=== PATIENT | female | born 1970 | race Caucasian/White ===

== ENCOUNTER 2020-03-16 14:18 | Outpatient (REF) | payer OTHER, SELFPAY ==
--- NOTE | 2020-03-16 14:46 | XR_ITS ---
EXAMINATION: XR knee standing BI CLINICAL INFORMATION: Reason for Exam M25.561 - Pain in right knee COMPARISON: None available at the time of this dictation. TECHNIQUE: Bilateral frontal standing FINDINGS: BONES: No fracture or dislocation is present. JOINTS: Mild degenerative osteoarthritis evidenced by narrowing of medial joint space compartments bilaterally left more than right. SOFT TISSUE: Normal XR/XR knee standing BI IMPRESSION: Mild DJD primarily medial compartments.
== END 2020-03-16 14:19 | disposition home or self-care (01) ==
LOC: HO.XRAY 14:18
PROVIDERS: PCP Internal Medicine; Referring Provider Internal Medicine; Visit Provider Orthopaedic Surgery
DX: M25.561 Pain in right knee (principal); M25.562 Pain in left knee
CPT/HCPCS: 73565; 99212

== ENCOUNTER 2020-03-30 06:06 | Outpatient (REF) | payer OTHER, SELFPAY ==
[2020-03-30 12:46] LABS: Anion Gap 14 (12-20); Blood Urea Nitrogen 16 mg/dL (9-16); Calcium 8.6 mg/dL (8.4-10.2); Carbon Dioxide 26 mmol/L (22-29); Chloride 107 mmol/L (96-108); Cholesterol 247 mg/dL; Estimated Glomerular Filt Rate > 60; Glucose Fasting 91 mg/dL (60-99); HDL Cholesterol 39 mg/dL; LDL Cholesterol Calculated 177 mg/dl; Potassium 4.6 mmol/l (3.3-5.1); Sodium 142 mmol/L (135-145); Triglycerides 155 mg/dL
== END 2020-03-30 06:07 | disposition home or self-care (01) ==
LOC: HO.HMGCLDS 06:06
PROVIDERS: PCP Internal Medicine; Visit Provider Internal Medicine
DX: E78.9 Disorder of lipoprotein metabolism, unspecified (principal)
CPT/HCPCS: 80048; 80061

== ENCOUNTER 2020-06-28 06:57 | Outpatient (REF) | payer OTHER, SELFPAY ==
[2020-06-28 11:40] LABS: Anion Gap 11 (12-20); Blood Urea Nitrogen 17 mg/dL (9-16); Calcium 8.6 mg/dL (8.4-10.2); Carbon Dioxide 28 mmol/L (22-29); Chloride 108 mmol/L (96-108); Cholesterol 164 mg/dL; Estimated Glomerular Filt Rate > 60; Glucose Fasting 96 mg/dL (60-99); HDL Cholesterol 31 mg/dL; LDL Cholesterol Calculated 80 mg/dl; Potassium 4.3 mmol/L (3.3-5.1); Sodium 143 mmol/L (135-145); Triglycerides 266 mg/dL
== END 2020-06-28 06:58 | disposition home or self-care (01) ==
LOC: HO.HMGCLDS 06:57
PROVIDERS: PCP Internal Medicine; Visit Provider Internal Medicine
DX: G44.89 Other headache syndrome (principal); E78.9 Disorder of lipoprotein metabolism, unspecified
CPT/HCPCS: 36415; 80048; 80061

== ENCOUNTER 2020-07-18 14:54 | Outpatient (REF) | payer OTHER, SELFPAY ==
--- NOTE | ~2020-07-18 | MM_ITS ---
EXAMINATION: MM DIAGNOSTIC DIGITAL BREAST TOMOSYNTHESIS, LEFT CLINICAL INFORMATION: Short interval six-month follow-up asymmetric density mid 6:00 left breast initially noted at baseline exam. The lifetime risk of breast cancer based on the Tyrer-Cuzick Model is 6%. COMPARISON: Mammography: 12/15/2019, 12/02/2019 (baseline, BI-RADS 0), targeted left breast ultrasound 12/15/2019. TECHNIQUE: Digital breast tomosynthesis is performed in both the craniocaudal and mediolateral oblique views along with computer-aided detection (CAD). Synthesized 2D images are generated from the tomosynthesis. FINDINGS: There are scattered areas of fibroglandular density (ACR BI-RADS breast composition Category b). Parenchymal pattern is similar to prior exams. The fibronodular parenchymal asymmetry mid 6:00 position is stable. There is no developing density. The remainder the left breast is unremarkable. Finding will be reassessed again at time of annual bilateral mammography, due in 6 months. Results are provided to the patient at time of visit by the technologist. MM/MM tomosynthesis diagnostic LT IMPRESSION: Parenchymal pattern is similar to prior exam. No significant changes. ASSESSMENT: BI-RADS 3: Probably Benign RECOMMENDATION: Diagnostic mammography at time of bilateral annual exam, due in 6 months. This patient's information was entered into a reminder system with a target due date for their next mammogram.
== END 2020-07-18 14:55 | disposition home or self-care (01) ==
LOC: HO.MAMMO 14:54
PROVIDERS: PCP Internal Medicine; Visit Provider Internal Medicine
DX: R92.2 Inconclusive mammogram (principal)
CPT/HCPCS: 77061; 77063; 77065; 77067

== ENCOUNTER → 2020-07-19 15:11 | Outpatient (BNVA) | payer OTHER, SELFPAY | PROVIDERS: PCP Internal Medicine; Visit Provider Anesthesiology | DX: M25.561 Pain in right knee (principal); M25.562 Pain in left knee; M17.0 Bilateral primary osteoarthritis of knee; G90.522 Complex regional pain syndrome I of left lower limb | CPT/HCPCS: 99202 ==

== ENCOUNTER 2020-08-22 07:13 | Outpatient (REF) | payer OTHER, SELFPAY | END 2020-08-22 07:14 | disposition home or self-care (01) | LOC: HO.RADIR 07:13 | PROVIDERS: Visit Provider Anesthesiology | DX: M17.0 Bilateral primary osteoarthritis of knee (principal); M25.561 Pain in right knee; M25.562 Pain in left knee; G90.522 Complex regional pain syndrome I of left lower limb | CPT/HCPCS: 64447 ==

== ENCOUNTER → 2020-08-30 10:53 | Outpatient (BNVA) | payer OTHER, SELFPAY | PROVIDERS: PCP Internal Medicine; Visit Provider Anesthesiology | DX: Z51.81 Encounter for therapeutic drug level monitoring (principal); Z79.899 Other long term (current) drug therapy | CPT/HCPCS: 99211 ==

== ENCOUNTER → 2020-09-18 14:04 | Outpatient (BNVA) | payer OTHER, SELFPAY | PROVIDERS: PCP Internal Medicine; Visit Provider Anesthesiology ==

== ENCOUNTER 2020-10-05 19:15 | Emergency (ER) | payer OTHER, SELFPAY ==
--- NOTE | ~2020-10-05 | US_ITS ---
EXAMINATION: US VENOUS ULTRASOUND WITH DOPPLER LOWER EXTREMITY, RIGHT CLINICAL INFORMATION: Cough pain and swelling with knee pain. COMPARISON: None TECHNIQUE: Ultrasound of the deep veins is performed from the hip to the calf with compression sonography and color and pulse Doppler assessment. Spectral analysis with color-flow imaging is performed. FINDINGS: There is normal venous compression and respiratory variation and augmented flow. The visualized common femoral vein, superficial femoral vein, profunda femoral vein shows no evidence of deep venous thrombosis. There is acute clot visualized in the right popliteal vein with no color flow. There is no significant popliteal fossa cyst. If the patient's symptoms persist, followup ultrasound in 5 days 7 days might be of value to exclude proximal propagation from a non-visualized calf vein. US/US venous duplex LE RT IMPRESSION: Acute DVT demonstrated in popliteal vein.
[2020-10-05 19:38] VITALS: BP 187/91; PULSE 54; RESP 18; TEMP 36.4; O2SAT 100; BMI 31.9
--- NOTE | 2020-10-05 20:35 | ED.EXTPRO ---
HPI - Extremity Problem General Chief complaint: Extremity Problem Stated complaint: knee pain Time Seen by Provider: 10/05/20 20:35 Source: patient Limitations: no limitations History of Present Illness HPI Narrative: Pain behind right knee, seen in the urgent care and had a negative xray, is on celebrex with no relief. Feels like the leg is swollen Complaint: extremity pain Onset (ago): day(s) Pain Consistency: constant Location: right Quality: aching Relieving factors: nothing Exacerbating factors: nothing Related Data Home Medications Medication Instructions Recorded Confirmed sumatriptan succinate 50 mg tablet 0 mg PO 08/25/20 08/30/20 bisacodyl 5 mg tablet,delayed 10 mg PO BID 10/02/20 release celecoxib 200 mg capsule 200 mg PO DAILY 10/02/20 nitrofurantoin 1 cap PO BID 10/02/20 monohydrate/macrocrystals 100 mg capsule ondansetron HCl 8 mg tablet 8 mg PO Q8H PRN 10/02/20 peg 3350-electrolytes 236 4,000 ml PO DIRECTED 10/02/20 gram-22.74 gram-6.74 gram-5.86 gram solution phenazopyridine 200 mg tablet 200 mg PO TID 10/02/20 tizanidine 2 mg tablet 2 mg PO TID PRN 10/02/20 Previous Rx's Medication Instructions Recorded ibuprofen 600 mg tablet 600 mg PO TID #90 tab 05/08/20 simvastatin 20 mg tablet 20 mg PO BEDTIME 90 Days #90 tab 08/25/20 buspirone 7.5 mg tablet 7.5 mg PO ONCE PRN 30 Days #30 tab 09/25/20 rivaroxaban [Xarelto DVT-PE Treat See Rx Instructions .ROUTE 10/05/20 30d Start] .COMPLEX #51 ea Allergies Allergy/AdvReac Type Severity Reaction Status Date / Time Sulfa (Sulfonamide Allergy Unknown unknown Verified 10/05/20 19:43 Antibiotics) sulfamethoxazole Allergy Unknown Unknown Verified 10/05/20 19:43 [From Bactrim] trimethoprim [From Bactrim] Allergy Unknown Unknown Verified 10/05/20 19:43 Review of Systems Constitutional: Constitutional: Reports no additional constitutional complaints Eyes: Eyes: Reports no additional eye complaints ENT: Denies dizziness Cardiovascular: Cardiovascular: Reports no additional cardiovascular complaints Respiratory: Respiratory: Reports as per HPI Gastrointestinal: Gastrointestinal: Reports no additional gastrointestinal complaints Genitourinary: Genitourinary: Reports no additional female genitourinary complaints Musculoskeletal: Musculoskeletal: Reports no additional musculoskeletal complaints Integumentary/Breasts: Skin/Breast: Denies rash Neurologic: Reports system reviewed and no additional complaints, except as documented, Denies dizziness and Denies Sensory deficit (Neuro) Psychiatric: Psychiatric: Denies anxiety [facility] Past Medical History Medical History Alteration comfort patterns as evidenced by distress Bilateral knee pain Bilateral primary osteoarthritis of knee Chronic pain Complex regional pain syndrome i of left lower limb Headache syndrome Lipid disorder Surgical History History of knee surgery Family History Family History Father HTN (hypertension) Mother HTN (hypertension) Maternal Grandfather Diabetes mellitus Maternal Aunt Cancer Son No problems noted. Son No problems noted. Son No problems noted. Son No problems noted. Son No problems noted. 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 Physical Exam Vital Signs: Vital Signs: Last Vital Signs Temp 97.5 F 10/05/20 19:38 Pulse 54 10/05/20 19:38 Resp 18 10/05/20 19:38 BP 187/91 H 10/05/20 19:38 Pulse Ox 100 10/05/20 19:38 Body Mass Index 31.9 Const: General: healthy appearing Nutritional Appearance: average body habitus Orientation/consciousness: oriented to person and patient oriented x3 Limitations: no limitations HENMT: Head: Yes normal to inspection Ears: external ears normal General nose exam: Normal external nose present Mouth: Normal oral and palatal mucosa present and oropharynx normal Throat: Yes posterior oropharynx normal Eyes: General: appearance normal, both eyes and all related structures Neck: Other: supple Neck: Yes normal visual inspection Chest: Chest palpation & inspection: normal inspection of the chest Resp: Auscultation: clear to auscultation bilaterally Cardio: Jugular venous distension: no JVD Rate: regular rate Rhythm: regular rhythm Heart sounds: S1 normal heart sound present and S2 normal heart sound present GI: Inspection: Yes normal to inspection Palpation (GI): Soft to palpation, nontender and No hepatosplenomegaly present Auscultation: normal bowel sounds : General: Yes no CVA tenderness Back/Spine/Pelvis: Back: no CVA tenderness Skin: General skin exam: no rashes or lesions noted Neuro: General: oriented to person and patient oriented x3 Cranial nerves: Yes CN's II-XII intact bilaterally Motor exam (neuro): 5/5 motor strength present throughout Sensory Exam: No Sensory deficit (Neuro) Extrem: Other: patient with some pain in the calf and pain behind the knee, no redness or signs of infection Psych: Appearance: grossly normal Course Course Course Narrative: will check patient for clot vs toscano's cyst Reevaluation(s) Reevaluation #1: patient with a dvt will start xarelto Time: 21:34 MDM - Extremity (Nontraumatic) MDM Narrative Medical decision making narrative: will dc on xarelto 15mg twice a day for dVT Discharge Plan Discharge Clinical Impression: Deep vein thrombosis of lower extremity Qualifiers: Affected thrombotic vein of extremity: popliteal Chronicity: acute Laterality: right Qualified Code(s): I82.431 - Acute embolism and thrombosis of right popliteal vein Patient Disposition: Home, Self-Care Instructions: Deep Vein Thrombosis (ED) Prescriptions: New Xarelto DVT-PE Treat 30d Start 15 mg (42)- 20 mg (9) tablets,dose pack See Rx Instructions .ROUTE .COMPLEX Qty: 51 RF: 0 No Action buspirone 7.5 mg tablet 7.5 mg PO ONCE PRN (Reason: anxiety) 30 Days Qty: 30 RF: 0 ibuprofen 600 mg tablet 600 mg PO TID Qty: 90 RF: 0 sumatriptan succinate 50 mg tablet 0 mg PO RF: 0 simvastatin 20 mg tablet 20 mg PO BEDTIME 90 Days Qty: 90 RF: 0 celecoxib 200 mg capsule 200 mg PO DAILY RF: 0 nitrofurantoin monohyd/m-cryst 100 mg capsule 1 cap PO BID RF: 0 phenazopyridine 200 mg tablet 200 mg PO TID RF: 0 ondansetron HCl 8 mg tablet 8 mg PO Q8H PRNRF: 0 tizanidine 2 mg tablet 2 mg PO TID PRN (Reason: muscle spasm) RF: 0 peg 3350-electrolytes 236-22.74-6.74 -5.86 gram recon soln 4,000 ml PO DIRECTED RF: 0 bisacodyl 5 mg tablet,delayed release (DR/EC) 10 mg PO BID RF: 0 Referrals: Ochoa Hunter MD [Physician] - 10 days
[2020-10-05] MEDS: Ketorolac Tromethamine 60 MG/2 ML VIAL IM (21:14)
[2020-10-05] MEDS: Rivaroxaban 15 MG TABLET PO (22:44)
== END 2020-10-05 22:45 | disposition home or self-care (01) ==
PROVIDERS: Emergency Provider Emergency Medicine
DX: I82.431 Acute embolism and thrombosis of right popliteal vein (principal); M25.561 Pain in right knee; E78.5 Hyperlipidemia, unspecified; F17.200 Nicotine dependence, unspecified, uncomplicated; Z79.02 Long term (current) use of antithrombotics/antiplatelets; Z79.899 Other long term (current) drug therapy
CPT/HCPCS: 93971; 96372; 99284; J1885

== ENCOUNTER 2020-10-11 09:42 | Outpatient (REF) | payer OTHER, SELFPAY ==
[2020-10-11 11:30] LABS: MANUAL DIFF FLAG NO
[2020-10-11 11:54] LABS: Basophils Absolute Auto 0.1 X10*3/uL (0.0-0.2); Basophils Percent Auto 0.8 % (0-2); Eosinophils Absolute Auto 0.2 X10*3/uL (0.0-0.4); Eosinophils Percent Auto 2.4 % (0-4); Hemoglobin 14.2 g/dl (12.0-16.0); Imm Gran Abs Auto 0.02 X10*3/uL (0.00-0.03); Imm Gran Pct Auto 0.3 % (0.0-0.4); Lymphocytes Absolute Auto 3.7 X10*3/uL (1.2-4.9); Lymphocytes Percent Auto 46.8 % (20-40); Mean Corpuscular HGB Conc 33.8 g/dl (31.0-35.0); Mean Corpuscular Hemoglobin 31.6 pg (27.0-33.0); Mean Corpuscular Volume 93.5 fL (80-98); Mean Platelet Volume 14.1 fL (9.4-12.3); Monocytes Absolute Auto 0.6 X10*3/uL (0.1-1.2); Monocytes Percent Auto 7.6 % (2-11); Neutrophils Absolute Auto 3.4 X10*3/uL (2.0-8.3); Neutrophils Percent Auto 42.1 % (45-73); Platelet Count 160 X10*3/uL (160-400); Red Blood Count 4.49 X10*6/uL (4.20-5.50); Red Cell Distribution Width 13.2 % (11.0-16.0)
[2020-10-11 12:14] LABS: Alanine Aminotransferase 19 U/L (0-31); Albumin Level 4.5 g/dL (3.5-5.0); Alkaline Phosphatase 75 U/L (39-117); Anion Gap 14 (12-20); Aspartate Amino Transferase 18 U/L (5-31); Bilirubin Total 0.4 mg/dL (0.0-1.0); Blood Urea Nitrogen 19 mg/dL (9-16); Calcium 9.3 mg/dL (8.4-10.2); Carbon Dioxide 23 mmol/L (22-29); Chloride 107 mmol/L (96-108); Estimated Glomerular Filt Rate > 60; Glucose Random 87 mg/dL (60-115); Potassium 4.4 mmol/L (3.3-5.1); Sodium 140 mmol/L (135-145); Total Protein 7.5 g/dL (6.5-8.0)
== END 2020-10-11 09:43 | disposition home or self-care (01) ==
LOC: HO.HMGCLDS 09:42
PROVIDERS: PCP Internal Medicine; Visit Provider Internal Medicine
DX: I82.401 Acute embolism and thrombosis of unspecified deep veins of right lower extremity (principal)
CPT/HCPCS: 36415; 80053; 81241; 85025

== ENCOUNTER → 2020-10-13 10:08 | Outpatient (BNV) | payer OTHER, SELFPAY | PROVIDERS: PCP Internal Medicine; Visit Provider Internal Medicine | DX: I82.491 Acute embolism and thrombosis of other specified deep vein of right lower extremity (principal) | CPT/HCPCS: 99203; 99213; 99214; G2211 ==

== ENCOUNTER 2020-10-18 10:29 | Emergency (ER) | payer OTHER, SELFPAY ==
--- NOTE | ~2020-10-18 | US_ITS ---
EXAMINATION: US VENOUS ULTRASOUND WITH DOPPLER LOWER EXTREMITY, LEFT CLINICAL INFORMATION: Calf pain. Rule out DVT. COMPARISON: Previous exam most recent 10/05/2020 TECHNIQUE: Ultrasound of the deep veins is performed from the hip to the calf with compression sonography and color and pulse Doppler assessment. Spectral analysis with color-flow imaging is performed. FINDINGS: There is normal venous compression and respiratory variation and augmented flow. The visualized common femoral vein, superficial femoral vein, profunda femoral vein, popliteal vein, and the trifurcation region shows no evidence of deep venous thrombosis. There is no significant popliteal fossa cyst. US/US venous duplex LE LT IMPRESSION: No DVT demonstrated in the left lower extremity.
[2020-10-18 10:31] VITALS: BP 153/81; PULSE 64; RESP 18; TEMP 36.2; O2SAT 99; BMI 31.8
--- NOTE | 2020-10-18 11:03 | ED.EXTPRO ---
HPI - Extremity Problem General Chief complaint: Extremity Problem <DENVER Camara - Last Filed: 10/25/20 14:28> Stated complaint: blood clot? <DENVER Camara - Last Filed: 10/25/20 14:28> Time Seen by Provider: 10/18/20 11:03 <DENVER Camara - Last Filed: 10/25/20 14:28> History of Present Illness HPI Narrative: Patient just recently within the last several weeks started Xarelto for a right lower extremity deep vein thrombosis, she comes today complaining of pain in the back of her left knee without swelling without injury, she has no shortness of breath no chest pain <DENVER Camara - Last Filed: 10/25/20 14:28> Related Data Home medications: Home Medications Medication Instructions Recorded Confirmed sumatriptan succinate 50 mg tablet 50 mg PO DAILY PRN 08/25/20 11/24/20 bisacodyl 5 mg tablet,delayed 10 mg PO BID 10/02/20 11/24/20 release Previous Rx's Medication Instructions Recorded rivaroxaban [Xarelto DVT-PE Treat See Rx Instructions .ROUTE 10/05/20 30d Start] .COMPLEX #51 ea buspirone 7.5 mg tablet 7.5 mg PO DAILY PRN 9 Days #90 tab 10/24/20 rivaroxaban [Xarelto] 20 mg PO DAILY #90 tab 11/03/20 simvastatin 20 mg tablet 20 mg PO BEDTIME 90 Days #90 tab 11/23/20 oxycodone 5 mg capsule 5 mg PO BID PRN 30 Days #60 cap 11/24/20 gabapentin 300 mg capsule 300 mg PO BEDTIME 30 Days #30 cap 11/28/20 <DENVER Camara - Last Filed: 10/25/20 14:28> Allergies/Adverse reactions: Allergies Allergy/AdvReac Type Severity Reaction Status Date / Time Sulfa (Sulfonamide Allergy Unknown unknown Verified 10/18/20 10:36 Antibiotics) sulfamethoxazole Allergy Unknown Unknown Verified 10/18/20 10:36 [From Bactrim] trimethoprim [From Bactrim] Allergy Unknown Unknown Verified 10/18/20 10:36 <DENVER Camara Last Filed: 10/25/20 14:28> Review of Systems Review of Systems: Positive for left leg pain next 9 negatives are no fever no chills no dizziness no weakness no fainting feeling faint no headache no neck pain no chest pain no shortness of breath no abdominal pain no nausea or vomiting no numbness weakness or tingling no skin rash <DENVER Camara - Last Filed: 10/25/20 14:28> Yes all other systems are reviewed and are negative <DENVER Camara - Last Filed: 10/25/20 14:28> [facility] Past Medical History Source: nursing notes reviewed <DENVER Camara - Last Filed: 10/25/20 14:28> Medical History: Medical History Alteration comfort patterns as evidenced by distress Bilateral knee pain Bilateral primary osteoarthritis of knee Chronic pain Complex regional pain syndrome i of left lower limb Headache syndrome Lipid disorder <DENVER Camara - Last Filed: 10/25/20 14:28> Surgical History: Surgical History History of knee surgery <DENVER Camara Last Filed: 10/25/20 14:28> Family History Family History: Family History Father HTN (hypertension) Mother HTN (hypertension) Maternal Grandfather Diabetes mellitus Maternal Aunt Cancer Son No problems noted. Son No problems noted. Son No problems noted. Son No problems noted. Son No problems noted. 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 <DENVER Camara - Last Filed: 10/25/20 14:28> Physical Exam Vital Signs: Vital Signs: Last Vital Signs Temp 97.2 F 10/18/20 10:31 Pulse 64 10/18/20 10:31 Resp 18 10/18/20 10:31 BP 153/81 H 10/18/20 10:31 Pulse Ox 99 10/18/20 10:31 Body Mass Index 31.8 <DENVER Camara - Last Filed: 10/25/20 14:28> Vital Signs: Last Vital Signs Temp 97.2 F 10/18/20 10:31 Pulse 64 10/18/20 10:31 Resp 18 10/18/20 10:31 BP 153/81 H 10/18/20 10:31 Pulse Ox 99 10/18/20 10:31 Body Mass Index 31.8 <Ruy Melendez MD - Last Filed: 11/28/20 18:12> General appearance no acute distress Head is normocephalic atraumatic Neck is supple Chest is clear to auscultation bilateral Abdomen soft nontender Extremities the left lower extremity is normal in appearance without swelling full range of motion in all joints, there is tenderness in the posterior calf and thigh area, skin is otherwise normal no redness no warmth and neurovascular intact distal Other extremities full range of motion Skin no rash Neuro no gross motor or sensory deficit <DENVER Camara - Last Filed: 10/25/20 14:28> Course Course Course Narrative: Ultrasound of the left lower extremity was negative no DVT Patient is comfortable no shortness of breath, skin exam did not show any sign of skin infection and she is discharged home <DENVER Camara - Last Filed: 10/25/20 14:28> I have reviewed the chart <Ruy Melendez MD - Last Filed: 11/28/20 18:12> Discharge Plan Discharge Clinical Impression: Leg pain, left <DENVER Camara - Last Filed: 10/25/20 14:28> Patient Disposition: Home, Self-Care <DENVER Camara - Last Filed: 10/25/20 14:28> Additional Instructions: Today's ultrasound did not show any blood clot in the left leg You should continue your blood thinner Xarelto as prescribed by your doctor and okay for all regular activities Return any time any worse condition or concerns <DENVER Camara Last Filed: 10/25/20 14:28> Prescriptions: No Action buspirone 7.5 mg tablet 7.5 mg PO DAILY PRN (Reason: for anxiety) 9 Days Qty: 90 RF: 0 simvastatin 20 mg tablet 20 mg PO BEDTIME 90 Days Qty: 90 RF: 0 gabapentin 300 mg capsule 300 mg PO BEDTIME 30 Days Qty: 30 RF: 0 Xarelto DVT-PE Treat 30d Start 15 mg (42)- 20 mg (9) tablets,dose pack See Rx Instructions .ROUTE .COMPLEX Qty: 51 RF: 0 Xarelto 20 mg Tablet 20 mg PO DAILY Qty: 90 RF: 3 sumatriptan succinate 50 mg tablet 50 mg PO DAILY PRN (Reason: Migraine Headache) RF: 0 bisacodyl 5 mg tablet,delayed release (DR/EC) 10 mg PO BID RF: 0 oxycodone 5 mg capsule 5 mg PO BID PRN (Reason: pain) 30 Days Qty: 60 RF: 0 <DENVER Camara - Last Filed: 10/25/20 14:28> Stand Alone Forms: Work/School Release <DENVER Camara - Last Filed: 10/25/20 14:28> Interventions: ED Discharge Assessment Last Done: 10/18/20 13:22 <DENVER Camara - Last Filed: 10/25/20 14:28> Discharge Date/Time: 10/18/20 13:23 <DENVER Camara - Last Filed: 10/25/20 14:28>
== END 2020-10-18 13:23 | disposition home or self-care (01) ==
PROVIDERS: Emergency Provider Emergency Medicine; PCP Internal Medicine
DX: R60.0 Localized edema (principal); M79.605 Pain in left leg; Z79.01 Long term (current) use of anticoagulants; Z79.899 Other long term (current) drug therapy
CPT/HCPCS: 93971; 99283

== ENCOUNTER 2020-12-19 16:34 | Emergency (ER) | payer OTHER, SELFPAY ==
--- NOTE | ~2020-12-19 | US_ITS ---
EXAMINATION: US VENOUS WITH DOPPLER LOWER EXTREMITY, LEFT CLINICAL INFORMATION: Pain for 2 days. Evaluate for deep vein thrombosis. COMPARISON: Left lower extremity venous ultrasound dated 10/18/2020. TECHNIQUE: Ultrasound of the deep veins is performed from the hip to the calf with compression sonography and color and pulse Doppler assessment. Spectral analysis with color-flow imaging is performed. FINDINGS: There is normal venous compression and respiratory variation and augmented flow. The visualized common femoral vein, superficial femoral vein, profunda femoral vein, popliteal vein, and the trifurcation region shows no evidence of deep venous thrombosis. There is no significant popliteal fossa cyst. If the patient's symptoms persist, follow up ultrasound in 5 days 7 days might be of value to exclude proximal propagation from a non-visualized calf vein. US/US venous duplex LE IMPRESSION: No DVT demonstrated in the left lower extremity.
[2020-12-19 17:26] VITALS: BP 161/90; PULSE 55; RESP 18; TEMP 36.9; O2SAT 100; BMI 31.8
--- NOTE | 2020-12-19 21:09 | PC.NURSE ---
PT TO HALLWAY WITH C/O LEG PAIN MARLA WHILE AMBULATING. PT AWAITING FOR MD'S EVAL. WARM BLK PROVIDED FOR PT. PT REFUSED ICE PACK. LEGS UP IN RECLINER CHAIR. WILL CONTINUE TO MONITOR PT.
--- NOTE | 2020-12-19 21:39 | PC.NURSE ---
AT BEDSIDE FOR EVAL.
--- NOTE | 2020-12-19 21:46 | ED.EXTPRO ---
HPI - Extremity Problem General Chief complaint: Extremity Problem Stated complaint: PAIN IN LEGS Time Seen by Provider: 12/19/20 21:43 Source: patient Mode of arrival: ambulatory History of Present Illness HPI Narrative: 50-year-old female with history of factor 5 leiden as well as a recent diagnosis of right lower extremity DVT currently on Xarelto presents because of left lower extremity calf pain for 2 days. Otherwise, she denies fevers, palpitations, shortness of breath. She denies any associated swelling, redness. Related Data Home Medications Medication Instructions Recorded Confirmed sumatriptan succinate 50 mg tablet 50 mg PO DAILY PRN 08/25/20 11/24/20 bisacodyl 5 mg tablet,delayed 10 mg PO BID 10/02/20 11/24/20 release Previous Rx's Medication Instructions Recorded rivaroxaban [Xarelto DVT-PE Treat See Rx Instructions .ROUTE 10/05/20 30d Start] .COMPLEX #51 ea buspirone 7.5 mg tablet 7.5 mg PO DAILY PRN 9 Days #90 tab 10/24/20 rivaroxaban [Xarelto] 20 mg PO DAILY #90 tab 11/03/20 simvastatin 20 mg tablet 20 mg PO BEDTIME 90 Days #90 tab 11/23/20 oxycodone 5 mg capsule 5 mg PO BID PRN 30 Days #60 cap 11/24/20 gabapentin 300 mg capsule 300 mg PO BEDTIME 30 Days #30 cap 11/28/20 Allergies Allergy/AdvReac Type Severity Reaction Status Date / Time Sulfa (Sulfonamide Allergy Unknown unknown Verified 12/19/20 17:26 Antibiotics) sulfamethoxazole Allergy Unknown Unknown Verified 12/19/20 17:26 [From Bactrim] trimethoprim [From Bactrim] Allergy Unknown Unknown Verified 12/19/20 17:26 Review of Systems Review of Systems: Pertinent positives and negatives as stated in HPI 10 point review of systems is otherwise negative. [facility] Past Medical History Source: nursing notes reviewed Medical History Alteration comfort patterns as evidenced by distress Bilateral knee pain Bilateral primary osteoarthritis of knee Chronic pain Complex regional pain syndrome i of left lower limb Headache syndrome Lipid disorder Surgical History History of knee surgery Family History Family History Father HTN (hypertension) Mother HTN (hypertension) Maternal Grandfather Diabetes mellitus Maternal Aunt Cancer Son No problems noted. Son No problems noted. Son No problems noted. Son No problems noted. Son No problems noted. 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 GENERAL: Well developed, well nourished, in no acute distress. HEAD: Normocephalic/atraumatic EYES: PERRLA, EOMI EARS: Ext canals without abnormality OROPHARYNX: no oral lesions noted, posterior pharynx clear LUNGS: Normal breath sounds. No adventitious sounds or accessory muscle use. SpO2<100> CARDIOVASCULAR: Regular rate and rhythm without noted murmurs, no JVD or lower extremity edema. ABDOMEN: Soft, non-tender, non-distended with bowel sounds. LEFT LOWER EXTREMITY: No swelling, erythema, and no pain to the back of the calf but is pain on palpation of Achilles SKIN: Inspection of the skin reveals no rashes NEUROLOGIC: Alert and oriented x 4. Strength and sensation to light touch were grossly intact x 4. Course Course Course Narrative: 50-year-old female with history and clinical presentation suggestive of musculoskeletal but will rule out DVT as patient is concerned that despite being on anticoagulation she may have developed another. Review of all investigations negative for evidence of DVT or Ozuna cyst and given the absence of any trauma any further imaging with x-ray is of ankle or foot unlikely to yield further explanation for patient's pain. All results were discussed with her bedside and she was discharged in stable condition with instructions to follow-up with her PCP. Discharge Plan Discharge Clinical Impression: Heel pain, Calf pain Patient Disposition: Home, Self-Care Instructions: Leg Pain (ED) Additional Instructions: 1. Resume all home medications as prescribed. 2. Suspect that this pain that you are feeling may be secondary to lack of support within the heel of your shoe and may be improved with placement of a heel cup, there are many [id number] brands, or you may consider the fact that you need new shoes as you spend a significant amount of time on your feet. 3. Recommend [id number] Tylenol/ibuprofen as needed for pain control and follow-up with your primary care provider in the next 2-3 days for re-evaluation and further outpatient management. Return to the ER for acute worsening of symptoms. Prescriptions: No Action buspirone 7.5 mg tablet 7.5 mg PO DAILY PRN (Reason: for anxiety) 9 Days Qty: 90 RF: 0 simvastatin 20 mg tablet 20 mg PO BEDTIME 90 Days Qty: 90 RF: 0 gabapentin 300 mg capsule 300 mg PO BEDTIME 30 Days Qty: 30 RF: 0 Xarelto DVT-PE Treat 30d Start 15 mg (42)- 20 mg (9) tablets,dose pack See Rx Instructions .ROUTE .COMPLEX Qty: 51 RF: 0 Xarelto 20 mg Tablet 20 mg PO DAILY Qty: 90 RF: 3 sumatriptan succinate 50 mg tablet 50 mg PO DAILY PRN (Reason: Migraine Headache) RF: 0 bisacodyl 5 mg tablet,delayed release (DR/EC) 10 mg PO BID RF: 0 oxycodone 5 mg capsule 5 mg PO BID PRN (Reason: pain) 30 Days Qty: 60 RF: 0 Referrals: Ochoa Hunter MD [Primary Care Provider] - 2 days
--- NOTE | 2020-12-19 22:02 | PC.NURSE ---
PT AWAITING FOR U/S.
== END 2020-12-19 23:22 | disposition home or self-care (01) ==
PROVIDERS: Emergency Provider Student in an Organized Health Care Education/Training Program; PCP Internal Medicine
DX: M79.662 Pain in left lower leg (principal); M79.672 Pain in left foot; D68.51 Activated protein C resistance; Z86.718 Personal history of other venous thrombosis and embolism; Z79.02 Long term (current) use of antithrombotics/antiplatelets
CPT/HCPCS: 93971; 99283; 99284

== ENCOUNTER 2021-01-16 14:45 | Outpatient (REF) | payer OTHER, SELFPAY ==
--- NOTE | ~2021-01-16 | MM_ITS ---
EXAMINATION: MM DIAGNOSTIC DIGITAL BREAST TOMOSYNTHESIS, BILATERAL CLINICAL INFORMATION: Short interval follow-up probable benign asymmetric density mid 6:00 left breast initially noted at baseline exam. Due for yearly. No family history breast cancer. The lifetime risk of breast cancer based on the Tyrer-Cuzick Model is 7%. COMPARISON: Mammography: 07/18/2020, 12/15/2019, 12/02/2019 (BI-RADS 0, baseline), targeted left breast ultrasound 12/15/2019. TECHNIQUE: Digital breast tomosynthesis is performed in both the craniocaudal and mediolateral oblique views along with computer-aided detection (CAD). Synthesized 2D images are generated from the tomosynthesis. FINDINGS: There are scattered areas of fibroglandular density (ACR BI-RADS breast composition Category b). Parenchymal pattern is similar to prior exams. The probable benign small fibronodular asymmetry mid 6:00 left breast on CC view is stable since baseline exam. Finding will be reassessed again at next bilateral annual mammography, due in 12 months. Neither breast shows developing density or interval mass or architectural abnormality. No abnormal calcifications. The axilla are unremarkable. Results are provided to the patient at time of visit by the technologist. MM/MM tomosynthesis diagnostic BI IMPRESSION: 1. Left: Small fibronodular asymmetry mid 6:00 left breast on CC view, stable since baseline exam. 2. Right: No mammographic evidence of malignancy. ASSESSMENT: BI-RADS 3: Probably Benign RECOMMENDATION: Diagnostic mammography at time of next annual exam, due in 12 months. This patient's information was entered into a reminder system with a target due date for their next mammogram.
== END 2021-01-16 14:46 | disposition home or self-care (01) ==
LOC: HO.MAMMO 14:45
PROVIDERS: Visit Provider Internal Medicine
DX: R92.2 Inconclusive mammogram (principal)
CPT/HCPCS: 77062; 77066

== ENCOUNTER 2021-01-18 12:54 | Outpatient (REF) | payer OTHER, SELFPAY ==
--- NOTE | ~2021-01-18 | US_ITS ---
EXAMINATION: US VENOUS ULTRASOUND WITH DOPPLER LOWER EXTREMITY, BILATERAL CLINICAL INFORMATION: M79.604 - Pain in bilateral legs COMPARISON: None TECHNIQUE: Ultrasound of the deep veins is performed from the hip to the calf with compression sonography and color and pulse Doppler assessment. Spectral analysis with color-flow imaging is performed. FINDINGS: RIGHT: There is normal venous compression and respiratory variation and augmented flow. The visualized common femoral vein, superficial femoral vein, profunda femoral vein, popliteal vein, and the trifurcation region shows no evidence of deep venous thrombosis. No popliteal fossa cyst demonstrated. LEFT: There is normal venous compression and respiratory variation and augmented flow. The visualized common femoral vein, superficial femoral vein, profunda femoral vein, popliteal vein, and the trifurcation region shows no evidence of deep venous thrombosis. There is a popliteal fossa cyst present measuring 1.4 x 4.0 x 8.5 cm. There are a few fine avascular internal septations. No peripheral or internal color flow. US/US venous duplex LE BI IMPRESSION: 1. No DVT demonstrated in the bilateral lower extremity. 2. Popliteal fossa cyst left medial left calf measuring 1.4 x 4.0 x 8.5 cm.
== END 2021-01-18 12:55 | disposition home or self-care (01) ==
LOC: HO.HMGCX 12:54
PROVIDERS: PCP Internal Medicine; Visit Provider Hospitalist
DX: M79.604 Pain in right leg (principal); M79.605 Pain in left leg; D68.51 Activated protein C resistance
CPT/HCPCS: 93970

== ENCOUNTER 2021-02-03 10:25 | Outpatient (REF) | payer OTHER, SELFPAY ==
--- NOTE | ~2021-02-03 | XR_ITS ---
EXAMINATION: XR KNEE, LEFT CLINICAL INFORMATION: Left knee pain. COMPARISON: 03/16/2020 TECHNIQUE: 4 views of the left knee. FINDINGS: Bones and soft tissues are unremarkable. No fracture or joint effusion. Alignment is anatomic. Joint spaces are maintained. No abnormal soft tissue calcification. XR/XR knee LT 4V IMPRESSION: No significant abnormality seen in the left knee.
== END 2021-02-03 10:26 | disposition home or self-care (01) ==
LOC: HO.HMGCX 10:25
PROVIDERS: PCP Internal Medicine; Visit Provider Internal Medicine
DX: Z13.89 Encounter for screening for other disorder (principal)
CPT/HCPCS: 73564

== ENCOUNTER → 2021-02-15 08:04 | Outpatient (BNVA) | payer OTHER, SELFPAY | PROVIDERS: Visit Provider Orthopaedic Surgery | DX: G90.522 Complex regional pain syndrome I of left lower limb (principal) | CPT/HCPCS: 20610; 99202; J1100 ==

== ENCOUNTER 2021-03-03 07:01 | Outpatient (REF) | payer OTHER, SELFPAY ==
[2021-03-03 11:09] LABS: MANUAL DIFF FLAG NO
[2021-03-03 11:14] LABS: Basophils Percent Auto 0.5 % (0-2); Eosinophils Absolute Auto 0.1 X10*3/uL (0.0-0.4); Eosinophils Percent Auto 1.9 % (0-4); Hematocrit 41.4 % (37-47); Hemoglobin 14.1 g/dl (12.0-16.0); Imm Gran Abs Auto 0.02 X10*3/uL (0.00-0.03); Imm Gran Pct Auto 0.3 % (0.0-0.4); Lymphocytes Absolute Auto 3.4 X10*3/uL (1.2-4.9); Lymphocytes Percent Auto 45.4 % (20-40); Mean Corpuscular HGB Conc 34.1 g/dl (31.0-35.0); Mean Corpuscular Hemoglobin 32.1 pg (27.0-33.0); Mean Corpuscular Volume 94.3 fL (80-98); Mean Platelet Volume 13.7 fL (9.4-12.3); Monocytes Absolute Auto 0.5 X10*3/uL (0.1-1.2); Monocytes Percent Auto 6.6 % (2-11); Neutrophils Absolute Auto 3.4 X10*3/uL (2.0-8.3); Neutrophils Percent Auto 45.3 % (45-73); Platelet Count 162 X10*3/uL (160-400); Red Blood Count 4.39 X10*6/uL (4.20-5.50); Red Cell Distribution Width 13.1 % (11.0-16.0); White Blood Count 7.4 X10*3/uL (4.8-10.8)
[2021-03-03 11:26] LABS: Alanine Aminotransferase 17 U/L (0-31); Albumin Level 4.3 g/dL (3.5-5.0); Alkaline Phosphatase 63 U/L (39-117); Anion Gap 11 (12-20); Aspartate Amino Transferase 16 U/L (5-31); Bilirubin Direct < 0.2 mg/dL (0.0-0.5); Bilirubin Total 0.4 mg/dL (0.0-1.0); Blood Urea Nitrogen 15 mg/dL (9-16); Calcium 9.2 mg/dL (8.4-10.2); Carbon Dioxide 28 mmol/L (22-29); Chloride 110 mmol/L (96-108); Cholesterol 218 mg/dL; Estimated Glomerular Filt Rate > 60; Glucose Fasting 100 mg/dL (60-99); HDL Cholesterol 37 mg/dL; LDL Cholesterol Calculated 120 mg/dl; Potassium 4.5 mmol/L (3.3-5.1); Sodium 144 mmol/L (135-145); Total Protein 7.1 g/dL (6.5-8.0); Triglycerides 309 mg/dL
== END 2021-03-03 07:02 | disposition home or self-care (01) ==
LOC: HO.HMGCLDS 07:01
PROVIDERS: PCP Internal Medicine; Visit Provider Internal Medicine
DX: F41.9 Anxiety disorder, unspecified (principal); G44.89 Other headache syndrome; E78.9 Disorder of lipoprotein metabolism, unspecified; G89.29 Other chronic pain
CPT/HCPCS: 36415; 80053; 80061; 80076; 82248; 85025

== ENCOUNTER 2021-04-25 10:27 | Outpatient (REF) | payer OTHER, SELFPAY ==
--- NOTE | ~2021-04-25 | XR_ITS ---
EXAMINATION: LUMBAR SPINE AND LEFT HIP. CLINICAL INFORMATION: Low back pain. Left hip pain COMPARISON: None TECHNIQUE: 2 views left hip. Lumbar spine 3 views. FINDINGS: Left hip: There is no visible acute fracture, dislocation or subluxation seen. No bony erosive changes. The soft tissues are normal. Lumbar spine: There is normal lumbar lordosis. The vertebral heights and alignment is normal. There is loss of L5-S1, L4-L5 disc heights with moderate ventral spondylosis L2-sacrum L3-L4, L4-L5 and L5/S1 disc levels. No lytic or sclerotic process seen. The paravertebral soft tissues are normal. The SI joints are symmetrical and normal. XR/XR hip LT min 2V IMPRESSION: Mild degenerative disc changes with spondylosis. No visible acute fracture or dislocation.
--- NOTE | ~2021-04-25 | XR_ITS ---
EXAMINATION: LUMBAR SPINE AND LEFT HIP. CLINICAL INFORMATION: Low back pain. Left hip pain COMPARISON: None TECHNIQUE: 2 views left hip. Lumbar spine 3 views. FINDINGS: Left hip: There is no visible acute fracture, dislocation or subluxation seen. No bony erosive changes. The soft tissues are normal. Lumbar spine: There is normal lumbar lordosis. The vertebral heights and alignment is normal. There is loss of L5-S1, L4-L5 disc heights with moderate ventral spondylosis L2-sacrum L3-L4, L4-L5 and L5/S1 disc levels. No lytic or sclerotic process seen. The paravertebral soft tissues are normal. The SI joints are symmetrical and normal. XR/XR lumbar spine 2-3V IMPRESSION: Mild degenerative disc changes with spondylosis. No visible acute fracture or dislocation.
== END 2021-04-25 10:28 | disposition home or self-care (01) ==
LOC: HO.HMGCX 10:27
PROVIDERS: PCP Internal Medicine; Visit Provider Internal Medicine
DX: M54.50 Low back pain, unspecified (principal); M25.552 Pain in left hip
CPT/HCPCS: 72100; 73502

== ENCOUNTER → 2021-05-01 14:42 | Outpatient (BNVA) | payer OTHER, SELFPAY | PROVIDERS: PCP Internal Medicine; Visit Provider Obstetrics & Gynecology ==

== ENCOUNTER → 2021-05-28 14:41 | Outpatient (BNVA) | payer OTHER, SELFPAY | PROVIDERS: PCP Internal Medicine; Visit Provider Anesthesiology ==

== ENCOUNTER → 2021-07-02 12:11 | Outpatient (BNVA) | payer OTHER, SELFPAY | PROVIDERS: PCP Internal Medicine; Visit Provider Anesthesiology | DX: M17.0 Bilateral primary osteoarthritis of knee (principal); G90.522 Complex regional pain syndrome I of left lower limb | CPT/HCPCS: 20610; 99212; J3300 ==

== ENCOUNTER → 2021-08-23 07:09 | Outpatient (BNVA) | payer OTHER, SELFPAY | PROVIDERS: PCP Internal Medicine; Referring Provider Internal Medicine; Visit Provider Nurse Practitioner | DX: Z13.89 Encounter for screening for other disorder (principal) ==

== ENCOUNTER 2021-09-20 11:22 | Emergency (ER) | payer OTHER, SELFPAY | END 2021-09-20 13:12 | disposition left against medical advice (07) | PROVIDERS: Emergency Provider Emergency Medicine; PCP Internal Medicine | DX: R51.9 Headache, unspecified (principal) ==

== ENCOUNTER 2021-09-25 15:50 | Emergency (ER) | payer OTHER, SELFPAY ==
--- NOTE | ~2021-09-25 | XR_ITS ---
EXAMINATION: XR KNEE, RIGHT CLINICAL INFORMATION: Right knee pain status post injury. COMPARISON: None TECHNIQUE: Four views of the right knee. FINDINGS: No significant tricompartmental degenerative joint changes are seen. There is no acute fracture or dislocation. There is a trace suprapatellar joint effusion. The soft tissues are unremarkable. XR/XR knee RT 2V IMPRESSION: Trace suprapatellar joint effusion. No other significant abnormality.
[2021-09-25 16:34] VITALS: BP 156/93; PULSE 60; RESP 18; TEMP 37.2; O2SAT 99; BMI 35.7
--- NOTE | 2021-09-25 17:44 | ED.LOWEXIN ---
HPI - Extremity Injury (Lower) General Chief Complaint: Extremity Injury, Lower Stated Complaint: fall - work injury Time Seen by Provider: 09/25/21 16:50 Source: patient Mode of arrival: ambulatory History of Present Illness HPI Narrative: 50-year-old female with a past medical history of chronic pain, complex regional pain syndrome, osteoarthritis, headaches, factor 5 Leiden on Xarelto, presenting to the ED complaining of right knee pain s/p twisting/tripping injury while going down the stairs today. Admits caught herself, denies direct trauma/fall or injury. Reports pain with weight-bearing/ambulation and flexion. Denies numbness, tingling, weakness MD complaint: knee injury Onset (ago): hour(s) Related Data Previous Rx's Medication Instructions Recorded rivaroxaban 20 mg tablet (Xarelto) 20 mg PO DAILY #90 tab 04/27/21 simvastatin 40 mg tablet 40 mg PO DAILY 90 Days #90 tab 07/27/21 gabapentin 300 mg capsule 300 mg PO DAILY PRN 90 Days #90 cap 08/10/21 ondansetron HCl 4 mg tablet 4 mg PO ONCE PRN #7 tab 08/23/21 peg 3350-electrolytes 236 240 ml PO Q10M 1 Days #4000 ml 08/23/21 gram-22.74 gram-6.74 gram-5.86 gram solution (Golytely) sumatriptan succinate 50 mg tablet 50 mg PO Q2-4H PRN #7 tab MDD 100mg 09/06/21 hydrocodone 5 mg-acetaminophen 325 1 tab PO BID PRN 5 Days #10 tab 09/20/21 mg tablet ondansetron 8 mg disintegrating 8 mg PO Q12H PRN 5 Days #10 tab 09/20/21 tablet omeprazole 20 mg capsule,delayed 20 mg PO DAILY 90 Days #90 cap 09/24/21 release lidocaine 5 % topical patch 1 patch TOPICAL DAILY PRN #30 ea 09/25/21 (Lidoderm) MDD remove after 12 hours tramadol 50 mg tablet 50 mg PO Q8H PRN 3 Days #5 tab 09/25/21 Allergies Allergy/AdvReac Type Severity Reaction Status Date / Time Sulfa (Sulfonamide Allergy Unknown unknown Verified 09/25/21 16:34 Antibiotics) sulfamethoxazole Allergy Unknown Unknown Verified 09/25/21 16:34 [From Bactrim] trimethoprim [From Bactrim] Allergy Unknown Unknown Verified 09/25/21 16:34 Review of Systems Review of Systems: Constitutional: No Fever, No Chills ENT/Mouth: No Ear Pain, No Nasal Congestion, No sore throat, No Rhinorrhea, No Swallowing Difficulty Cardiovascular: No Chest Pain, No SOB Respiratory: No Cough, No Sputum, No Wheezing Gastrointestinal: No Nausea, No Vomiting, No Diarrhea, No Constipation, No Abdominal pain Genitourinary:, No Dysuria, No Urinary Frequency, No Flank Pain Musculoskeletal: + joint pain, No Myalgias,+ Joint Swelling Skin: No Skin Lesions, No rash Neuro: No Weakness, No Numbness, No Paresthesias, no head injury, no LOC Yes all other systems are reviewed and are negative [facility] Past Medical History Attestation statement: The following information was validated with the patient. Medical History Alteration comfort patterns as evidenced by distress Bilateral knee pain Bilateral primary osteoarthritis of knee Chronic pain Complex regional pain syndrome i of left lower limb Headache syndrome Lipid disorder Surgical History History of knee surgery Family History Family History Father HTN (hypertension) Mother HTN (hypertension) Maternal Grandfather Diabetes mellitus Maternal Aunt Cancer Son No problems noted. Son No problems noted. Son No problems noted. Son No problems noted. Son No problems noted. 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 Cognitive needs: No Hearing needs: No Vision needs: No Physical Exam Vital Signs: Vital Signs: Last Vital Signs Temp 98.9 F 09/25/21 16:34 Pulse 60 09/25/21 16:34 Resp 18 09/25/21 16:34 BP 156/93 H 09/25/21 16:34 Pulse Ox 99 09/25/21 16:34 BMI result Body Mass Index 35.7 Const: General: cooperative, healthy appearing and no acute distress Orientation/consciousness: patient oriented x3 Limitations: no limitations HEENT: Head: Yes normal to inspection and Yes atraumatic Ears: hearing grossly normal bilaterally General nose exam: Normal external nose present Face and sinus: Yes normal facial exam Eyes: General: appearance normal, both eyes and all related structures EOM: EOMs intact bilaterally Neck: Neck: Yes normal visual inspection and Yes no meningeal signs Resp: Effort & Inspection: normal respiratory effort and no respiratory distress Cardio: Rate: regular rate Peripheral pulses: dorsalis pedis present Skin: Rashes: no rashes Wounds: no wounds Neuro: Other: Ambulating with slow steady limping gait General: patient oriented x3, tone normal and no meningeal signs Extrem: Other: Right knee with mild swelling, no deformity. Tender greatest to suprapatellar region. Extension intact. Flexion limited secondary to pain. Neurovascular intact distally. Course Course Course Narrative: XR knee RT 2V IMPRESSION: Trace suprapatellar joint effusion. No other significant abnormality. > results discussed with patient. Marko wrap applied for comfort and stability. Patient also supplied with crutches MDM - Extremity Injury (Lower) MDM Narrative Medical decision making narrative: 50-year-old female with a past medical history of chronic pain, complex regional pain syndrome, osteoarthritis, headaches, factor 5 Leiden on Xarelto, presenting to the ED complaining of right knee pain s/p twisting/tripping injury while going down the stairs today. On exam vital signs stable, NAD/nontoxic appearing from physical exams above. Concern for strain vs meniscal/ligamental or tendon injury. Lower concern for fracture. Plan: X-rays Medical Records Attestation: I reviewed the patient's medical records. Lab Data Attestation: I reviewed the patient's lab results. Discharge Plan Discharge Clinical Impression: Suprapatellar effusion of knee Patient Disposition: Home, Self-Care Instructions: Swollen Knee Joint (ED) Additional Instructions: Your x-ray shows a suprapatellar joint effusion. Wear Marko wrap at home for comfort and stability. Use crutches as needed. You can bear weight as tolerated. Rest. Elevate. Ice. Please follow-up with [facility]. If symptoms persist or worsen return to the ED Tramadol opiate pain medication, take only when pain is severe for the next 3 days. In addition take Tylenol Prescriptions: New tramadol 50 mg tablet 50 mg PO Q8H PRN (Reason: pain, severe) 3 Days Qty: 5 0RF lidocaine [Lidoderm] 5 % adhesive patch,medicated 1 patch topical DAILY MDD remove after 12 hours PRN (Reason: pain) Qty: 30 0RF Rx Instructions: leave on most painful area for up to 12 hrs No Action simvastatin 40 mg tablet 40 mg PO DAILY 90 Days Qty: 90 0RF gabapentin 300 mg capsule 300 mg PO DAILY PRN (Reason: Pain) 90 Days Qty: 90 0RF sumatriptan succinate 50 mg tablet 50 mg PO Q2-4H MDD 100mg PRN (Reason: migraine headache) Qty: 7 0RF Rx Instructions: do not exceed 2 doses per 24 hrs omeprazole 20 mg capsule,delayed release(DR/EC) 20 mg PO DAILY 90 Days Qty: 90 0RF Xarelto 20 mg Tablet 20 mg PO DAILY Qty: 90 3RF Rx Instructions: must administer with evening meal hydrocodone-acetaminophen 5-325 mg tablet 1 tab PO BID PRN (Reason: pain) 5 Days Qty: 10 0RF ondansetron 8 mg tablet,disintegrating 8 mg PO Q12H PRN (Reason: nausea and vomiting) 5 Days Qty: 10 0RF peg 3350-electrolytes [Golytely] 236-22.74-6.74 -5.86 gram recon soln 240 ml PO Q10M 1 Days Qty: 4000 0RF Rx Instructions: until fecal effluent is clear; do not exceed a total volume of 2,000 mL ondansetron HCl 4 mg tablet 4 mg PO ONCE PRN (Reason: nausea and vomiting) Qty: 7 0RF Referrals: [facility] [Outside] Hollie Driver PA-C [Physician Weatherization Crew Leader] - 1 week Stand Alone Forms: Work/School Release
[2021-09-25 18:11] VITALS: RESP 16
== END 2021-09-25 18:13 | disposition home or self-care (01) ==
PROVIDERS: Emergency Provider Internal Medicine; PCP Internal Medicine
DX: M25.461 Effusion, right knee (principal); D68.51 Activated protein C resistance; F17.210 Nicotine dependence, cigarettes, uncomplicated; Z79.01 Long term (current) use of anticoagulants; Z71.6 Tobacco abuse counseling; Z79.899 Other long term (current) drug therapy
CPT/HCPCS: 73560; 99283; 99284

== ENCOUNTER 2021-10-05 08:17 | Outpatient (REF) | payer OTHER, SELFPAY ==
--- NOTE | ~2021-10-05 | XR_ITS ---
EXAMINATION: XR KNEE AP STANDING XR KNEE, RIGHT CLINICAL INFORMATION: Bilateral knee pain COMPARISON: Radiographs right knee 09/25/2021, radiographs left knee 02/03/2021 TECHNIQUE: Standing AP view of both knees is performed. Additional right patella sunrise view also included. FINDINGS: Right: Normal bony mineralization. No fracture or destructive process. No interval joint narrowing. No subchondral sclerosis or chondrocalcinosis or erosive change. Axial view patella shows mild lateral tilting. No lateralization. Left: Normal bony mineralization. No fracture or destructive process. There is narrowing medial knee joint compartment again seen. No erosive change or chondrocalcinosis. There is also short linear mineralization adjacent to proximal aspect medial femoral condyle which may be related to old MCL injury. XR/XR knee standing BI IMPRESSION: Right: -Mild lateral tilting patella. -No knee joint compartment narrowing. No erosive change. Left: -Narrowing medial knee joint compartment. No erosive change. -Short linear calcification adjacent to medial femoral condyle, possibly related to remote MCL injury.
--- NOTE | ~2021-10-05 | XR_ITS ---
EXAMINATION: XR KNEE AP STANDING XR KNEE, RIGHT CLINICAL INFORMATION: Bilateral knee pain COMPARISON: Radiographs right knee 09/25/2021, radiographs left knee 02/03/2021 TECHNIQUE: Standing AP view of both knees is performed. Additional right patella sunrise view also included. FINDINGS: Right: Normal bony mineralization. No fracture or destructive process. No interval joint narrowing. No subchondral sclerosis or chondrocalcinosis or erosive change. Axial view patella shows mild lateral tilting. No lateralization. Left: Normal bony mineralization. No fracture or destructive process. There is narrowing medial knee joint compartment again seen. No erosive change or chondrocalcinosis. There is also short linear mineralization adjacent to proximal aspect medial femoral condyle which may be related to old MCL injury. XR/XR knee RT 1V IMPRESSION: Right: -Mild lateral tilting patella. -No knee joint compartment narrowing. No erosive change. Left: -Narrowing medial knee joint compartment. No erosive change. -Short linear calcification adjacent to medial femoral condyle, possibly related to remote MCL injury.
== END 2021-10-05 08:18 | disposition home or self-care (01) ==
LOC: HO.HOSX 08:17
PROVIDERS: Visit Provider Physician Assistant
DX: M22.2X1 Patellofemoral disorders, right knee (principal); M22.2X2 Patellofemoral disorders, left knee
CPT/HCPCS: 73560; 73565; 99202

== ENCOUNTER 2021-10-26 14:00 | Outpatient (RCR) | payer OTHER, SELFPAY ==
--- NOTE | 2021-10-24 09:24 | MHC.PT.EP ---
[facility] [place] [facility] [place] [facility] [place] [facility] [address] Hector Feliciano [address] [phone] F: [phone] F: [phone] F: [phone] F: [phone] Physical Therapy Plan of Care Date of Evaluation: Date of Surgery: Diagnosis: R knee PF syndrome. Assessment: Pt is a 51 y/o female referred to PT for eval and treat of PF syndrome who presents with signs and sx consistent with R knee dysfunction resulting in decreased tolerance and ability to perform ambulatory and standing tasks for duration, negotiating stairs, performing squatting activities and heavy HH chores secondary to decreased B hip and R knee strength, decreased R knee ROM as well as decreased standing LE posture, TTP of popleteal area gait abnormality and pain. Pt is deemed an appropriate candidate to receive skilled PT in order to address her physical limitations to improve her functional ability. Frequency and Duration: The patient will be seen 2 x /wk x 5 wks Short Term Goals: Initiate HEP. No longer TTP od R popleteal area. Yard Spotter Goals: I with HEP. Pt will report able to walk 2 blocks with at most a little bit of difficulty; initial: quite a bit of difficulty. Pt will ascend stairs with reciprocal patter; initial: inconsistent. Improve R knee flexion and extension by at least 1/2 MMT grade. Treatment Plan: Modalities to reduce pain, spasms and effusion. Manual therapy to restore motion and function. Therapeutic exercise to improve strength and flexibility. Neuromuscular re-education for posture and balance. Therapeutic activities to return to functional activities of daily living. Electronically signed by: Parag Granado PT. Please sign and return to therapist. Thank you for your referral.
== END 2021-11-09 14:45 | disposition home or self-care (01) ==
LOC: HO.PTCHIC 14:00
PROVIDERS: PCP Internal Medicine; Visit Provider Physician Assistant
DX: M22.2X1 Patellofemoral disorders, right knee (principal)
CPT/HCPCS: 97110; 97140; 97161

== ENCOUNTER 2022-01-05 08:11 | Outpatient (REF) | payer OTHER, SELFPAY ==
[2022-01-05 11:30] LABS: Alanine Aminotransferase 25 U/L (0-31); Albumin Level 4.5 g/dL (3.5-5.0); Alkaline Phosphatase 69 U/L (39-117); Anion Gap 16 (12-20); Aspartate Amino Transferase 17 U/L (5-31); Bilirubin Total 0.4 mg/dL (0.0-1.0); Blood Urea Nitrogen 16 mg/dL (9-16); Calcium 8.9 mg/dL (8.4-10.2); Carbon Dioxide 24 mmol/L (22-29); Chloride 105 mmol/L (96-108); Cholesterol 238 mg/dL; Estimated Glomerular Filt Rate > 60; Glucose Fasting 104 mg/dL (60-99); HDL Cholesterol 36 mg/dL; LDL Cholesterol Calculated 144 mg/dl; Potassium 3.9 mmol/L (3.3-5.1); Sodium 141 mmol/L (135-145); Total Protein 7.3 g/dL (6.5-8.0); Triglycerides 292 mg/dL
== END 2022-01-05 08:12 | disposition home or self-care (01) ==
LOC: HO.HMGCLDS 08:11
PROVIDERS: PCP Internal Medicine; Visit Provider Internal Medicine
DX: E78.9 Disorder of lipoprotein metabolism, unspecified (principal)
CPT/HCPCS: 36415; 80053; 80061

== ENCOUNTER 2022-01-11 11:43 | Outpatient (REF) | payer OTHER, SELFPAY ==
[2022-01-11 13:55] LABS: Color Urine Yellow; Glucose Urine UA Negative (Negative); Leukocyte Esterase Urine Moderate (2+) (Negative); Nitrite Urine Negative (Negative); PH 5.5 (5.0-8.0); Urine Blood Negative (Negative); Urine Ketones Negative (Negative); Urine Protein Negative (Neg-Trace)
[2022-01-11 13:56] LABS: Appearance Urine Hazy
[2022-01-11 14:13] LABS: Bacteria Urine Trace (None Seen); RBC Urine 0-2 /HPF (0-2); UACC Culture Trigger YES
[2022-01-11 14:14] LABS: Hyaline Casts Urine 0-2 /LPF (0-2)
== END 2022-01-11 11:44 | disposition home or self-care (01) ==
LOC: HO.HMGCLDS 11:43
PROVIDERS: PCP Internal Medicine; Visit Provider Internal Medicine
DX: Z13.9 Encounter for screening, unspecified (principal); R31.9 Hematuria, unspecified
CPT/HCPCS: 81001; 87086; 87147

== ENCOUNTER 2022-01-17 11:27 | Outpatient (REF) | payer OTHER, SELFPAY ==
[2022-01-17 14:54] LABS: Appearance Urine Clear; Color Urine Yellow; Glucose Urine UA Negative (Negative); Leukocyte Esterase Urine Moderate (2+) (Negative); Nitrite Urine Negative (Negative); Urine Blood Negative (Negative); Urine Ketones Negative (Negative); Urine Protein Negative (Neg-Trace)
[2022-01-17 15:56] LABS: Bacteria Urine None Seen (None Seen); Hyaline Casts Urine 0-2 /LPF (0-2); RBC Urine 0-2 /HPF (0-2); Squamous Epithelial Cell Urine 0-2 /HPF (0-2); WBC Urine 0-5 /HPF (0-5)
== END 2022-01-17 11:28 | disposition home or self-care (01) ==
LOC: HO.HMGCLDS 11:27
PROVIDERS: PCP Internal Medicine; Visit Provider Internal Medicine
DX: R31.9 Hematuria, unspecified (principal)
CPT/HCPCS: 81001

== ENCOUNTER 2022-02-07 13:58 | Outpatient (REF) | payer OTHER, SELFPAY ==
--- NOTE | ~2022-02-07 | MM_ITS ---
EXAMINATION: MM DIAGNOSTIC DIGITAL BREAST TOMOSYNTHESIS, BILATERAL CLINICAL INFORMATION: Due for yearly. Also follow-up probable benign small nodular asymmetric density mid 6:00 left breast initially noted at baseline. The lifetime risk of breast cancer based on the Tyrer-Cuzick Model is 7%. COMPARISON: Mammography: 01/16/2021, 07/18/2020, 12/15/2019, 12/02/2019 (BI-RADS 0, baseline). TECHNIQUE: Digital breast tomosynthesis is performed in both the craniocaudal and mediolateral oblique views along with computer-aided detection (CAD). Synthesized 2D images are generated from the tomosynthesis. FINDINGS: There are scattered areas of fibroglandular density (ACR BI-RADS breast composition Category b). The nodular asymmetry mid 6:00 left breast noted initially at baseline screening is less conspicuous and no longer clearly visualized. There is no developing density or interval mass or architectural abnormality. No abnormal calcifications. The axilla are unremarkable. There is a dermal lesion near the right nipple as previously noted with skin marker 12/02/2019. Results are provided to the patient at time of visit by the technologist. MM/MM tomosynthesis diagnostic BI IMPRESSION: -No mammographic evidence of malignancy. -Finding for follow-up left breast is less conspicuous and no longer clearly visualized. No developing density. ASSESSMENT: BI-RADS 2: Benign RECOMMENDATION: Routine annual mammography screening. This patient's information was entered into a reminder system with a target due date for their next mammogram.
== END 2022-02-07 13:59 | disposition home or self-care (01) ==
LOC: HO.MAMMO 13:58
PROVIDERS: PCP Internal Medicine; Visit Provider Internal Medicine
DX: R92.2 Inconclusive mammogram (principal)
CPT/HCPCS: 77062; 77066

== ENCOUNTER 2022-03-22 07:08 | Day surgery (SDC) | payer OTHER, SELFPAY ==
[2022-03-18 15:09] VITALS: BMI 35.4
--- NOTE | 2022-03-21 11:59 | P.CONAN_ITS ---
Documented by User: Jacki Mccarty NP 03/21/22 12:01 HPI - Anesthesia Eval Consult details Narrative: 51yo F for Colonoscopy Xarelto for Factor V / hx DVT PMFSH Active Problems Active Problems: All Active Problems (Updated 03/08/22 @ 13:48 by Ochoa Hunter MD) Sleep disorder (Acute) Frequency of urination (Acute) Dysuria (Acute) Encounter for general adult medical examination with abnormal findings (Acute) Blood in urine (Acute) Patella-femoral syndrome (Acute) Elevated blood pressure reading (Acute) Knee effusion, right (Acute) Nausea and vomiting (Acute) Migraine headache without aura (Acute) Chronic anticoagulation (Acute) Nausea (Acute) Colon cancer screening (Acute) Morbid obesity (Acute) Thyroid disease (Acute) Lymphadenitis, acute (Acute) Obesity due to excess calories (Acute) Acid reflux (Acute) Well woman exam (Acute) Hip pain, left (Acute) Lumbar pain (Acute) Back pain (Acute) Acute pain of left knee (Acute) Knee pain, left (Acute) Bilateral leg pain (Acute) Pain management (Acute) Pain in right leg (Acute) Factor 5 Leiden mutation, heterozygous (Acute) Right leg DVT (Acute) Knee pain, right (Acute) Hospital discharge follow-up (Acute) Anxiety disorder (Acute) Complex regional pain syndrome i of left lower limb (Acute) Bilateral primary osteoarthritis of knee (Acute) Headache syndrome (Acute) Chronic pain (Acute) Alteration comfort patterns as evidenced by distress (Acute) Bilateral knee pain (Acute) Lipid disorder (Acute) Somatic dysfunction of left sacroiliac joint (Acute) Past Medical History Medical History Alteration comfort patterns as evidenced by distress Bilateral knee pain Bilateral primary osteoarthritis of knee Chronic pain Complex regional pain syndrome i of left lower limb Headache syndrome Lipid disorder Family History Family History Father HTN (hypertension) Mother HTN (hypertension) Maternal Grandfather Diabetes mellitus Maternal Aunt Cancer Son No problems noted. Son No problems noted. Son No problems noted. Son No problems noted. Son No problems noted. Surgical History Surgical History History of knee surgery Social History Social History (Updated 03/22/22 @ 08:36 by Shelia Menjivar MD) Household Members: Spouse and Family Housing: House Are you a primary career development engineer to a significant other at home: No Do you presently have visiting nurse or other home services: No Alcohol intake: current Alcohol intake frequency: holidays/special occasions only Patient Tobacco Use Status: Current everyday Tobacco user Tobacco use type: Cigarette Cigarette Packs Per Day: 0.5 Cigarettes Per Day: 10.0 Years Smoked: 40 years Smoked in Last 30 Days: Yes Date Education Initiated: 03/22/22 Use of substances other than those prescribed or required for medical reasons: No Are you DNR?: No Advance Directives: No Advance Directives Information Provided: Yes service: No Current occupational status: employed 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, 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 Cognitive needs: No Hearing needs: No Vision needs: Yes Meds Allergies Allergy/AdvReac Type Severity Reaction Status Date / Time Sulfa (Sulfonamide Allergy Unknown unknown Verified 03/08/22 13:06 Antibiotics) sulfamethoxazole Allergy Unknown Unknown Verified 03/08/22 13:06 [From Bactrim] trimethoprim [From Bactrim] Allergy Unknown Unknown Verified 03/08/22 13:06 Home Medications Medication Instructions Recorded Confirmed Last Taken Type gabapentin 600 mg tablet 600 mg PO DAILY 03/08/22 03/18/22 Unknown History naratriptan 2.5 mg tablet 2.5 mg PO ONCE PRN Migraine 03/08/22 03/18/22 Unknown History Headache Exam Exam Date and Time: March 21, 2022 1159 Height,Weight and Vital Signs: Height 5 ft 5 in Weight 96.615 kg Pertinent Lab Results Pertinent Lab Results: Laboratory Tests 03/03/21 01/05/22 07:05 08:15 WBC 7.4 Hgb 14.1 Hct 41.4 Plt Count 162 Sodium 141 Potassium 3.9 Chloride 105 Carbon Dioxide 24 BUN 16 Creatinine 0.85 Assessment and Plan Assessment Anesthesia Assessment: Chart Reviewed Documented by User: Shelia Menjivar MD 03/22/22 08:37 PMFSH Active Problems Active Problems: All Active Problems (Updated 03/08/22 @ 13:48 by Ochoa Hunter MD) Sleep disorder (Acute) Frequency of urination (Acute) Dysuria (Acute) Encounter for general adult medical examination with abnormal findings (Acute) Blood in urine (Acute) Patella-femoral syndrome (Acute) Elevated blood pressure reading (Acute) Knee effusion, right (Acute) Nausea and vomiting (Acute) Migraine headache without aura (Acute) Chronic anticoagulation (Acute) Colon cancer screening (Acute) Thyroid disease (Acute) since age 7. Not sure if hyper or hypo. No meds/ follw- up. States labs several years ago wnl Lymphadenitis, acute (Acute) Obesity due to excess calories (Acute) Acid reflux (Acute) Well woman exam (Acute) Hip pain, left (Acute) Lumbar pain (Acute) Back pain (Acute) Acute pain of left knee (Acute) Bilateral leg pain (Acute) Pain management (Acute) Pain in right leg (Acute) Factor 5 Leiden mutation, heterozygous (Acute) Right leg DVT (Acute). On Xarelto. Last dose 03/19/22 Knee pain, right (Acute) Hospital discharge follow-up (Acute) Anxiety disorder (Acute) Complex regional pain syndrome I of left lower limb (Acute) Bilateral primary osteoarthritis of knee (Acute) Headache syndrome (Acute) Chronic pain (Acute) Alteration comfort patterns as evidenced by distress (Acute) Lipid disorder (Acute) Somatic dysfunction of left sacroiliac joint (Acute) Smoker Denies KELECHI Past Medical History Medical History Alteration comfort patterns as evidenced by distress Bilateral knee pain Bilateral primary osteoarthritis of knee Chronic pain Complex regional pain syndrome i of left lower limb Headache syndrome Lipid disorder Family History Family History Father HTN (hypertension) Mother HTN (hypertension) Maternal Grandfather Diabetes mellitus Maternal Aunt Cancer Son No problems noted. Son No problems noted. Son No problems noted. Son No problems noted. Son No problems noted. Family history of problems with anesthesia: No Surgical History Surgical History History of knee surgery History of Problems with Anesthesia: No Social History Social History (Updated 03/22/22 @ 08:36 by Shelia Menjivar MD) Household Members: Spouse and Family Housing: House Are you a primary career development engineer to a significant other at home: No Do you presently have visiting nurse or other home services: No Alcohol intake: current Alcohol intake frequency: holidays/special occasions only Patient Tobacco Use Status: Current everyday Tobacco user Tobacco use type: Cigarette Cigarette Packs Per Day: 0.5 Cigarettes Per Day: 10.0 Years Smoked: 40 years Smoked in Last 30 Days: Yes Date Education Initiated: 03/22/22 Use of substances other than those prescribed or required for medical reasons: No Are you DNR?: No Advance Directives: No Advance Directives Information Provided: Yes service: No Current occupational status: employed 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, 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 Cognitive needs: No Hearing needs: No Vision needs: Yes Meds Allergies Allergy/AdvReac Type Severity Reaction Status Date / Time Sulfa (Sulfonamide Allergy Unknown unknown Verified 03/08/22 13:06 Antibiotics) sulfamethoxazole Allergy Unknown Unknown Verified 03/08/22 13:06 [From Bactrim] trimethoprim [From Bactrim] Allergy Unknown Unknown Verified 03/08/22 13:06 Home Medications Medication Instructions Recorded Confirmed Last Taken Type gabapentin 600 mg tablet 600 mg PO DAILY 03/08/22 03/18/22 Unknown History naratriptan 2.5 mg tablet 2.5 mg PO ONCE PRN Migraine 03/08/22 03/18/22 Unknown History Headache Exam Height,Weight and Vital Signs: Height 5 ft 5 in Weight 96.615 kg Vital Signs Temp Pulse Resp BP Pulse Ox O2 Del Method 03/22/22 07:54 97.8 F 60 18 125/80 98 Room Air Airway Mallampati Class: II TM Dist: >3cm Neck ROM: Full Denture: Upper and Lower Heart: RRR Lungs: CTAB Assessment and Plan Final Anesthetic Review Family History of Problems with Anesthesia: No History of Problems with Anesthesia: No NPO: Yes ASA Class: III Final Preanesthetic Review: No Changes in Pt Med Stat, Meds/Allgs Chart Reviewed, Consent Obtained/Reviewed and Anes Risks/Benef Reviewed Patient Risk: Intermediate Procedure Risk: Low Assessment/Block/Sedation in SS: Assess/Block/Sedation-SS Anesthetic Plan Anesthetic Plan: MAC: Disposition: Standard PACU
[2022-03-22 07:54] VITALS: BP 125/80; PULSE 60; RESP 18; TEMP 36.6; O2SAT 98; BMI 34.6
--- NOTE | 2022-03-22 08:15 | MHC.SHP ---
Pre-Procedural Eval Section A Date of Service: 03/22/22 The patient is an INPATIENT: No The History & Physical has been completed within 30 days and I have reviewed it.: No Section B Chief Complaint: screening Details of Present Illness: Colon cancer screening Relevant Family History (Specify if Yes): No Relevant Social History: Tobacco Use Present Medications: see Short Stay Collaborative assessment Medical History: Significant History (Bilateral knee pain Bilateral primary osteoarthritis of knee Chronic pain Complex regional pain syndrome i of left lower limb Headache syndrome Lipid disorder) History of Previous Operations: Relevant previous surgery/procedure and date(s) (History of knee surgery) Allergies: Allergies Allergy/AdvReac Type Severity Reaction Status Date / Time Sulfa (Sulfonamide Allergy Unknown unknown Verified 03/08/22 13:06 Antibiotics) sulfamethoxazole Allergy Unknown Unknown Verified 03/08/22 13:06 [From Bactrim] trimethoprim [From Bactrim] Allergy Unknown Unknown Verified 03/08/22 13:06 Review of Systems Sugical H&P ROS: Negative: Constitution, Cardiovascular, Respiratory and Gastrointestinal Exam Surgical H&P Exam: Normal: Heart, Normal: Lungs, Normal: Extremities and Normal: Abdomen Plan Diagnosis/Plan: Unchanged I have reviewed the history and physical and performed a pertinent physical examination on my patient. No changes have occurred unless specified.
--- NOTE | 2022-03-22 08:16 | PM.OP ---
Brief Operative Note Date of Service: 03/22/22 Pre-op diagnosis: Colon cancer screening Post-op diagnosis: other ( colon polyps, diverticulosis, hemorrhoids) Procedure: colonoscopy to cecum with biopsies and snare polypectomy Surgeon: Chidi Snow MD Anesthesia: MAC Was an Workforce Consultant used for this Procedure?: Yes Workforce Consultant: Jessenia Cannon Estimated blood loss (mL): 0 Pathology: other (a. transverse colon polyps) Condition: stable Disposition: PACU
[2022-03-22] MEDS: Lactated Ringers 1,000 ML 100 ML IVCONT (08:21)
[2022-03-22 08:22] VITALS: BMI 34.6
[2022-03-22 09:13] VITALS: BP 131/72; PULSE 56; RESP 16; TEMP 36.1; O2SAT 100
--- NOTE | 2022-03-22 09:14 | P.OP_ITS ---
Operative Note Operative Note Date of Service: 03/22/22 Narrative: Pre-op diagnosis: Colon cancer screening Post-op diagnosis:?other ( colon polyps, diverticulosis, hemorrhoids) Surgeon: Chidi Snow MD Anesthesia:?MAC Was an Consulting Database Administrator used for this Procedure?:?Yes Consulting Database Administrator:?Jessenia Cannon Estimated blood loss (mL):?0 Pathology:?other (a. transverse colon polyps) COLONOSCOPY TILL CECUM WITH BIOPSIES AND SNARE POLYPECTOMY Consent: Indications for the procedure and potential complications of bleeding, perforation, reaction to medications and missed diagnosis were discussed with the patient and informed consent was obtained. Instrument: Olympus PCF H 190 L variable stiffness pediatric colonoscope Monitoring: Vital signs and clinical assessment, intermittent blood pressure monitoring, continuous EKG monitoring, Pulse oximetry and Carbon Dioxide monitoring were done throughout the procedure. Colon withdrawl time was 18 minutes. Procedure: The patient was placed in the left lateral decubitis position and pre-procedure medications were administered. After a digital rectal examination of the ano-rectum, the video colonoscope was inserted into the rectum and advanced through the colon to the cecum. The colonoscope was slowly withdrawn in a retrograde panoramic fashion and the colon mucosa was carefully examined including a retroflexed view of the rectum. Findings and interventions are described below. Procedure Difficulty: colon was long and tortuous and there was some loop formation. LLQ pressure applied to intubate the ascending colon Findings: Terminal Ileum: Not evaluated Cecum: Normal Ascending Colon: Normal Transverse Colon: Three 5 to 10 mm diminutive appearing polyps removed with a cold biopsy and cold snare. Descending Colon: Normal Sigmoid Colon: Moderate diverticulosis Rectum: Normal Ano-rectum: Moderate internal hemorrhoids Colon preparation: Excellent Impression and Post Procedure Diagnosis: Colonoscopy Findings: Three small to medium sized polyps removed Moderate diverticulosis seen in the sigmoid colon Moderate hemorrhoids on retroflexed exam. Plan: Await pathology results Patient has an appointment on 04/05/22 in the [facility] with Kelly Amezcua NP . Repeat Colonoscopy interval based on path results - in 3-5 years if polyps are adenomatous and 10 years if polyps are hyperplastic (adult colonoscope for future colonoscopies). Above findings were reviewed with the patient and colon polyps and diverticulosis handouts were given in the discharge area
[2022-03-22 09:28] VITALS: BP 117/84; PULSE 56; RESP 19; TEMP 36.2; O2SAT 100
== END 2022-03-22 10:18 | disposition home or self-care (01) ==
PROVIDERS: PCP Internal Medicine; Visit Provider Internal Medicine Gastroenterology
PROC: 0DJD8ZZ Inspection of Lower Intestinal Tract, Via Natural or Artificial Opening Endoscopic (ICD-10-PCS; CPT 45378; principal; 2022-03-22 08:30)
DX: Z12.11 Encounter for screening for malignant neoplasm of colon (principal); D12.3 Benign neoplasm of transverse colon; K57.30 Diverticulosis of large intestine without perforation or abscess without bleeding; K64.8 Other hemorrhoids; F17.210 Nicotine dependence, cigarettes, uncomplicated; G90.522 Complex regional pain syndrome I of left lower limb; M17.0 Bilateral primary osteoarthritis of knee; G44.89 Other headache syndrome; E75.6 Lipid storage disorder, unspecified; Z79.899 Other long term (current) drug therapy; Z88.2 Allergy status to sulfonamides
CPT/HCPCS: 45385; 45380; 88305

== ENCOUNTER 2022-06-06 13:54 | Outpatient (REF) | payer OTHER, SELFPAY | END 2022-06-06 13:55 | disposition home or self-care (01) | LOC: HO.LAB 13:54 | PROVIDERS: PCP Internal Medicine; Visit Provider Nurse Practitioner Family | DX: N39.0 Urinary tract infection, site not specified (principal); R30.0 Dysuria | CPT/HCPCS: 51798; 87086; 87147 ==

== ENCOUNTER 2022-06-13 14:30 | Outpatient (REF) | payer OTHER, SELFPAY ==
--- NOTE | ~2022-06-13 | US_ITS ---
EXAMINATION: US RETROPERITONEAL COMPLETE (RENAL) CLINICAL INFORMATION: Urinary tract infection, site not specified. COMPARISON: None TECHNIQUE: Real-time imaging of the kidneys and bladder. FINDINGS: RIGHT KIDNEY: 12.4 x 4.3 x 5.1 cm (SAG x AP x TRV). The kidney is normal in size, contour, and echogenicity. Renal cortical thickness is normal. No calculi or focal parenchymal lesions. No hydronephrosis. LEFT KIDNEY: 13.0 x 5.2 x 5.3 cm (SAG x AP x TRV). The kidney is normal in size, contour, and echogenicity. Renal cortical thickness is normal. No calculi or focal parenchymal lesions. No hydronephrosis. BLADDER: Partially distended. Right ureteral jet is demonstrated; left is not. Prevoid bladder volume is 128 mL. Postvoid bladder volume is 5.71 mL. US/US retroperitoneal comp IMPRESSION: Normal ultrasound, no explanation for patient's UTI. No kidney stones. No evidence of obstruction..
== END 2022-06-13 14:31 | disposition home or self-care (01) ==
LOC: HO.HMGCX 14:30
PROVIDERS: PCP Internal Medicine; Visit Provider Nurse Practitioner Family
DX: N39.0 Urinary tract infection, site not specified (principal)
CPT/HCPCS: 76770

== ENCOUNTER 2022-06-19 07:25 | Outpatient (REF) | payer OTHER, SELFPAY ==
--- NOTE | ~2022-06-19 | MR_ITS ---
EXAMINATION: MR KNEE WITHOUT CONTRAST, RIGHT CLINICAL INFORMATION: Right knee pain and swelling following a slip and fall. Osteoarthritis. COMPARISON: Most recent right knee radiographs dated 10/05/2021. TECHNIQUE: MRI of the knee without contrast was performed using routine sequences on a high-field scanner. FINDINGS: MENISCI: Medial Meniscus: Minimal degenerative intrasubstance signal within the posterior horn. No articular surface tearing. Lateral Meniscus: Diffuse attenuation and irregularity throughout the entirety of the anterior horn and root extending to the anterior aspect of the meniscal body which is significantly enlarged, consistent with diffuse complex tearing. There is a possible dominant oblique inner margin component to the tear at the anterior aspect of the meniscal body which is laterally extruded. LIGAMENTS: Cruciate: Intact. Collateral: Intact. EXTENSOR MECHANISM: Intact. ARTICULAR CARTILAGE/BONE: Patellofemoral Compartment: Full-thickness articular cartilage fissuring at the lateral aspect of the patellar median ridge with minimal subchondral cystic change. Tiny marginal osteophytes. Medial Compartment: Articular cartilage signal heterogeneity and surface irregularity with focal full-thickness fissuring and underlying subchondral cystic change. Tiny marginal osteophytes. Lateral Compartment: Mild articular cartilage signal heterogeneity and surface irregularity with areas of near full-thickness loss at the posterior weightbearing lateral femoral condyle where there is mild subchondral cystic change. Tiny marginal osteophytes. JOINT FLUID AND BURSAE: [id number] joint effusion. Moderate Ozuna's cyst. MR/MR knee RT wo con IMPRESSION: 1. Diffuse complex tearing throughout the entirety of the lateral meniscus anterior horn and root extending to the anterior aspect of the meniscal body. Possible dominant oblique inner margin component to the tear at the anterior aspect of the meniscal body which is laterally extruded. 2. Minimal degenerative intrasubstance signal within the medial meniscus posterior horn without articular surface tearing. 3. Mild tricompartmental osteoarthritis. [id number] joint effusion and moderate Ozuna's cyst.
== END 2022-06-19 07:26 | disposition home or self-care (01) ==
LOC: HO.MRI 07:25
PROVIDERS: PCP Internal Medicine; Visit Provider Physician Assistant
DX: M17.11 Unilateral primary osteoarthritis, right knee (principal)
CPT/HCPCS: 73721

== ENCOUNTER 2022-07-08 17:10 | Emergency (ER) | payer OTHER, SELFPAY ==
--- NOTE | ~2022-07-08 | XR_ITS ---
EXAMINATION: XR chest 2V CLINICAL INFORMATION: Reason for Exam chest pain COMPARISON: None TECHNIQUE: 2 views of the chest FINDINGS: Clear lungs. No pneumothorax or pleural effusion. Normal cardiomediastinal silhouette. XR/XR chest 2V IMPRESSION: * Clear lungs.
[2022-07-08 17:25] VITALS: BP 180/93; PULSE 68; RESP 18; TEMP 36.7; O2SAT 98; BMI 36.8
--- NOTE | 2022-07-08 17:25 | ED.CHESTPAIN ---
HPI - Chest Pain General Chief Complaint: Chest Pain <DENVER Combs - Last Filed: 07/08/22 17:28> Stated Complaint: chest pain <DENVER Combs - Last Filed: 07/08/22 17:28> Time Seen by Provider: 07/08/22 22:41 <DENVER Combs - Last Filed: 07/08/22 17:28> Source: patient <DENVER Gaines - Last Filed: 07/08/22 23:41> Mode of arrival: ambulatory <DENVER Gaines - Last Filed: 07/08/22 23:41> Limitations: no limitations <DENVER Gaines Last Filed: 07/08/22 23:41> History of Present Illness HPI narrative: This is a 51-year-old female presenting to the emergency department for evaluation of left-sided chest pain that wraps around and she feels in the left shoulder region, patient states that this chest pain started this morning suddenly at work. Tells me it is worse with movement better at rest. And it is reproducible with palpation. Patient states it is intermittent and sharp in nature has a hard time quantifying the pain. Tells me she has a history of factor 5 Leiden is anticoagulated on Xarelto. Patient denies shortness of breath, fevers, chills, nausea, vomiting, headache, vision changes, dizziness or weakness, tearing back pain, lower extremity edema. <DENVER Gaines Last Filed: 07/08/22 23:41> Related Data Home Medications: Home Medications Medication Instructions Recorded Confirmed gabapentin 600 mg tablet 600 mg PO DAILY 03/08/22 06/06/22 naratriptan 2.5 mg tablet 2.5 mg PO ONCE PRN Migraine 03/08/22 06/06/22 Headache Previous Rx's Medication Instructions Recorded lidocaine 5 % topical patch 1 patch topical DAILY PRN pain #30 09/25/21 (Lidoderm) ea simvastatin 40 mg tablet 40 mg PO DAILY 90 days #90 tabs 01/09/22 alprazolam 0.5 mg tablet See Rx Instructions PO ONCE sleep 03/15/22 #1 tab jofoajjbuf-wburbibbhyopy-yhkbntoa 1 cap PO BID PRN pain 2 days #4 04/10/22 50 mg-300 mg-40 mg capsule caps (Fioricet) rivaroxaban 20 mg tablet (Xarelto) 20 mg PO DAILY #90 tabs 05/06/22 omeprazole 20 mg capsule,delayed 20 mg PO DAILY 90 days #90 caps 06/10/22 release amoxicillin 500 mg-potassium 1 tab PO BID UTI 7 days #14 tabs 06/12/22 clavulanate 125 mg tablet (Augmentin) <DENVER Combs - Last Filed: 07/08/22 17:28> Allergies/Adverse Reactions: Allergies Allergy/AdvReac Type Severity Reaction Status Date / Time Sulfa (Sulfonamide Allergy Unknown unknown Verified 06/06/22 21:01 Antibiotics) sulfamethoxazole Allergy Unknown Unknown Verified 06/06/22 21:01 [From Bactrim] trimethoprim [From Bactrim] Allergy Unknown Unknown Verified 06/06/22 21:01 <DENVER Combs - Last Filed: 07/08/22 17:28> Review of Systems Review of Systems: Constitutional : No Weight loss, No Fever, No Chills, No Fatigue, No Malaise ENT/Mouth : No sore throat, No Rhinorrhea Eyes: No Eye Pain, No Swelling, No Redness Cardiovascular : + Chest Pain, No SOB, No Dyspnea on Exertion, No Orthopnea, No Edema, No Palpitations Respiratory : No Cough, No Sputum, No Wheezing Gastrointestinal : No Nausea, No Vomiting, No Diarrhea, No Constipation, No abdominal Pain, No Hematochezia, No Melena Genitourinary : No Dysuria, No Urinary Frequency, No Hematuria, Musculoskeletal : No joint pain, No Myalgias, No Joint Swelling Skin : No Skin Lesions, No rash Neuro : No Weakness, No Numbness, No Dizziness, No Headache Psych : No Anxiety/Panic, No Depression All other systems reviewed and are negative <DENVER Gaines Last Filed: 07/08/22 23:41> Yes all other systems are reviewed and are negative <DENVER Gaines Last Filed: 07/08/22 23:41> PMFSH Past Medical History Attestation statement: The following information was validated with the patient. <DENVER Gaines Last Filed: 07/08/22 23:41> Source: old records reviewed and nursing notes reviewed <DENVER Gaines - Last Filed: 07/08/22 23:41> Medical History: Medical History Alteration comfort patterns as evidenced by distress Bilateral knee pain Bilateral primary osteoarthritis of knee Chronic pain Complex regional pain syndrome i of left lower limb Headache syndrome Lipid disorder <DENVER Combs - Last Filed: 07/08/22 17:28> Surgical History: Surgical History H/O colonoscopy History of knee surgery <DENVER Combs - Last Filed: 07/08/22 17:28> Family History Family History: Family History Father HTN (hypertension) Mother HTN (hypertension) Maternal Grandfather Diabetes mellitus Maternal Aunt Cancer Son No problems noted. Son No problems noted. Son No problems noted. Son No problems noted. Son No problems noted. <DENVER Combs - Last Filed: 07/08/22 17:28> Social History Social History: Social History Household Members: Spouse and Family Housing: House Are you a primary out of school hours care worker to a significant other at home: No Do you presently have visiting nurse or other home services: No Alcohol intake: current Alcohol intake frequency: holidays/special occasions only Patient Tobacco Use Status: Current everyday Tobacco user Tobacco use type: Cigarette Cigarette Packs Per Day: 0.5 Cigarettes Per Day: 10.0 Years Smoked: 40 years Advance Directives: No Advance Directives Information Provided: No service: No Current occupational status: employed 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, 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 Cognitive needs: No Hearing needs: No Vision needs: Yes <DENVER Combs - Last Filed: 07/08/22 17:28> Physical Exam Vital Signs: Vital Signs: Last Vital Signs Temp 97.9 F 07/08/22 23:05 Pulse 62 07/08/22 23:05 Resp 14 07/08/22 23:05 BP 129/73 02/13/23 23:05 Pulse Ox 96 07/08/22 23:05 O2 Del Method 07/08/22 23:05 BMI result Body Mass Index 36.8 <DENVER Combs - Last Filed: 07/08/22 17:28> Vital Signs: Last Vital Signs Temp 97.9 F 07/08/22 23:05 Pulse 62 07/08/22 23:05 Resp 14 07/08/22 23:05 BP 129/73 07/08/22 23:05 Pulse Ox 96 07/08/22 23:05 O2 Del Method 07/08/22 23:05 BMI result Body Mass Index 36.8 vss <DENVER Gaines - Last Filed: 07/08/22 23:41> Appearance: Alert.? Oriented X3.? No acute distress.? Head: Normocephalic, atraumatic, no step-offs or deformities Eyes: Pupils equal, round and reactive to light.? CVS: Normal heart rate and rhythm.? Pulses normal+ pain with palpation of left anterior chest wall..? Respiratory: No respiratory distress.? Breath sounds normal.? Abdomen: Soft and nontender.? Skin: Skin warm and dry.? Normal skin color.? Normal skin turgor.? Extremities: No lower extremity edema.? No calf ttp. 5/5 strength to bilateral upper and lower extremities Back: No midline tenderness, no C-spine tenderness, full range of motion, no CVA tenderness bilaterally Neuro: Oriented X 3.? No motor deficit.? No sensory deficit. CN 2-12 intact <DENVER Gaines - Last Filed: 07/08/22 23:41> Course Course Course Narrative: RME - 51 yo female with history of migraines, HLD presents to the ER for evaluation of sharp left sided chest pains that started this morning when she was at work. No associated SOB, nausea. Worse with deep breaths and movement but not reproducible. Will get CXR, EKG and labs. <DENVER Combs - Last Filed: 07/08/22 17:28> Reevaluation(s) Reevaluation #1: CBC appears to be within normal limits. Chemistry with no acute findings requiring intervention. Troponin negative, EKG nonischemic unlikely ACS. COVID negative. CXR unremarkable. Second troponin pending. D-dimer pending. <DENVER Gaines - Last Filed: 07/08/22 23:41> Time: 22:56 <DENVER Gaines - Last Filed: 07/08/22 23:41> Reevaluation #2: Second troponin is still negative. D-dimer negative. Unlikely ACS or PE. I suspect musculoskeletal pain. Patient refusing Tylenol. At this time patient will be discharged home with Cardiology and PCP follow-up. Educated patient on diagnosis and treatment plan, answered all question, patient verbalizes understanding. At this time patient will be discharged home, advised to return with new or worsening symptoms. Educated on worrisome signs and symptoms and when to return. At this time I feel comfortable discharge home. <DENVER Gaines - Last Filed: 07/08/22 23:41> Time: 23:39 <DENVER Gaines - Last Filed: 07/08/22 23:41> Medications Administered Discontinued Medications Generic Name Dose Route Start Last Admin Trade Name Freq PRN Reason Stop Dose Admin Acetaminophen 650 mg 07/08/22 22:57 07/08/22 23:04 Acetaminophen 325 Mg Tablet PO 07/08/22 22:58 Not Given ONCE ONE <DENVER Combs - Last Filed: 07/08/22 17:28> Medications Administered Discontinued Medications Generic Name Dose Route Start Last Admin Trade Name Freq PRN Reason Stop Dose Admin Acetaminophen 650 mg 07/08/22 22:57 07/08/22 23:04 Acetaminophen 325 Mg Tablet PO 07/08/22 22:58 Not Given ONCE ONE <DENVER Gaines Last Filed: 07/08/22 23:41> Medical Decision Making Medical Decision Making [facility] Narrative: [id number] 51-year-old female presents with left-sided chest pain that started this morning worse with movement reproducible with palpation. History of factor 5 Leiden. Reported to triage that pain is worse with deep breathing however she tells me she is not sure if it is any more. Physical examination with left anterior chest wall pain to palpation. Likely musculoskeletal in origin. Unlikely ACS, PE, pneumonia, pneumothorax. Plan at this time basic labs, imaging. <DENVER Gaines - Last Filed: 07/08/22 23:41> Differential Diagnosis Differential Diagnoses: The differential diagnosis associated with the presentation includes <DENVER Gaines - Last Filed: 07/08/22 23:41> Likely musculoskeletal in origin. Unlikely ACS, PE, pneumonia, pneumothorax. <DENVER Gaines - Last Filed: 07/08/22 23:41> Lab Data Result Diagrams: 07/08/22 17:44 07/08/22 17:44 <DENVER Combs - Last Filed: 07/08/22 17:28> Labs: Lab Results 07/08/22 07/08/22 07/08/22 Range/Units 17:44 17:44 17:44 WBC 8.3 (4.8-10.8) X10*3/uL RBC 4.45 (4.20-5.50) X10*6/uL Hgb 13.9 (12.0-16.0) g/dl Hct 41.1 (37.0-47.0) % MCV 92.4 (80.0-98.0) fL MCH 31.2 (27.0-33.0) pg MCHC 33.8 (31.0-35.0) g/dl RDW 13.0 (11.0-16.0) % Plt Count 160 (160-400) X10*3/uL MPV 13.0 H (9.4-12.3) fL Immature Gran % (Auto) 0.1 (0.0-0.4) % Neut % (Auto) 39.6 L (45-73) % Lymph % (Auto) 50.5 H (20-40) % [place] % (Auto) 6.8 (2-11) % Eos % (Auto) 2.4 (0-4) % Baso % (Auto) 0.6 (0-2) % Lymph # (Auto) 4.2 (1.2-4.9) X10*3/uL [place] # (Auto) 0.6 (0.1-1.2) X10*3/uL Eos # (Auto) 0.2 (0.0-0.4) X10*3/uL Baso # (Auto) 0.1 (0.0-0.2) X10*3/uL Abs Immat Gran (auto) 0.01 (0.00-0.03) X10*3/uL Absolute Neuts (auto) 3.3 (2.0-8.3) x10*3/uL Absolute Nucleated RBC 0.000 (0.0-0.012) X10*3/uL Nucleated RBC % (auto) 0.0 (0.0-0.2) /100WBC D-Dimer High Sensitivty NG/ML Sodium 143 (135-145) mmol/L Potassium 4.0 (3.3-5.1) mmol/L Chloride 108 (96-108) mmol/L Carbon Dioxide 24 (22-29) mmol/L Anion Gap 15 (12-20) BUN 15 (9-16) mg/dL Creatinine 0.74 (0.5-1.4) mg/dL Estim Creat Clear Calc 99.6 Estimated GFR > 60 Random Glucose 90 (60-115) mg/dL Calcium 9.0 (8.4-10.2) mg/dL Magnesium 2.1 (1.6-2.6) mg/dL Total Bilirubin 0.2 (0.0-1.0) mg/dL Direct Bilirubin < 0.2 (0.0-0.5) mg/dL AST 15 (5-31) U/L ALT 17 (0-31) U/L Alkaline Phosphatase 69 (39-117) U/L Troponin I High Sens < 3.5 (<3.5-17.0) ng/L Total Protein 6.8 (6.5-8.0) g/dL Albumin 4.2 (3.5-5.0) g/dL COVID-19 ([facility]) (Negative) COVID-19 Clin Com 07/08/22 07/08/22 07/08/22 Range/Units 17:44 22:56 22:56 WBC (4.8-10.8) X10*3/uL RBC (4.20-5.50) X10*6/uL Hgb (12.0-16.0) g/dl Hct (37.0-47.0) % MCV (80.0-98.0) fL MCH (27.0-33.0) pg MCHC (31.0-35.0) g/dl RDW (11.0-16.0) % Plt Count (160-400) X10*3/uL MPV (9.4-12.3) fL Immature Gran % (Auto) (0.0-0.4) % Neut % (Auto) (45-73) % Lymph % (Auto) (20-40) % [place] % (Auto) (2-11) % Eos % (Auto) (0-4) % Baso % (Auto) (0-2) % Lymph # (Auto) (1.2-4.9) X10*3/uL [place] # (Auto) (0.1-1.2) X10*3/uL Eos # (Auto) (0.0-0.4) X10*3/uL Baso # (Auto) (0.0-0.2) X10*3/uL Abs Immat Gran (auto) (0.00-0.03) X10*3/uL Absolute Neuts (auto) (2.0-8.3) x10*3/uL Absolute Nucleated RBC (0.0-0.012) X10*3/uL Nucleated RBC % (auto) (0.0-0.2) /100WBC D-Dimer High Sensitivty < 150 NG/ML Sodium (135-145) mmol/L Potassium (3.3-5.1) mmol/L Chloride (96-108) mmol/L Carbon Dioxide (22-29) mmol/L Anion Gap (12-20) BUN (9-16) mg/dL Creatinine (0.5-1.4) mg/dL Estim Creat Clear Calc Estimated GFR Random Glucose (60-115) mg/dL Calcium (8.4-10.2) mg/dL Magnesium (1.6-2.6) mg/dL Total Bilirubin (0.0-1.0) mg/dL Direct Bilirubin (0.0-0.5) mg/dL AST (5-31) U/L ALT (0-31) U/L Alkaline Phosphatase (39-117) U/L Troponin I High Sens < 3.5 (<3.5-17.0) ng/L Total Protein (6.5-8.0) g/dL Albumin (3.5-5.0) g/dL COVID-19 ([facility]) Negative (Negative) COVID-19 Clin Com See Note <DENVER Combs - Last Filed: 07/08/22 17:28> Lab Results 07/08/22 07/08/22 07/08/22 Range/Units 17:44 17:44 17:44 WBC 8.3 (4.8-10.8) X10*3/uL RBC 4.45 (4.20-5.50) X10*6/uL Hgb 13.9 (12.0-16.0) g/dl Hct 41.1 (37.0-47.0) % MCV 92.4 (80.0-98.0) fL MCH 31.2 (27.0-33.0) pg MCHC 33.8 (31.0-35.0) g/dl RDW 13.0 (11.0-16.0) % Plt Count 160 (160-400) X10*3/uL MPV 13.0 H (9.4-12.3) fL Immature Gran % (Auto) 0.1 (0.0-0.4) % Neut % (Auto) 39.6 L (45-73) % Lymph % (Auto) 50.5 H (20-40) % [place] % (Auto) 6.8 (2-11) % Eos % (Auto) 2.4 (0-4) % Baso % (Auto) 0.6 (0-2) % Lymph # (Auto) 4.2 (1.2-4.9) X10*3/uL [place] # (Auto) 0.6 (0.1-1.2) X10*3/uL Eos # (Auto) 0.2 (0.0-0.4) X10*3/uL Baso # (Auto) 0.1 (0.0-0.2) X10*3/uL Abs Immat Gran (auto) 0.01 (0.00-0.03) X10*3/uL Absolute Neuts (auto) 3.3 (2.0-8.3) x10*3/uL Absolute Nucleated RBC 0.000 (0.0-0.012) X10*3/uL Nucleated RBC % (auto) 0.0 (0.0-0.2) /100WBC D-Dimer High Sensitivty NG/ML Sodium 143 (135-145) mmol/L Potassium 4.0 (3.3-5.1) mmol/L Chloride 108 (96-108) mmol/L Carbon Dioxide 24 (22-29) mmol/L Anion Gap 15 (12-20) BUN 15 (9-16) mg/dL Creatinine 0.74 (0.5-1.4) mg/dL Estim Creat Clear Calc 99.6 Estimated GFR > 60 Random Glucose 90 (60-115) mg/dL Calcium 9.0 (8.4-10.2) mg/dL Magnesium 2.1 (1.6-2.6) mg/dL Total Bilirubin 0.2 (0.0-1.0) mg/dL Direct Bilirubin < 0.2 (0.0-0.5) mg/dL AST 15 (5-31) U/L ALT 17 (0-31) U/L Alkaline Phosphatase 69 (39-117) U/L Troponin I High Sens < 3.5 (<3.5-17.0) ng/L Total Protein 6.8 (6.5-8.0) g/dL Albumin 4.2 (3.5-5.0) g/dL COVID-19 ([facility]) (Negative) COVID-19 Clin Com 07/08/22 07/08/22 07/08/22 Range/Units 17:44 22:56 22:56 WBC (4.8-10.8) X10*3/uL RBC (4.20-5.50) X10*6/uL Hgb (12.0-16.0) g/dl Hct (37.0-47.0) % MCV (80.0-98.0) fL MCH (27.0-33.0) pg MCHC (31.0-35.0) g/dl RDW (11.0-16.0) % Plt Count (160-400) X10*3/uL MPV (9.4-12.3) fL Immature Gran % (Auto) (0.0-0.4) % Neut % (Auto) (45-73) % Lymph % (Auto) (20-40) % [place] % (Auto) (2-11) % Eos % (Auto) (0-4) % Baso % (Auto) (0-2) % Lymph # (Auto) (1.2-4.9) X10*3/uL [place] # (Auto) (0.1-1.2) X10*3/uL Eos # (Auto) (0.0-0.4) X10*3/uL Baso # (Auto) (0.0-0.2) X10*3/uL Abs Immat Gran (auto) (0.00-0.03) X10*3/uL Absolute Neuts (auto) (2.0-8.3) x10*3/uL Absolute Nucleated RBC (0.0-0.012) X10*3/uL Nucleated RBC % (auto) (0.0-0.2) /100WBC D-Dimer High Sensitivty < 150 NG/ML Sodium (135-145) mmol/L Potassium (3.3-5.1) mmol/L Chloride (96-108) mmol/L Carbon Dioxide (22-29) mmol/L Anion Gap (12-20) BUN (9-16) mg/dL Creatinine (0.5-1.4) mg/dL Estim Creat Clear Calc Estimated GFR Random Glucose (60-115) mg/dL Calcium (8.4-10.2) mg/dL Magnesium (1.6-2.6) mg/dL Total Bilirubin (0.0-1.0) mg/dL Direct Bilirubin (0.0-0.5) mg/dL AST (5-31) U/L ALT (0-31) U/L Alkaline Phosphatase (39-117) U/L Troponin I High Sens < 3.5 (<3.5-17.0) ng/L Total Protein (6.5-8.0) g/dL Albumin (3.5-5.0) g/dL COVID-19 ([facility]) Negative (Negative) COVID-19 Clin Com See Note <DENVER Gaines - Last Filed: 07/08/22 23:41> Critical Care Time Critical Care Time Critical Care Time: No <DENVER Gaines - Last Filed: 07/08/22 23:41> Discharge Plan Discharge Clinical Impression: Left-sided chest wall pain <DENVER Combs - Last Filed: 07/08/22 17:28> Patient Disposition: Home, Self-Care <DENVER Combs - Last Filed: 07/08/22 17:28> Instructions: Chest Pain (ED), Chest Wall Pain (ED) <DENVER Combs - Last Filed: 07/08/22 17:28> Additional Instructions: Take your medications as prescribed. If you were prescribed antibiotics today, it is important that you take your medication to their entirety, do not skip any doses, do not finish them early. Follow-up with your primary care provider this week. Please follow-up with cardiology you may require an outpatient Holter monitor Return to the emergency department with new or worsening symptoms. Such as fevers, chills, chest pain, shortness of breath, nausea, vomiting, dizziness, headache, vision changes, lethargy In case of emergency call 911 <DENVER Combs - Last Filed: 07/08/22 17:28> Prescriptions: No Action simvastatin 40 mg tablet 40 mg PO DAILY 90 Days Qty: 90 1RF alprazolam 0.5 mg tablet See Rx Instructions PO ONCE Qty: 1 0RF Rx Instructions: 1 tab 1/2 hour before colonoscopy orally once; igjihnnudp-vhpegddnqlirv-vbop [Fioricet] 50-300-40 mg capsule 1 cap PO BID PRN (Reason: pain) 2 Days Qty: 4 0RF Rx Instructions: may cause rebound headaches omeprazole 20 mg capsule,delayed release(DR/EC) 20 mg PO DAILY 90 Days Qty: 90 0RF amoxicillin-pot clavulanate [Augmentin] 500-125 mg tablet 1 tab PO BID 7 Days Qty: 14 0RF Xarelto 20 mg Tablet 20 mg PO DAILY Qty: 90 3RF Rx Instructions: must administer with evening meal lidocaine [Lidoderm] 5 % adhesive patch,medicated 1 patch topical DAILY MDD remove after 12 hours PRN (Reason: pain) Qty: 30 0RF Rx Instructions: leave on most painful area for up to 12 hrs gabapentin 600 mg tablet 600 mg PO DAILY naratriptan 2.5 mg tablet 2.5 mg PO ONCE PRN (Reason: Migraine Headache) <DENVER Combs Last Filed: 07/08/22 17:28> Referrals: [facility] [Provider Group] - 2 weeks Ochoa Hunter MD [Primary Care Provider] - 2 days <DENVER Combs - Last Filed: 07/08/22 17:28> Interventions: ED Discharge Assessment Last Done: 07/08/22 20:07 <DENVER Combs - Last Filed: 07/08/22 17:28>
--- NOTE | 2022-07-08 17:27 | ECG_ITS ---
Test Reason : chest pain Blood Pressure : / mmHG Vent. Rate : 064 BPM Atrial Rate : 064 BPM P-R Int : 132 ms QRS Dur : 096 ms QT Int : 408 ms P-R-T Axes : 051 057 018 degrees QTc Int : 420 ms Normal sinus rhythm Normal ECG No previous ECGs available Referred By: Bettie Naik Electronically Signed By:Elmer Olvera
[2022-07-08 17:50] LABS: MANUAL DIFF FLAG NO
[2022-07-08 18:03] LABS: Basophils Absolute Auto 0.1 X10*3/uL (0.0-0.2); Basophils Percent Auto 0.6 % (0-2); Eosinophils Absolute Auto 0.2 X10*3/uL (0.0-0.4); Eosinophils Percent Auto 2.4 % (0-4); Hematocrit 41.1 % (37.0-47.0); Hemoglobin 13.9 g/dl (12.0-16.0); Imm Gran Abs Auto 0.01 X10*3/uL (0.00-0.03); Imm Gran Pct Auto 0.1 % (0.0-0.4); Lymphocytes Absolute Auto 4.2 X10*3/uL (1.2-4.9); Lymphocytes Percent Auto 50.5 % (20-40); Mean Corpuscular HGB Conc 33.8 g/dl (31.0-35.0); Mean Corpuscular Hemoglobin 31.2 pg (27.0-33.0); Mean Corpuscular Volume 92.4 fL (80.0-98.0); Monocytes Absolute Auto 0.6 X10*3/uL (0.1-1.2); Monocytes Percent Auto 6.8 % (2-11); Neutrophils Absolute Auto 3.3 x10*3/uL (2.0-8.3); Neutrophils Percent Auto 39.6 % (45-73); Platelet Count 160 X10*3/uL (160-400); Red Blood Count 4.45 X10*6/uL (4.20-5.50); White Blood Count 8.3 X10*3/uL (4.8-10.8)
[2022-07-08 18:08] LABS: COVID-19 Test Negative (Negative); IDNOW Serial# 16C4AD1C
[2022-07-08 18:15] LABS: Alanine Aminotransferase 17 U/L (0-31); Albumin Level 4.2 g/dL (3.5-5.0); Alkaline Phosphatase 69 U/L (39-117); Anion Gap 15 (12-20); Aspartate Amino Transferase 15 U/L (5-31); Bilirubin Direct < 0.2 mg/dL (0.0-0.5); Bilirubin Total 0.2 mg/dL (0.0-1.0); Blood Urea Nitrogen 15 mg/dL (9-16); Carbon Dioxide 24 mmol/L (22-29); Chloride 108 mmol/L (96-108); Creatinine Clr Calc Pharmacy 99.6; Estimated Glomerular Filt Rate > 60; Glucose Random 90 mg/dL (60-115); Magnesium 2.1 mg/dL (1.6-2.6); Sodium 143 mmol/L (135-145); Total Protein 6.8 g/dL (6.5-8.0)
[2022-07-08 18:23] LABS: Troponin-I High Sensitivity < 3.5 ng/L (<3.5-17.0)
[2022-07-08 21:24] VITALS: BP 147/87; PULSE 57; RESP 14; TEMP 36.8; O2SAT 98
--- NOTE | 2022-07-08 21:27 | PC.NURSE ---
Pt aox3 in no apparent distress. Reports side chest pain stating I think I slept wrong. Pain 7/10 when moving the left arm. Will continue to monitor.
--- NOTE | 2022-07-08 23:04 | PC.NURSE ---
Pt refused to take Acetaminophen as ordered. MLP notified.
[2022-07-08 23:05] VITALS: BP 129/73; PULSE 62; RESP 14; TEMP 36.6; O2SAT 96
[2022-07-08 23:30] LABS: D Dimer High Sensitivity < 150 NG/ML
[2022-07-08 23:32] LABS: Troponin-I High Sensitivity < 3.5 ng/L (<3.5-17.0)
== END 2022-07-08 23:54 | disposition home or self-care (01) ==
PROVIDERS: Physician Assistant; Emergency Provider Internal Medicine; PCP Internal Medicine
DX: R07.89 Other chest pain (principal); Z20.822 Contact with and (suspected) exposure to COVID-19; D68.51 Activated protein C resistance; E78.5 Hyperlipidemia, unspecified; F17.210 Nicotine dependence, cigarettes, uncomplicated; Z79.01 Long term (current) use of anticoagulants; Z79.02 Long term (current) use of antithrombotics/antiplatelets; Z79.899 Other long term (current) drug therapy
CPT/HCPCS: 36415; 71046; 80048; 80076; 83735; 84484; 85025; 85379; 87635; 93005; 99283; 99284

== ENCOUNTER → 2022-07-26 10:35 | Outpatient (BNVA) | payer OTHER, SELFPAY | PROVIDERS: PCP Internal Medicine; Visit Provider Physician Assistant | DX: Z13.89 Encounter for screening for other disorder (principal) ==

== ENCOUNTER → 2022-08-05 15:19 | Outpatient (BNVA) | payer OTHER, SELFPAY | PROVIDERS: PCP Internal Medicine; Visit Provider Nurse Practitioner Family | DX: N39.0 Urinary tract infection, site not specified (principal) | CPT/HCPCS: 51798 ==

== ENCOUNTER → 2022-09-04 09:23 | Outpatient (BNVA) | payer OTHER, SELFPAY | PROVIDERS: PCP Internal Medicine; Visit Provider Physician Assistant | DX: M17.11 Unilateral primary osteoarthritis, right knee (principal); M17.12 Unilateral primary osteoarthritis, left knee | CPT/HCPCS: 20610; J1020 ==

== ENCOUNTER → 2022-10-03 13:22 | Outpatient (BNVA) | payer OTHER, SELFPAY | PROVIDERS: PCP Internal Medicine; Visit Provider Obstetrics & Gynecology ==

== ENCOUNTER 2022-11-06 08:08 | Outpatient (REF) | payer OTHER, SELFPAY | END 2022-11-06 08:09 | disposition home or self-care (01) | LOC: HO.LNP 08:08 | PROVIDERS: PCP Internal Medicine; Visit Provider Obstetrics & Gynecology | DX: N90.4 Leukoplakia of vulva (principal) | CPT/HCPCS: 56605; 88305; 88312 ==

== ENCOUNTER → 2022-11-15 11:28 | Outpatient (BNVA) | payer OTHER, SELFPAY | PROVIDERS: PCP Internal Medicine; Referring Provider Internal Medicine; Visit Provider Internal Medicine Cardiovascular Disease ==

== ENCOUNTER 2022-12-10 11:49 | Outpatient (AMB) | payer OTHER, SELFPAY ==
[2022-12-10 12:01] VITALS: BP 122/80
--- NOTE | 2022-12-10 12:01 | MHC.OFFVIS ---
Intake Vital Signs 12/10/22 12:01 Height 5 ft 4 in BP 122/80 Intake Visit Reasons: 3 week biopsy results Wound/Ostomy Nurse Required: No Information Interpreted: non-clinical & clinical Accompanied by: Self / Same As Patient Allergies Sulfa (Sulfonamide Antibiotics) Allergy (Unknown, Verified 12/10/22 12:01) unknown sulfamethoxazole [From Bactrim] Allergy (Unknown, Verified 12/10/22 12:01) Unknown trimethoprim [From Bactrim] Allergy (Unknown, Verified 12/10/22 12:01) Unknown atenolol Adverse Reaction (Intermediate, Verified 12/10/22 12:01) Headache cortisone injection Adverse Reaction (Mild, Uncoded 12/10/22 12:01) Anaphylaxis Post menopausal: Yes HPI HPI Comments History of Present Illness Details The patient is presenting post vulvar biopsy doing well with no complaints. The pathology showed the following: Vulva, posterior fourchette, biopsy:? Benign squamous mucosa with hyperkeratosis and features of lichen sclerosus PFSH Medical History Alteration comfort patterns as evidenced by distress Bilateral knee pain Bilateral primary osteoarthritis of knee Chronic pain Complex regional pain syndrome i of left lower limb Headache syndrome Lipid disorder Surgical History H/O colonoscopy History of knee surgery Family History Father HTN (hypertension) Mother HTN (hypertension) Maternal Grandfather Diabetes mellitus Maternal Aunt Cancer Son No problems noted. Son No problems noted. Son No problems noted. Son No problems noted. Son No problems noted. 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 Explained to the patient that Lichen sclerosus refers to a benign, chronic, progressive dermatologic condition characterized by marked inflammation, epithelial thinning accompanied by pruritus and pain. In addition, discussed with the patient that there is a small increased risk of squamous cell cancer of the vulva in patients with lichen sclerosus. Adequate treatment of the disease seems to be associated with a reduced risk of development of neoplasia. Instructed the patient to schedule an appointment in a year to examine the affected area, with possible biopsy of suspicious lesions, in addition explained to the patient that she should look at the skin of the affected area and touch with fingertips monthly to search for thickened lumps or sores that do not heal & to report such findings for inspection & possible biopsy to rule out vulvar cancer Since the patient has allergy to cortisone an her symptoms are minimal, decision was to hold off any cortisone appointment prescription. Coding Level of Care Code Est Pt Level 3 (84371) Diagnoses Lichen sclerosus L90.0
== END 2022-12-10 12:10 | disposition home or self-care (01) ==
LOC: HO.HWS 11:49
PROVIDERS: PCP Internal Medicine; Visit Provider Obstetrics & Gynecology
DX: L90.0 Lichen sclerosus et atrophicus (principal)
CPT/HCPCS: 99213

== ENCOUNTER → 2022-12-10 11:49 | Outpatient (BNVA) | payer OTHER, SELFPAY | PROVIDERS: PCP Internal Medicine; Visit Provider Obstetrics & Gynecology ==

== ENCOUNTER → 2022-12-18 08:04 | Outpatient (REF) | payer OTHER, SELFPAY ==
--- NOTE | 2022-12-18 08:06 | CA_ITS ---
Transthoracic Echocardiogram Patient (Last, First, Middle): Isabel Seth A Gender: Female Date of : 1970 Age: 52 Procedure Date: 12/18/2022 Procedure Type: Transthoracic Echocardiogram Location: OP Height: 162.56 cm Weight: 102.97 kg BSA: 2.06 m2 Heart Rate: bpm BP: 134 / 80 mmHg Ice Cream Dipper: Referring MD: Elmer Olvera MD Oxyhydrogen Welder: Elmer Olvera MD Symptoms: I10 - Essential (primary) hypertension Study Quality: Good ECG Rhythm: Sinus Conclusions: - Normal left ventricular size and systolic function. There is mildly increased left ventricular wall thickness. The visually estimated ejection fraction is between 55-60%. There is no evidence of regional wall motion abnormalities. Diastolic function is normal for age. Normal global longitudinal strain. - Normal right ventricular cavity size and systolic function. - There is mild dilatation of the ascending aorta measuring 3.20 cm. Findings Left Ventricle Normal left ventricular size and systolic function. There is mildly increased left ventricular wall thickness. The visually estimated ejection fraction is between 55-60%. There is no evidence of regional wall motion abnormalities. Diastolic function is normal for age. Normal global longitudinal strain. Right Ventricle Normal right ventricular cavity size and systolic function. Atria The left atrium is mildly dilated. Aortic Valve Normal aortic valve structure and function. There is no aortic valve stenosis. There is no aortic valve regurgitation. Mitral Valve The mitral valve appears normal. There is trace mitral valve regurgitation. There is no mitral valve stenosis. Pulmonic Valve Normal pulmonic valve structure and function. There is no pulmonic valve regurgitation. Tricuspid Valve Normal tricuspid valve structure and function. There is trace tricuspid valve regurgitation. Normal right atrial pressure. There is no evidence of pulmonary hypertension. Great Vessels There is mild dilatation of the ascending aorta measuring 3.20 cm. The visualized portions of the pulmonary artery and branches are normal. Venous The inferior vena cava is normal in size and collapses greater than 50% with inspiration. Pericardium/Pleural There is no evidence of pericardial effusion. Prior Study Comparison No prior study available for comparison. Measurements 2D Linear Measurements IVSd: 1.06 0.6-0.9/0.6-1.0 cm LVIDd: 4.85 3.9-5.3/4.2-5.9 cm LVIDd Index: 2.35 2.4-3.2/2.2-3.1 cm/m2 LVIDs: 3.06 2.0-3.6 cm LVPWd: 1.04 0.7-1.1 cm Ao Root: 2.90 2.1-3.5 cm LA Diam: 4.00 2.7-3.8/3.0-4.0 cm LAIDs Index: 1.94 1.5-2.3 cm/m2 LV Mass: 230.48 67-162/88-224 g LV Mass Index: 111.88 43-95/49-115 g/m2 LVOT Diam: 2.10 3.0+(-)1.3 cm 2D Systolic Function EF 4C: 58.40 >55% EF 2C: 61.90 >55% EF BiP: 60.80 >55% Mitral Valve MV Pk E: 0.74 MV PK A: 0.91 MV Decel Time: 192.00 E/A: 0.80 E'Lateral: 10.80 E'Medial: 5.33 E/E' Med: 13.80 E/E' Lat: 6.80 PHT: 56.00 MVA PHT: 3.93 Decel [place]: 3.83 Aortic Valve AoV Pk Eddie: 1.57 AoV Mn Eddie: 1.02 AoV VTI: 0.38 AoV Pk Grad: 10.00 Aov Mn Grad: 5.00 WAI Cont.VTI: 1.97 LVOT LVOT Pk Eddie: 0.89 LVOT Mn Eddie: 0.58 LVOT VTI: 0.21 LVOT Pk Grad: 3.00 LVOT Mn Grad: 2.00 LVOT Diam: 2.10 LVOT Area: 3.46 Diastolic Function MV Pk E: 0.74 MV Pk A: 0.91 E/A: 0.80 E'Medial: 5.33 E/E' Med: 13.80 E' Laterial: 10.80 E/E' Lat: 6.80 Right Ventricle TAPSE (mm): 24.00 TVS' Eddie: 14.00 Tricuspid Valve TR Pk Eddie: 2.18 TR Pk Grad: 19.00 RA Press: 3.00 RVSP: 22.00 Great Vessels Aorta Ao Root-2D: 2.90 2.0-3.7 cm Ao Asc: 3.20 2.1-3.4 cm Pulmonary Valve PV Pk Eddie: 0.86 Peak PV Grad: 3.00 Updated in Other Vendor System with Status of Final Elmer Olvera MD electronically signed on 12/18/2022 12:28:58 PM with status of Final
== END ==
LOC: HO.CARD 08:04
PROVIDERS: PCP Internal Medicine; Visit Provider Internal Medicine Cardiovascular Disease
DX: I10 Essential (primary) hypertension (principal)
CPT/HCPCS: 93306

== ENCOUNTER → 2022-12-18 08:06 | Outpatient (BNV) | payer OTHER, SELFPAY | PROVIDERS: PCP Internal Medicine; Visit Provider Internal Medicine Cardiovascular Disease | DX: R07.9 Chest pain, unspecified (principal) | CPT/HCPCS: 93306 ==

== ENCOUNTER → 2023-01-07 14:56 | Outpatient (REF) | payer OTHER, SELFPAY | LOC: HO.SL 14:56 | PROVIDERS: PCP Internal Medicine; Visit Provider Internal Medicine Cardiovascular Disease | DX: G47.9 Sleep disorder, unspecified (principal); R06.83 Snoring | CPT/HCPCS: 95806 ==

== ENCOUNTER → 2023-01-07 15:15 | Outpatient (BNV) | payer OTHER, SELFPAY | PROVIDERS: PCP Internal Medicine; Visit Provider Internal Medicine | DX: R06.83 Snoring (principal) | CPT/HCPCS: 95806 ==

== ENCOUNTER 2023-01-10 11:45 | Outpatient (AMB) | payer OTHER, SELFPAY ==
--- NOTE | 2023-01-10 11:46 | A.OFFPC_ITS ---
Vital Signs 01/10/23 11:47 Height 5 ft 4 in Weight 227 lb 6 oz BMI 39.0 BP 132/76 Blood Pressure Location Rt brachial Position Sitting Pulse 76 Pulse Source Pulse Oximeter Pulse Oximetry (%) 98 Oxygen Delivery Method Room Air Intake Visit Reasons: Annual PE Allergies Sulfa (Sulfonamide Antibiotics) Allergy (Unknown, Verified 01/10/23 11:46) unknown sulfamethoxazole [From Bactrim] Allergy (Unknown, Verified 01/10/23 11:46) Unknown trimethoprim [From Bactrim] Allergy (Unknown, Verified 01/10/23 11:46) Unknown atenolol Adverse Reaction (Intermediate, Verified 01/10/23 11:46) Headache cortisone injection Adverse Reaction (Mild, Uncoded 12/10/22 12:01) Anaphylaxis Medication List - Last Reconciled 01/10/23 by Ochoa Hunter MD blood pressure test kit-large Check BP 3 times daily with heart rate. celecoxib (Celebrex) 200 mg PO BID 30 days gabapentin 600 mg PO DAILY lidocaine 5% (Lidoderm) 1 patch topical DAILY PRN MDD remove after 12 hours lorazepam 0.25 mg (1/2 x 0.5 mg) PO DAILY 90 days losartan-hydrochlorothiazide 50-12.5 mg 1 tab PO DAILY nortriptyline 25 mg PO BEDTIME omeprazole 20 mg PO DAILY 90 days rimegepant (Nurtec ODT) 75 mg PO DAILY PRN rivaroxaban (Xarelto) 20 mg PO DAILY simvastatin 40 mg PO DAILY 90 days Tobacco use date assessed: 01/10/23 Dental Screening Dental Screen Date: 01/10/23 Did you have a dental visit in the last 12 months?: Yes Did you have a dental problem in the last 6 months where you did not have access to dental care?: No Was dental information given to patient?: No HPI Annual PE HPI Details Patient is 52-year-old female came in today for physical exam Currently going through a lot of stress as her son got into car accident and he is in hospital with the fracture left femur. Patient says that because of that she has not had blood test done but she will have it done soon. Mammogram appointment is coming up Pap smear was October of this year Colonoscopy was February of last year She is requesting another script of lorazepam 0.5 mg, she is getting 45 tablet every 3 months. She has gotten a small dog which is helping her with anxiety , she is requesting a letter so she can keep a dog in her appointment, letter provided. Tobacco abuse: Currently patient is smoking about 15 cigarettes a day she is requesting help I have sent Nicoderm patch 21 mg instructed patient not to smoke while the patches on. She will return in 4 weeks to have follow-up on that. Physical exam 1 year [facility] Medical History Alteration comfort patterns as evidenced by distress Bilateral knee pain Bilateral primary osteoarthritis of knee Chronic pain Complex regional pain syndrome i of left lower limb Headache syndrome Lipid disorder Surgical History H/O colonoscopy History of knee surgery Family History Father HTN (hypertension) Mother HTN (hypertension) Maternal Grandfather Diabetes mellitus Maternal Aunt Cancer Son No problems noted. Son No problems noted. Son No problems noted. Son No problems noted. Son No problems noted. 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 How often do you have a drink containing alcohol?: Never 3. How often do you have six or more drinks on one occasion?: Never Total Score: 0 Score Reviewed/Action Taken: Yes TEE-7 AMB Questionnaire TEE-7 Date TEE - 7 assessed: 09/17/22 Source: Developed by Drs. Edward Abraham, Shameka B.W. Uriel Meraz and colleagues, with an educational thony from [employer] Review of Systems Const Denies chills, Denies fever(s) and Denies headache(s) Eyes Denies blurry vision ENT Denies headache(s), Denies nasal discharge, Denies nasal obstruction, Denies odynophagia and Denies sinus pain Card Denies chest pain at rest and Denies chest pain with activity Resp Denies cough and Denies hemoptysis GI Denies diarrhea, Denies odynophagia, Denies vomiting and Denies hematemesis Reports as per HPI Musc Denies abnormal gait Skin/Breast Reports as per HPI Neuro Denies Neuro-related abnormal movements, Denies Abnormal speech present, Denies abnormal gait, Denies headache(s) and Denies Sensory deficit (Neuro) Psych Denies mood swings and Denies paranoia Endo Reports as per HPI Richard/Lymph Reports as per HPI Aller/Immun Reports as per HPI Physical exam (Primary Care) Vital Signs: Last Vital Signs Pulse 76 01/10/23 11:47 BP 132/76 01/10/23 11:47 Pulse Ox 98 01/10/23 11:47 Oxygen Delivery Method Room Air 01/10/23 11:47 BMI result Body Mass Index 39.0 Tobacco/Smoking Status: Tobacco use Status Tobacco use date assessed 01/10/23 01/10/23 11:47 Patient Tobacco Use Status Current everyday Tobacco 01/10/23 11:47 Tobacco use type Cigarette 01/10/23 11:47 e-Cigarette/Vaping Use Never Used 01/10/23 11:47 Thrive Assessment: Date of Thrive Assessment Date Thrive assessed 09/17/22 01/10/23 11:47 Const General: cooperative, comfortable and no acute distress Orientation/consciousness: patient oriented x3 HENMT Head: Yes normocephalic and Yes atraumatic Eyes General: appearance normal, both eyes and all related structures Pupils: Equal, round and reactive pupils present EOM: EOMs intact bilaterally Neck Neck: Yes supple and No lymphadenopathy Thyroid: Thyroid normal Lymphatic: no lymphadenopathy noted Resp Effort & Inspection: normal respiratory effort and able to speak in complete sentences Auscultation: clear to auscultation bilaterally Cardio Heart sounds: S1 normal heart sound present and S2 normal heart sound present GI Palpation (GI): Soft to palpation and nontender Auscultation: normal bowel sounds General: Yes no CVA tenderness Back/Spine/Pelvis Back: no CVA tenderness Skin General skin exam: elasticity normal and turgor normal Neuro General: patient oriented x3 and gait normal Cranial nerves: Yes Equal, round and reactive pupils present Speech: No Abnormal speech present Sensory Exam: No Sensory deficit (Neuro) Coordination: tandem gait normal and Romberg test negative Extrem General: Yes normal exam except as noted and No edema Assessment and Plan Assessment & Plan (1) Encounter for general adult medical examination with abnormal findings: Code(s): Z00.01 - Encounter for general adult medical examination with abnormal findings (2) Lipid disorder: Code(s): E78.9 - Disorder of lipoprotein metabolism, unspecified (3) Hypertension, essential: Code(s): I10 - Essential (primary) hypertension (4) Anxiety disorder: Code(s): F41.9 - Anxiety disorder, unspecified (5) Factor 5 Leiden mutation, heterozygous: Code(s): D68.51 - Activated protein C resistance (6) Thyroid disease: Code(s): E07.9 - Disorder of thyroid, unspecified Plan Patient is 52-year-old female came in today for physical exam Currently going through a lot of stress as her son got into car accident and he is in hospital with the fracture left femur. Patient says that because of that she has not had blood test done but she will have it done soon. Mammogram appointment is coming up Pap smear was October of this year Colonoscopy was February of last year She is requesting another script of lorazepam 0.5 mg, she is getting 45 tablet every 3 months. She has gotten a small dog which is helping her with anxiety , she is requesting a letter so she can keep a dog in her appointment, letter provided. Tobacco abuse: Currently patient is smoking about 15 cigarettes a day she is requesting help I have sent Nicoderm patch 21 mg instructed patient not to smoke while the patches on. She will return in 4 weeks to have follow-up on that. Physical exam 1 year Medications: New nicotine (Nicoderm CQ) 1 patch transdermal DAILY 28 ea 0RF Coding Level of Care Code Est Pt Prev Care 40-64y(58569) Diagnoses Encounter for general adult medical examination with abnormal findings Z00.01 Lipid disorder E78.9 Hypertension, essential I10 Anxiety disorder F41.9 Factor 5 Leiden mutation, heterozygous D68.51 Thyroid disease E07.9
[2023-01-10 11:47] VITALS: BP 132/76; PULSE 76; O2SAT 98; BMI 39.0
== END 2023-01-10 12:26 | disposition home or self-care (01) ==
PROVIDERS: Visit Provider Internal Medicine
DX: Z00.01 Encounter for general adult medical examination with abnormal findings (principal); I10 Essential (primary) hypertension; F41.9 Anxiety disorder, unspecified; D68.51 Activated protein C resistance; E78.9 Disorder of lipoprotein metabolism, unspecified; E07.9 Disorder of thyroid, unspecified
CPT/HCPCS: 99396

== ENCOUNTER 2023-02-03 15:36 | Outpatient (AMB) | payer OTHER, SELFPAY ==
--- NOTE | 2023-02-03 15:37 | A.OFFVIS_ITS ---
Intake Intake Visit Reasons: follow up with PVR Intake Note: Patient is present for follow up dysuria/urinary frequency Urology Medications: none Blood thinner: xarelto PVR:0ml's Integrated Specialist Required: No Accompanied by: Self / Same As Patient Allergies Sulfa (Sulfonamide Antibiotics) Allergy (Unknown, Verified 02/03/23 19:57) unknown sulfamethoxazole [From Bactrim] Allergy (Unknown, Verified 02/03/23 19:57) Unknown trimethoprim [From Bactrim] Allergy (Unknown, Verified 02/03/23 19:57) Unknown atenolol Adverse Reaction (Intermediate, Verified 02/03/23 19:57) Headache cortisone injection Adverse Reaction (Mild, Uncoded 02/03/23 19:57) Anaphylaxis Medication List - Last Reconciled [facility] pressure test [facility]-large Check BP 3 times daily with heart rate. celecoxib (Celebrex) 200 mg PO BID 30 days gabapentin 600 mg PO DAILY lidocaine 5% (Lidoderm) 1 patch topical DAILY PRN MDD remove after 12 hours lorazepam 0.25 mg (1/2 x 0.5 mg) PO DAILY 90 days losartan-hydrochlorothiazide 50-12.5 mg 1 tab PO DAILY nicotine (Nicoderm CQ) 1 patch transdermal DAILY nortriptyline 25 mg PO BEDTIME omeprazole 20 mg PO DAILY 90 days rimegepant (Nurtec ODT) 75 mg PO DAILY PRN rivaroxaban (Xarelto) 20 mg PO DAILY simvastatin 40 mg PO DAILY 90 days HPI HPI Comments History of Present Illness Details Isabel is a pleasant 52-year-old female patient of Dr. Hunter. She has a past medical history of bilateral osteoarthritis of the knees, headaches, chronic pain, and lipid disorder. She presents to the office today for a follow up regarding her intermittent in urinary issues. Of note, previous workup has included microgen testing and a retroperitoneal ultrasound. Renal bladder ultrasound showing no calculi, lesions, or hydronephrosis noted bilaterally. The bladder is partially distended. Prevoid bladder volume is 128 mL postvoid bladder volume is 5.7 mL. Patient has since completed dual antibiotic therapy for microgen results. When asked she reports to be feeling and doing much better with her urinary issues. She denies urinary urgency, urinary frequency, incontinence, nocturia, hematuria, dysuria, foul smelling urine, changes to urinary stream, flank pain, fever, and or chills. She discusses following up with reimbursement auditor and undergoing biopsy for vulvar leukoplakia. She discusses results being benign. Benign squamous mucosa with hyperkeratosis and features of lichen sclerosus. In office UA with 3+ leukocytes otherwise within normal limits. PVR 0 mL. Both of these results were reviewed with the patient today. Patient denies any UTI like symptoms at this time. Discussed possible in office cystoscopy in near future if symptoms arise. Discussed possible Estrace cream. Discussed, educated, and instructed on the importance of drinking plenty of water daily. She otherwise offers no other issues or concerns at this time. [facility] Medical History Complex regional pain syndrome i of left lower limb Bilateral primary osteoarthritis of knee Headache syndrome Chronic pain Alteration comfort patterns as evidenced by distress Bilateral knee pain Lipid disorder Surgical History H/O colonoscopy History of knee surgery Family History Father HTN (hypertension) Mother HTN (hypertension) Maternal Grandfather Diabetes mellitus Maternal Aunt Cancer Son No problems noted. Son No problems noted. Son No problems noted. Son No problems noted. Son No problems noted. 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 Cognitive needs: No Hearing needs: No Vision needs: Yes Female Reproductive History Menstrual Age of Menarche: 9 Review of Systems Const Reports no additional complaints Eyes Reports no additional complaints ENT Reports no additional complaints Card Reports as per HPI Resp Reports no additional complaints GI Reports no additional complaints Reports as per HPI Musc Details: Patient reports she follows up with [facility] orthopedics for bilateral knee arthritis and question of meniscus issues Reports as per HPI Neuro Reports no additional complaints Psych Reports no additional complaints Endo Reports no additional complaints Richard/Lymph Reports no additional complaints Aller/Immun Reports no additional complaints Physical Exam Const General: cooperative, healthy appearing, comfortable, no acute distress, well developed, alert and awake Nutritional Appearance: overweight Orientation/consciousness: patient oriented x3 Limitations: no limitations HEENT Head: Yes normal to inspection, Yes normocephalic and Yes atraumatic Eyes General: appearance normal, both eyes and all related structures Neck Neck: Yes normal visual inspection and Yes trachea midline Chest Chest palpation & inspection: normal inspection of the chest Resp Effort & Inspection: normal respiratory effort and able to speak in complete sentences Cardio Rate: regular rate GI Inspection: Yes normal to inspection General: Yes no CVA tenderness Back/Spine/Pelvis Back: no CVA tenderness Neuro General: patient oriented x3 Extrem General: Yes normal to inspection Psych Appearance: grossly normal and well kempt Mental Status: mental status grossly normal Speech and movement: Normal speech and movement present and Clear speech present Affect: normal affect Attitude: cooperative Thought process: Normal thought process present Thought content: Normal thought content present Insight: Fair insight present (Psych) Judgement: Fair judgement present (Psych) Office Procedures Post Void Residual Post Residual Void Post Void Residual (PVR): 0 [id number] Void Residual by ultrasound Results AMB Urinalysis, Automated UA Leukoctes 500 Joana/uL Last Edit by [employer] on 02/03/23 15:56 UA Nitrite Last Edit by [employer] on 02/03/23 15:56 UA Urobilinogen 0.2 mg/dL Last Edit by [employer] on 02/03/23 15:56 UA Protein 0 mg/dL Last Edit by [employer] on 02/03/23 15:56 UA pH 5.5 Last Edit by [employer] on 02/03/23 15:56 UA Blood 0 Andrei/uL Last Edit by [employer] on 02/03/23 15:56 UA Specific [place] 1.030 Last Edit by [employer] on 02/03/23 15:56 UA Ketone Last Edit by [employer] on 02/03/23 15:56 UA Bilirubin 0 mg/dL Last Edit by Ellis Jon on 02/03/23 15:56 UA Glucose 0 mg/dL Last Edit by Ellis Jon on 02/03/23 15:56 Results Reviewed Results Reviewed: Laboratory Last Values Urine pH (Auto) 5.5 02/03/23 15:46 Specific [place] (Auto) 1.030 02/03/23 15:46 Urine Protein (Auto) 0 mg/dL 02/03/23 15:46 Glucose (UA)(Auto) 0 mg/dL 02/03/23 15:46 Urine Blood (Auto) 0 Andrei/uL 02/03/23 15:46 Urine Bilirubin (Auto) 0 mg/dL 02/03/23 15:46 Urine Urobilinogen (Auto) 0.2 mg/dL 02/03/23 15:46 Leukocyte Esterase (Auto) 500 Joana/uL 02/03/23 15:46 Assessment & Plan Assessment & Plan (1) Frequency of urination: Code(s): R35.0 - Frequency of micturition (2) Dysuria: Code(s): R30.0 - Dysuria Plan In office urinalysis results reviewed with the patient today; as noted above. Patient denies any bothersome urinary issues or concerns at this time. Discussed and stressed the importance of drinking plenty of water daily. Discussed possible Estrace cream; patient states she will think about this Discussed near future in office cystoscopy if symptoms arise. Discussed UTI prevention with D mannose supplement, vitamin-C, increasing fluid intake, behavioral therapy with timed voiding, perineal hygiene and postcoital voiding, and management of constipation with stool softeners and increased fiber intake. Follow-up in 3 months; if not sooner with any issues, concerns, and or questions. Orders: Orders AMB Post Void Residual by ultrasound Today R35.0 - Frequency of micturition AMB Urinalysis Automated Today Z13.9 - Encounter for screening, unspecified Patient Instructions: The patient had an opportunity to ask questions regarding the treatment plan. All questions were answered. Physical exam, labs, and imaging were discussed and reviewed in detail. As well as risks, benefits, and discussion of treatment choices. No major barriers to understanding were identified. The patient expressed understanding and agreement with the above treatment plan. The patient was made aware they should contact our office by phone for worsening of their current condition, the appearance of new symptoms, or with any questions or concerns. Compliance is encouraged with any medications and follow up testing that is ordered. It is a privilege to be allowed the opportunity to participate in? your urological care.? Again, if you have any questions or concerns If you have any questions or concerns please do not hesitate to contact me. The office is [phone]. This note is constructed using voice recognition software. While every effort has been made to ensure accuracy slitter service and setter errors may have been included. Yours sincerely, RAMONA Osborne-CHANTAL Coding Level of Care Code Est Pt Level 3 (66228) Diagnoses Frequency of urination R35.0 Dysuria R30.0 CPT Codes Post Residual Void - PVR CPT Code: 39992-Pucr Void Residual by ultrasound ([id number])
== END 2023-02-03 16:22 | disposition home or self-care (01) ==
PROVIDERS: PCP Internal Medicine; Visit Provider Nurse Practitioner Family
DX: R35.0 Frequency of micturition (principal); R30.0 Dysuria
CPT/HCPCS: 99213

== ENCOUNTER → 2023-02-03 15:36 | Outpatient (BNVA) | payer OTHER, SELFPAY | PROVIDERS: Visit Provider Nurse Practitioner Family | DX: R35.0 Frequency of micturition (principal); R30.0 Dysuria | CPT/HCPCS: 51798; 81003 ==

== ENCOUNTER 2023-02-08 06:53 | Outpatient (REF) | payer OTHER, SELFPAY ==
[2023-02-08 11:11] LABS: MANUAL DIFF FLAG NO
[2023-02-08 11:13] LABS: Imm Gran Abs Auto 0.01 X10*3/uL (0.00-0.03); Imm Gran Pct Auto 0.1 % (0.0-0.4); SCAN SMEAR FLAG 1
[2023-02-08 11:15] LABS: Basophils Absolute Auto 0.1 X10*3/uL (0.0-0.2); Basophils Percent Auto 0.9 % (0-2); Eosinophils Absolute Auto 0.2 X10*3/uL (0.0-0.4); Eosinophils Percent Auto 2.7 % (0-4); Hematocrit 41.4 % (37.0-47.0); Hemoglobin 14.3 g/dl (12.0-16.0); Lymphocytes Absolute Auto 4.1 X10*3/uL (1.2-4.9); Lymphocytes Percent Auto 50.9 % (20-40); Mean Corpuscular HGB Conc 34.5 g/dl (31.0-35.0); Mean Corpuscular Hemoglobin 31.9 pg (27.0-33.0); Mean Corpuscular Volume 92.4 fL (80.0-98.0); Mean Platelet Volume 12.8 fL (9.4-12.3); Monocytes Absolute Auto 0.6 X10*3/uL (0.1-1.2); Monocytes Percent Auto 7.4 % (2-11); Neutrophils Absolute Auto 3.1 x10*3/uL (2.0-8.3); Platelet Count 202 X10*3/uL (160-400); Red Blood Count 4.48 X10*6/uL (4.20-5.50); Red Cell Distribution Width 12.6 % (11.0-16.0); White Blood Count 8.1 X10*3/uL (4.8-10.8)
[2023-02-08 11:16] LABS: PLT ABN DIST 1
[2023-02-08 11:37] LABS: Alanine Aminotransferase 23 U/L (0-31); Albumin Level 4.2 g/dL (3.5-5.0); Alkaline Phosphatase 66 U/L (39-117); Anion Gap 12 (12-20); Aspartate Amino Transferase 17 U/L (5-31); Bilirubin Total 0.2 mg/dL (0.0-1.0); Blood Urea Nitrogen 13 mg/dL (9-16); Calcium 9.1 mg/dL (8.4-10.2); Carbon Dioxide 25 mmol/L (22-29); Chloride 109 mmol/L (96-108); Cholesterol 199 mg/dL (<200); Estimated Glomerular Filt Rate > 60; Glucose Fasting 109 mg/dL (60-99); HDL Cholesterol 39 mg/dL (>40); LDL Cholesterol Calculated 118 mg/dL (<100); Sodium 142 mmol/L (135-145); Total Protein 7.2 g/dL (6.5-8.0); Triglycerides 214 mg/dL (<150)
[2023-02-08 11:54] LABS: TSH reflex Free T4 2.62 uIU/mL (0.32-4.0)
== END 2023-02-08 06:54 | disposition home or self-care (01) ==
LOC: HO.HMGCLDS 06:53
PROVIDERS: PCP Internal Medicine; Visit Provider Internal Medicine
DX: E78.9 Disorder of lipoprotein metabolism, unspecified (principal); G44.89 Other headache syndrome; F41.9 Anxiety disorder, unspecified; D68.51 Activated protein C resistance; E07.9 Disorder of thyroid, unspecified; I10 Essential (primary) hypertension
CPT/HCPCS: 36415; 80053; 80061; 84443; 85025

== ENCOUNTER 2023-02-11 11:31 | Outpatient (AMB) | payer OTHER, SELFPAY ==
[2023-02-11 11:38] VITALS: BP 124/76; PULSE 89; O2SAT 98; BMI 39.2
--- NOTE | 2023-02-11 11:38 | A.OFFPC_ITS ---
Vital Signs 02/11/23 11:38 Height 5 ft 4 in Weight 228 lb 4 oz BMI 39.2 BP 124/76 Blood Pressure Location Lt brachial Position Sitting Pulse 89 Pulse Source Pulse Oximeter Pulse Oximetry (%) 98 Oxygen Delivery Method Room Air Intake Visit Reasons: 4 week follow up/Ok Per Dr. Hunter Allergies Sulfa (Sulfonamide Antibiotics) Allergy (Unknown, Verified 02/11/23 11:39) unknown sulfamethoxazole [From Bactrim] Allergy (Unknown, Verified 02/11/23 11:39) Unknown trimethoprim [From Bactrim] Allergy (Unknown, Verified 02/11/23 11:39) Unknown atenolol Adverse Reaction (Intermediate, Verified 02/11/23 11:39) Headache cortisone injection Adverse Reaction (Mild, Uncoded 02/03/23 19:57) Anaphylaxis Medication List - Last Reconciled 02/11/23 by Ochoa Hunter MD blood pressure test kit-large Check BP 3 times daily with heart rate. celecoxib (Celebrex) 200 mg PO BID 30 days gabapentin 600 mg PO DAILY lidocaine 5% (Lidoderm) 1 patch topical DAILY PRN MDD remove after 12 hours lorazepam 0.25 mg (1/2 x 0.5 mg) PO DAILY 90 days losartan-hydrochlorothiazide 50-12.5 mg 1 tab PO DAILY nortriptyline 25 mg PO BEDTIME omeprazole 20 mg PO DAILY 90 days rimegepant (Nurtec ODT) 75 mg PO DAILY PRN rivaroxaban (Xarelto) 20 mg PO DAILY simvastatin 40 mg PO DAILY 90 days Tobacco use date assessed: 02/11/23 Dental Screening Dental Screen Date: 02/11/23 Did you have a dental visit in the last 12 months?: No Did you have a dental problem in the last 6 months where you did not have access to dental care?: No Was dental information given to patient?: Patient has dentist HPI 4 week follow up/Ok Per Dr. Hunter HPI Details Patient is a 52-year-old female came in today for 4 week follow-up appointment on anxiety. Patient still has not been able to get established with psychiatrist, She is doing well with lorazepam 0.5 mg daily. , have sent script for 30 tablets with 2 refills Last time when I sent the medication patient was only given 15 tablets, by the pharmacy. She said that she also have a history of ADD and she would like to continue her studies that is why she need to see the psychiatrist so they can prescribe her the Concerta that she was taking in the past Patient also have bilateral knee osteoarthritis she was on Celebrex and was doing well. She has stop taking it and now her pain is back, she is requesting a refill on that. Which I have sent. Follow-up 3 months [facility] Medical History Complex regional pain syndrome i of left lower limb Bilateral primary osteoarthritis of knee Headache syndrome Chronic pain Alteration comfort patterns as evidenced by distress Bilateral knee pain Lipid disorder Surgical History H/O colonoscopy History of knee surgery Family History Father HTN (hypertension) Mother HTN (hypertension) Maternal Grandfather Diabetes mellitus Maternal Aunt Cancer Son No problems noted. Son No problems noted. Son No problems noted. Son No problems noted. Son No problems noted. 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 1. Little interest or pleasure in doing things: more than half the days 2. Feeling down, depressed, or hopeless: more than half the days 3. Trouble falling or staying asleep, or sleeping too much: nearly every day 4. Feeling tired or having little energy: more than half the days 5. Poor appetite or overeating: more than half the days 6. Feeling bad about yourself - or that you are a failure or have let yourself or your family down: not at all 7. Trouble concentrating on things, such as reading the newspaper or watching television: nearly every day 8. Moving or speaking so slowly that other people could have noticed. Or the opposite - being so fidgety or restless that you have been moving around a lot more than usual: not at all 9. Thoughts that you would be better off or of hurting yourself in some way: not at all Total score: 14 Depression Screening Interpretation: Negative 41774 - PHQ-9 Billing: Yes Source: Developed by Drs. Edward Abraham, Shameka Meraz, Uriel Sultana and colleagues, with an educational thony from [employer]. Thrive Questionnaire Date Thrive assessed: 02/11/23 I am a: Patient What is your living situation today?: I have a steady place to live Within the past 12 months, did the food you bought not last and you didn't have the money to get more?: Never true Within the past 12 months, did you worry whether your food would run out before you got money to buy more?: Never true Do you have trouble paying for medicines?: No Do you have trouble getting transportation to medical appointments?: No Do you have trouble paying your heating and electricity bill?: No Do you have trouble taking care of your child, family member or friend?: No Do you have trouble with day-to-day activities such as bathing, preparing meals, shopping, managing finances, etc.?: No Are you currently unemployed and looking for a job?: No Are you interested in more education?: Yes Please select the resources that you would like help with: Education TEE-7 AMB Questionnaire TEE-7 Date TEE - 7 assessed: 02/11/23 Feeling nervous, anxious, or on edge: 3 = Nearly every day Not being able to stop or control worryin = More than half the days Worrying too much about different things: 2 = More than half the days Trouble relaxin = Not at all Being so restless that it is hard to sit still: 2 = More than half the days Becoming easily annoyed or irritable: 2 = More than half the days Feeling afraid as if something awful might happen: 3 = Nearly every day Total TEE-7 score (0-4 normal; 5-9 mild; 10-14 moderate; 15-21 severe): 14 Source: Developed by Drs. Edward Abraham, Shameka Meraz, Uriel Sultana and colleagues, with an educational thony from [employer]. TEE-7 Assessment Billing TEE-7 Assessment Tool: TEE-7 Assessment 92828 Review of Systems Const Denies chills and Denies fever(s) ENT Denies epistaxis and Denies nasal discharge Card Denies chest pain Resp Denies chest congestion, Denies cough and Denies hemoptysis GI Denies diarrhea and Denies nausea Skin/Breast Denies rash Neuro Reports no additional complaints Psych Reports no additional complaints Endo Reports no additional complaints Physical exam (Primary Care) Vital Signs: Last Vital Signs Pulse 89 02/11/23 11:38 BP 124/76 02/11/23 11:38 Pulse Ox 98 02/11/23 11:38 Oxygen Delivery Method Room Air 02/11/23 11:38 BMI result Body Mass Index 39.2 Tobacco/Smoking Status: Tobacco use Status Tobacco use date assessed 02/11/23 02/11/23 11:42 Patient Tobacco Use Status Current everyday Tobacco 02/11/23 11:42 Tobacco use type Cigarette 02/11/23 11:42 e-Cigarette/Vaping Use Never Used 02/11/23 11:42 PHQ-9: PHQ-9 Score PHQ-9: Total score 14 02/11/23 11:54 Depression Screening Interpretation: Negative Thrive Assessment: Date of Thrive Assessment Date Thrive assessed 02/11/23 02/11/23 11:54 Const General: cooperative, comfortable and no acute distress Orientation/consciousness: patient oriented x3 HENNV Head: Yes normocephalic Eyes General: appearance normal, both eyes and all related structures Neck Neck: Yes supple Resp Effort & Inspection: normal respiratory effort, no cough and no stridor Cardio Rhythm: regular rhythm Heart sounds: S1 normal heart sound present and S2 normal heart sound present Skin General skin exam: turgor normal Neuro General: patient oriented x3, tone normal and moves all extremities Extrem Right lower extremity: no edema Left lower extremity: no edema Assessment and Plan Assessment & Plan (1) Osteoarthritis of knees, bilateral: Code(s): M17.0 - Bilateral primary osteoarthritis of knee Qualifiers: Osteoarthritis type: primary Qualified Code(s): M17.0 - Bilateral primary osteoarthritis of knee (2) Anxiety disorder: Code(s): F41.9 - Anxiety disorder, unspecified Qualifiers: Anxiety disorder type: generalized anxiety disorder Qualified Code(s): F41.1 - Generalized anxiety disorder Plan Patient is a 52-year-old female came in today for 4 week follow-up appointment on anxiety. Patient still has not been able to get established with psychiatrist, She is doing well with lorazepam 0.5 mg daily. , have sent script for 30 tablets with 2 refills Last time when I sent the medication patient was only given 15 tablets, by the pharmacy. She said that she also have a history of ADD and she would like to continue her studies that is why she need to see the psychiatrist so they can prescribe her the Concerta that she was taking in the past Patient also have bilateral knee osteoarthritis she was on Celebrex and was doing well. She has stop taking it and now her pain is back, she is requesting a refill on that. Which I have sent. Follow-up 3 months Medications: Changed From lorazepam 0.25 mg (1/2 x 0.5 mg) PO DAILY 90 days 45 tabs 0RF anxiety To lorazepam 0.5 mg PO DAILY 30 tabs 2RF anxiety 30 days From celecoxib (Celebrex) 200 mg PO BID 30 days 60 caps 3RF To celecoxib (Celebrex) 200 mg PO DAILY 90 caps 0RF Knee pain 90 days Coding Level of Care Code Est Pt Level 4 (61870) Diagnoses Primary osteoarthritis of both knees M17.0 Osteoarthritis type: primary Generalized anxiety disorder F41.1 Anxiety disorder type: generalized anxiety disorder Additional Codes TEE-7 Assessment Billing - TEE-7 Assessment Tool: TEE-7 Assessment 12661 ([id number])
== END 2023-02-11 12:03 | disposition home or self-care (01) ==
PROVIDERS: PCP Internal Medicine; Visit Provider Internal Medicine
DX: M17.0 Bilateral primary osteoarthritis of knee (principal); F41.1 Generalized anxiety disorder
CPT/HCPCS: 99214

== ENCOUNTER 2023-02-13 13:33 | Outpatient (REF) | payer OTHER, SELFPAY | END 2023-02-13 13:34 | disposition home or self-care (01) | LOC: HO.MAMMO 13:33 | PROVIDERS: PCP Internal Medicine; Visit Provider Internal Medicine | DX: Z12.31 Encounter for screening mammogram for malignant neoplasm of breast (principal) | CPT/HCPCS: 77063; 77067 ==

== ENCOUNTER → 2023-02-13 13:45 | Outpatient (BNV) | payer SELFPAY | PROVIDERS: PCP Internal Medicine; Visit Provider Radiology Diagnostic Radiology | DX: Z12.31 Encounter for screening mammogram for malignant neoplasm of breast (principal) | CPT/HCPCS: 77063; 77067 ==

== ENCOUNTER 2023-03-21 13:59 | Outpatient (AMB) | payer SELFPAY ==
[2023-03-21 14:12] VITALS: BP 142/102; PULSE 78; O2SAT 98; BMI 38.5
--- NOTE | 2023-03-21 14:12 | MHC.PC.OV ---
Vital Signs 03/21/23 14:12 Height 5 ft 4 in Weight 224 lb 2 oz BMI 38.5 BP 142/102 H Blood Pressure Location Rt brachial Position Sitting Pulse 78 Pulse Source Pulse Oximeter Pulse Oximetry (%) 98 Oxygen Delivery Method Room Air Intake Visit Reasons: Discuss personal matter Allergies Sulfa (Sulfonamide Antibiotics) Allergy (Unknown, Verified 03/21/23 14:13) unknown sulfamethoxazole [From Bactrim] Allergy (Unknown, Verified 03/21/23 14:13) Unknown trimethoprim [From Bactrim] Allergy (Unknown, Verified 03/21/23 14:13) Unknown atenolol Adverse Reaction (Intermediate, Verified 03/21/23 14:13) Headache cortisone injection Adverse Reaction (Mild, Uncoded 03/17/23 16:16) Anaphylaxis Tobacco use date assessed: 03/21/23 Dental Screening Dental Screen Date: 03/21/23 Did you have a dental visit in the last 12 months?: Yes Did you have a dental problem in the last 6 months where you did not have access to dental care?: No Was dental information given to patient?: Patient has dentist HPI Discuss personal matter HPI Details Patient is a 52-year-old female who last son recently and is going through emotional crisis She met with our behavior health coordinator and we provided the resources information She is here with her significant other, currently she is taking lorazepam 0.5 mg 3 times a day which is helping her She is also on a gabapentin 600 mg at night. Patient is requesting FMLA paperwork filled which I did starting from today until 05/26/2023 She has psychiatric appointment coming up March 27 with [facility] Meanwhile she has enough medication to take up to 3 times a day. [facility] Medical History Complex regional pain syndrome i of left lower limb Bilateral primary osteoarthritis of knee Headache syndrome Chronic pain Alteration comfort patterns as evidenced by distress Bilateral knee pain Lipid disorder Surgical History H/O colonoscopy History of knee surgery Family History Father HTN (hypertension) Mother HTN (hypertension) Maternal Grandfather Diabetes mellitus Maternal Aunt Cancer Son No problems noted. Son No problems noted. Son No problems noted. Son No problems noted. Son No problems noted. 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 How often do you have a drink containing alcohol?: Never 3. How often do you have six or more drinks on one occasion?: Never Total Score: 0 Score Reviewed/Action Taken: Yes TEE-7 AMB Questionnaire TEE-7 Date TEE - 7 assessed: 02/11/23 Source: Developed by Drs. Edward Abraham, Shameka Meraz, Uirel Sultana and colleagues, with an educational thony from [email or web address]. Review of Systems Const Denies chills and Denies fever(s) ENT Denies epistaxis and Denies nasal discharge Card Denies chest pain Resp Denies chest congestion, Denies cough and Denies hemoptysis GI Denies diarrhea and Denies nausea Skin/Breast Denies rash Neuro Reports no additional complaints Psych Reports no additional complaints Endo Reports no additional complaints Physical exam (Primary Care) Vital Signs: Last Vital Signs Pulse 78 03/21/23 14:12 BP 142/102 H 03/21/23 14:12 Pulse Ox 98 03/21/23 14:12 Oxygen Delivery Method Room Air 03/21/23 14:12 BMI result Body Mass Index 38.5 Tobacco/Smoking Status: Tobacco use Status Tobacco use date assessed 03/21/23 03/21/23 14:15 Patient Tobacco Use Status Current everyday Tobacco 03/21/23 14:15 Tobacco use type Cigarette 03/21/23 14:15 e-Cigarette/Vaping Use Never Used 03/21/23 14:15 Thrive Assessment: Date of Thrive Assessment Date Thrive assessed 02/11/23 03/21/23 14:15 Const General: cooperative, comfortable and no acute distress Orientation/consciousness: patient oriented x3 HENMT Head: Yes normocephalic Eyes General: appearance normal, both eyes and all related structures Neck Neck: Yes supple Resp Effort & Inspection: normal respiratory effort, no cough and no stridor Cardio Rhythm: regular rhythm Heart sounds: S1 normal heart sound present and S2 normal heart sound present Skin General skin exam: turgor normal Neuro General: patient oriented x3, tone normal and moves all extremities Extrem Right lower extremity: no edema Left lower extremity: no edema Assessment and Plan Assessment & Plan (1) Emotional crisis as acute reaction to exceptional (gross) stress: Code(s): F43.0 - Acute stress reaction Plan Patient is a 52-year-old female who last son recently and is going through emotional crisis She met with our behavior health coordinator and we provided the resources information She is here with her significant other, currently she is taking lorazepam 0.5 mg 3 times a day which is helping her She is also on a gabapentin 600 mg at night. Patient is requesting [facility] paperwork filled which I did starting from today until 05/26/2023 She has psychiatric appointment coming up March 27 with [facility] Meanwhile she has enough medication to take up to 3 times a day. Coding Level of Care Code Est Pt Level 3 (32618) Diagnoses Emotional crisis as acute reaction to exceptional (gross) stress F43.0
== END 2023-03-21 16:02 | disposition home or self-care (01) ==
PROVIDERS: PCP Internal Medicine; Visit Provider Internal Medicine
DX: F43.0 Acute stress reaction (principal)
CPT/HCPCS: 99213

== ENCOUNTER 2023-05-06 10:19 | Outpatient (AMB) | payer OTHER, SELFPAY ==
--- NOTE | 2023-05-06 10:24 | A.OFFVIS_ITS ---
Intake Intake Visit Reasons: 3m follow up Intake Note: Patient is present for follow up dysuria/urinary frequency Urology Medications: none Blood thinner: xarelto PVR: 0ml's [employer] Required: No Accompanied by: Self / Same As Patient Allergies Sulfa (Sulfonamide Antibiotics) Allergy (Unknown, Verified 05/06/23 20:38) unknown sulfamethoxazole [From Bactrim] Allergy (Unknown, Verified 05/06/23 20:38) Unknown trimethoprim [From Bactrim] Allergy (Unknown, Verified 05/06/23 20:38) Unknown atenolol Adverse Reaction (Intermediate, Verified 05/06/23 20:38) Headache cortisone injection Adverse Reaction (Mild, Uncoded 05/06/23 20:38) Anaphylaxis Medication List - Last Reconciled 05/06/23 by RAMONA Osborne-CHANTAL apixaban (Eliquis) 5 mg PO BID blood pressure test kit-large Check BP 3 times daily with heart rate. celecoxib (Celebrex) 200 mg PO DAILY 90 days gabapentin 600 mg PO DAILY lidocaine 5% (Lidoderm) 1 patch topical DAILY PRN MDD remove after 12 hours lorazepam 0.5 mg PO DAILY 30 days lorazepam mg PO losartan-hydrochlorothiazide 50-12.5 mg 1 tab PO DAILY nortriptyline 25 mg PO BEDTIME omeprazole 20 mg PO DAILY 90 days rimegepant (Nurtec ODT) 75 mg PO DAILY PRN simvastatin 40 mg PO DAILY 90 days HPI HPI Comments History of Present Illness Details Isabel is a pleasant 52-year-old female patient of Dr. Hunter who was accompanied by her granddaughter Naveen at today's office visit. She has a past medical history of bilateral osteoarthritis of the knees, headaches, chronic pain, and lipid disorder. She presents to the office today for a follow up regarding her intermittent in urinary issues. When asked patient reports since her last office visit here approximately 3 months ago she has not experienced any urinary issues. However, she discusses at length the loss of her son recently and her crisis regarding this issue. She discusses following up with her PCP and therapist and has been undergoing therapy sessions to assist with her grieving process. Previous workup has included a retroperitoneal ultrasound noting no calculi, lesions, or hydronephrosis noted bilaterally. The bladder is partially distended. Prevoid bladder volume is 128 mL postvoid bladder volume is 5.7 mL. Patient has since completed dual antibiotic therapy for microgen results. When asked she reports to be feeling and doing much better with her urinary issues since this treatment. She denies urinary urgency, urinary frequency, incontinence, nocturia, hematuria, dysuria, foul smelling urine, changes to urinary stream, flank pain, fever, and or chills. In office urinalysis results reviewed with the patient today. She denies any UTI like symptoms. PVR 0ml's. Discussed possible near fututre in office cystoscopy if symptoms arise. Discussed possible Estrace cream. Discussed, educated, and instructed on the importance of drinking plenty of water daily. She otherwise offers no other issues or concerns at this time. [facility] Medical History Complex regional pain syndrome i of left lower limb Bilateral primary osteoarthritis of knee Headache syndrome Chronic pain Alteration comfort patterns as evidenced by distress Bilateral knee pain Lipid disorder Surgical History H/O colonoscopy History of knee surgery Family History Father HTN (hypertension) Mother HTN (hypertension) Maternal Grandfather Diabetes mellitus Maternal Aunt Cancer Son No problems noted. Son No problems noted. Son No problems noted. Son No problems noted. Son No problems noted. 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 Cognitive needs: No Hearing needs: No Vision needs: Yes Female Reproductive History Menstrual Age of Menarche: 9 Review of Systems Const Reports no additional complaints Eyes Reports no additional complaints ENT Reports no additional complaints Card Reports as per HPI Resp Reports no additional complaints GI Reports no additional complaints Reports as per HPI Musc Details: Patient reports she follows up with [facility] orthopedics for bilateral knee arthritis and question of meniscus issues Reports as per HPI Neuro Reports no additional complaints Psych Reports no additional complaints Endo Reports no additional complaints Richard/Lymph Reports no additional complaints Aller/Immun Reports no additional complaints Physical Exam Const General: cooperative, healthy appearing, comfortable, no acute distress, well developed, alert and awake Nutritional Appearance: overweight Orientation/consciousness: patient oriented x3 Limitations: no limitations HEENT Head: Yes normal to inspection, Yes normocephalic and Yes atraumatic Eyes General: appearance normal, both eyes and all related structures Neck Neck: Yes normal visual inspection and Yes trachea midline Chest Chest palpation & inspection: normal inspection of the chest Resp Effort & Inspection: normal respiratory effort and able to speak in complete sentences Cardio Rate: regular rate GI Inspection: Yes normal to inspection General: Yes no CVA tenderness Back/Spine/Pelvis Back: no CVA tenderness Neuro General: patient oriented x3 Extrem General: Yes normal to inspection Psych Appearance: grossly normal and well kempt Mental Status: mental status grossly normal Speech and movement: Normal speech and movement present and Clear speech present Affect: Sad affect present Attitude: cooperative Thought process: Normal thought process present Thought content: Normal thought content present Insight: Fair insight present (Psych) Judgement: Fair judgement present (Psych) Office Procedures Post Void Residual Post Residual Void Post Void Residual (PVR): 0 04117-Myrm Void Residual by ultrasound Results AMB Urinalysis, Automated UA Leukoctes 125 Joana/uL Last Edit by [employer] on 05/06/23 10:47 UA Nitrite Negative Last Edit by [employer] on 05/06/23 10:47 UA Urobilinogen 0.2 mg/dL Last Edit by [employer] on 05/06/23 10:47 UA Protein 0 mg/dL Last Edit by [employer] on 05/06/23 10:47 UA pH 6.5 Last Edit by [employer] on 05/06/23 10:47 UA Blood 0 Andrei/uL Last Edit by [employer] on 05/06/23 10:47 UA Specific Frazer 1.015 Last Edit by [employer] on 05/06/23 10:47 UA Ketone Negative Last Edit by [employer] on 05/06/23 10:47 UA Bilirubin 0 mg/dL Last Edit by Ellis Jon on 05/06/23 10:47 UA Glucose 0 mg/dL Last Edit by Ellis Jon on 05/06/23 10:47 Results Reviewed Results Reviewed: Laboratory Last Values Urine pH (Auto) 6.5 05/06/23 10:27 Specific Frazer (Auto) 1.015 05/06/23 10:27 Urine Protein (Auto) 0 mg/dL 05/06/23 10:27 Glucose (UA)(Auto) 0 mg/dL 05/06/23 10:27 Urine Ketones (Auto) Negative 05/06/23 10:27 Urine Blood (Auto) 0 Andrei/uL 05/06/23 10:27 Urine Nitrite (Auto) Negative 05/06/23 10:27 Urine Bilirubin (Auto) 0 mg/dL 05/06/23 10:27 Urine Urobilinogen (Auto) 0.2 mg/dL 05/06/23 10:27 Leukocyte Esterase (Auto) 125 Joana/uL 05/06/23 10:27 Assessment & Plan Assessment & Plan (1) Recurrent urinary tract infection: Code(s): N39.0 - Urinary tract infection, site not specified (2) Frequency of urination: Code(s): R35.0 - Frequency of micturition (3) Dysuria: Code(s): R30.0 - Dysuria Plan In office urinalysis results reviewed with the patient today; as noted above She denies any bothersome urinary issues or concerns at this time Discussed importance of following up with PCP, therapist, and psych as planned Discussed, educated, and encouraged to continue drinking plenty of water daily Discussed near future in office cystoscopy if symptoms arise. Discussed UTI prevention with D mannose supplement, vitamin-C, increasing fluid intake, behavioral therapy with timed voiding, perineal hygiene and postcoital voiding, and management of constipation with stool softeners and increased fiber intake. Follow up in 6 months with PVR; or sooner with any issues, concerns, or questions Orders: Orders AMB Urinalysis Automated Today Z13.9 - Encounter for screening, unspecified AMB Post Void Residual by ultrasound Today R35.0 - Frequency of micturition Patient Instructions: The patient had an opportunity to ask questions regarding the treatment plan. All questions were answered. Physical exam, labs, and imaging were discussed and reviewed in detail. As well as risks, benefits, and discussion of treatment choices. No major barriers to understanding were identified. The patient expressed understanding and agreement with the above treatment plan. The patient was made aware they should contact our office by phone for worsening of their current condition, the appearance of new symptoms, or with any questions or concerns. Compliance is encouraged with any medications and follow up testing that is ordered. It is a privilege to be allowed the opportunity to participate in? your urological care.? Again, if you have any questions or concerns If you have any questions or concerns please do not hesitate to contact me. The office is [phone]. This note is constructed using voice recognition software. While every effort has been made to ensure accuracy guest experience representative errors may have been included. Yours sincerely, MIKY Osborne Coding Level of Care Code Est Pt Level 3 (92336) Diagnoses Recurrent urinary tract infection N39.0 Frequency of urination R35.0 Dysuria R30.0 CPT Codes Post Residual Void - PVR CPT Code: 19114-Tjph Void Residual by ultrasound ([id number])
== END 2023-05-06 11:17 | disposition home or self-care (01) ==
PROVIDERS: PCP Internal Medicine; Visit Provider Nurse Practitioner Family
DX: N39.0 Urinary tract infection, site not specified (principal); R35.0 Frequency of micturition; R30.0 Dysuria
CPT/HCPCS: 99213

== ENCOUNTER → 2023-05-06 10:19 | Outpatient (BNVA) | payer OTHER, SELFPAY | PROVIDERS: PCP Internal Medicine; Visit Provider Nurse Practitioner Family | DX: N39.0 Urinary tract infection, site not specified (principal); R35.0 Frequency of micturition; R30.0 Dysuria | CPT/HCPCS: 51798; 81003; 99212 ==

== ENCOUNTER 2023-05-28 08:40 | Outpatient (AMB) | payer OTHER, SELFPAY ==
--- NOTE | 2023-05-28 08:47 | A.OFFPC_ITS ---
Vital Signs 05/28/23 08:50 Height 5 ft 5 in Weight 230 lb BMI 38.3 BP 110/80 Blood Pressure Location Rt brachial Position Sitting Pulse 78 Pulse Source Pulse Oximeter Pulse Oximetry (%) 100 Oxygen Delivery Method Room Air Intake Visit Reasons: 3 Month follow up Allergies Sulfa (Sulfonamide Antibiotics) Allergy (Unknown, Verified 05/28/23 08:51) unknown sulfamethoxazole [From Bactrim] Allergy (Unknown, Verified 05/28/23 08:51) Unknown trimethoprim [From Bactrim] Allergy (Unknown, Verified 05/28/23 08:51) Unknown atenolol Adverse Reaction (Intermediate, Verified 05/28/23 08:51) Headache cortisone injection Adverse Reaction (Mild, Uncoded 05/28/23 08:51) Anaphylaxis Medication List - Last Reconciled 05/28/23 by Ochoa Hunter MD apixaban (Eliquis) 5 mg PO BID blood pressure test kit-large Check BP 3 times daily with heart rate. gabapentin 600 mg PO DAILY lidocaine 5% (Lidoderm) 1 patch topical DAILY PRN MDD remove after 12 hours lorazepam 0.5 mg PO DAILY 30 days lorazepam mg PO losartan-hydrochlorothiazide 50-12.5 mg 1 tab PO DAILY nortriptyline 25 mg PO BEDTIME omeprazole 20 mg PO DAILY 90 days rimegepant (Nurtec ODT) 75 mg PO DAILY PRN simvastatin 40 mg PO DAILY 90 days Tobacco use date assessed: 05/28/23 Dental Screening Dental Screen Date: 05/28/23 Did you have a dental visit in the last 12 months?: No Was dental information given to patient?: No HPI 3 Month follow up HPI Details Patient is a 52-year-old female came in for her regular follow-up appointment Patient suffers from severe knee pain due to osteoarthritis currently she is on Celebrex I see that she is also on a 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 She tells me that she is not taking gabapentin 600 at she is taking lorazepam however tablets through Psy chiatry and do not want the interaction But she will stop taking the lorazepam and restart the gabapentin 600 since we are stopping the Celebrex. Patient is currently taking losartan hydrochlorothiazide 50-12.5 mg blood pressure is stable patient is tolerating medication Tobacco dependence, continued to smoke cigarettes once again patient was instructed to stop as soon as possible, help was offered Suffers from anxiety/panic disorder Management through Psychiatry currently taking lorazepam 1 mg in the morning 1 in the afternoon and half at night . She tells me that she is drinking a lot of coffee, we talked about the anxiety and caffeine I would recommend not drink more than 2 cups a day. BMI is elevated at 38.3, I will be booking appointment with the dietitian Chronic GERD: Patient is in need of refill for omeprazole which I have sent for her. Lipid disorder continue simvastatin Patient also have impaired fasting sugar. We will be monitoring A1c next time Labs are needed before next visit in 3 months [facility] Medical History Complex regional pain syndrome i of left lower limb Bilateral primary osteoarthritis of knee Headache syndrome Chronic pain Alteration comfort patterns as evidenced by distress Bilateral knee pain Lipid disorder Surgical History H/O colonoscopy History of knee surgery Family History Father HTN (hypertension) Mother HTN (hypertension) Maternal Grandfather Diabetes mellitus Maternal Aunt Cancer Son No problems noted. Son No problems noted. Son No problems noted. Son No problems noted. Son No problems noted. Social History Household Members: Spouse and Family Housing: House Are you a primary acute care physical therapist to a significant other at home: No Do you presently have visiting nurse or other home services: No Alcohol intake: current Alcohol intake frequency: holidays/special occasions only Patient Tobacco Use Status: Current everyday Tobacco user Tobacco use type: Cigarette Cigarette Packs Per Day: 0.5 Cigarettes Per Day: 10.0 Years Smoked: 40 +/- e-Cigarette/Vaping Use: Never Used service: No Current occupational status: employed Current occupation: [employer], 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 1. Little interest or pleasure in doing things: not at all 2. Feeling down, depressed, or hopeless: nearly every day 3. Trouble falling or staying asleep, or sleeping too much: several days 4. Feeling tired or having little energy: more than half the days 5. Poor appetite or overeating: more than half the days 6. Feeling bad about yourself - or that you are a failure or have let yourself or your family down: not at all 7. Trouble concentrating on things, such as reading the newspaper or watching television: nearly every day 8. Moving or speaking so slowly that other people could have noticed. Or the opposite - being so fidgety or restless that you have been moving around a lot more than usual: more than half the days 9. Thoughts that you would be better off or of hurting yourself in some way: not at all Total score: 13 Depression Screening Interpretation: Positive Depression Screening Follow-up: Existing condition and In treatment Depression Screening Done: Yes Source: Developed by Drs. Edward Abraham, Shameka Meraz, Uriel Sultana and colleagues, with an educational thony from [employer]. Thrive Questionnaire Date Thrive assessed: 05/28/23 I am a: Patient What is your living situation today?: I have a steady place to live Within the past 12 months, did the food you bought not last and you didn't have the money to get more?: Never true Within the past 12 months, did you worry whether your food would run out before you got money to buy more?: Never true Do you have trouble paying for medicines?: No Do you have trouble getting transportation to medical appointments?: No Do you have trouble paying your heating and electricity bill?: No Do you have trouble taking care of your child, family member or friend?: No Do you have trouble with day-to-day activities such as bathing, preparing meals, shopping, managing finances, etc.?: No Are you currently unemployed and looking for a job?: No Are you interested in more education?: No Please select the resources that you would like help with: None Currently or been in a relationship where the following occur: no concerns reported AUDIT C Alcohol Use Questionnaire (AUDIT-C) 1. How often do you have a drink containing alcohol?: Never Total Score: 0 Score Reviewed/Action Taken: No TEE-7 AMB Questionnaire TEE-7 Date TEE - 7 assessed: 05/28/23 Feeling nervous, anxious, or on edge: 3 = Nearly every day Not being able to stop or control worryin = Nearly every day Worrying too much about different things: 3 = Nearly every day Trouble relaxin = More than half the days Being so restless that it is hard to sit still: 0 = Not at all Becoming easily annoyed or irritable: 3 = Nearly every day Feeling afraid as if something awful might happen: 0 = Not at all Total TEE-7 score (0-4 normal; 5-9 mild; 10-14 moderate; 15-21 severe): 14 Source: Developed by Drs. Edward Abraham, Shameka Meraz, Uriel Sultana and colleagues, with an educational thony from [employer]. TEE-7 Assessment Billing TEE-7 Assessment Tool: TEE-7 Assessment 57894 Review of Systems Const Denies chills and Denies fever(s) ENT Denies epistaxis and Denies nasal discharge Card Denies chest pain Resp Denies chest congestion, Denies cough and Denies hemoptysis GI Denies diarrhea and Denies nausea Skin/Breast Denies rash Neuro Reports no additional complaints Psych Reports no additional complaints Endo Reports no additional complaints Physical exam (Primary Care) Vital Signs: Last Vital Signs Pulse 78 05/28/23 08:50 BP 110/80 05/28/23 08:50 Pulse Ox 100 05/28/23 08:50 Oxygen Delivery Method Room Air 05/28/23 08:50 BMI result Body Mass Index 38.3 Tobacco/Smoking Status: Tobacco use Status Tobacco use date assessed 05/28/23 05/28/23 08:53 Patient Tobacco Use Status Current everyday Tobacco 05/28/23 08:47 Tobacco use type Cigarette 05/28/23 08:47 e-Cigarette/Vaping Use Never Used 05/28/23 08:47 PHQ-9: PHQ-9 Score PHQ-9: Total score 13 05/28/23 09:28 Depression Screening Interpretation: Positive Depression Screening Follow-up: Existing condition and In treatment Thrive Assessment: Date of Thrive Assessment Date Thrive assessed 05/28/23 05/28/23 09:28 Currently or been in a relationship where the following occur: no concerns reported Const General: cooperative, comfortable and no acute distress Orientation/consciousness: patient oriented x3 HENMT Head: Yes normocephalic Eyes General: appearance normal, both eyes and all related structures Neck Neck: Yes supple Resp Effort & Inspection: normal respiratory effort, no cough and no stridor Cardio Rhythm: regular rhythm Heart sounds: S1 normal heart sound present and S2 normal heart sound present Skin General skin exam: turgor normal Neuro General: patient oriented x3, tone normal and moves all extremities Extrem Right lower extremity: no edema Left lower extremity: no edema Assessment and Plan Assessment & Plan (1) Hypertension, essential: Code(s): I10 - Essential (primary) hypertension (2) Lipid disorder: Code(s): E78.9 - Disorder of lipoprotein metabolism, unspecified (3) Anxiety disorder: Code(s): F41.9 - Anxiety disorder, unspecified Qualifiers: Anxiety disorder type: generalized anxiety disorder Qualified Code(s): F41.1 - Generalized anxiety disorder (4) Factor 5 Leiden mutation, heterozygous: Code(s): D68.51 - Activated protein C resistance (5) Nicotine dependence: Code(s): F17.200 - Nicotine dependence, unspecified, uncomplicated Qualifiers: Nicotine product type: cigarettes Substance use status: uncomplicated Qualified Code(s): F17.210 - Nicotine dependence, cigarettes, uncomplicated (6) Osteoarthritis of knees, bilateral: Code(s): M17.0 - Bilateral primary osteoarthritis of knee Qualifiers: Osteoarthritis type: primary Qualified Code(s): M17.0 - Bilateral primary osteoarthritis of knee (7) Bilateral knee pain: Code(s): M25.561 - Pain in right knee; M25.562 - Pain in left knee Qualifiers: Chronicity: chronic Qualified Code(s): M25.561 - Pain in right knee; M25.562 - Pain in left knee; G89.29 - Other chronic pain (8) Obesity due to excess calories: Code(s): E66.09 - Other obesity due to excess calories Qualifiers: Body mass index: BMI 38.0-38.9 Obesity classification: adult class 2 (BMI 35 - 39.9) Serious obesity comorbidity presence: with serious comorbidity Qualified Code(s): E66.01 - Morbid (severe) obesity due to excess calories; Z68.38 - Body mass index [BMI] 38.0-38.9, adult (9) Impaired fasting blood sugar: Code(s): R73.01 - Impaired fasting glucose (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 She tells me that she is not taking gabapentin 600 at she is taking lorazepam however tablets through Psychiatry and do not want the interaction But she will stop taking the lorazepam and restart the gabapentin 600 since we are stopping the Celebrex. Patient is currently taking losartan hydrochlorothiazide 50-12.5 mg blood pressure is stable patient is tolerating medication Tobacco dependence, continued to smoke cigarettes once again patient was instruc bhavana to stop as soon as possible, help was offered Suffers from anxiety/panic disorder Management through Psychiatry currently taking lorazepam 1 mg in the morning 1 in the afternoon and half at night . She tells me that she is drinking a lot of coffee, we talked about the anxiety and caffeine I would recommend not drink more than 2 cups a day. BMI is elevated at 38.3, I will be booking appointment with the dietitian Chronic GERD: Patient is in need of refill for omeprazole which I have sent for her. Lipid disorder continue simvastatin Patient also have impaired fasting sugar. We will be monitoring A1c next time Labs are needed before next visit in 3 months Orders: Orders Hemoglobin A1c Today D68.51 - Activated protein C resistance, E66.09 - Other obesity due to excess calories, E78.9 - Disorder of lipoprotein metabolism, unspecified, F15.20 - Other stimulant dependence, uncomplicated, F17.200 - Nicotine dependence, unspecified, uncomplicated, F41.9 - Anxiety disorder, unspecified, I10 - Essential (primary) hypertension, M17.0 - Bilateral primary osteoarthritis of knee, M25.561 - Pain in right knee, M25.562 - Pain in left knee, R73.01 - Impaired fasting glucose Lipid Panel Today D68.51 - Activated protein C resistance, E66.09 - Other o besity due to excess calories, E78.9 - Disorder of lipoprotein metabolism, unspecified, F15.20 - Other stimulant dependence, uncomplicated, F17.200 - Nicotine dependence, unspecified, uncomplicated, F41.9 - Anxiety disorder, unspecified, I10 - Essential (primary) hypertension, M17.0 - Bilateral primary osteoarthritis of knee, M25.561 - Pain in right knee, M25.562 - Pain in left knee, R73.01 - Impaired fasting glucose TSH reflex Free T4 Today D68.51 - Activated protein C resistance, E66.09 - Other obesity due to excess calories, E78.9 - Disorder of lipoprotein metabolism, unspecified, F15.20 - Other stimulant dependence, uncomplicated, F17.200 - Nicotine dependence, unspecified, uncomplicated, F41.9 - Anxiety disorder, unspecified, I10 - Essential (primary) hypertension, M17.0 - Bilateral primary osteoarthritis of knee, M25.561 - Pain in right knee, M25.562 - Pain in left knee, R73.01 - Impaired fasting glucose Complete Blood Count Auto Diff Today D68.51 - Activated protein C resistance, E66.09 - Other obesity due to excess calories, E78.9 - Disorder of lipoprotein metabolism, unspecified, F15.20 - Other stimulant dependence, uncomplicated, F17.200 - Nicotine dependence, unspecified, uncomplicated, F41.9 - Anxiety disorder, unspecified, I10 - Essential (primary) hypertension, M17.0 - Bilateral primary osteoarthritis of knee, M25.561 - Pain in right knee, M25.562 - Pain in left knee, R73.01 - Impaired fasting glucose Comprehensive [place]. Panel Fast Today D68.51 - Activated protein C resistance, E6 6.09 - Other obesity due to excess calories, E78.9 - Disorder of lipoprotein metabolism, unspecified, F15.20 - Other stimulant dependence, uncomplicated, F17.200 - Nicotine dependence, unspecified, uncomplicated, F41.9 - Anxiety disorder, unspecified, I10 - Essential (primary) hypertension, M17.0 - Bilateral primary osteoarthritis of knee, M25.561 - Pain in right knee, M25.562 - Pain in left knee, R73.01 - Impaired fasting glucose Medications: Refilled omeprazole 20 mg PO DAILY 90 caps 0RF 90 days K21.9 - Gastro-esophageal reflux disease without esophagitis Discontinued celecoxib (Celebrex) Discontinued Reason: Doctor's Order 200 mg PO DAILY 90 days 90 caps 0RF Knee pain Coding Level of Care Code Est Pt Level 4 (69932) Diagnoses Hypertension, essential I10 Lipid disorder E78.9 Generalized anxiety disorder F41.1 Anxiety disorder type: generalized anxiety disorder Factor 5 Leiden mutation, heterozygous D68.51 Cigarette nicotine dependence without complication F17.210 Nicotine product type: cigarettes Substance use status: uncomplicated Primary osteoarthritis of both knees M17.0 Osteoarthritis type: primary Chronic pain of both knees M25.561; M25.562; G89.29 Chronicity: chronic Class 2 severe obesity due to excess calories with serious comorbidity and body mass index (BMI) of 38.0 to 38.9 in adult E66.01; Z68.38 Body mass index: BMI 38.0-38.9 Obesity classification: adult class 2 (BMI 35 - 39.9) Serious obesity comorbidity presence: with serious comorbidity Impaired fasting blood sugar R73.01 Caffeine dependence F15.20 Additional Codes TEE-7 Assessment Billing - TEE-7 Assessment Tool: TEE-7 Assessment 77023 ([id number])
[2023-05-28 08:50] VITALS: BP 110/80; PULSE 78; O2SAT 100; BMI 38.3
== END 2023-05-28 09:10 | disposition home or self-care (01) ==
PROVIDERS: PCP Internal Medicine; Visit Provider Internal Medicine
DX: I10 Essential (primary) hypertension (principal); D68.51 Activated protein C resistance; F15.20 Other stimulant dependence, uncomplicated; E66.01 Morbid (severe) obesity due to excess calories; Z68.38 Body mass index [BMI] 38.0-38.9, adult; F17.210 Nicotine dependence, cigarettes, uncomplicated; E78.9 Disorder of lipoprotein metabolism, unspecified; F41.1 Generalized anxiety disorder; M17.0 Bilateral primary osteoarthritis of knee; M25.561 Pain in right knee; M25.562 Pain in left knee
CPT/HCPCS: 99214

== ENCOUNTER 2023-06-20 14:57 | Outpatient (AMB) | payer OTHER, SELFPAY ==
--- NOTE | 2023-06-20 15:01 | MHC.PC.OV ---
Vital Signs 06/20/23 15:03 Height 5 ft 5 in Weight 236 lb 6 oz BMI 39.3 BP 118/84 Blood Pressure Location Lt brachial Position Sitting Pulse 81 Pulse Source Pulse Oximeter Pulse Oximetry (%) 98 Oxygen Delivery Method Room Air Intake Visit Reasons: Med Req~ Allergies Sulfa (Sulfonamide Antibiotics) Allergy (Unknown, Verified 06/20/23 15:07) unknown sulfamethoxazole [From Bactrim] Allergy (Unknown, Verified 06/20/23 15:07) Unknown trimethoprim [From Bactrim] Allergy (Unknown, Verified 06/20/23 15:07) Unknown atenolol Adverse Reaction (Intermediate, Verified 06/20/23 15:07) Headache cortisone injection Adverse Reaction (Mild, Uncoded 05/28/23 08:51) Anaphylaxis Medication List - Last Reconciled 06/20/23 by Ochoa Hunter MD apixaban (Eliquis) 5 mg PO BID blood pressure test kit-large Check BP 3 times daily with heart rate. lorazepam mg PO losartan-hydrochlorothiazide 50-12.5 mg 1 tab PO DAILY omeprazole 20 mg PO DAILY 90 days rimegepant (Nurtec ODT) 75 mg PO DAILY PRN simvastatin 40 mg PO DAILY 90 days Tobacco use date assessed: 06/20/23 Dental Screening Dental Screen Date: 06/20/23 Did you have a dental visit in the last 12 months?: No Did you have a dental problem in the last 6 months where you did not have access to dental care?: No Was dental information given to patient?: No HPI Med Req~ HPI Details Patient is a 52-year-old female with a BMI of 39.3 would like to go on Semaglutide injection to lose weight. Side effect of medication reviewed with the patient including pancreatitis and thyroid cancer along with allergic reactions She can give herself injections Once she will be kept injection she will give me a call we will need baseline labs And then follow-up in 4 weeks to monitor weight PFSH Medical History Complex regional pain syndrome i of left lower limb Bilateral primary osteoarthritis of knee Headache syndrome Chronic pain Alteration comfort patterns as evidenced by distress Bilateral knee pain Lipid disorder Surgical History H/O colonoscopy History of knee surgery Family History Father HTN (hypertension) Mother HTN (hypertension) Maternal Grandfather Diabetes mellitus Maternal Aunt Cancer Son No problems noted. Son No problems noted. Son No problems noted. Son No problems noted. Son No problems noted. Social History Household Members: Spouse and Family Housing: House Are you a primary healthcare consultant to a significant other at home: No Do you presently have visiting nurse or other home services: No Alcohol intake: current Alcohol intake frequency: holidays/special occasions only Patient Tobacco Use Status: Current everyday Tobacco user Tobacco use type: Cigarette Cigarette Packs Per Day: 0.5 Cigarettes Per Day: 10.0 Years Smoked: 40 +/- Packs Per Year: 0 Packs per year/per ci.00 e-Cigarette/Vaping Use: Never Used service: No Current occupational status: employed Current occupation: [employer], left handed Cognitive needs: No Hearing needs: No Vision needs: Yes Female Reproductive History Menstrual Age of Menarche: 9 Questionnaire Thrive Questionnaire Date Thrive assessed: 05/28/23 AUDIT C Alcohol Use Questionnaire (AUDIT-C) 1. How often do you have a drink containing alcohol?: Never 3. How often do you have six or more drinks on one occasion?: Never Total Score: 0 Score Reviewed/Action Taken: Yes TEE-7 AMB Questionnaire TEE-7 Date TEE - 7 assessed: 05/28/23 Source: Developed by Drs. Edward Abraham, Shameka Meraz, Uriel Sultana and colleagues, with an educational thony from [employer]. Review of Systems Const Denies chills and Denies fever(s) ENT Denies epistaxis and Denies nasal discharge Card Denies chest pain Resp Denies chest congestion, Denies cough and Denies hemoptysis GI Denies diarrhea and Denies nausea Skin/Breast Denies rash Neuro Reports no additional complaints Psych Reports no additional complaints Endo Reports no additional complaints Physical exam (Primary Care) Vital Signs: Last Vital Signs Pulse 81 06/20/23 15:03 BP 118/84 06/20/23 15:03 Pulse Ox 98 06/20/23 15:03 Oxygen Delivery Method Room Air 06/20/23 15:03 BMI result Body Mass Index 39.3 Tobacco/Smoking Status: Tobacco use Status Tobacco use date assessed 06/20/23 06/20/23 15:07 Patient Tobacco Use Status Current everyday Tobacco 06/20/23 15:03 Tobacco use type Cigarette 06/20/23 15:03 e-Cigarette/Vaping Use Never Used 06/20/23 15:03 Thrive Assessment: Date of Thrive Assessment Date Thrive assessed 05/28/23 06/20/23 15:03 Const General: cooperative, comfortable and no acute distress Orientation/consciousness: patient oriented x3 HENMT Head: Yes normocephalic Eyes General: appearance normal, both eyes and all related structures Neck Neck: Yes supple Resp Effort & Inspection: normal respiratory effort, no cough and no stridor Cardio Rhythm: regular rhythm Heart sounds: S1 normal heart sound present and S2 normal heart sound present Skin General skin exam: turgor normal Neuro General: patient oriented x3, tone normal and moves all extremities Extrem Right lower extremity: no edema Left lower extremity: no edema Assessment and Plan Assessment & Plan (1) Obesity due to excess calories: Code(s): E66.09 - Other obesity due to excess calories Qualifiers: Body mass index: BMI 38.0-38.9 Obesity classification: adult class 2 (BMI 35 - 39.9) Serious obesity comorbidity presence: with serious comorbidity Qualified Code(s): E66.01 - Morbid (severe) obesity due to excess calories; Z68.38 - Body mass index [BMI] 38.0-38.9, adult Plan Patient is a 52-year-old female with a BMI of 39.3 would like to go on Semaglutide injection to lose weight. Side effect of medication reviewed with the patient including pancreatitis and thyroid cancer along with allergic reactions She can give herself injections Once she will be kept injection she will give me a call we will need baseline labs And then follow-up in 4 weeks to monitor weight Medications: New semaglutide for 4 weeks 0.25 mg (0.368 mL) subcut QWEEK 2 mL 0RF 30 days Coding Level of Care Code Est Pt Level 3 (09505) Diagnoses Class 2 severe obesity due to excess calories with serious comorbidity and body mass index (BMI) of 38.0 to 38.9 in adult E66.01; Z68.38 Body mass index: BMI 38.0-38.9 Obesity classification: adult class 2 (BMI 35 - 39.9) Serious obesity comorbidity presence: with serious comorbidity
[2023-06-20 15:03] VITALS: BP 118/84; PULSE 81; O2SAT 98; BMI 39.3
== END 2023-06-20 15:56 | disposition home or self-care (01) ==
PROVIDERS: PCP Internal Medicine; Visit Provider Internal Medicine
DX: E66.01 Morbid (severe) obesity due to excess calories (principal); Z68.38 Body mass index [BMI] 38.0-38.9, adult
CPT/HCPCS: 99213

== ENCOUNTER 2023-07-12 09:02 | Outpatient (AMB) | payer OTHER, SELFPAY ==
[2023-07-12 09:06] VITALS: BP 104/80; PULSE 63; TEMP 36.6; BMI 36.4
--- NOTE | 2023-07-12 09:06 | AM.OFFWIN_ITS ---
Intake Vital Signs 07/12/23 09:06 Height 5 ft 5 in Weight 219 lb BMI 36.4 BP 104/80 Blood Pressure Location Rt brachial Position Sitting Pulse 63 Pulse Source Pulse Oximeter Temp 97.9 F Temp Source Oral Intake Visit Reasons: EP Sore Throat Intake Note: Pt is here today c/o sorethroat x2days Patient Tobacco Use Status: Current everyday Tobacco user Allergies Sulfa (Sulfonamide Antibiotics) Allergy (Unknown, Verified 07/12/23 09:09) unknown sulfamethoxazole [From Bactrim] Allergy (Unknown, Verified 07/12/23 09:09) Unknown trimethoprim [From Bactrim] Allergy (Unknown, Verified 07/12/23 09:09) Unknown atenolol Adverse Reaction (Intermediate, Verified 07/12/23 09:09) Headache cortisone injection Adverse Reaction (Mild, Uncoded 07/12/23 09:09) Anaphylaxis HPI HPI Comments History of Present Illness Details 52-year-old female presents for sore thr oat x3 days. Denies fever or chills no shortness of breath pain on the right side when pressing under the jaw PFSH Medical History Complex regional pain syndrome i of left lower limb Bilateral primary osteoarthritis of knee Headache syndrome Chronic pain Alteration comfort patterns as evidenced by distress Bilateral knee pain Lipid disorder Surgical History H/O colonoscopy History of knee surgery Family History Father HTN (hypertension) Mother HTN (hypertension) Maternal Grandfather Diabetes mellitus Maternal Aunt Cancer Son No problems noted. Son No problems noted. Son No problems noted. Son No problems noted. Son No problems noted. 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 Cognitive needs: No Hearing needs: No Vision needs: Yes Female Reproductive History Menstrual Age of Menarche: 9 Review of Systems Const All systems reviewed & are unremarkable except as noted in HPI and below Denies fever(s), Denies headache(s) and Denies weakness Eyes Reports no additional complaints ENT Denies headache(s) and Reports sore throat Card Reports no additional complaints, Denies chest pain, Denies leg edema and Denies dyspnea Resp Denies cough and Denies dyspnea GI Denies abdominal pain, Denies nausea and Denies vomiting Denies urinary frequency and Denies dysuria Musc Reports no additional complaints Neuro Denies headache(s) and Denies weakness Psych Reports no additional complaints Endo Reports no additional complaints Physical Exam Vital Signs: Last Vital Signs Temp 97.9 F 07/12/23 09:06 Pulse 63 07/12/23 09:06 BP 104/80 07/12/23 09:06 BMI result Body Mass Index 36.4 Const General: cooperative, healthy appearing, no acute distress and alert Orientation/consciousness: patient oriented x3 Limitations: no limitations HEENT Other: Posterior pharynx without any erythema tonsils 1+. No exudates uvula midline no trismus. Mild tenderness to palpation on the right side to the left of trachea. No lumps appreciated no obvious swelling or erythema Head: Yes normal to inspection Ears: hearing grossly normal bilaterally General nose exam: Normal external nose present Resp Effort & Inspection: normal respiratory effort and able to speak in complete sentences Cardio Rate: regular rate Skin General skin exam: no rashes or lesions noted Neuro General: patient oriented x3 Extrem General: Yes normal to inspection Results AMB Rapid Strep AMB Rapid Strep Negative Last Edit by Marta Shepard CMA on 07/12/23 09:21 Assessment & Plan Assessment & Plan (1) Pharyngitis: Code(s): J02.9 - Acute pharyngitis, unspecified Qualifiers: Pharyngitis/tonsillitis etiology: unspecified etiology Qualified Code(s): J02.9 - Acute pharyngitis, unspecified Plan: VSS. DX include strep bacterial versus viral lymphadenitis. Recommend symptomatic treatment Tylenol Motrin happened strep negative will send for COVID Orders: Orders AMB Rapid Strep Screen Today Z13.9 - Encounter for screening, unspecified BinaxNOW Covid-19 Ag Today J02.9 - Acute pharyngitis, unspecified Patient Instructions: Your rapid strep test is negative, In the meantime soothing relief is often obtained from the following: a cup of tea with honey a cup of tea with lemon hot chocolate Chicken bullion or soup warm salt water gargles or baking soda. Mix 1 teaspoon of salt with 1 cup of water gargle for 5 to 10 seconds and then spit and repeat as needed. You can also do this with 1 teaspoon of baking soda. There are many codn-fek-tcfjvno medications to help soothe a sore throat I would suggest: CEPACOL LOZENGES CHLORASEPTIC THROAT SPRAY. There are many others.. Coding Level of Care Code Est Pt Level 3 (16038) Diagnoses Pharyngitis, unspecified etiology J02.9 Pharyngitis/tonsillitis etiology: unspecified etiology
== END 2023-07-12 09:22 | disposition home or self-care (01) ==
PROVIDERS: PCP Internal Medicine; Visit Provider Physician Assistant
DX: J02.9 Acute pharyngitis, unspecified (principal)
CPT/HCPCS: 87880; 99051; 99213

== ENCOUNTER 2023-07-12 09:24 | Outpatient (REF) | payer OTHER, SELFPAY ==
[2023-07-12 10:05] LABS: Binax Now Covid-19 Ag Negative (Negative); Binax Performed by: HO.BONILM
[2023-07-12 10:06] LABS: Binax Internal Control QC Valid
== END 2023-07-12 09:25 | disposition home or self-care (01) ==
LOC: HO.HMGCLDS 09:24
PROVIDERS: Visit Provider Physician Assistant
DX: J02.9 Acute pharyngitis, unspecified (principal); Z20.828 Contact with and (suspected) exposure to other viral communicable diseases
CPT/HCPCS: 87811

== ENCOUNTER 2023-07-24 08:05 | Outpatient (AMB) | payer OTHER, SELFPAY ==
--- NOTE | 2023-07-24 08:18 | AM.OFFWIN_ITS ---
Intake Vital Signs 07/24/23 08:19 Height 5 ft 5 in Weight 212 lb BMI 35.3 BP 122/72 Blood Pressure Location Lt brachial Position Sitting Pulse 81 Pulse Source Pulse Oximeter Temp 98.1 F Temp Source Oral Pulse Oximetry (%) 98 Oxygen Delivery Method Room Air Intake Visit Reasons: EP headache runny nose sinus congestion Intake Note: pt is here for co headache, runny nose, congestion Patient Tobacco Use Status: Current everyday Tobacco user Allergies Sulfa (Sulfonamide Antibiotics) Allergy (Unknown, Verified 07/24/23 08:20) unknown sulfamethoxazole [From Bactrim] Allergy (Unknown, Verified 07/24/23 08:20) Unknown trimethoprim [From Bactrim] Allergy (Unknown, Verified 07/24/23 08:20) Unknown atenolol Adverse Reaction (Intermediate, Verified 07/24/23 08:20) Headache cortisone injection Adverse Reaction (Mild, Uncoded 07/12/23 09:09) Anaphylaxis Do you need a note to return to daycare/school/sports/work: No HPI HPI Comments History of Present Illness Details 52 y/o female patient who presents to [facility] clinic with c/o URI symptoms x 2 days.Denies any recent sick contact. Denies fevers, chills, nausea or vomiting. FOR[facility] Medical History Complex regional pain syndrome i of left lower limb Bilateral primary osteoarthritis of knee Headache syndrome Chronic pain Alteration comfort patterns as evidenced by distress Bilateral knee pain Lipid disorder Surgical History H/O colonoscopy History of knee surgery Family History Father HTN (hypertension) Mother HTN (hypertension) Maternal Grandfather Diabetes mellitus Maternal Aunt Cancer Son No problems noted. Son No problems noted. Son No problems noted. Son No problems noted. Son No problems noted. 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 Cognitive needs: No Hearing needs: No Vision needs: Yes Female Reproductive History Menstrual Age of Menarche: 9 Review of Systems Const All systems reviewed & are unremarkable except as noted in HPI and below Physical Exam Vital Signs: Last Vital Signs Temp 98.1 F 07/24/23 08:19 Pulse 81 07/24/23 08:19 BP 122/72 07/24/23 08:19 Pulse Ox 98 07/24/23 08:19 Oxygen Delivery Method Room Air 07/24/23 08:19 BMI result Body Mass Index 35.3 Const General: cooperative, comfortable and no acute distress Orientation/consciousness: patient oriented x3 HEENT Head: Yes normocephalic Ears: external ears normal and TM's normal bilaterally General nose exam: Abnormal mucous membranes and turbinates present boggy and erythematous Face and sinus: Yes sinuses nontender Mouth: moist mucous membranes Throat: Yes posterior oropharynx normal Resp Effort & Inspection: normal respiratory effort, able to speak in complete sentences and no cough Auscultation: clear to auscultation bilaterally, no crackles, no rales, no rhonchi and no wheezes Cardio Rate: regular rate Rhythm: regular rhythm Neuro General: patient oriented x3 Assessment & Plan Assessment & Plan (1) Upper respiratory infection: Code(s): J06.9 - Acute upper respiratory infection, unspecified Qualifiers: URI type: acute nasopharyngitis (common cold) Qualified Code(s): J00 - Acute nasopharyngitis [common cold] Plan: - OTC cold/cough remedies - Rest and hydrate well - Acetaminophen for pain relief. Orders: Orders SARS-CoV2/FLU/RSV Today R09.89 - Other specified symptoms and signs involving the circulatory and respiratory systems Coding Level of Care Code Est Pt Level 3 (94841) Diagnoses Acute nasopharyngitis J00 URI type: acute nasopharyngitis (common cold) Time Spent (min) 15
[2023-07-24 08:19] VITALS: BP 122/72; PULSE 81; TEMP 36.7; O2SAT 98; BMI 35.3
== END 2023-07-24 09:05 | disposition home or self-care (01) ==
PROVIDERS: PCP Internal Medicine; Visit Provider Nurse Practitioner Family
DX: J00 Acute nasopharyngitis [common cold] (principal)
CPT/HCPCS: 99213

== ENCOUNTER 2023-07-24 09:01 | Outpatient (REF) | payer OTHER, SELFPAY ==
[2023-07-24 11:40] LABS: Influenza A PCR NEGATIVE (Negative); Influenza B PCR NEGATIVE (Negative); Resp Syncy Virus RNA Qual PCR NEGATIVE (Negative); SARS COV2 PCR INHOUSE NEGATIVE (Negative)
== END 2023-07-24 09:02 | disposition home or self-care (01) ==
LOC: HO.LAB 09:01
PROVIDERS: Visit Provider Nurse Practitioner Family
DX: R09.89 Other specified symptoms and signs involving the circulatory and respiratory systems (principal); Z11.52 Encounter for screening for COVID-19; Z20.828 Contact with and (suspected) exposure to other viral communicable diseases
CPT/HCPCS: 0241U

== ENCOUNTER 2023-08-29 09:06 | Outpatient (AMB) | payer OTHER, SELFPAY ==
--- NOTE | 2023-08-29 09:09 | MHC.PC.OV ---
Vital Signs 08/29/23 09:11 Height 5 ft 5 in Weight 211 lb 5 oz BMI 35.2 BP 110/76 Blood Pressure Location Rt brachial Position Sitting Pulse 57 Pulse Source Pulse Oximeter Pulse Oximetry (%) 98 Oxygen Delivery Method Room Air Intake Visit Reasons: 3 Month follow up Allergies Sulfa (Sulfonamide Antibiotics) Allergy (Unknown, Verified 08/29/23 09:13) unknown sulfamethoxazole [From Bactrim] Allergy (Unknown, Verified 08/29/23 09:13) Unknown trimethoprim [From Bactrim] Allergy (Unknown, Verified 08/29/23 09:13) Unknown atenolol Adverse Reaction (Intermediate, Verified 08/29/23 09:13) Headache cortisone injection Adverse Reaction (Mild, Uncoded 08/29/23 09:13) Anaphylaxis Medication List - Last Reconciled 08/29/23 by Ochoa Hunter MD apixaban (Eliquis) 5 mg PO BID blood pressure test kit-large Check BP 3 times daily with heart rate. lorazepam mg PO losartan-hydrochlorothiazide 50-12.5 mg 1 tab PO DAILY omeprazole 20 mg PO DAILY 90 days rimegepant (Nurtec ODT) 75 mg PO DAILY PRN simvastatin 40 mg PO DAILY 90 days Tobacco use date assessed: 08/29/23 Dental Screening Dental Screen Date: 08/29/23 Did you have a dental visit in the last 12 months?: No Did you have a dental problem in the last 6 months where you did not have access to dental care?: No Was dental information given to patient?: No HPI 3 Month follow up HPI Details Patient is a 32-year-old female came in today for her regular follow-up appointment Patient have osteoarthritis right knee, she has been evaluated by Orthopedic and had MRI done as well At this point patient can not have knee replacement, she can not have Celebrex that she was taking because she is on blood thinners now Tylenol is not helping, patient says that she is not able to sleep at night because her knee throb Mostly the right side I am starting her on tramadol 50 mg 1 at night, 30 tablets sent Patient is to let me know if medication is helping her so I can send in 90 tablets Patient is aware that medication can cause constipation, dizziness there is a risk of fall And refill will need a visit. Patient is currently taking losartan hydrochlorothiazide 50-12.5 mg blood pressure is stable patient is tolerating medication Tobacco dependence, continued to smoke cigarettes once again patient was instructed to stop as soon as possible, help was offered Suffers from anxiety/panic disorder Management through Psychiatry currently taking lorazepam 1 mg in the morning 1 in the afternoon and half at night . Through [facility] Chronic GERD: Patient is in need of refill for omeprazole which I have sent for her. Lipid disorder continue simvastatin Patient also have impaired fasting sugar. We will be monitoring A1c next time Labs are still not done, patient promised to do it tomorrow BMI is elevated patient has managed to lose weight since May [facility] Medical History Complex regional pain syndrome i of left lower limb Bilateral primary osteoarthritis of knee Headache syndrome Chronic pain Alteration comfort patterns as evidenced by distress Bilateral knee pain Lipid disorder Surgical History H/O colonoscopy History of knee surgery Family History Father HTN (hypertension) Mother HTN (hypertension) Maternal Grandfather Diabetes mellitus Maternal Aunt Cancer Son No problems noted. Son No problems noted. Son No problems noted. Son No problems noted. Son No problems noted. 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 Kt, Uriel Sultana and colleagues, with an educational thony from [employer]. Review of Systems Const Denies chills and Denies fever(s) ENT Denies epistaxis and Denies nasal discharge Card Denies chest pain Resp Denies chest congestion, Denies cough and Denies hemoptysis GI Denies diarrhea and Denies nausea Skin/Breast Denies rash Neuro Reports no additional complaints Psych Reports no additional complaints Endo Reports no additional complaints Physical exam (Primary Care) Vital Signs: Last Vital Signs Pulse 57 08/29/23 09:11 BP 110/76 08/29/23 09:11 Pulse Ox 98 08/29/23 09:11 Oxygen Delivery Method Room Air 08/29/23 09:11 BMI result Body Mass Index 35.2 Tobacco/Smoking Status: Tobacco use Status Tobacco use date assessed 08/29/23 08/29/23 09:16 Patient Tobacco Use Status Current everyday Tobacco 08/29/23 09:10 Tobacco use type Cigarette 08/29/23 09:10 e-Cigarette/Vaping Use Never Used 08/29/23 09:10 Thrive Assessment: Date of Thrive Assessment Date Thrive assessed 05/28/23 08/29/23 09:10 Const General: cooperative, comfortable and no acute distress Orientation/consciousness: patient oriented x3 HENMT Head: Yes normocephalic Eyes General: appearance normal, both eyes and all related structures Neck Neck: Yes supple Resp Effort & Inspection: normal respiratory effort, no cough and no stridor Cardio Rhythm: regular rhythm Heart sounds: S1 normal heart sound present and S2 normal heart sound present Skin General skin exam: turgor normal Neuro General: patient oriented x3, tone normal and moves all extremities Extrem Right lower extremity: no edema Left lower extremity: no edema Assessment and Plan Assessment & Plan (1) Hypertension, essential: Code(s): I10 - Essential (primary) hypertension (2) Lipid disorder: Code(s): E78.9 - Disorder of lipoprotein metabolism, unspecified (3) Anxiety disorder: Code(s): F41.9 - Anxiety disorder, unspecified Qualifiers: Anxiety disorder type: generalized anxiety disorder Qualified Code(s): F41.1 - Generalized anxiety disorder (4) Factor 5 Leiden mutation, heterozygous: Code(s): D68.51 - Activated protein C resistance (5) Nicotine dependence: Code(s): F17.200 - Nicotine dependence, unspecified, uncomplicated Qualifiers: Nicotine product type: cigarettes Substance use status: uncomplicated Qualified Code(s): F17.210 - Nicotine dependence, cigarettes, uncomplicated (6) Osteoarthritis of knees, bilateral: Code(s): M17.0 - Bilateral primary osteoarthritis of knee Qualifiers: Osteoarthritis type: primary Qualified Code(s): M17.0 - Bilateral primary osteoarthritis of knee (7) Bilateral knee pain: Code(s): M25.561 - Pain in right knee; M25.562 - Pain in left knee Qualifiers: Chronicity: chronic Qualified Code(s): M25.561 - Pain in right knee; M25.562 - Pain in left knee; G89.29 - Other chronic pain (8) Obesity due to excess calories: Code(s): E66.09 - Other obesity due to excess calories Qualifiers: Body mass index: BMI 38.0-38.9 Obesity classification: adult class 2 (BMI 35 - 39.9) Serious obesity comorbidity presence: with serious comorbidity Qualified Code(s): E66.01 - Morbid (severe) obesity due to excess calories; Z68.38 - Body mass index [BMI] 38.0-38.9, adult (9) Impaired fasting blood sugar: Code(s): R73.01 - Impaired fasting glucose Plan Patient is a 32-year-old female came in today for her regular follow-up appointment Patient have osteoarthritis right knee, she has been evaluated by Orthopedic and had MRI done as well At this point patient can not have knee replacement, she can not have Celebrex that she was taking because she is on blood thinners now Tylenol is not helping, patient says that she is not able to sleep at night because her knee throb Mostly the right side I am starting her on tramadol 50 mg 1 at night, 30 tablets sent Patient is to let me know if medication is helping her so I can send in 90 tablets Patient is aware that medication can cause constipation, dizziness there is a risk of fall And refill will need a visit. Patient is currently taking losartan hydrochlorothiazide 50-12.5 mg blood pressure is stable patient is tolerating medication Tobacco dependence, continued to smoke cigarettes once again patient was instructed to stop as soon as possible, help was offered Suffers from anxiety/panic disorder Management through Psychiatry currently taking lorazepam 1 mg in the morning 1 in the afternoon and half at night . Through [facility] Chronic GERD: Patient is in need of refill for omeprazole which I have sent for her. Lipid disorder continue simvastatin Patient also have impaired fasting sugar. We will be monitoring A1c next time Labs are still not done, patient promised to do it tomorrow BMI is elevated patient has managed to lose weight since May Has follow-up appointment end of December Medications: New tramadol 50 mg PO BEDTIME PRN 30 tabs 0RF pain right knee Coding Level of Care Code Est Pt Level 4 (59592) Diagnoses Hypertension, essential I10 Lipid disorder E78.9 Generalized anxiety disorder F41.1 Anxiety disorder type: generalized anxiety disorder Factor 5 Leiden mutation, heterozygous D68.51 Cigarette nicotine dependence without complication F17.210 Nicotine product type: cigarettes Substance use status: uncomplicated Primary osteoarthritis of both knees M17.0 Osteoarthritis type: primary Chronic pain of both knees M25.561; M25.562; G89.29 Chronicity: chronic Class 2 severe obesity due to excess calories with serious comorbidity and body mass index (BMI) of 38.0 to 38.9 in adult E66.01; Z68.38 Body mass index: BMI 38.0-38.9 Obesity classification: adult class 2 (BMI 35 - 39.9) Serious obesity comorbidity presence: with serious comorbidity Impaired fasting blood sugar R73.01
[2023-08-29 09:11] VITALS: BP 110/76; PULSE 57; O2SAT 98; BMI 35.2
== END 2023-08-29 13:44 | disposition home or self-care (01) ==
PROVIDERS: PCP Internal Medicine; Visit Provider Internal Medicine
DX: I10 Essential (primary) hypertension (principal); D68.51 Activated protein C resistance; E66.01 Morbid (severe) obesity due to excess calories; Z68.38 Body mass index [BMI] 38.0-38.9, adult; E78.9 Disorder of lipoprotein metabolism, unspecified; F41.1 Generalized anxiety disorder; F17.210 Nicotine dependence, cigarettes, uncomplicated; M17.0 Bilateral primary osteoarthritis of knee; M25.561 Pain in right knee; M25.562 Pain in left knee; G89.29 Other chronic pain; R73.01 Impaired fasting glucose
CPT/HCPCS: 99214

== ENCOUNTER 2023-09-01 06:47 | Outpatient (REF) | payer OTHER, SELFPAY ==
[2023-09-01 10:15] LABS: MANUAL DIFF FLAG NO
[2023-09-01 10:32] LABS: Basophils Percent Auto 0.5 % (0-2); Eosinophils Absolute Auto 0.1 X10*3/uL (0.0-0.4); Eosinophils Percent Auto 1.2 % (0-4); Hematocrit 43.5 % (37.0-47.0); Hemoglobin 14.7 g/dl (12.0-16.0); Lymphocytes Absolute Auto 4.4 X10*3/uL (1.2-4.9); Lymphocytes Percent Auto 51.3 % (20-40); Mean Corpuscular HGB Conc 33.8 g/dl (31.0-35.0); Mean Corpuscular Hemoglobin 31.1 pg (27.0-33.0); Mean Corpuscular Volume 92.2 fL (80.0-98.0); Mean Platelet Volume 14.3 fL (9.4-12.3); Monocytes Absolute Auto 0.7 X10*3/uL (0.1-1.2); Monocytes Percent Auto 7.5 % (2-11); Neutrophils Absolute Auto 3.4 x10*3/uL (2.0-8.3); Neutrophils Percent Auto 39.5 % (45-73); Platelet Count 167 X10*3/uL (160-400); Red Blood Count 4.72 X10*6/uL (4.20-5.50); Red Cell Distribution Width 12.7 % (11.0-16.0); White Blood Count 8.7 X10*3/uL (4.8-10.8)
[2023-09-01 11:11] LABS: Alanine Aminotransferase 18 U/L (0-31); Albumin Level 4.2 g/dL (3.5-5.0); Alkaline Phosphatase 67 U/L (39-117); Anion Gap 12 (12-20); Aspartate Amino Transferase 19 U/L (5-31); Bilirubin Total 0.4 mg/dL (0.0-1.0); Blood Urea Nitrogen 18 mg/dL (9-16); Calcium 9.1 mg/dL (8.4-10.2); Carbon Dioxide 27 mmol/L (22-29); Chloride 107 mmol/L (96-108); Cholesterol 166 mg/dL (<200); Estimated Glomerular Filt Rate > 60; Glucose Fasting 100 mg/dL (60-99); HDL Cholesterol 28 mg/dL (>40); LDL Cholesterol Calculated 81 mg/dL (<100); Potassium 3.8 mmol/L (3.3-5.1); Sodium 142 mmol/L (135-145); TSH reflex Free T4 3.81 uIU/mL (0.32-4.0); Total Protein 7.4 g/dL (6.5-8.0); Triglycerides 286 mg/dL (<150)
[2023-09-01 11:17] LABS: Estimated Average Glucose 114 mg/dL; Hemoglobin A1c % 5.6 % (<6.0)
== END 2023-09-01 06:48 | disposition home or self-care (01) ==
LOC: HO.HMGCLDS 06:47
PROVIDERS: PCP Internal Medicine; Visit Provider Internal Medicine
DX: I10 Essential (primary) hypertension (principal); R73.01 Impaired fasting glucose; E66.09 Other obesity due to excess calories; D68.51 Activated protein C resistance; E78.9 Disorder of lipoprotein metabolism, unspecified; M17.0 Bilateral primary osteoarthritis of knee; M25.561 Pain in right knee; M25.562 Pain in left knee; F41.9 Anxiety disorder, unspecified; F15.20 Other stimulant dependence, uncomplicated; F17.200 Nicotine dependence, unspecified, uncomplicated
CPT/HCPCS: 36415; 80053; 80061; 83036; 84443; 85025

== ENCOUNTER 2023-11-12 12:04 | Outpatient (AMB) | payer OTHER, SELFPAY ==
--- NOTE | 2023-11-12 12:06 | A.OFFPC_ITS ---
Vital Signs 11/12/23 12:08 Height 5 ft 5 in Weight 199 lb BMI 33.1 BP 126/80 Blood Pressure Location Rt brachial Position Sitting Pulse 62 Pulse Source Pulse Oximeter Pulse Oximetry (%) 98 Oxygen Delivery Method Room Air Intake Visit Reasons: Followup med Allergies Sulfa (Sulfonamide Antibiotics) Allergy (Unknown, Verified 11/12/23 12:08) unknown sulfamethoxazole [From Bactrim] Allergy (Unknown, Verified 11/12/23 12:08) Unknown trimethoprim [From Bactrim] Allergy (Unknown, Verified 11/12/23 12:08) Unknown atenolol Adverse Reaction (Intermediate, Verified 11/12/23 12:08) Headache cortisone injection Adverse Reaction (Mild, Uncoded 11/12/23 12:08) Anaphylaxis Medication List - Last Reconciled 11/12/23 by Ochoa Hunter MD apixaban (Eliquis) 5 mg PO BID blood pressure test kit-large Check BP 3 times daily with heart rate. lorazepam mg PO losartan-hydrochlorothiazide 50-12.5 mg 1 tab PO DAILY omeprazole 20 mg PO DAILY 90 days rimegepant (Nurtec ODT) 75 mg PO DAILY PRN simvastatin 40 mg PO DAILY 90 days tramadol 50 mg PO BEDTIME PRN Tobacco use date assessed: 08/29/23 Dental Screening Dental Screen Date: 08/29/23 HPI Followup med HPI Details Patient is a 53-year-old female came in today for her regular follow-up appointment Patient has been feeling depressed today as she is missing son who was murdered He was the youngest she has total of 5 boys Counseling provided patient is tearful talking about. Patient have osteoarthritis right knee, she has been evaluated by Orthopedic and had MRI done as well At this point patient can not have knee replacement, Patient is not able to take NSAIDs due to being on blood thinners Now she is taking tramadol 1 tablet every night. Which was sent earlier for her Hypertension: She is taking losartan hydrochlorothiazide 50-12.5 mg blood pressure is stable patient is tolerating medication Tobacco dependence, continued to smoke cigarettes once again patient was instr ucted to stop as soon as possible, help was offered Suffers from anxiety/panic disorder Management through Psychiatry currently taking lorazepam 1 mg in the morning 1 in the afternoon and half at night . Through [facility] Chronic GERD: Patient is in need of refill for omeprazole which I have sent for her. Lipid disorder continue simvastatin Patient also have impaired fasting sugar. We will be monitoring A1c next time Trying to lose weight BMI is elevated Follow-up 3 months [facility] Medical History Complex regional pain syndrome i of left lower limb Bilateral primary osteoarthritis of knee Headache syndrome Chronic pain Alteration comfort patterns as evidenced by distress Bilateral knee pain Lipid disorder Surgical History H/O colonoscopy History of knee surgery Family History Father HTN (hypertension) Mother HTN (hypertension) Maternal Grandfather Diabetes mellitus Maternal Aunt Cancer Son No problems noted. Son No problems noted. Son No problems noted. Son No problems noted. Son No problems noted. 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 How often do you have a drink containing alcohol?: Never 3. How often do you have six or more drinks on one occasion?: Never Total Score: 0 Score Reviewed/Action Taken: No TEE-7 AMB Questionnaire TEE-7 Date TEE - 7 assessed: 05/28/23 Source: Developed by Drs. Edward Abraham, Shameka Meraz, Uriel Sultana and colleagues, with an educational thony from [employer] app. Review of Systems Const Denies chills and Denies fever(s) ENT Denies epistaxis and Denies nasal discharge Card Denies chest pain Resp Denies chest congestion, Denies cough and Denies hemoptysis GI Denies diarrhea and Denies nausea Skin/Breast Denies rash Neuro Reports no additional complaints Psych Reports no additional complaints Endo Reports no additional complaints Physical exam (Primary Care) Vital Signs: Last Vital Signs Pulse 62 11/12/23 12:08 BP 126/80 11/12/23 12:08 Pulse Ox 98 11/12/23 12:08 Oxygen Delivery Method Room Air 11/12/23 12:08 BMI result Body Mass Index 33.1 Tobacco/Smoking Status: Tobacco use Status Tobacco use date assessed 08/29/23 11/12/23 12:08 Patient Tobacco Use Status Current everyday Tobacco 11/12/23 12:08 Tobacco use type Cigarette 11/12/23 12:08 e-Cigarette/Vaping Use Never Used 11/12/23 12:08 Thrive Assessment: Date of Thrive Assessment Date Thrive assessed 05/28/23 11/12/23 12:08 Const General: cooperative, comfortable and no acute distress Orientation/consciousness: patient oriented x3 HENMT Head: Yes normocephalic Eyes General: appearance normal, both eyes and all related structures Neck Neck: Yes supple Resp Effort & Inspection: normal respiratory effort, no cough and no stridor Cardio Rhythm: regular rhythm Heart sounds: S1 normal heart sound present and S2 normal heart sound present Skin General skin exam: turgor normal Neuro General: patient oriented x3, tone normal and moves all extremities Extrem Right lower extremity: no edema Left lower extremity: no edema Assessment and Plan Assessment & Plan (1) Hypertension, essential: Code(s): I10 - Essential (primary) hypertension (2) Lipid disorder: Code(s): E78.9 - Disorder of lipoprotein metabolism, unspecified (3) Anxiety disorder: Code(s): F41.9 - Anxiety disorder, unspecified Qualifiers: Anxiety disorder type: generalized anxiety disorder Qualified Code(s): F41.1 - Generalized anxiety disorder (4) Factor 5 Leiden mutation, heterozygous: Code(s): D68.51 - Activated protein C resistance (5) Nicotine dependence: Code(s): F17.200 - Nicotine dependence, unspecified, uncomplicated Qualifiers: Nicotine product type: cigarettes Substance use status: uncomplicated Qualified Code(s): F17.210 - Nicotine dependence, cigarettes, uncomplicated (6) Osteoarthritis of knees, bilateral: Code(s): M17.0 - Bilateral primary osteoarthritis of knee Qualifiers: Osteoarthritis type: primary Qualified Code(s): M17.0 - Bilateral primary osteoarthritis of knee (7) Bilateral knee pain: Code(s): M25.561 - Pain in right knee; M25.562 - Pain in left knee Qualifiers: Chronicity: chronic Qualified Code(s): M25.561 - Pain in right knee; M25.562 - Pain in left knee; G89.29 - Other chronic pain (8) Obesity due to excess calories: Code(s): E66.09 - Other obesity due to excess calories Qualifiers: Body mass index: BMI 38.0-38.9 Obesity classification: adult class 2 (BMI 35 - 39.9) Serious obesity comorbidity presence: with serious comorbidity Qualified Code(s): E66.01 - Morbid (severe) obesity due to excess calories; Z68.38 - Body mass index [BMI] 38.0-38.9, adult (9) Impaired fasting blood sugar: Code(s): R73.01 - Impaired fasting glucose (10) Major depression, recurrent: Code(s): F33.9 - Major depressive disorder, recurrent, unspecified Qualifiers: Active/Remission status: in partial remission Qualified Code(s): F33.41 - Major depressive disorder, recurrent, in partial remission Plan Patient is a 53-year-old female came in today for her regular follow-up appointment Patient has been feeling depressed today as she is missing son who was murdered He was the youngest she has total of 5 boys Counseling provided patient is tearful talking about. Patient have osteoarthritis right knee, she has been evaluated by Orthopedic and had MRI done as well At this point patient can not have knee replacement, Patient is not able to take NSAIDs due to being on blood thinners Now she is taking tramadol 1 tablet every night. Which was sent earlier for her Hypertension: She is taking losartan hydrochlorothiazide 50-12.5 mg blood pressure is stable patient is tolerating medication Tobacco dependence, continued to smoke cigarettes once again patient was instructed to stop as soon as possible, help was offered Suffers from anxiety/panic disorder Management through Psychiatry currently taking lorazepam 1 mg in the morning 1 in the afternoon and half at night . Through [facility] Chronic GERD: Patient is in need of refill for omeprazole which I have sent for her. Lipid disorder continue simvastatin Patient also have impaired fasting sugar. We will be monitoring A1c next time Trying to lose weight BMI is elevated Follow-up 3 mon Orders: Orders Comprehensive Met. Panel 2 Months E66.01 - Morbid (severe) obesity due to e xcess calories, F41.1 - Generalized anxiety disorder, I10 - Essential (primary) hypertension, R73.01 - Impaired fasting glucose, Z68.38 - Body mass index [BMI] 38.0-38.9, adult Complete Blood Count Auto Diff 2 Months E66.01 - Morbid (severe) obesity due to excess calories, F41.1 - Generalized anxiety disorder, I10 - Essential (primary) hypertension, R73.01 - Impaired fasting glucose, Z68.38 - Body mass index [BMI] 38.0-38.9, adult LDL Cholesterol Direct 2 Months E66.01 - Morbid (severe) obesity due to excess calories, F41.1 - Generalized anxiety disorder, I10 - Essential (primary) hypertension, R73.01 - Impaired fasting glucose, Z68.38 - Body mass index [BMI] 38.0-38.9, adult Hemoglobin A1c 2 Months E66.01 - Morbid (severe) obesity due to excess calories, F41.1 - Generalized anxiety disorder, I10 - Essential (primary) hypertension, R73.01 - Impaired fasting glucose, Z68.38 - Body mass index [BMI] 38.0-38.9, adult Coding Level of Care Code Est Pt Level 4 (35236) Diagnoses Hypertension, essential I10 Lipid disorder E78.9 Generalized anxiety disorder F41.1 Anxiety disorder type: generalized anxiety disorder Factor 5 Leiden mutation, heterozygous D68.51 Cigarette nicotine dependence without complication F17.210 Nicotine product type: cigarettes Substance use status: uncomplicated Primary osteoarthritis of both knees M17.0 Osteoarthritis type: primary Chronic pain of both knees M25.561; M25.562; G89.29 Chronicity: chronic Class 2 severe obesity due to excess calories with serious comorbidity and body mass index (BMI) of 38.0 to 38.9 in adult E66.01; Z68.38 Body mass index: BMI 38.0-38.9 Obesity classification: adult class 2 (BMI 35 - 39.9) Serious obesity comorbidity presence: with serious comorbidity Impaired fasting blood sugar R73.01 Recurrent major depressive disorder, in partial remission F33.41 Active/Remission status: in partial remission
[2023-11-12 12:08] VITALS: BP 126/80; PULSE 62; O2SAT 98; BMI 33.1
== END 2023-11-12 12:40 | disposition home or self-care (01) ==
PROVIDERS: PCP Internal Medicine; Visit Provider Internal Medicine
DX: I10 Essential (primary) hypertension (principal); E78.9 Disorder of lipoprotein metabolism, unspecified; F41.1 Generalized anxiety disorder; D68.51 Activated protein C resistance; F17.210 Nicotine dependence, cigarettes, uncomplicated; M17.0 Bilateral primary osteoarthritis of knee; M25.561 Pain in right knee; M25.562 Pain in left knee; G89.29 Other chronic pain; E66.01 Morbid (severe) obesity due to excess calories; Z68.38 Body mass index [BMI] 38.0-38.9, adult; F33.41 Major depressive disorder, recurrent, in partial remission
CPT/HCPCS: 99214

== ENCOUNTER 2023-11-13 09:07 | Outpatient (AMB) | payer OTHER, SELFPAY ==
[2023-11-13 09:25] VITALS: BP 112/84; BMI 33.1
--- NOTE | 2023-11-13 09:25 | MHC.OFFVIS ---
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 No complaints. Last Pap/HPV was negative in 12/12 Last Mammogram was BI-RADS 1 in 02/15 Last screening colonoscopy was in 03/16, the recommendation was to repeat in 3-5 years [facility] Medical History Complex regional pain syndrome i of left lower limb Bilateral primary osteoarthritis of knee Headache syndrome Chronic pain Alteration comfort patterns as evidenced by distress Bilateral knee pain Lipid disorder Surgical History H/O colonoscopy History of knee surgery Family History Father HTN (hypertension) Mother HTN (hypertension) Maternal Grandfather Diabetes mellitus Maternal Aunt Cancer Son No problems noted. Son No problems noted. Son No problems noted. Son No problems noted. Son No problems noted. 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 Cognitive needs: No Hearing needs: No Vision needs: Yes Female Reproductive History Menstrual Age of Menarche: 9 control method: none Total pregnancies: 5 Full term: 5 Number of Living Children: 4 Date of last pap smear: 12/09/19 History of abnormal pap smear: No History of STI: No Date of Mammogram: 02/13/23 History of abnormal mammogram: Yes Review of Systems Const All systems reviewed & are unremarkable except as noted in HPI and below Card Reports as per HPI Resp Reports as per HPI GI Reports as per HPI and Reports no additional complaints Reports as per HPI Physical Exam Vital Signs: Last Vital Signs BP 112/84 11/13/23 09:25 BMI result Body Mass Index 33.1 Const General: cooperative, healthy appearing and comfortable Chest Chest palpation & inspection: normal inspection of the chest and normal palpation of entire chest wall Breast/axilla inspection: normal inspection of the breasts and normal inspection of the axillae Breast/axilla palpation: normal palpation of the breasts, normal palpation of the axillae and no axillary lymphadenopathy Resp Effort & Inspection: normal respiratory effort Auscultation: clear to auscultation bilaterally Percussion: percussion normal Cardio Palpation: normal PMI Rate: regular rate Rhythm: regular rhythm Heart sounds: no murmurs and no rubs Peripheral pulses: Peripheral pulses 2+ throughout GI Inspection: Yes normal to inspection Palpation (GI): Soft to palpation, nontender, no guarding, not rigid and No hepatosplenomegaly present Percussion: Yes normal to percussion Auscultation: normal bowel sounds Rectal Exam - Female: deferred General: Yes bladder normal to palpation External Female Exam: normal external appearance (Bilateral leukoplakia) and No lesion Speculum Exam - Vagina: normal appearance of the vagina, normal palpation, normal vaginal discharge and not erythematous Speculum Exam - Cervix: normal appearance of the cervix and normal palpation Bimanual exam- vagina & uterus: normal bimanual exam, normal palpation, uterine size normal, bladder normal to palpation, consistency normal and normal palpation Bimanual Exam- Adnexa, other: normal adnexae, no masses and no tenderness Assessment & Plan Assessment & Plan (1) Well woman exam: Code(s): Z01.419 - Encounter for gynecological examination (general) (routine) without abnormal findings Category: Medical Plan: Co testing not indicated this year. Counseled the patient about the recommended dietary allowance of 1200 mg of Calcium & 600 IU of vitamin D. Instructions given the patient to schedule next screening Mammogram in 02/16. The patient was instructed to perform monthly self-breast exams and schedule annual exam in a year. All questions answered and the patient verbalized understanding. (2) Lichen sclerosus: Code(s): L90.0 - Lichen sclerosus et atrophicus Category: Medical Plan: Discussed with the patient that there is a small increased risk of squamous cell cancer of the vulva in patients with lichen sclerosus. Adequate treatment of the disease seems to be associated with a reduced risk of development of neoplasia. Instructed the patient to schedule an appointment in a year to examine the affected area, with possible biopsy of suspicious lesions, in addition explained to the patient that she should look at the skin of the affected area and touch with fingertips monthly to search for thickened lumps or sores that do not heal & to report such findings for inspection & possible biopsy to rule out vulvar cancer Coding Level of Care Code Est Pt Prev Care 40-64y(04686) Diagnoses Well woman exam Z01.419 Lichen sclerosus L90.0
== END 2023-11-13 09:49 | disposition home or self-care (01) ==
PROVIDERS: Visit Provider Obstetrics & Gynecology
DX: Z01.419 Encounter for gynecological examination (general) (routine) without abnormal findings (principal); L90.0 Lichen sclerosus et atrophicus
CPT/HCPCS: 99396

== ENCOUNTER → 2023-11-13 09:07 | Outpatient (BNVA) | payer OTHER, SELFPAY | PROVIDERS: Visit Provider Obstetrics & Gynecology | DX: Z01.419 Encounter for gynecological examination (general) (routine) without abnormal findings (principal); L90.0 Lichen sclerosus et atrophicus | CPT/HCPCS: 99396 ==

== ENCOUNTER 2023-12-10 11:05 | Outpatient (AMB) | payer OTHER, SELFPAY ==
--- NOTE | 2023-12-10 11:11 | AM.OFFWIN_ITS ---
Intake Vital Signs 12/10/23 11:12 Height 5 ft 5 in Weight 198 lb BMI 32.9 BP 106/74 Blood Pressure Location Rt brachial Position Sitting Pulse 82 Pulse Source Pulse Oximeter Temp 99.6 F Temp Source Oral Pulse Oximetry (%) 97 Oxygen Delivery Method Room Air Intake Visit Reasons: EP Head congestion, body ache, nausea Intake Note: pt here c/o congestion, body aches and nausea, chills. Started yesterday. Home Covid negative Patient Tobacco Use Status: Current everyday Tobacco user Allergies Sulfa (Sulfonamide Antibiotics) Allergy (Unknown, Verified 12/10/23 11:12) unknown sulfamethoxazole [From Bactrim] Allergy (Unknown, Verified 12/10/23 11:12) Unknown trimethoprim [From Bactrim] Allergy (Unknown, Verified 12/10/23 11:12) Unknown atenolol Adverse Reaction (Intermediate, Verified 12/10/23 11:12) Headache cortisone injection Adverse Reaction (Mild, Uncoded 12/10/23 11:12) Anaphylaxis Do you need a note to return to daycare/school/sports/work: No HPI HPI Comments History of Present Illness Details Patient is a 53-year-old female complaining of 2 days of body aches, a dry cough, head congestion and some nausea. She states she made herself vomit to help the nauseous feeling go away. She denies any diarrhea. She denies any chest congestion sinus pain ear pain shortness of breath, chest pain wheezing or fevers. She denies any history of asthma or COPD. She denies any sick contacts but she does watch her granddaughter who goes to daycare. She states she took Nurtec yesterday and it did help a little bit. She also COVID tested yesterday and it was negative. 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 [facility] Medical History Complex regional pain syndrome i of left lower limb Bilateral primary osteoarthritis of knee Headache syndrome Chronic pain Alteration comfort patterns as evidenced by distress Bilateral knee pain Lipid disorder Surgical History H/O colonoscopy History of knee surgery Family History Father HTN (hypertension) Mother HTN (hypertension) Maternal Grandfather Diabetes mellitus Maternal Aunt Cancer Son No problems noted. Son No problems noted. Son No problems noted. Son No problems noted. Son No problems noted. 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 Cognitive needs: No Hearing needs: No Vision needs: Yes Female Reproductive History Menstrual Age of Menarche: 9 Review of Systems Const All systems reviewed & are unremarkable except as noted in HPI and below Physical Exam Vital Signs: Last Vital Signs Temp 99.6 F 12/10/23 11:12 Pulse 82 12/10/23 11:12 BP 106/74 12/10/23 11:12 Pulse Ox 97 12/10/23 11:12 Oxygen Delivery Method Room Air 12/10/23 11:12 BMI result Body Mass Index 32.9 Const General: cooperative, healthy appearing, comfortable and no acute distress Orientation/consciousness: patient oriented x3 Limitations: no limitations HEENT Head: Yes normal to inspection Ears: hearing grossly normal bilaterally, external ears normal and TM's normal bilaterally General nose exam: Normal external nose present, Normal nares present and No nasal discharge present Face and sinus: Yes normal facial exam and Yes sinuses nontender Mouth: Normal oral and palatal mucosa present and moist mucous membranes Throat: Yes tonsils normal, Yes uvula midline and Yes posterior oropharynx abnormal (Erythema) Eyes General: appearance normal, both eyes and all related structures Neck Neck: Yes normal visual inspection Resp Effort & Inspection: normal respiratory effort, able to speak in complete sentences, no respiratory distress, not tachypneic, no tripod positioning and no use of accessory muscles Skin General skin exam: no rashes or lesions noted Neuro General: patient oriented x3 Extrem General: Yes normal to inspection and Yes no clubbing, cyanosis or edema Assessment & Plan Assessment & Plan (1) URI (upper respiratory infection): Code(s): J06.9 - Acute upper respiratory infection, unspecified Qualifiers: URI type: unspecified URI Qualified Code(s): J06.9 - Acute upper respiratory infection, unspecified Plan: Sent flu COVID RSV test. Advised if COVID positive, we could discuss Paxlovid treatment. Recommended symptomatic treatment with gtqs-eas-duppcct medications. Plan See above Orders: Orders SARS-CoV2/FLU/RSV Today J06.9 - Acute upper respiratory infection, unspecified Coding Level of Care Code Est Pt Level 3 (52982) Diagnoses Upper respiratory tract infection, unspecified type J06.9 URI type: unspecified URI
[2023-12-10 11:12] VITALS: BP 106/74; PULSE 82; TEMP 37.6; O2SAT 97; BMI 32.9
== END 2023-12-10 12:01 | disposition home or self-care (01) ==
PROVIDERS: PCP Internal Medicine; Visit Provider Physician Assistant
DX: J06.9 Acute upper respiratory infection, unspecified (principal)
CPT/HCPCS: 99213

== ENCOUNTER 2023-12-10 11:42 | Outpatient (REF) | payer OTHER, SELFPAY ==
[2023-12-10 15:18] LABS: Influenza A PCR NEGATIVE (Negative); Influenza B PCR NEGATIVE (Negative); Resp Syncy Virus RNA Qual PCR NEGATIVE (Negative); SARS COV2 PCR INHOUSE NEGATIVE (Negative)
== END 2023-12-10 11:43 | disposition home or self-care (01) ==
LOC: HO.LAB 11:42
PROVIDERS: Visit Provider Physician Assistant
DX: J06.9 Acute upper respiratory infection, unspecified (principal)
CPT/HCPCS: 0241U

== ENCOUNTER 2023-12-15 08:10 | Outpatient (AMB) | payer OTHER, SELFPAY ==
[2023-12-15 08:22] VITALS: BP 118/72; PULSE 76; TEMP 36.8; O2SAT 98; BMI 32.9
--- NOTE | 2023-12-15 08:22 | AM.OFFWIN_ITS ---
Intake Vital Signs 12/15/23 08:22 Height 5 ft 5 in Weight 198 lb BMI 32.9 BP 118/72 Blood Pressure Location Lt brachial Position Sitting Pulse 76 Pulse Source Pulse Oximeter Temp 98.2 F Temp Source Oral Pulse Oximetry (%) 98 Oxygen Delivery Method Room Air Intake Visit Reasons: EP Migraine, fluid in ears, cough Intake Note: pt is here for migraine and fluid in ears with cough Patient Tobacco Use Status: Current everyday Tobacco user Allergies Sulfa (Sulfonamide Antibiotics) Allergy (Unknown, Verified 12/15/23 08:22) unknown sulfamethoxazole [From Bactrim] Allergy (Unknown, Verified 12/15/23 08:22) Unknown trimethoprim [From Bactrim] Allergy (Unknown, Verified 12/15/23 08:22) Unknown atenolol Adverse Reaction (Intermediate, Verified 12/15/23 08:22) Headache cortisone injection Adverse Reaction (Mild, Uncoded 12/10/23 11:12) Anaphylaxis Do you need a note to return to daycare/school/sports/work: No HPI EP Migraine, fluid in ears, cough HPI Details This note is constructed using voice recognition software. While every effort has been made to ensure accuracy, dynamics ax developer errors may have been included. The patient is a 53 year old female who presents to the clinic today with one- week history cough, congestion, headaches, and sinus congestion with feeling like fluid in her ears. She was seen in the walk-in clinic last week, with similar symptoms, tested for COVID, flu, RSV all negative. She has done 2 at home covid tests as well that have been negative. She denies dyspnea, fever, chills, sick exposures. She is been taking bdvl-zyu-[id number] acetaminophen for pain, she is unable to take NSAIDs due to history of blood thinners. She also notes that she is taking a cough spell that was ordered here, which does not seem to be helping. She feels that overall her symptoms are improving since onset, and improving since the last time she was evaluated, she was just hopeful that they would be resolved by now. [facility] Medical History Complex regional pain syndrome i of left lower limb Bilateral primary osteoarthritis of knee Headache syndrome Chronic pain Alteration comfort patterns as evidenced by distress Bilateral knee pain Lipid disorder Surgical History H/O colonoscopy History of knee surgery Family History Father HTN (hypertension) Mother HTN (hypertension) Maternal Grandfather Diabetes mellitus Maternal Aunt Cancer Son No problems noted. Son No problems noted. Son No problems noted. Son No problems noted. Son No problems noted. Social History Household Members: Spouse and Family Housing: House Are you a primary disabilities caregiver to a significant other at home: No Do you presently have visiting nurse or other home services: No Alcohol intake: current Alcohol intake frequency: holidays/special occasions only Patient Tobacco Use Status: Current everyday Tobacco user Tobacco use type: Cigarette Cigarette Packs Per Day: 0.5 Cigarettes Per Day: 10.0 Years Smoked: 40 +/- e-Cigarette/Vaping Use: Never Used service: No Current occupational status: employed Current occupation: [employer], left handed Cognitive needs: No Hearing needs: No Vision needs: Yes Female Reproductive History Menstrual Age of Menarche: 9 Review of Systems Const All systems reviewed & are unremarkable except as noted in HPI and below Physical Exam Vital Signs: Last Vital Signs Temp 98.2 F 12/15/23 08:22 Pulse 76 12/15/23 08:22 BP 118/72 12/15/23 08:22 Pulse Ox 98 12/15/23 08:22 Oxygen Delivery Method Room Air 12/15/23 08:22 BMI result Body Mass Index 32.9 Const General: cooperative, healthy appearing, comfortable and no acute distress Orientation/consciousness: patient oriented x3 Limitations: no limitations HEENT Head: Yes normal to inspection Ears: hearing grossly normal bilaterally, external ears normal and TM abnormal retracted bilateral General nose exam: Normal external nose present, Normal nares present and No nasal discharge present Face and sinus: Yes normal facial exam and Yes sinuses nontender Mouth: Normal oral and palatal mucosa present and moist mucous membranes Throat: Yes tonsils normal, Yes uvula midline and Yes posterior oropharynx abnormal (Erythema) Eyes General: appearance normal, both eyes and all related structures Neck Neck: Yes normal visual inspection Resp Effort & Inspection: normal respiratory effort, able to speak in complete sentences, Actively coughing, no respiratory distress, not tachypneic, no tripod positioning and no use of accessory muscles Auscultation: clear to auscultation bilaterally Cardio Jugular venous distension: no JVD Rate: regular rate Rhythm: regular rhythm Heart sounds: S1 normal heart sound present, S2 normal heart sound present, no click, no gallops, no murmurs and no rubs Skin General skin exam: no rashes or lesions noted, elasticity normal and turgor normal Neuro General: patient oriented x3 Extrem General: Yes normal to inspection and Yes no clubbing, cyanosis or edema Assessment & Plan Assessment & Plan (1) URI (upper respiratory infection): Code(s): J06.9 - Acute upper respiratory infection, unspecified Qualifiers: URI type: unspecified URI Qualified Code(s): J06.9 - Acute upper respiratory infection, unspecified Plan: Discussed possible etiology, deferred additional testing given recent testing that was negative, and no additional or worsening symptoms. Advised ongoing use of [id number] at-home medication including acetaminophen, and decongestants. Advised use of symptomatic treatment including steam, Vaporub etcetera. Additionally we will prescribe steroid burst to help improve symptoms, as well as albuterol inhaler to help with symptomatic management. Advised follow up with worsening, or failure to resolve. Advised to ER with dy spnea at rest. (2) Migraine headache without aura: Code(s): G43.009 - Migraine without aura, not intractable, without status migrainosus Qualifiers: Status migrainosus presence: without status migrainosus Intractability: not intractable Qualified Code(s): G43.009 - Migraine without aura, not intractable, without status migrainosus Plan: Symptoms likely worsened from recent URI. Advised use of at-home measures including her Nurtec, which she is only using rarely. Advised patient to use this every other day as is prescribed if needed. Given increased symptoms with URI, steroid burst will likely help improve her symptoms as well. Advised follow-up with PCP with worsening symptoms. Advised to keep track of average headache days, and if she is increasing she may benefit from further adjustment in her prophylactic management. Plan See above for full details and plan. Medications: New prednisone 40 mg (2 x 20 mg) PO DAILY 5 days 10 tabs 0RF albuterol sulfate 90 mcg/actuation 1 to 2 puffs inhaled 4 times a day PRN; 6.7 grams 0RF shortness of breath or wheezing Coding Level of Care Code Est Pt Level 4 (62960) Diagnoses Upper respiratory tract infection, unspecified type J06.9 URI type: unspecified URI Migraine without aura and without status migrainosus, not intractable G43.009 Status migrainosus presence: without status migrainosus Intractability: not intractable
== END 2023-12-15 09:28 | disposition home or self-care (01) ==
PROVIDERS: PCP Internal Medicine; Visit Provider Registered Nurse
DX: J06.9 Acute upper respiratory infection, unspecified (principal); G43.009 Migraine without aura, not intractable, without status migrainosus
CPT/HCPCS: 99214

== ENCOUNTER 2024-01-19 06:12 | Outpatient (REF) | payer OTHER, SELFPAY ==
[2024-01-19 10:11] LABS: MANUAL DIFF FLAG NO
[2024-01-19 10:22] LABS: Basophils Percent Auto 0.5 % (0-2); Eosinophils Absolute Auto 0.2 X10*3/uL (0.0-0.4); Eosinophils Percent Auto 2.3 % (0-4); Hematocrit 40.8 % (37.0-47.0); Imm Gran Abs Auto 0.01 X10*3/uL (0.00-0.03); Imm Gran Pct Auto 0.1 % (0.0-0.4); Lymphocytes Absolute Auto 4.5 X10*3/uL (1.2-4.9); Lymphocytes Percent Auto 53.5 % (20-40); Mean Corpuscular HGB Conc 34.3 g/dl (31.0-35.0); Mean Corpuscular Hemoglobin 31.5 pg (27.0-33.0); Mean Corpuscular Volume 91.7 fL (80.0-98.0); Mean Platelet Volume 13.4 fL (9.4-12.3); Monocytes Absolute Auto 0.6 X10*3/uL (0.1-1.2); Neutrophils Percent Auto 36.6 % (45-73); Platelet Count 188 X10*3/uL (160-400); Red Blood Count 4.45 X10*6/uL (4.20-5.50); Red Cell Distribution Width 13.5 % (11.0-16.0); White Blood Count 8.3 X10*3/uL (4.8-10.8)
[2024-01-19 11:00] LABS: Alanine Aminotransferase 17 U/L (0-31); Albumin Level 4.1 g/dL (3.5-5.0); Alkaline Phosphatase 73 U/L (39-117); Anion Gap 12 (12-20); Aspartate Amino Transferase 16 U/L (5-31); Bilirubin Total 0.3 mg/dL (0.0-1.0); Blood Urea Nitrogen 15 mg/dL (9-16); Calcium 9.2 mg/dL (8.4-10.2); Carbon Dioxide 26 mmol/L (22-29); Chloride 106 mmol/L (96-108); Estimated Glomerular Filt Rate > 60; Glucose Random 101 mg/dL (60-115); Potassium 3.4 mmol/L (3.3-5.1); Sodium 141 mmol/L (135-145)
[2024-01-19 11:05] LABS: Estimated Average Glucose 108 mg/dL; Hemoglobin A1c % 5.4 % (<6.0)
[2024-01-20 11:38] LABS: LDL Cholesterol Direct 131 mg/dL (<100)
== END 2024-01-19 06:13 | disposition home or self-care (01) ==
LOC: HO.HMGCLDS 06:12
PROVIDERS: PCP Internal Medicine; Visit Provider Internal Medicine
DX: R73.01 Impaired fasting glucose (principal); I10 Essential (primary) hypertension; E66.01 Morbid (severe) obesity due to excess calories; Z68.38 Body mass index [BMI] 38.0-38.9, adult; F41.1 Generalized anxiety disorder
CPT/HCPCS: 36415; 80053; 83036; 83721; 85025

== ENCOUNTER 2024-01-20 11:25 | Outpatient (AMB) | payer OTHER, SELFPAY ==
[2024-01-20 11:31] VITALS: BP 108/72; PULSE 56; O2SAT 97; BMI 32.4
--- NOTE | 2024-01-20 11:31 | A.OFFPC_ITS ---
Vital Signs 01/20/24 11:31 Height 5 ft 5 in Weight 194 lb 8 oz BMI 32.4 BP 108/72 Blood Pressure Location Rt brachial Position Sitting Pulse 56 Pulse Source Pulse Oximeter Pulse Oximetry (%) 97 Oxygen Delivery Method Room Air Intake Visit Reasons: Annual PE Allergies Sulfa (Sulfonamide Antibiotics) Allergy (Unknown, Verified 01/20/24 11:33) unknown sulfamethoxazole [From Bactrim] Allergy (Unknown, Verified 01/20/24 11:33) Unknown trimethoprim [From Bactrim] Allergy (Unknown, Verified 01/20/24 11:33) Unknown atenolol Adverse Reaction (Intermediate, Verified 01/20/24 11:33) Headache gabapentin Adverse Reaction (Mild, Verified 01/20/24 11:47) dont work for pain cortisone injection Adverse Reaction (Mild, Uncoded 12/10/23 11:12) Anaphylaxis Medication List - Last Reconciled 01/20/24 by Ochoa Hunter MD albuterol sulfate 90 mcg/actuation 1 to 2 puffs inhaled 4 times a day PRN; apixaban (Eliquis) 5 mg PO BID blood pressure test kit-large Check BP 3 times daily with heart rate. lorazepam mg PO losartan-hydrochlorothiazide 50-12.5 mg 1 tab PO DAILY omeprazole 20 mg PO DAILY 90 days ondansetron mg PO rimegepant (Nurtec ODT) 75 mg PO DAILY PRN simvastatin 40 mg PO DAILY 90 days tramadol 50 mg PO BEDTIME PRN Tobacco use date assessed: 01/20/24 Dental Screening Dental Screen Date: 01/20/24 Did you have a dental visit in the last 12 months?: Yes Did you have a dental problem in the last 6 months where you did not have access to dental care?: No Was dental information given to patient?: Patient has dentist HPI Annual PE HPI Details Patient is a 53-year-old female came in today for physical exam Mammogram is up-to-date OBGYN visit is up-to-date Colonoscopy is up-to-date Patient is taking all her medications She is taking tramadol 1 at night for severe knee osteoarthritis especially ri ght side She has tried gabapentin which was prescribed to her by Dr. Cortes neurologist for migraine Patient says that it did work for migraine headache but not for pain so she is not taking it. 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 Son No problems noted. Son No problems noted. Son No problems noted. Son No problems noted. 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 Cognitive needs: No Hearing needs: No Vision needs: Yes Female Reproductive History Menstrual Age of Menarche: 9 Questionnaire Thrive Questionnaire Date Thrive assessed: 01/20/24 I am a: Patient What is your living situation today?: I have a steady place to live Within the past 12 months, did the food you bought not last and you didn't have the money to get more?: I choose not to answer this question Within the past 12 months, did you worry whether your food would run out before you got money to buy more?: I choose not to answer this question Do you have trouble paying for medicines?: No Do you have trouble getting transportation to medical appointments?: No Do you have trouble paying your heating and electricity bill?: No Do you have trouble taking care of your child, family member or friend?: No Do you have trouble with day-to-day activities such as bathing, preparing meals, shopping, managing finances, etc.?: I choose not to answer this question Are you currently unemployed and looking for a job?: No Are you interested in more education?: Yes Please select the resources that you would like help with: None Currently or been in a relationship where the following occur: I choose not to answer THRIVE Score: 0 AUDIT C Alcohol Use Questionnaire (AUDIT-C) 1. How often do you have a drink containing alcohol?: Never 3. How often do you have six or more drinks on one occasion?: Never Total Score: 0 Score Reviewed/Action Taken: Yes TEE-7 AMB Questionnaire TEE-7 Date TEE - 7 assessed: 01/20/24 Feeling nervous, anxious, or on edge: 1 = Several days Not being able to stop or control worryin = Several days Worrying too much about different things: 1 = Several days Trouble relaxin = More than half the days Being so restless that it is hard to sit still: 0 = Not at all Becoming easily annoyed or irritable: 0 = Not at all Feeling afraid as if something awful might happen: 0 = Not at all Total TEE-7 score (0-4 normal; 5-9 mild; 10-14 moderate; 15-21 severe): 5 Source: Developed by Drs. Edward Abraham, Shameka Meraz, Uriel Sultana and colleagues, with an educational thony from [employer]. TEE-7 Assessment Billing TEE-7 Assessment Tool: TEE-7 Assessment 39664 Review of Systems Const Denies chills, Denies fever(s) and Denies headache(s) Eyes Denies blurry vision ENT Denies headache(s), Denies nasal discharge, Denies nasal obstruction, Denies odynophagia and Denies sinus pain Card Denies chest pain at rest and Denies chest pain with activity Resp Denies cough and Denies hemoptysis GI Denies diarrhea, Denies odynophagia, Denies vomiting and Denies hematemesis Reports as per HPI Musc Denies abnormal gait Skin/Breast Reports as per HPI Neuro Denies Neuro-related abnormal movements, Denies Abnormal speech present, Denies abnormal gait, Denies headache(s) and Denies Sensory deficit (Neuro) Psych Denies mood swings and Denies paranoia Endo Reports as per HPI Richard/Lymph Reports as per HPI Aller/Immun Reports as per HPI Physical exam (Primary Care) Vital Signs: Last Vital Signs Pulse 56 01/20/24 11:31 BP 108/72 01/20/24 11:31 Pulse Ox 97 01/20/24 11:31 Oxygen Delivery Method Room Air 01/20/24 11:31 BMI result Body Mass Index 32.4 Tobacco/Smoking Status: Tobacco use Status Tobacco use date assessed 01/20/24 01/20/24 11:38 Patient Tobacco Use Status Current everyday Tobacco 01/20/24 11:38 Tobacco use type Cigarette 01/20/24 11:38 e-Cigarette/Vaping Use Never Used 01/20/24 11:38 Thrive Assessment: Date of Thrive Assessment Date Thrive assessed 01/20/24 01/20/24 11:38 Currently or been in a relationship where the following occur: I choose not to answer Const General: cooperative, comfortable and no acute distress Orientation/consciousness: patient oriented x3 HENMT Head: Yes normocephalic and Yes atraumatic Eyes General: appearance normal, both eyes and all related structures Pupils: Equal, round and reactive pupils present EOM: EOMs intact bilaterally Neck Neck: Yes supple and No lymphadenopathy Thyroid: Thyroid normal Lymphatic: no lymphadenopathy noted Resp Effort & Inspection: normal respiratory effort and able to speak in complete sentences Auscultation: clear to auscultation bilaterally Cardio Heart sounds: S1 normal heart sound present and S2 normal heart sound present GI Palpation (GI): Soft to palpation and nontender Auscultation: normal bowel sounds General: Yes no CVA tenderness Back/Spine/Pelvis Back: no CVA tenderness Skin General skin exam: elasticity normal and turgor normal Neuro General: patient oriented x3 and gait normal Cranial nerves: Yes Equal, round and reactive pupils present Speech: No Abnormal speech present Sensory Exam: No Sensory deficit (Neuro) Coordination: tandem gait normal and Romberg test negative Extrem General: Yes normal exam except as noted and No edema Assessment and Plan Assessment & Plan (1) Encounter for general adult medical examination with abnormal findings: Code(s): Z00.01 - Encounter for general adult medical examination with abnormal findings (2) Patella-femoral syndrome: Code(s): M22.2X9 - Patellofemoral disorders, unspecified knee Qualifiers: Laterality: bilateral Qualified Code(s): M22.2X1 - Patellofemoral disorders, right knee; M22.2X2 - Patellofemoral disorders, left knee (3) Migraine headache without aura: Code(s): G43.009 - Migraine without aura, not intractable, without status migrainosus Qualifiers: Status migrainosus presence: without status migrainosus Intractability: not intractable Qualified Code(s): G43.009 - Migraine without aura, not intractable, without status migrainosus (4) Complex regional pain syndrome i of left lower limb: Code(s): G90.522 - Complex regional pain syndrome I of left lower limb (5) Factor 5 Leiden mutation, heterozygous: Code(s): D68.51 - Activated protein C resistance (6) Hypertension, essential: Code(s): I10 - Essential (primary) hypertension (7) Major depression, recurrent: Code(s): F33.9 - Major depressive disorder, recurrent, unspecified Qualifiers: Active/Remission status: in partial remission Qualified Code(s): F33.41 - Major depressive disorder, recurrent, in partial remission Plan Patient is a 53-year-old female came in today for physical exam Mammogram is up-to-date OBGYN visit is up-to-date Colonoscopy is up-to-date Patient is taking all her medications She is taking tramadol 1 at night for severe knee osteoarthritis especially right side She has tried gabapentin which was prescribed to her by Dr. Cortes neurologist for migraine Patient says that it did work for migraine headache but not for pain so she is not taking it. 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 Blood pressure is stable Medication list reviewed Follow-up 3 months, need to lose weight BMI is elevated Medications: Refilled tramadol 50 mg PO BEDTIME PRN 90 tabs 0RF pain right knee Coding Level of Care Code Est Pt Level 3 (71930) Est Pt Prev Care 40-64y(64741) Diagnoses Encounter for general adult medical examination with abnormal findings Z00.01 Patellofemoral pain syndrome of both knees M22.2X1; M22.2X2 Laterality: bilateral Migraine without aura and without status migrainosus, not intractable G43.009 Status migrainosus presence: without status migrainosus Intractability: not intractable Complex regional pain syndrome i of left lower limb G90.522 Factor 5 Leiden mutation, heterozygous D68.51 Hypertension, essential I10 Recurrent major depressive disorder, in partial remission F33.41 Active/Remission status: in partial remission Additional Codes TEE-7 Assessment Billing - TEE-7 Assessment Tool: TEE-7 Assessment 32684 ([id number])
== END 2024-01-20 11:57 | disposition home or self-care (01) ==
PROVIDERS: PCP Internal Medicine; Visit Provider Internal Medicine
DX: Z00.00 Encounter for general adult medical examination without abnormal findings (principal); M22.2X1 Patellofemoral disorders, right knee; D68.51 Activated protein C resistance; F33.41 Major depressive disorder, recurrent, in partial remission; M22.2X2 Patellofemoral disorders, left knee; G43.009 Migraine without aura, not intractable, without status migrainosus; G90.522 Complex regional pain syndrome I of left lower limb; I10 Essential (primary) hypertension
CPT/HCPCS: 99396

== ENCOUNTER 2024-02-16 14:00 | Outpatient (REF) | payer OTHER, SELFPAY ==
--- NOTE | ~2024-02-16 | MM_ITS ---
EXAMINATION: MM SCREENING DIGITAL BREAST TOMOSYNTHESIS, BILATERAL CLINICAL INFORMATION: Screening. Asymptomatic. COMPARISON: Mammography: Comparison is made with available priors TECHNIQUE: Digital breast mammography with tomosynthesis is performed in both the craniocaudal and mediolateral oblique views along with computer-aided detection (CAD). FINDINGS: There are scattered areas of fibroglandular density (ACR BI-RADS breast composition Category b). There are no significant masses, abnormal calcifications, or other abnormalities. MM/MM tomosynthesis screening BI IMPRESSION: No mammographic evidence of malignancy. ASSESSMENT: BI-RADS BI-RADS 1 - Negative RECOMMENDATION: Routine annual mammography screening. 1 year F/U This examination should not preclude the clinical evaluation of a suspicious palpable abnormality. This patient's information was entered into a reminder system with a target due date for their next mammogram. Electronically signed by: Aubree Vasques DO 02/27/2024 09:21 AM EDT
== END 2024-02-16 14:01 | disposition home or self-care (01) ==
LOC: HO.MAMMO 14:00
PROVIDERS: PCP Internal Medicine; Visit Provider Internal Medicine
DX: Z12.31 Encounter for screening mammogram for malignant neoplasm of breast (principal)
CPT/HCPCS: 77063; 77067

== ENCOUNTER → 2024-02-16 14:15 | Outpatient (BNV) | payer OTHER, SELFPAY | PROVIDERS: PCP Internal Medicine; Visit Provider Internal Medicine | DX: Z12.31 Encounter for screening mammogram for malignant neoplasm of breast (principal) | CPT/HCPCS: 77063; 77067 ==

== ENCOUNTER 2024-02-27 08:05 | Outpatient (AMB) | payer OTHER, SELFPAY ==
[2024-02-27 08:07] VITALS: BP 120/86; PULSE 68; O2SAT 98
--- NOTE | 2024-02-27 08:07 | AM.OFFWIN_ITS ---
Intake Vital Signs 02/27/24 08:07 Weight 201 lb BP 120/86 Blood Pressure Location Rt brachial Position Sitting Pulse 68 Pulse Source Pulse Oximeter Pulse Oximetry (%) 98 Oxygen Delivery Method Room Air Intake Visit Reasons: EP RT knee pain Intake Note: Patient here for right knee pain that started yesterday and radiates across the knee, she states she did have a fall a couple of weeks ago but was not bothering her until yesterday. Patient Tobacco Use Status: Current everyday Tobacco user Allergies Sulfa (Sulfonamide Antibiotics) Allergy (Unknown, Verified 02/27/24 08:16) unknown sulfamethoxazole [From Bactrim] Allergy (Unknown, Verified 02/27/24 08:16) Unknown trimethoprim [From Bactrim] Allergy (Unknown, Verified 02/27/24 08:16) Unknown atenolol Adverse Reaction (Intermediate, Verified 02/27/24 08:16) Headache gabapentin Adverse Reaction (Mild, Verified 02/27/24 08:16) dont work for pain cortisone injection Adverse Reaction (Mild, Uncoded 02/27/24 08:16) Anaphylaxis HPI HPI Comments History of Present Illness Details 53 y/o female patient who presents to [facility] walk in clinic with c/o right knee pain. H/o b/L knee OA. PFSH Medical History Complex regional pain syndrome i of left lower limb Bilateral primary osteoarthritis of knee Headache syndrome Chronic pain Alteration comfort patterns as evidenced by distress Bilateral knee pain Lipid disorder Surgical History H/O colonoscopy History of knee surgery Family History Father HTN (hypertension) Mother HTN (hypertension) Maternal Grandfather Diabetes mellitus Maternal Aunt Cancer Son No problems noted. Son No problems noted. Son No problems noted. Son No problems noted. Son No problems noted. 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 Cognitive needs: No Hearing needs: No Vision needs: Yes Female Reproductive History Menstrual Age of Menarche: 9 Review of Systems Const All systems reviewed & are unremarkable except as noted in HPI and below Physical Exam Vital Signs: Last Vital Signs Pulse 68 02/27/24 08:07 BP 120/86 02/27/24 08:07 Pulse Ox 98 02/27/24 08:07 Oxygen Delivery Method Room Air 02/27/24 08:07 Const General: cooperative and no acute distress Nutritional Appearance: overweight Orientation/consciousness: patient oriented x3 Neuro General: patient oriented x3, gait normal and moves all extremities Extrem Right lower extremity: normal to inspection, full ROM and knee Details: normal to inspection and normal ROM; no tenderness, no swelling and no crepitus Left lower extremity: normal to inspection, full ROM and knee Details: normal to inspection and normal ROM; no tenderness, no swelling and no crepitus Psych Speech and movement: Normal speech and movement present Assessment & Plan Assessment & Plan (1) Osteoarthritis of right knee: Code(s): M17.11 - Unilateral primary osteoarthritis, right knee Qualifiers: Osteoarthritis type: unspecified Qualified Code(s): M17.11 - Unilateral primary osteoarthritis, right knee Plan: Advised PT - declined Pt has Tramadol at home IceHot Rest Coding Level of Care Code Est Pt Level 3 (39501) Diagnoses Osteoarthritis of right knee, unspecified osteoarthritis type M17.11 Osteoarthritis type: unspecified Time Spent (min) 15
== END 2024-02-27 09:25 | disposition home or self-care (01) ==
PROVIDERS: PCP Internal Medicine; Visit Provider Nurse Practitioner Family
DX: M17.11 Unilateral primary osteoarthritis, right knee (principal)

== ENCOUNTER → 2024-02-27 08:05 | Outpatient (BNVA) | payer OTHER, SELFPAY | PROVIDERS: PCP Internal Medicine | DX: S83.91XA Sprain of unspecified site of right knee, initial encounter (principal) | CPT/HCPCS: 99212 ==

== ENCOUNTER 2024-04-14 14:08 | Outpatient (REF) | payer OTHER, SELFPAY ==
--- NOTE | ~2024-04-14 | US_ITS ---
EXAMINATION: US TRIPLEX LOWER EXTREMITY, RIGHT CLINICAL INFORMATION: Right calf pain. Evaluate for deep vein thrombosis. COMPARISON: None available. TECHNIQUE: Color-flow triplex imaging with spectral analysis and compression Doppler were performed on the right lower extremity. FINDINGS: Respiratory variation, normal compression and augmented flow are noted throughout the right lower extremity. The visualized common femoral vein, superficial femoral vein, profunda femoral vein, popliteal vein and midcalf peroneal and posterior tibial venous segments show no evidence of deep venous thrombosis. Complex Ozuna's cyst measuring 4.7 x 0.9 x 2.0 cm. US/US venous duplex LE RT IMPRESSION: No evidence of deep venous thrombosis involving the right lower extremity. Electronically signed by: Douglas Reynolds MD 04/14/2024 04:05 PM BETH
== END 2024-04-14 14:09 | disposition home or self-care (01) ==
LOC: HO.US 14:08
PROVIDERS: PCP Internal Medicine; Visit Provider Internal Medicine
DX: M79.604 Pain in right leg (principal)
CPT/HCPCS: 93971

== ENCOUNTER 2024-04-15 08:14 | Outpatient (AMB) | payer OTHER, SELFPAY ==
--- NOTE | 2024-04-15 08:15 | MHC.PC.OV ---
Intake Visit Reasons: 3 mon f/u [facility] [phone] Allergies Sulfa (Sulfonamide Antibiotics) Allergy (Unknown, Verified 04/15/24 08:15) unknown sulfamethoxazole [From Bactrim] Allergy (Unknown, Verified 04/15/24 08:15) Unknown trimethoprim [From Bactrim] Allergy (Unknown, Verified 04/15/24 08:15) Unknown atenolol Adverse Reaction (Intermediate, Verified 04/15/24 08:15) Headache gabapentin Adverse Reaction (Mild, Verified 04/15/24 08:15) dont work for pain cortisone injection Adverse Reaction (Mild, Uncoded 04/14/24 13:14) Anaphylaxis Medication List - Last Reconciled 04/15/24 by Ochoa Hunter MD albuterol sulfate 90 mcg/actuation 1 to 2 puffs inhaled 4 times a day PRN; apixaban (Eliquis) 5 mg PO BID blood pressure test kit-large Check BP 3 times daily with heart rate. lorazepam 1 mg PO DAILY losartan-hydrochlorothiazide 50-12.5 mg 1 tab PO DAILY omeprazole 20 mg PO DAILY 90 days ondansetron 4 mg PO DAILY rimegepant (Nurtec ODT) 75 mg PO DAILY PRN simvastatin 40 mg PO DAILY 90 days tramadol 50 mg PO BEDTIME PRN Tobacco use date assessed: 04/15/24 Dental Screening Dental Screen Date: 04/15/24 Did you have a dental visit in the last 12 months?: Yes Did you have a dental problem in the last 6 months where you did not have access to dental care?: No Was dental information given to patient?: Patient has dentist HPI 3 mon f/u [facility] [phone] HPI Details 53 YOF, regular 3 M f.u visit Patient is taking all her medications She is taking tramadol 1 at night for severe knee osteoarthritis especially right side which has flared up she has seen Hematology Dr Chatterjee yesterday and was told she has bakers cyst patient states she is in so much pain she can hardly walk i have sent tramadol up to tid prn Patient will return next week for follow up on this She has tried gabapentin which was prescribed to her by Dr. Cortes neurologist for migraine Patient says that it did work for migraine headache but not for pain so she is not taking it. 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 Medication list reviewed [facility] Medical History Complex regional pain syndrome i of left lower limb Bilateral primary osteoarthritis of knee Headache syndrome Chronic pain Alteration comfort patterns as evidenced by distress Bilateral knee pain Lipid disorder Surgical History H/O colonoscopy History of knee surgery Family History Father HTN (hypertension) Mother HTN (hypertension) Maternal Grandfather Diabetes mellitus Maternal Aunt Cancer Son No problems noted. Son No problems noted. Son No problems noted. Son No problems noted. Son No problems noted. 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, 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 Cognitive needs: No Hearing needs: No Vision needs: Yes Female Reproductive History Menstrual Age of Menarche: 9 Questionnaire Thrive Questionnaire Date Thrive assessed: 04/15/24 I am a: Patient What is your living situation today?: I have a steady place to live Within the past 12 months, did the food you bought not last and you didn't have the money to get more?: I choose not to answer this question Within the past 12 months, did you worry whether your food would run out before you got money to buy more?: I choose not to answer this question Do you have trouble paying for medicines?: No Do you have trouble getting transportation to medical appointments?: No Do you have trouble paying your heating and electricity bill?: No Do you have trouble taking care of your child, family member or friend?: No Do you have trouble with day-to-day activities such as bathing, preparing meals, shopping, managing finances, etc.?: I choose not to answer this question Are you currently unemployed and looking for a job?: No Are you interested in more education?: Yes Please select the resources that you would like help with: None Currently or been in a relationship where the following occur: I choose not to answer THRIVE Score: 0 AUDIT C Alcohol Use Questionnaire (AUDIT-C) 1. How often do you have a drink containing alcohol?: Monthly or less 2. How many drinks containing alcohol do you have on a typical day when you are drinking?: 1 or 2 3. How often do you have six or more drinks on one occasion?: Never Total Score: 1 Score Reviewed/Action Taken: Yes TEE-7 AMB Questionnaire TEE-7 Date TEE - 7 assessed: 01/20/24 Source: Developed by Drs. Edward Abraham, Shameka Meraz, Uriel Sultana and colleagues, with an educational thony from [employer]. Review of Systems Const Denies chills and Denies fever(s) ENT Denies epistaxis and Denies nasal discharge Card Denies chest pain Resp Denies chest congestion, Denies cough and Denies hemoptysis GI Denies diarrhea and Denies nausea Skin/Breast Denies rash Neuro Reports no additional complaints Psych Reports no additional complaints Endo Reports no additional complaints Physical exam (Primary Care) Tobacco/Smoking Status: Tobacco use Status Tobacco use date assessed 04/15/24 04/15/24 08:16 Patient Tobacco Use Status Current everyday Tobacco 04/15/24 08:16 Tobacco use type Cigarette 04/15/24 08:16 e-Cigarette/Vaping Use Never Used 04/15/24 08:16 Thrive Assessment: Date of Thrive Assessment Date Thrive assessed 04/15/24 04/15/24 08:16 Currently or been in a relationship where the following occur: I choose not to answer Telehealth Telehealth [facility]health [facility] Location of provider rendering services: practice address Location of patient: address on file Patient Identification confirmed using: Name, : Yes Telehealth method: voice only Patient verbally consented to treatment: Yes Patient verbally consented to billing insurance company: Yes Patient informed of any privacy concerns related to visit: Yes Coding Level of Care Code Tele Est Pt Level 3 (44759) Diagnoses Bilateral primary osteoarthritis of knee M17.0 Generalized anxiety disorder F41.1 Anxiety disorder type: generalized anxiety disorder Deep vein thrombosis (DVT) of right lower extremity, unspecified chronicity, unspecified vein I82.401 Affected thrombotic vein of extremity: unspecified vein of extremity Chronicity: unspecified Factor 5 Leiden mutation, heterozygous D68.51 Pain in right leg M79.604 Pain management R52 Assessment & Plan Assessment & Plan (1) Bilateral primary osteoarthritis of knee: Code(s): M17.0 - Bilateral primary osteoarthritis of knee Category: Medical (2) Anxiety disorder: Code(s): F41.9 - Anxiety disorder, unspecified Category: Medical Qualifiers: Anxiety disorder type: generalized anxiety disorder Qualified Code(s): F41.1 - Generalized anxiety disorder (3) Right leg DVT: Code(s): I82.401 - Acute embolism and thrombosis of unspecified deep veins of right lower extremity Category: Medical Qualifiers: Affected thrombotic vein of extremity: unspecified vein of extremity Chronicity: unspecified Qualified Code(s): I82.401 - Acute embolism and thrombosis of unspecified deep veins of right lower extremity (4) Factor 5 Leiden mutation, heterozygous: Code(s): D68.51 - Activated protein C resistance Category: Medical (5) Pain in right leg: Code(s): M79.604 - Pain in right leg Category: Medical (6) Pain management: Code(s): R52 - Pain, unspecified Category: Medical Plan 53 YOF, regular 3 M f.u visit Patient is taking all her medications She is taking tramadol 1 at night for severe knee osteoarthritis especially right side which has flared up she has seen Hematology Dr Chatterjee yesterday and was told she has bakers cyst patient states she is in so much pain she can hardly walk i have sent tramadol up to tid prn Patient will return next week for follow up on this She has tried gabapentin which was prescribed to her by Dr. Cortes neurologist for migraine Patient says that it did work for migraine headache but not for pain so she is not taking it. 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 Medication list reviewed 14 min visit Medications: Changed From tramadol 50 mg PO BEDTIME PRN 90 tabs 0RF pain right knee To tramadol 50 mg PO Q8H 21 tabs 0RF pain right knee 7 days
== END 2024-04-15 09:33 | disposition home or self-care (01) ==
LOC: HO.HMCC 08:15
PROVIDERS: PCP Internal Medicine; Visit Provider Internal Medicine
DX: M17.0 Bilateral primary osteoarthritis of knee (principal); F41.1 Generalized anxiety disorder; I82.401 Acute embolism and thrombosis of unspecified deep veins of right lower extremity; D68.51 Activated protein C resistance; M79.604 Pain in right leg

== ENCOUNTER 2024-04-21 13:54 | Outpatient (AMB) | payer OTHER, SELFPAY ==
--- NOTE | 2024-04-21 14:03 | MHC.PC.OV ---
Vital Signs 04/21/24 14:04 Height 5 ft 5 in Weight 204 lb 8 oz BMI 34.0 BP 130/82 Blood Pressure Location Rt brachial Position Sitting Pulse 68 Pulse Source Pulse Oximeter Pulse Oximetry (%) 98 Oxygen Delivery Method Room Air Intake Visit Reasons: F/U Allergies Sulfa (Sulfonamide Antibiotics) Allergy (Unknown, Verified 04/15/24 08:15) unknown sulfamethoxazole [From Bactrim] Allergy (Unknown, Verified 04/15/24 08:15) Unknown trimethoprim [From Bactrim] Allergy (Unknown, Verified 04/15/24 08:15) Unknown atenolol Adverse Reaction (Intermediate, Verified 04/15/24 08:15) Headache gabapentin Adverse Reaction (Mild, Verified 04/15/24 08:15) dont work for pain cortisone injection Adverse Reaction (Mild, Uncoded 04/14/24 13:14) Anaphylaxis Medication List - Last Reconciled 04/21/24 by Ochoa Hunter MD albuterol sulfate 90 mcg/actuation 1 to 2 puffs inhaled 4 times a day PRN; apixaban (Eliquis) 5 mg PO BID blood pressure test kit-large Check BP 3 times daily with heart rate. lorazepam 1 mg PO DAILY losartan-hydrochlorothiazide 50-12.5 mg 1 tab PO DAILY omeprazole 20 mg PO DAILY 90 days ondansetron 4 mg PO DAILY rimegepant (Nurtec ODT) 75 mg PO DAILY PRN simvastatin 40 mg PO DAILY 90 days tramadol 50 mg PO Q8H 7 days Tobacco use date assessed: 04/15/24 Dental Screening Dental Screen Date: 04/15/24 HPI F/U HPI Details Chief Complaint Severe sharp pain in the leg, primarily in the right thigh, affecting sleep and mobility. Assessment and Plan 53-year-old female with a history of lumbar spine arthritis and chronic venous insufficiency presenting with severe leg pain. The pain is localized primarily in the right thigh and described as sharp and knife-like, interfering with sleep and mobility. 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 Prior trials of gabapentin were ineffective, and tramadol provides limited relief. Due to her inability to tolerate prednisone and NSAIDs, due to being on blood thinners for history of DVT alternative analgesics are necessary. 1. Lumbar Spine Arthritis Chronic lower back pain with radiating symptoms to the right leg. Lumbar spine x-ray from 2020 confirms arthritis. Current therapy includes tramadol. Consideration given to the temporary addition of oxycodone to better manage acute pain. 2. Chronic Pain Syndrome Current pain management regimen of tramadol inadequate. Gabapentin has previously shown limited efficacy. Short-term management plan includes the addition of oxycodone for acute pain control with the goal of returning to tramadol once pain stabilizes. 3. Ozuna's Cyst The patient reports significant pain believed to be related to a Ozuna's cyst. No surgical intervention is planned at this time. Will manage symptomatically with pain control measures as discussed. 4. Chronic Venous Insufficiency With previous work-up showing no DVT, however patient does have a history of DVT and for that reason she is on chronic blood thinners, management continues to focus on symptom relief and monitoring. Patient advised to continue current medications with close observation of symptoms. Problem List - Ozuna's Cyst - Lumbar Spine Arthritis - Chronic Venous Insufficiency - Chronic Pain Syndrome Patient Instructions - Begin oxycodone as prescribed for severe pain; limit use to 21 tablets for short-term management. - hold tramadol as per current regimen. - Reassess in one week regarding pain levels and medication effectiveness. - Monitor for any side effects or adverse reactions to new medication. - Continue to use warm baths for temporary pain relief as needed. - Contact us immediately if pain worsens or any new symptoms arise. [facility] Medical History Complex regional pain syndrome i of left lower limb Bilateral primary osteoarthritis of knee Headache syndrome Chronic pain Alteration comfort patterns as evidenced by distress Bilateral knee pain Lipid disorder Surgical History H/O colonoscopy History of knee surgery Family History Father HTN (hypertension) Mother HTN (hypertension) Maternal Grandfather Diabetes mellitus Maternal Aunt Cancer Son No problems noted. Son No problems noted. Son No problems noted. Son No problems noted. Son No problems noted. 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 1. Little interest or pleasure in doing things: more than half the days 2. Feeling down, depressed, or hopeless: several days 3. Trouble falling or staying asleep, or sleeping too much: nearly every day 4. Feeling tired or having little energy: more than half the days 5. Poor appetite or overeating: more than half the days 7. Trouble concentrating on things, such as reading the newspaper or watching television: nearly every day 8. Moving or speaking so slowly that other people could have noticed. Or the opposite - being so fidgety or restless that you have been moving around a lot more than usual: more than half the days 9. Thoughts that you would be better off or of hurting yourself in some way: not at all Source: Developed by Drs. Edward Abraham, Shameka Meraz, Uriel Sultana and colleagues, with an educational thony from [employer]. Thrive Questionnaire Date Thrive assessed: 01/20/24 I am a: Patient What is your living situation today?: I have a steady place to live Within the past 12 months, did the food you bought not last and you didn't have the money to get more?: I choose not to answer this question Within the past 12 months, did you worry whether your food would run out before you got money to buy more?: I choose not to answer this question Do you have trouble paying for medicines?: No Do you have trouble getting transportation to medical appointments?: No Do you have trouble paying your heating and electricity bill?: No Do you have trouble taking care of your child, family member or friend?: No Do you have trouble with day-to-day activities such as bathing, preparing meals, shopping, managing finances, etc.?: I choose not to answer this question Are you currently unemployed and looking for a job?: No Are you interested in more education?: Yes Please select the resources that you would like help with: None Currently or been in a relationship where the following occur: I choose not to answer THRIVE Score: 0 TEE-7 AMB Questionnaire TEE-7 Date TEE - 7 assessed: 01/20/24 Source: Developed by Drs. Edward Abraham, Shameka Meraz, Uriel Sultana and colleagues, with an educational thony from [employer]. Review of Systems Const Denies chills and Denies fever(s) ENT Denies epistaxis and Denies nasal discharge Card Denies chest pain Resp Denies chest congestion, Denies cough and Denies hemoptysis GI Denies diarrhea and Denies nausea Skin/Breast Denies rash Neuro Reports no additional complaints Psych Reports no additional complaints Endo Reports no additional complaints Physical exam (Primary Care) Vital Signs: Last Vital Signs Pulse 68 04/21/24 14:04 BP 130/82 04/21/24 14:04 Pulse Ox 98 04/21/24 14:04 Oxygen Delivery Method Room Air 04/21/24 14:04 BMI result Body Mass Index 34.0 Tobacco/Smoking Status: Tobacco use Status Tobacco use date assessed 04/15/24 04/21/24 14:06 Patient Tobacco Use Status Current everyday Tobacco 04/21/24 14:06 Tobacco use type Cigarette 04/21/24 14:06 e-Cigarette/Vaping Use Never Used 04/21/24 14:06 Thrive Assessment: Date of Thrive Assessment Date Thrive assessed 01/20/24 04/21/24 14:06 Currently or been in a relationship where the following occur: I choose not to answer Const General: cooperative and no acute distress Orientation/consciousness: patient oriented x3 HENMT Head: Yes normocephalic Eyes General: appearance normal, both eyes and all related structures Neck Neck: Yes supple Resp Effort & Inspection: normal respiratory effort, no cough and no stridor Cardio Rhythm: regular rhythm Heart sounds: S1 normal heart sound present and S2 normal heart sound present Back/Spine/Pelvis Other: No pain with lumbar spine percussion, straight leg negative right side Skin General skin exam: turgor normal Neuro General: patient oriented x3, tone normal and moves all extremities Extrem Right lower extremity: no edema Left lower extremity: no edema Coding Level of Care Code Est Pt Level 4 (65955) Diagnoses Lumbar pain M54.50 Right lumbar radiculitis M54.16 Synovial cyst of popliteal space [Ozuna], right knee M71.21 Factor 5 Leiden mutation, heterozygous D68.51 Pain management R52 Assessment & Plan Assessment & Plan (1) Lumbar pain: Code(s): M54.50 - Low back pain, unspecified Category: Medical (2) Right lumbar radiculitis: Code(s): M54.16 - Radiculopathy, lumbar region Category: Medical (3) Synovial cyst of popliteal space [Ozuna], right knee: Code(s): M71.21 - Synovial cyst of popliteal space [Ozuna], right knee Category: Medical (4) Factor 5 Leiden mutation, heterozygous: Code(s): D68.51 - Activated protein C resistance Category: Medical (5) Pain management: Code(s): R52 - Pain, unspecified Category: Medical Plan Chief Complaint Severe sharp pain in the leg, primarily in the right thigh, affecting sleep and mobility. Assessment and Plan 53-year-old female with a history of lumbar spine arthritis and chronic venous insufficiency presenting with severe leg pain. The pain is localized primarily in the right thigh and described as sharp and knife-like, interfering with sleep and mobility. 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 Prior trials of gabapentin were ineffective, and tramadol provides limited relief. Due to her inability to tolerate prednisone and NSAIDs, due to being on blood thinners for history of DVT alternative analgesics are necessary. 1. Lumbar Spine Arthritis Chronic lower back pain with radiating symptoms to the right leg. Lumbar spine x-ray from 2020 confirms arthritis. Current therapy includes tramadol. Consideration given to the temporary addition of oxycodone to better manage acute pain. 2. Chronic Pain Syndrome Current pain management regimen of tramadol inadequate. Gabapentin has previously shown limited efficacy. Short-term management plan includes the addition of oxycodone for acute pain control with the goal of returning to tramadol once pain stabilizes. 3. Ozuna's Cyst The patient reports significant pain believed to be related to a Ozuna's cyst. No surgical intervention is planned at this time. Will manage symptomatically with pain control measures as discussed. 4. Chronic Venous Insufficiency With previous work-up showing no DVT, however patient does have a history of DVT and for that reason she is on chronic blood thinners, management continues to focus on symptom relief and monitoring. Patient advised to continue current medications with close observation of symptoms. Problem List - Ozuna's Cyst - Lumbar Spine Arthritis - Chronic Venous Insufficiency - Chronic Pain Syndrome Patient Instructions - Begin oxycodone as prescribed for severe pain; limit use to 21 tablets for short-term management. - hold tramadol as per current regimen. - Reassess in one week regarding pain levels and medication effectiveness. - Monitor for any side effects or adverse reactions to new medication. - Continue to use warm baths for temporary pain relief as needed. - Contact us immediately if pain worsens or any new symptoms arise. Orders: Orders XR lumbar spine 2-3V Today M54.50 - Low back pain, unspecified Medications: New oxycodone-acetaminophen 5-325 mg (Percocet) Partial Fill upon patient request. 1 tab PO TID PRN 21 tabs 0RF pain 7 days On Hold tramadol Hold Comment: Doctor's Order 50 mg PO Q8H 7 days 21 tabs 0RF pain right knee
[2024-04-21 14:04] VITALS: BP 130/82; PULSE 68; O2SAT 98; BMI 34.0
== END 2024-04-21 14:36 | disposition home or self-care (01) ==
PROVIDERS: PCP Internal Medicine; Visit Provider Internal Medicine
DX: M54.50 Low back pain, unspecified (principal); M54.16 Radiculopathy, lumbar region; M71.21 Synovial cyst of popliteal space [Baker], right knee; D68.51 Activated protein C resistance

== ENCOUNTER 2024-04-21 13:54 | Outpatient (REF) | payer OTHER, SELFPAY | END 2024-04-21 13:55 | disposition home or self-care (01) | LOC: HO.HMGCX 13:54 | PROVIDERS: PCP Internal Medicine; Visit Provider Internal Medicine | DX: M54.50 Low back pain, unspecified (principal); M47.26 Other spondylosis with radiculopathy, lumbar region; G89.4 Chronic pain syndrome; M71.21 Synovial cyst of popliteal space [Baker], right knee; I87.2 Venous insufficiency (chronic) (peripheral); D68.51 Activated protein C resistance | CPT/HCPCS: 72100; 99212 ==

== ENCOUNTER 2024-05-13 15:01 | Outpatient (AMB) | payer OTHER, SELFPAY ==
[2024-05-13 15:02] VITALS: BP 124/63; PULSE 73; O2SAT 97; BMI 34.5
--- NOTE | 2024-05-13 15:02 | MHC.OFFVIS ---
Vital Signs 05/13/24 15:02 Height 5 ft 5 in Weight 207 lb 2 oz BMI 34.5 BP 124/63 Blood Pressure Location Rt brachial Position Sitting Pulse 73 Pulse Source Pulse Oximeter Pulse Oximetry (%) 97 Oxygen Delivery Method Room Air Intake Visit Reasons: Synovial Cyst of Popliteal Space ([place]) Rt Knee Allergies Sulfa (Sulfonamide Antibiotics) Allergy (Unknown, Verified 05/13/24 15:08) unknown sulfamethoxazole [From Bactrim] Allergy (Unknown, Verified 05/13/24 15:08) Unknown trimethoprim [From Bactrim] Allergy (Unknown, Verified 05/13/24 15:08) Unknown atenolol Adverse Reaction (Intermediate, Verified 05/13/24 15:08) Headache gabapentin Adverse Reaction (Mild, Verified 05/13/24 15:08) dont work for pain cortisone injection Adverse Reaction (Mild, Uncoded 05/13/24 15:08) Anaphylaxis HPI Comments Details: Isabel is 53 years old female very well known to this office. In 2021 she was under observation for right knee pain. She received genicular nerve block which gave her no results. Femoral nerve block resulted in very profound 5-6 hours pain relief, the injection was diagnostic. Were planning to perform PNS of the femoral nerve on the right however the patient's insurance company did not cover the procedure. Today she is in my office with different problem: She reports pain in the right side of the back with radiation to the right lower extremity to the level of the knee but not below that level. She reports that flexing backwards aggravate her pain. Flexing forward alleviates her pain. The Irvin test is also alleviate her pain on the right. Lateral rotation as well as medial rotation of the right hip joint results in pain aggravation in the groin. I suspect that this patient's suffer from multiple sites of arthritis. She was sent by primary care physician for x-ray of the lumbar spine. It is not read by radiologist yet. However I examined the images myself and it looks like that she has L3-L4, L4-5, and L5-S1 advanced arthritis. We agreed that I will schedule her for diagnostic medial branch block L2, L3, L4, dorsal ramus L5 on the right. She insists on the procedure to be done under sedation. She also will be scheduled for hip x-ray today. I will evaluate this hip x-ray. She reported that she had ?allergic reaction steroid injection ?however when she described that reaction she reported severe hypertension, dizziness and vertigo, she did not report skin changes, difficulty breathing or swelling of the tissues. Therefore I suspect that this is intravascular inadvertent injection of the steroid medications and potentially she could be a subject of the steroid injections in the future. [facility] Medical History Complex regional pain syndrome i of left lower limb Bilateral primary osteoarthritis of knee Headache syndrome Chronic pain Alteration comfort patterns as evidenced by distress Bilateral knee pain Lipid disorder Surgical History H/O colonoscopy History of knee surgery Family History Father HTN (hypertension) Mother HTN (hypertension) Maternal Grandfather Diabetes mellitus Maternal Aunt Cancer Son No problems noted. Son No problems noted. Son No problems noted. Son No problems noted. Son No problems noted. 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 Cognitive needs: No Hearing needs: No Vision needs: Yes Female Reproductive History Menstrual Age of Menarche: 9 Review of Systems Const All systems reviewed & are unremarkable except as noted in HPI and below ENT Reports Normal hearing present Neuro Reports Normal hearing present, Denies Abnormal speech present, Denies confusion and Denies Sensory deficit (Neuro) Psych Denies confusion Physical Exam Const General: no acute distress; No confusion Nutritional Appearance: obese morbidly obese Orientation/consciousness: patient oriented x3 and No confusion Eyes General: appearance normal, both eyes and all related structures Pupils: Equal, round and reactive pupils present EOM: EOMs intact bilaterally Neck Neck: Yes full ROM Chest Chest palpation & inspection: normal inspection of the chest Resp Effort & Inspection: normal respiratory effort, able to speak in complete sentences, normal respiratory pattern, no audible wheezes and no cough Cardio Jugular venous distension: no JVD GI Inspection: Yes normal to inspection Back/Spine/Pelvis Other: Loading test is positive on the right. SLR is negative bilaterally. Irvin test actually alleviates the pain on the right. Flexing forward alleviates her pain and flexing backwards makes her pain stronger. Valsalva maneuver does not aggravate the pain. Neuro General: patient oriented x3, gait normal and No confusion Cranial nerves: Yes CN's II-XII intact bilaterally, Yes Equal, round and reactive pupils present, Yes Normal hearing present and Yes Ability to bilaterally elevate shoulders present Speech: No Abnormal speech present Gait exam (Neuro): Normal gait present Motor exam (neuro): 5/5 motor strength present throughout Sensory Exam: No Sensory deficit (Neuro) Extrem General: No pedal edema Psych Speech and movement: Normal speech and movement present Affect: normal affect Attitude: cooperative Thought process: Normal thought process present Thought content: Normal thought content present Insight: Good insight present (Psych) Judgement: Good judgement present (Psych) Assessment & Plan Assessment & Plan (1) Osteoarthritis of right hip: Code(s): M16.11 - Unilateral primary osteoarthritis, right hip Category: Medical (2) Right hip pain: Code(s): M25.551 - Pain in right hip Category: Medical (3) Spondylosis of lumbar region without myelopathy or radiculopathy: Code(s): M47.816 - Spondylosis without myelopathy or radiculopathy, lumbar region Category: Medical (4) Chronic pain syndrome: Code(s): G89.4 - Chronic pain syndrome Category: Medical Plan The pain of this patient is most likely multifactorial is in the in nature. The pain in the lower back is predominantly axial with minimal radiation into the right lower extremity and most likely facetogenic in nature. I will schedule her for right-sided L2, L3, L4, dorsal ramus L5 medial branch block diagnostic on the right. She insists this procedure to be done under sedation. As of the pain in the right hip I will send her for hip x-ray today. I will see her on injection and the follow-up appointment will be scheduled after the injection we will also discuss the hip x-ray at that time. Orders: Orders XR hip RT min 2V Today M16.11 - Unilateral primary osteoarthritis, right hip, M25.551 - Pain in right hip Patient Instructions: I here by testify that I spent 32 minutes in conversation with this patient as well as evaluating her diagnostic images, planning her care, organizing this note. Coding Level of Care Code Est Pt Level 4 (16825) Diagnoses Osteoarthritis of right hip M16.11 Right hip pain M25.551 Spondylosis of lumbar region without myelopathy or radiculopathy M47.816 Chronic pain syndrome G89.4
== END 2024-05-13 15:23 | disposition home or self-care (01) ==
PROVIDERS: PCP Internal Medicine; Visit Provider Anesthesiology
DX: M16.11 Unilateral primary osteoarthritis, right hip (principal); M25.551 Pain in right hip; M47.816 Spondylosis without myelopathy or radiculopathy, lumbar region; G89.4 Chronic pain syndrome
CPT/HCPCS: 99214

== ENCOUNTER 2024-05-13 15:01 | Outpatient (REF) | payer OTHER, SELFPAY | END 2024-05-13 15:02 | disposition home or self-care (01) | LOC: HO.XRAY 15:01 | PROVIDERS: PCP Internal Medicine; Visit Provider Anesthesiology | DX: M16.11 Unilateral primary osteoarthritis, right hip (principal); M25.551 Pain in right hip; M47.816 Spondylosis without myelopathy or radiculopathy, lumbar region; G89.4 Chronic pain syndrome | CPT/HCPCS: 73502; 99212 ==

== ENCOUNTER 2024-06-11 08:31 | Outpatient (AMB) | payer OTHER, SELFPAY ==
--- NOTE | 2024-06-11 08:33 | A.OFFPC_ITS ---
Vital Signs 06/11/24 08:34 Height 5 ft 5 in Weight 210 lb BMI 34.9 BP 126/82 Blood Pressure Location Lt brachial Position Sitting Pulse 70 Pulse Source Pulse Oximeter Pulse Oximetry (%) 96 Oxygen Delivery Method Room Air Intake Visit Reasons: medication management Allergies Sulfa (Sulfonamide Antibiotics) Allergy (Unknown, Verified 06/11/24 08:38) unknown sulfamethoxazole [From Bactrim] Allergy (Unknown, Verified 06/11/24 08:38) Unknown trimethoprim [From Bactrim] Allergy (Unknown, Verified 06/11/24 08:38) Unknown atenolol Adverse Reaction (Intermediate, Verified 06/11/24 08:38) Headache gabapentin Adverse Reaction (Mild, Verified 06/11/24 08:38) dont work for pain cortisone injection Adverse Reaction (Mild, Uncoded 05/13/24 15:08) Anaphylaxis Medication List - Last Reconciled 06/11/24 by Ochoa Hunter MD apixaban (Eliquis) 5 mg PO BID blood pressure test kit-large Check BP 3 times daily with heart rate. lorazepam 1 mg PO DAILY losartan-hydrochlorothiazide 50-12.5 mg 1 tab PO DAILY omeprazole 20 mg PO DAILY 90 days rimegepant (Nurtec ODT) 75 mg PO DAILY PRN simvastatin 40 mg PO DAILY 90 days tramadol 50 mg PO Q8H 7 days Tobacco use date assessed: 06/11/24 Dental Screening Dental Screen Date: 06/11/24 Did you have a dental visit in the last 12 months?: Yes Did you have a dental problem in the last 6 months where you did not have access to dental care?: No Was dental information given to patient?: Patient has dentist HPI medication management HPI Details - The patient is a 53-year-old female pr esenting with chronic back and knee pain. - Chronic back pain reported, worsened o shanae time; associated with difficulty ascending stairs. - Pain localized between the right hip a nd the right side of the back; arthritis implicated. - Past diagnostic intervention: femoral nerve block noted in records but disputed by the patient. - Pain exacerbates with activity; signif icant impact on daily living, including mobility and sleep. Patient Instructions - Communicate directly with the pain man agement provider to clarify treatment plans and follow-up procedures. - Confirm an appointment with the pain m anagement specialist within the next month. Tramadol refill provided for 2 weeks Patient have a follow-up appointment coming up in couple of weeks for her other medical problems Review of Systems - Musculoskeletal: Reports spasms in fay k and legs; difficulty sleeping. - General: No fever no chills - Neurological: No headaches no dizziness - Ear nose throat: No sore throat no hearing difficulty no ear pain - Cardiovascular: No syncope, no chest pain, no palpitations - Gastrointestinal: No nausea vomiting or diarrhea - Endocrine: No polyuria polydipsia no heat intolerance - Genitourinary: No dysuria , no blood in urine Physical Exam General: No acute distress HEENT: No acute findings Neck: Supple Respiratory system: Able to talk in full sentences, no audible wheeze cardiovascular: S1-S2 regular in rate and rhythm Gastrointestinal: No pain Extremities: Pain in the knee and leg, difficulty going up stairs 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 Son No problems noted. Son No problems noted. Son No problems noted. Son No problems noted. 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 1. Little interest or pleasure in doing things: several days 2. Feeling down, depressed, or hopeless: several days 3. Trouble falling or staying asleep, or sleeping too much: several days 4. Feeling tired or having little energy: several days 5. Poor appetite or overeating: more than half the days 6. Feeling bad about yourself - or that you are a failure or have let yourself or your family down: not at all 7. Trouble concentrating on things, such as reading the newspaper or watching television: several days 8. Moving or speaking so slowly that other people could have noticed. Or the opposite - being so fidgety or restless that you have been moving around a lot more than usual: not at all 9. Thoughts that you would be better off or of hurting yourself in some way: not at all Total score: 7 Depression Screening Interpretation: Negative Depression Screening Done: Yes 56443 - PHQ-9 Billing: Yes Source: Developed by Drs. Edward Abraham, Shameka Meraz, rUiel Sultana and colleagues, with an educational thony from [employer]. Thrive Questionnaire Date Thrive assessed: 06/11/24 I am a: Patient What is your living situation today?: I have a steady place to live Within the past 12 months, did the food you bought not last and you didn't have the money to get more?: Often true Within the past 12 months, did you worry whether your food would run out before you got money to buy more?: Never true Do you have trouble paying for medicines?: No Do you have trouble getting transportation to medical appointments?: No Do you have trouble paying your heating and electricity bill?: No Do you have trouble taking care of your child, family member or friend?: No Do you have trouble with day-to-day activities such as bathing, preparing meals, shopping, managing finances, etc.?: Yes Are you currently unemployed and looking for a job?: No Are you interested in more education?: No Please select the resources that you would like help with: None Currently or been in a relationship where the following occur: No concerns reported THRIVE Score: 1 AUDIT C Alcohol Use Questionnaire (AUDIT-C) 1. How often do you have a drink containing alcohol?: Never 3. How often do you have six or more drinks on one occasion?: Never Total Score: 0 Score Reviewed/Action Taken: Yes TEE-7 AMB Questionnaire TEE-7 Date TEE - 7 assessed: 06/11/24 Feeling nervous, anxious, or on edge: 1 = Several days Not being able to stop or control worryin = Several days Worrying too much about different things: 1 = Several days Trouble relaxin = Several days Being so restless that it is hard to sit still: 1 = Several days Becoming easily annoyed or irritable: 1 = Several days Feeling afraid as if something awful might happen: 1 = Several days Total TEE-7 score (0-4 normal; 5-9 mild; 10-14 moderate; 15-21 severe): 7 Source: Developed by Drs. Edward Abraham, Shameka Meraz, Uriel Sultana and colleagues, with an educational thony from [employer]. TEE-7 Assessment Billing TEE-7 Assessment Tool: TEE-7 Assessment 30978 Physical exam (Primary Care) Vital Signs: Last Vital Signs Pulse 70 06/11/24 08:34 BP 126/82 06/11/24 08:34 Pulse Ox 96 06/11/24 08:34 Oxygen Delivery Method Room Air 06/11/24 08:34 BMI result Body Mass Index 34.9 Tobacco/Smoking Status: Tobacco use Status Tobacco use date assessed 06/11/24 06/11/24 08:39 Patient Tobacco Use Status Current everyday Tobacco 06/11/24 08:36 Tobacco use type Cigarette 06/11/24 08:36 e-Cigarette/Vaping Use Never Used 06/11/24 08:36 PHQ-9: PHQ-9 Score PHQ-9: Total score 7 06/11/24 08:50 Depression Screening Interpretation: Negative Thrive Assessment: Date of Thrive Assessment Date Thrive assessed 06/11/24 06/11/24 08:39 Currently or been in a relationship where the following occur: No concerns reported Coding Level of Care Code Est Pt Level 3 (71523) Diagnoses Chronic pain syndrome G89.4 Right hip pain M25.551 Primary osteoarthritis of right hip M16.11 Osteoarthritis type: primary Right lumbar radiculitis M54.16 Additional Codes TEE-7 Assessment Billing - TEE-7 Assessment Tool: TEE-7 Assessment 20636 ([id number]) PHQ-9 - 88348 - PHQ-9 Billing: Yes ([id number]) Assessment & Plan Assessment & Plan (1) Chronic pain syndrome: Code(s): G89.4 - Chronic pain syndrome Category: Medical (2) Right hip pain: Code(s): M25.551 - Pain in right hip Category: Medical (3) Osteoarthritis of right hip: Code(s): M16.11 - Unilateral primary osteoarthritis, right hip Category: Medical Qualifiers: Osteoarthritis type: primary Qualified Code(s): M16.11 - Unilateral primary osteoarthritis, right hip (4) Right lumbar radiculitis: Code(s): M54.16 - Radiculopathy, lumbar region Category: Medical Plan - The patient is a 53-year-old female presenting with chronic back and knee pain. - Chronic back pain reported, worsened over time; associated with difficulty ascending stairs. - Pain localized between the right hip and the right side of the back; arthritis implicated. - Past diagnostic intervention: femoral nerve block noted in records but disputed by the patient. - Pain exacerbates with activity; significant impact on daily living, including mobility and sleep. Patient Instructions - Communicate directly with the pain management provider to clarify treatment plans and follow-up procedures. - Confirm an appointment with the apprentice painter hand within the next month. Tramadol refill provided for 2 weeks Patient have a follow-up appointment coming up in couple of weeks for her other medical problems Medications: Changed From tramadol 50 mg PO Q8H 7 days 21 tabs 0RF pain right knee To tramadol 50 mg PO Q8H 15 days 45 tabs 0RF pain right knee
[2024-06-11 08:34] VITALS: BP 126/82; PULSE 70; O2SAT 96; BMI 34.9
== END 2024-06-11 09:23 | disposition home or self-care (01) ==
PROVIDERS: PCP Internal Medicine; Visit Provider Internal Medicine
DX: G89.4 Chronic pain syndrome (principal); M25.551 Pain in right hip; M16.11 Unilateral primary osteoarthritis, right hip; M54.16 Radiculopathy, lumbar region

== ENCOUNTER → 2024-06-11 08:31 | Outpatient (BNVA) | payer OTHER, SELFPAY | PROVIDERS: PCP Internal Medicine; Visit Provider Internal Medicine | DX: M16.11 Unilateral primary osteoarthritis, right hip (principal); M54.16 Radiculopathy, lumbar region; G89.4 Chronic pain syndrome | CPT/HCPCS: 96127; 99212 ==

== ENCOUNTER 2024-06-23 13:46 | Outpatient (AMB) | payer OTHER, SELFPAY ==
[2024-06-23 13:47] VITALS: BP 108/70; PULSE 79; RESP 18; TEMP 37.1; O2SAT 100; BMI 34.4
--- NOTE | 2024-06-23 13:47 | MHC.PC.OV ---
Vital Signs 06/23/24 13:47 Height 5 ft 5 in Weight 207 lb BMI 34.4 BP 108/70 Blood Pressure Location Rt brachial Position Sitting Respiration 18 Pulse 79 Pulse Source Pulse Oximeter Temp 98.8 F Temp Source Oral Pulse Oximetry (%) 100 Oxygen Delivery Method Room Air Intake Visit Reasons: Follow Up Allergies Sulfa (Sulfonamide Antibiotics) Allergy (Unknown, Verified 06/23/24 13:48) unknown sulfamethoxazole [From Bactrim] Allergy (Unknown, Verified 06/23/24 13:48) Unknown trimethoprim [From Bactrim] Allergy (Unknown, Verified 06/23/24 13:48) Unknown atenolol Adverse Reaction (Intermediate, Verified 06/23/24 13:48) Headache gabapentin Adverse Reaction (Mild, Verified 06/23/24 13:48) dont work for pain cortisone injection Adverse Reaction (Mild, Uncoded 05/13/24 15:08) Anaphylaxis Medication List - Last Reconciled 06/23/24 by Ochoa Hunter MD apixaban (Eliquis) 5 mg PO BID blood pressure test kit-large Check BP 3 times daily with heart rate. lorazepam 1 mg PO DAILY losartan-hydrochlorothiazide 50-12.5 mg 1 tab PO DAILY omeprazole 20 mg PO DAILY 90 days rimegepant (Nurtec ODT) 75 mg PO DAILY PRN simvastatin 40 mg PO DAILY 90 days tramadol 50 mg PO Q8H 15 days Tobacco use date assessed: 06/23/24 Dental Screening Dental Screen Date: 06/23/24 Did you have a dental visit in the last 12 months?: Yes Did you have a dental problem in the last 6 months where you did not have access to dental care?: No Was dental information given to patient?: Patient has dentist HPI Follow Up HPI Details The patient is a 53-year-old female with a history of chronic pain in both legs secondary to recurrent DVTs, osteoarthritis both knees, back pain, hypertension, depression, obesity, on chronic blood thinners, GERD, lipid disorder, migraine headaches. - She has been managing her chronic pain with Tramadol, taking it mainly in the morning and at night, with an additional dose in the afternoon if required. - Experienced nausea, attributed to Tramadol intake, and manages it by adjusting dosage frequency. - She continues on Eliquis for her recurrent leg clots and follows a neurologist for migraines. 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 - tramadol script sent for the whole 90 days 180 tablets to be taken 1 b.i.d. p.r.n. Refill will only be provided at visit in 3 months patient is aware -BMI is elevated need to lose weight - continue omeprazole for GERD management - continue blood thinners Problem List - Chronic Pain - Hypotension - Nausea due to Tramadol - Recurrent Blood Clots in Legs - Migraine - depression - anxiety - GERD - obesity - osteoarthritis bilateral knees Patient Instructions - Monitor blood pressure at home if able, but discontinue if anxiety worsens. - Consume only cooked meals at home, avoiding outside food. - Schedule a follow-up appointment before running out of Tramadol prescription and complete lab work as advised. - continue medications as prescribed Review of Systems - Cardiovascular: Reports hypotension (108/70 mmHg). - Gastrointestinal: Reports nausea. Denies abdominal pain. - Neurological: Denies dizziness. Reports migraines. - General: Reports persistent pain and occasional nausea associated with medication usage. 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 Son No problems noted. Son No problems noted. Son No problems noted. Son No problems noted. 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 1. Little interest or pleasure in doing things: several days 2. Feeling down, depressed, or hopeless: several days 3. Trouble falling or staying asleep, or sleeping too much: several days 4. Feeling tired or having little energy: several days 5. Poor appetite or overeating: more than half the days 6. Feeling bad about yourself - or that you are a failure or have let yourself or your family down: not at all 7. Trouble concentrating on things, such as reading the newspaper or watching television: several days 8. Moving or speaking so slowly that other people could have noticed. Or the opposite - being so fidgety or restless that you have been moving around a lot more than usual: not at all 9. Thoughts that you would be better off or of hurting yourself in some way: not at all Total score: 7 Depression Screening Interpretation: Negative Depression Screening Done: Yes 00761 - PHQ-9 Billing: Yes Source: Developed by Drs. Edward Abraham, Shameka Meraz, Uriel Sultana and colleagues, with an educational thony from [email or web address]. Thrive Questionnaire Date Thrive assessed: 06/23/24 I am a: Patient What is your living situation today?: I have a steady place to live Within the past 12 months, did the food you bought not last and you didn't have the money to get more?: Often true Within the past 12 months, did you worry whether your food would run out before you got money to buy more?: Never true Do you have trouble paying for medicines?: No Do you have trouble getting transportation to medical appointments?: No Do you have trouble paying your heating and electricity bill?: No Do you have trouble taking care of your child, family member or friend?: No Do you have trouble with day-to-day activities such as bathing, preparing meals, shopping, managing finances, etc.?: Yes Are you currently unemployed and looking for a job?: No Are you interested in more education?: No Please select the resources that you would like help with: None Currently or been in a relationship where the following occur: No concerns reported THRIVE Score: 1 AUDIT C Alcohol Use Questionnaire (AUDIT-C) 1. How often do you have a drink containing alcohol?: Never 3. How often do you have six or more drinks on one occasion?: Never Total Score: 0 Score Reviewed/Action Taken: Yes TEE-7 AMB Questionnaire TEE-7 Date TEE - 7 assessed: 06/11/24 Source: Developed by Drs. Edward Abraham, Shameka Meraz, Uriel Sultana and colleagues, with an educational thony from [email or web address]. Physical exam (Primary Care) Vital Signs: Last Vital Signs Temp 98.8 F 06/23/24 13:47 Pulse 79 06/23/24 13:47 Resp 18 06/23/24 13:47 BP 108/70 06/23/24 13:47 Pulse Ox 100 06/23/24 13:47 Oxygen Delivery Method Room Air 06/23/24 13:47 BMI result Body Mass Index 34.4 Tobacco/Smoking Status: Tobacco use Status Tobacco use date assessed 06/23/24 06/23/24 13:53 Patient Tobacco Use Status Current everyday Tobacco 06/23/24 13:53 Tobacco use type Cigarette 06/23/24 13:53 e-Cigarette/Vaping Use Never Used 06/23/24 13:53 PHQ-9: PHQ-9 Score PHQ-9: Total score 7 06/23/24 13:53 Depression Screening Interpretation: Negative Thrive Assessment: Date of Thrive Assessment Date Thrive assessed 06/23/24 06/23/24 13:53 Currently or been in a relationship where the following occur: No concerns reported Coding Level of Care Code Est Pt Level 4 (42276) Diagnoses Hypertension, essential I10 Lipid disorder E78.9 Headache syndrome G44.89 Bilateral primary osteoarthritis of knee M17.0 Complex regional pain syndrome i of left lower limb G90.522 Generalized anxiety disorder F41.1 Anxiety disorder type: generalized anxiety disorder Factor 5 Leiden mutation, heterozygous D68.51 Class 2 severe obesity due to excess calories with serious comorbidity and body mass index (BMI) of 38.0 to 38.9 in adult E66.01; Z68.38 Body mass index: BMI 38.0-38.9 Obesity classification: adult class 2 (BMI 35 - 39.9) Serious obesity comorbidity presence: with serious comorbidity Gastroesophageal reflux disease without esophagitis K21.9 Esophagitis presence: without esophagitis Thyroid disease E07.9 Migraine without aura and without status migrainosus, not intractable G43.009 Intractability: not intractable Status migrainosus presence: without status migrainosus Cigarette nicotine dependence without complication F17.210 Nicotine product type: cigarettes Substance use status: uncomplicated Impaired fasting blood sugar R73.01 Recurrent major depressive disorder, in partial remission F33.41 Active/Remission status: in partial remission Additional Codes PHQ-9 - 33518 - PHQ-9 Billing: Yes ([id number]) Assessment & Plan Assessment & Plan (1) Hypertension, essential: Code(s): I10 - Essential (primary) hypertension Category: Medical (2) Lipid disorder: Code(s): E78.9 - Disorder of lipoprotein metabolism, unspecified Category: Medical (3) Headache syndrome: Code(s): G44.89 - Other headache syndrome Category: Medical (4) Bilateral primary osteoarthritis of knee: Code(s): M17.0 - Bilateral primary osteoarthritis of knee Category: Medical (5) Complex regional pain syndrome i of left lower limb: Code(s): G90.522 - Complex regional pain syndrome I of left lower limb Category: Medical (6) Anxiety disorder: Code(s): F41.9 - Anxiety disorder, unspecified Category: Medical Qualifiers: Anxiety disorder type: generalized anxiety disorder Qualified Code(s): F41.1 - Generalized anxiety disorder (7) Factor 5 Leiden mutation, heterozygous: Code(s): D68.51 - Activated protein C resistance Category: Medical (8) Obesity due to excess calories: Code(s): E66.09 - Other obesity due to excess calories Category: Medical Qualifiers: Body mass index: BMI 38.0-38.9 Obesity classification: adult class 2 (BMI 35 - 39.9) Serious obesity comorbidity presence: with serious comorbidity Qualified Code(s): E66.01 - Morbid (severe) obesity due to excess calories; Z68.38 - Body mass index [BMI] 38.0-38.9, adult (9) Acid reflux: Code(s): K21.9 - Gastro-esophageal reflux disease without esophagitis Category: Medical Qualifiers: Esophagitis presence: without esophagitis Qualified Code(s): K21.9 - Gastro-esophageal reflux disease without esophagitis (10) Thyroid disease: Code(s): E07.9 - Disorder of thyroid, unspecified Category: Medical (11) Migraine headache without aura: Code(s): G43.009 - Migraine without aura, not intractable, without status migrainosus Category: Medical Qualifiers: Intractability: not intractable Status migrainosus presence: without status migrainosus Qualified Code(s): G43.009 - Migraine without aura, not intractable, without status migrainosus (12) Nicotine dependence: Code(s): F17.200 - Nicotine dependence, unspecified, uncomplicated Category: Medical Qualifiers: Nicotine product type: cigarettes Substance use status: uncomplicated Qualified Code(s): F17.210 - Nicotine dependence, cigarettes, uncomplicated (13) Impaired fasting blood sugar: Code(s): R73.01 - Impaired fasting glucose Category: Medical (14) Major depression, recurrent: Code(s): F33.9 - Major depressive disorder, recurrent, unspecified Category: Medical Qualifiers: Active/Remission status: in partial remission Qualified Code(s): F33.41 - Major depressive disorder, recurrent, in partial remission Plan The patient is a 53-year-old female with a history of chronic pain in both legs secondary to recurrent DVTs, osteoarthritis both knees, back pain, hypertension, depression, obesity, on chronic blood thinners, GERD, lipid disorder, migraine headaches. - She has been managing her chronic pain with Tramadol, taking it mainly in the morning and at night, with an additional dose in the afternoon if required. - Experienced nausea, attributed to Tramadol intake, and manages it by adjusting dosage frequency. - She continues on Eliquis for her recurrent leg clots and follows a neurologist for migraines. 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 - tramadol script sent for the whole 90 days 180 tablets to be taken 1 b.i.d. p.r.n. Refill will only be provided at visit in 3 months patient is aware -BMI is elevated need to lose weight - continue omeprazole for GERD management - continue blood thinners Problem List - Chronic Pain - Hypotension - Nausea due to Tramadol - Recurrent Blood Clots in Legs - Migraine - depression - anxiety - GERD - obesity - osteoarthritis bilateral knees -impaired fasting sugar - nicotine dependence Patient Instructions - Monitor blood pressure at home if able, but discontinue if anxiety worsens. - Consume only cooked meals at home, avoiding outside food. - Schedule a follow-up appointment before running out of Tramadol prescription and complete lab work as advised. - continue medications as prescribed Orders: Orders Complete Blood Count Auto Diff Today D68.51 - Activated protein C resistance, E07.9 - Disorder of thyroid, unspecified, E66.01 - Morbid (severe) obesity due to excess calories, E78.9 - Disorder of lipoprotein metabolism, unspecified, F17.210 - Nicotine dependence, cigarettes, uncomplicated, F33.41 - Major depressive disorder, recurrent, in partial remission, F41.1 - Generalized anxiety disorder, G43.009 - Migraine without aura, not intractable, without status migrainosus, G44.89 - Other headache syndrome, G90.522 - Complex regional pain syndrome I of left lower limb, I10 - Essential (primary) hypertension, K21.9 - Gastro-esophageal reflux disease without esophagitis, M17.0 - Bilateral primary osteoarthritis of knee, R73.01 - Impaired fasting glucose, Z68.38 - Body mass index [BMI] 38.0-38.9, adult TSH reflex Free T4 Today D68.51 - Activated protein C resistance, E07.9 - Disorder of thyroid, unspecified, E66.01 - Morbid (severe) obesity due to excess calories, E78.9 - Disorder of lipoprotein metabolism, unspecified, F17.210 - Nicotine dependence, cigarettes, uncomplicated, F33.41 - Major depressive disorder, recurrent, in partial remission, F41.1 - Generalized anxiety disorder, G43.009 - Migraine without aura, not intractable, without status migrainosus, G44.89 - Other headache syndrome, G90.522 - Complex regional pain syndrome I of left lower limb, I10 - Essential (primary) hypertension, K21.9 - Gastro-esophageal reflux disease without esophagitis, M17.0 - Bilateral primary osteoarthritis of knee, R73.01 - Impaired fasting glucose, Z68.38 - Body mass index [BMI] 38.0-38.9, adult Vitamin D 25-OH (D2 and D3) Today D68.51 - Activated protein C resistance, E07.9 - Disorder of thyroid, unspecified, E66.01 - Morbid (severe) obesity due to excess calories, E78.9 - Disorder of lipoprotein metabolism, unspecified, F17.210 - Nicotine dependence, cigarettes, uncomplicated, F33.41 - Major depressive disorder, recurrent, in partial remission, F41.1 - Generalized anxiety disorder, G43.009 - Migraine without aura, not intractable, without status migrainosus, G44.89 - Other headache syndrome, G90.522 - Complex regional pain syndrome I of left lower limb, I10 - Essential (primary) hypertension, K21.9 - Gastro-esophageal reflux disease without esophagitis, M17.0 - Bilateral primary osteoarthritis of knee, R73.01 - Impaired fasting glucose, Z68.38 - Body mass index [BMI] 38.0-38.9, adult Comprehensive Met. Panel Today D68.51 - Activated protein C resistance, E07.9 - Disorder of thyroid, unspecified, E66.01 - Morbid (severe) obesity due to excess calories, E78.9 - Disorder of lipoprotein metabolism, unspecified, F17.210 - Nicotine dependence, cigarettes, uncomplicated, F33.41 - Major depressive disorder, recurrent, in partial remission, F41.1 - Generalized anxiety disorder, G43.009 - Migraine without aura, not intractable, without status migrainosus, G44.89 - Other headache syndrome, G90.522 - Complex regional pain syndrome I of left lower limb, I10 - Essential (primary) hypertension, K21.9 - Gastro-esophageal reflux disease without esophagitis, M17.0 - Bilateral primary osteoarthritis of knee, R73.01 - Impaired fasting glucose, Z68.38 - Body mass index [BMI] 38.0-38.9, adult LDL Cholesterol Direct Today D68.51 - Activated protein C resistance, E07.9 - Disorder of thyroid, unspecified, E66.01 - Morbid (severe) obesity due to excess calories, E78.9 - Disorder of lipoprotein metabolism, unspecified, F17.210 - Nicotine dependence, cigarettes, uncomplicated, F33.41 - Major depressive disorder, recurrent, in partial remission, F41.1 - Generalized anxiety disorder, G43.009 - Migraine without aura, not intractable, without status migrainosus, G44.89 - Other headache syndrome, G90.522 - Complex regional pain syndrome I of left lower limb, I10 - Essential (primary) hypertension, K21.9 - Gastro-esophageal reflux disease without esophagitis, M17.0 - Bilateral primary osteoarthritis of knee, R73.01 - Impaired fasting glucose, Z68.38 - Body mass index [BMI] 38.0-38.9, adult Hemoglobin A1c Today R73.01 - Impaired fasting glucose Medications: Changed From tramadol 50 mg PO Q8H 15 days 45 tabs 0RF pain right knee To tramadol refill will be provided at next office visit if needed 50 mg PO Q12H 90 days 180 tabs 0RF pain right knee
== END 2024-06-23 14:17 | disposition home or self-care (01) ==
PROVIDERS: PCP Internal Medicine; Visit Provider Internal Medicine
DX: I10 Essential (primary) hypertension (principal); E66.01 Morbid (severe) obesity due to excess calories; D68.51 Activated protein C resistance; Z68.38 Body mass index [BMI] 38.0-38.9, adult; F33.41 Major depressive disorder, recurrent, in partial remission; E78.9 Disorder of lipoprotein metabolism, unspecified; G44.89 Other headache syndrome; M17.0 Bilateral primary osteoarthritis of knee; G90.522 Complex regional pain syndrome I of left lower limb; F41.1 Generalized anxiety disorder; K21.9 Gastro-esophageal reflux disease without esophagitis; E07.9 Disorder of thyroid, unspecified

== ENCOUNTER 2024-06-23 13:46 | Outpatient (REF) | payer OTHER, SELFPAY ==
[2024-06-23 16:47] LABS: Hemoglobin 14.3 g/dl (12.0-16.0); Imm Gran Abs Auto 0.01 X10*3/uL (0.00-0.03); Imm Gran Pct Auto 0.1 % (0.0-0.4); Lymphocytes Percent Auto 53.6 % (20-40); MANUAL DIFF FLAG SCAN; Mean Platelet Volume 13.2 fL (9.4-12.3); Red Cell Distribution Width 12.9 % (11.0-16.0); SCAN SMEAR FLAG 1
[2024-06-23 16:49] LABS: Basophils Absolute Auto 0.1 X10*3/uL (0.0-0.2); Basophils Percent Auto 0.7 % (0-2); Eosinophils Absolute Auto 0.1 X10*3/uL (0.0-0.4); Eosinophils Percent Auto 1.7 % (0-4); Lymphocytes Absolute Auto 4.4 X10*3/uL (1.2-4.9); Mean Corpuscular Hemoglobin 30.9 pg (27.0-33.0); Mean Corpuscular Volume 90.7 fL (80.0-98.0); Monocytes Absolute Auto 0.7 X10*3/uL (0.1-1.2); Monocytes Percent Auto 8.7 % (2-11); Neutrophils Absolute Auto 2.9 x10*3/uL (2.0-8.3); Neutrophils Percent Auto 35.2 % (45-73); Platelet Count 190 X10*3/uL (160-400); Red Blood Count 4.63 X10*6/uL (4.20-5.50); White Blood Count 8.3 X10*3/uL (4.8-10.8)
[2024-06-23 16:57] LABS: Estimated Average Glucose 108 mg/dL; Hemoglobin A1C 135.0161 umol/L; Hemoglobin A1c % 5.4 % (<6.0); Total Hemoglobin (HGBA1C) 3746.6741 umol/L
[2024-06-23 17:08] LABS: Alanine Aminotransferase 19 U/L (0-31); Albumin Level 4.2 g/dL (3.5-5.0); Alkaline Phosphatase 72 U/L (39-117); Anion Gap 10 (12-20); Aspartate Amino Transferase 24 U/L (5-31); Bilirubin Total 0.3 mg/dL (0.0-1.0); Blood Urea Nitrogen 17 mg/dL (9-16); Calcium 8.9 mg/dL (8.4-10.2); Carbon Dioxide 24 mmol/L (22-29); Chloride 106 mmol/L (96-108); Estimated Glomerular Filt Rate > 60; Glucose Random 85 mg/dL (60-115); Potassium 3.6 mmol/L (3.3-5.1); Sodium 136 mmol/L (135-145); Total Protein 7.6 g/dL (6.5-8.0)
[2024-06-23 17:10] LABS: PLT ABN DIST 1
[2024-06-23 17:24] LABS: TSH reflex Free T4 2.14 uIU/mL (0.32-4.0)
[2024-06-23 17:39] LABS: SLIDE REVIEW VERIFIED
[2024-06-24 21:37] LABS: LDL Cholesterol Direct 121 mg/dL (<100)
[2024-06-28 13:48] LABS: Vitamin D 25-OH, D2 <4 ng/mL; Vitamin D 25-OH, D3 27 ng/mL; Vitamin D 25-OH, Total 27 ng/mL (30-100)
== END 2024-06-23 13:47 | disposition home or self-care (01) ==
LOC: HO.HMGCLDS 13:46
PROVIDERS: PCP Internal Medicine; Visit Provider Internal Medicine
DX: I10 Essential (primary) hypertension (principal); E78.9 Disorder of lipoprotein metabolism, unspecified; G44.89 Other headache syndrome; M17.0 Bilateral primary osteoarthritis of knee; G90.522 Complex regional pain syndrome I of left lower limb; F41.1 Generalized anxiety disorder; D68.51 Activated protein C resistance; E66.01 Morbid (severe) obesity due to excess calories; Z68.38 Body mass index [BMI] 38.0-38.9, adult; K21.9 Gastro-esophageal reflux disease without esophagitis; E07.9 Disorder of thyroid, unspecified; G43.909 Migraine, unspecified, not intractable, without status migrainosus; R73.01 Impaired fasting glucose; F33.41 Major depressive disorder, recurrent, in partial remission; F17.210 Nicotine dependence, cigarettes, uncomplicated; Z86.718 Personal history of other venous thrombosis and embolism; Z79.01 Long term (current) use of anticoagulants; Z79.899 Other long term (current) drug therapy
CPT/HCPCS: 36415; 80053; 82306; 83036; 83721; 84443; 85025; 96127; 99212

== ENCOUNTER 2024-08-11 15:20 | Outpatient (AMB) | payer OTHER, SELFPAY ==
[2024-08-11 15:27] VITALS: BP 146/83; PULSE 70; RESP 16; O2SAT 99; BMI 34.4
--- NOTE | 2024-08-11 15:27 | MHC.OFFVIS ---
Vital Signs 08/11/24 15:27 Height 5 ft 5 in Weight 207 lb BMI 34.4 BP 146/83 H Blood Pressure Location Lt brachial Position Sitting Respiration 16 Pulse 70 Pulse Source Pulse Oximeter Pulse Oximetry (%) 99 Oxygen Delivery Method Room Air Intake Visit Reasons: Discuss denial and options Field Operations Coordinator Required: No Allergies Sulfa (Sulfonamide Antibiotics) Allergy (Unknown, Verified 08/11/24 15:28) unknown sulfamethoxazole [From Bactrim] Allergy (Unknown, Verified 08/11/24 15:28) Unknown trimethoprim [From Bactrim] Allergy (Unknown, Verified 08/11/24 15:28) Unknown atenolol Adverse Reaction (Intermediate, Verified 08/11/24 15:28) Headache gabapentin Adverse Reaction (Mild, Verified 08/11/24 15:28) dont work for pain cortisone injection Adverse Reaction (Mild, Uncoded 08/11/24 15:28) Anaphylaxis Medication List - Last Reconciled 08/11/24 by Cheryle Yan LPN apixaban (Eliquis) 5 mg PO BID blood pressure test kit-large Check BP 3 times daily with heart rate. lorazepam 1 mg PO DAILY losartan-hydrochlorothiazide 50-12.5 mg 1 tab PO DAILY omeprazole 20 mg PO DAILY 90 days rimegepant (Nurtec ODT) 75 mg PO DAILY PRN simvastatin 40 mg PO DAILY 90 days tramadol 50 mg PO Q12H 90 days HPI Comments Details: Isabel is back in my office to discuss her treatment options. I initially wanted to perform diagnostic L2, L3, L4, dorsal ramus L5 medial branch block for this patient because I suspected spondylosis and arthritis of the lower lumbar spine of this patient. however her insurance company denied the procedure because patient never had physical therapy. I will send her for physical therapy with diagnosis as above. When she will complete physical therapy I will evaluate the patient and if her pain remains elevated I will offer her this procedure again. Her pain is predominantly axial and facetogenic in nature. To support my diagnosis I will send her for MRI of the lumbar spine. Prior: Initially presented in this office with knee pain, negative results of genicular nerve block however very good results of the femoral nerve block FORMERLY [facility] Medical History Complex regional pain syndrome i of left lower limb Bilateral primary osteoarthritis of knee Headache syndrome Chronic pain Alteration comfort patterns as evidenced by distress Bilateral knee pain Lipid disorder Surgical History H/O colonoscopy History of knee surgery Family History Father HTN (hypertension) Mother HTN (hypertension) Maternal Grandfather Diabetes mellitus Maternal Aunt Cancer Son No problems noted. Son No problems noted. Son No problems noted. Son No problems noted. Son No problems noted. 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 Cognitive needs: No Hearing needs: No Vision needs: Yes Female Reproductive History Menstrual Age of Menarche: 9 Review of Systems Const All systems reviewed & are unremarkable except as noted in HPI and below ENT Reports Normal hearing present Neuro Reports Normal hearing present, Denies Abnormal speech present, Denies confusion and Denies Sensory deficit (Neuro) Psych Denies confusion Physical Exam Vital Signs: Last Vital Signs Pulse 70 08/11/24 15:27 Resp 16 08/11/24 15:27 BP 146/83 H 08/11/24 15:27 Pulse Ox 99 08/11/24 15:27 Oxygen Delivery Method Room Air 08/11/24 15:27 BMI result Body Mass Index 34.4 Const General: no acute distress; No confusion Nutritional Appearance: obese morbidly obese Orientation/consciousness: patient oriented x3 and No confusion Eyes General: appearance normal, both eyes and all related structures Pupils: Equal, round and reactive pupils present EOM: EOMs intact bilaterally Neck Neck: Yes full ROM Chest Chest palpation & inspection: normal inspection of the chest Resp Effort & Inspection: normal respiratory effort, able to speak in complete sentences, normal respiratory pattern, no audible wheezes and no cough Cardio Jugular venous distension: no JVD GI Inspection: Yes normal to inspection Back/Spine/Pelvis Other: Loading test is positive on the right. SLR is negative bilaterally. Irvin test actually alleviates the pain on the right. Flexing forward alleviates her pain and flexing backwards makes her pain stronger. Valsalva maneuver does not aggravate the pain. Neuro General: patient oriented x3, gait normal and No confusion Cranial nerves: Yes CN's II-XII intact bilaterally, Yes Equal, round and reactive pupils present, Yes Normal hearing present and Yes Ability to bilaterally elevate shoulders present Speech: No Abnormal speech present Gait exam (Neuro): Normal gait present Motor exam (neuro): 5/5 motor strength present throughout Sensory Exam: No Sensory deficit (Neuro) Extrem General: No pedal edema Psych Speech and movement: Normal speech and movement present Affect: normal affect Attitude: cooperative Thought process: Normal thought process present Thought content: Normal thought content present Insight: Good insight present (Psych) Judgement: Good judgement present (Psych) Assessment & Plan Assessment & Plan (1) Osteoarthritis of right hip: Code(s): M16.11 - Unilateral primary osteoarthritis, right hip Category: Medical Qualifiers: Osteoarthritis type: primary Qualified Code(s): M16.11 - Unilateral primary osteoarthritis, right hip (2) Right hip pain: Code(s): M25.551 - Pain in right hip Category: Medical (3) Spondylosis of lumbar region without myelopathy or radiculopathy: Code(s): M47.816 - Spondylosis without myelopathy or radiculopathy, lumbar region Category: Medical (4) Chronic pain syndrome: Code(s): G89.4 - Chronic pain syndrome Category: Medical Plan The pain of this patient is most likely multifactorial is in the in nature. The pain in the lower back is predominantly axial with minimal radiation into the right lower extremity and most likely facetogenic in nature. We tried to schedule her for right-sided L2, L3, L4, dorsal ramus L5 medial branch block diagnostic on the right. She wanted this procedure to be done under sedation. However unfortunately she never had physical therapy for this pain and insurance company denied the procedure as above. I will schedule her for physical therapy with diagnosis of spondylosis of lumbar spine. I also will schedule her for the MRI of the lumbar spine to support my diagnosis of spondylosis. Orders: Orders MR lumbar spine wo con Today G89.4 - Chronic pain syndrome, M47.816 - Spondylosis without myelopathy or radiculopathy, lumbar region PT Evaluation and Treatment Today G89.4 - Chronic pain syndrome, M47.816 - Spondylosis without myelopathy or radiculopathy, lumbar region Patient Instructions: I here by testify that I spent 30 minutes in conversation with this patient as well as evaluating her prior records, evaluating prior diagnostic studies planning her care and organizing this note. Coding Level of Care Code Est Pt Level 4 (85051) Diagnoses Primary osteoarthritis of right hip M16.11 Osteoarthritis type: primary Right hip pain M25.551 Spondylosis of lumbar region without myelopathy or radiculopathy M47.816 Chronic pain syndrome G89.4
== END 2024-08-11 15:35 | disposition home or self-care (01) ==
LOC: HO.PMC 15:21
PROVIDERS: PCP Internal Medicine; Visit Provider Anesthesiology
DX: M16.11 Unilateral primary osteoarthritis, right hip (principal); M25.551 Pain in right hip; M47.816 Spondylosis without myelopathy or radiculopathy, lumbar region; G89.4 Chronic pain syndrome
CPT/HCPCS: 99214

== ENCOUNTER → 2024-08-11 15:20 | Outpatient (BNVA) | payer OTHER, SELFPAY | PROVIDERS: PCP Internal Medicine; Visit Provider Anesthesiology | DX: M47.816 Spondylosis without myelopathy or radiculopathy, lumbar region (principal); M16.11 Unilateral primary osteoarthritis, right hip; M25.551 Pain in right hip; G89.4 Chronic pain syndrome | CPT/HCPCS: 99212 ==

== ENCOUNTER 2024-08-26 08:03 | Outpatient (AMB) | payer OTHER, SELFPAY ==
--- NOTE | 2024-08-26 08:07 | AM.OFFWIN_ITS ---
Intake Vital Signs 08/26/24 08:09 Weight 214 lb BP 134/80 Blood Pressure Location Rt brachial Position Sitting Pulse 61 Pulse Source Pulse Oximeter Pulse Oximetry (%) 95 Oxygen Delivery Method Room Air Intake Visit Reasons: EP-rt ear pain Intake Note: Patient here for right ear pain that has been present for about 4-5 days. Patient Tobacco Use Status: Current everyday Tobacco user Allergies Sulfa (Sulfonamide Antibiotics) Allergy (Unknown, Verified 08/26/24 08:15) unknown sulfamethoxazole [From Bactrim] Allergy (Unknown, Verified 08/26/24 08:15) Unknown trimethoprim [From Bactrim] Allergy (Unknown, Verified 08/26/24 08:15) Unknown atenolol Adverse Reaction (Intermediate, Verified 08/26/24 08:15) Headache gabapentin Adverse Reaction (Mild, Verified 08/26/24 08:15) dont work for pain cortisone injection Adverse Reaction (Mild, Uncoded 08/26/24 08:15) Anaphylaxis Do you need a note to return to daycare/school/sports/work: No HPI HPI Comments History of Present Illness Details 53 y/o female patient who presents to [facility] walk [facility] clinic with c/o Right Ear pain and pressure for 3-4 days now. Denies Fevers, chills, nausea or vomiting. FOR[facility]LY [facility], LAT[facility] Medical History (Updated 08/26/24 @ 08:40 by Lissett Burnette NP) Fluid level behind tympanic membrane of both ears Complex regional pain syndrome i of left lower limb Bilateral primary osteoarthritis of knee Headache syndrome Chronic pain Alteration comfort patterns as evidenced by distress Bilateral knee pain Lipid disorder Surgical History H/O colonoscopy History of knee surgery Family History Father HTN (hypertension) Mother HTN (hypertension) Maternal Grandfather Diabetes mellitus Maternal Aunt Cancer Son No problems noted. Son No problems noted. Son No problems noted. Son No problems noted. Son No problems noted. 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 Cognitive needs: No Hearing needs: No Vision needs: Yes Female Reproductive History Menstrual Age of Menarche: 9 Review of Systems Const All systems reviewed & are unremarkable except as noted in HPI and below Physical Exam Vital Signs: Last Vital Signs Pulse 61 08/26/24 08:09 BP 134/80 08/26/24 08:09 Pulse Ox 95 08/26/24 08:09 Oxygen Delivery Method Room Air 08/26/24 08:09 Const General: comfortable Nutritional Appearance: overweight Orientation/consciousness: patient oriented x3 HEENT Head: Yes normocephalic Ears: external ears normal and TM abnormal bulging and with fluid behind the TM bilateral; not perforated and not retracted General nose exam: Normal external nose present Face and sinus: Yes sinuses nontender Mouth: moist mucous membranes Throat: Yes uvula midline Neuro General: patient oriented x3 Assessment & Plan Assessment & Plan (1) Fluid level behind tympanic membrane of both ears: Code(s): H65.93 - Unspecified nonsuppurative otitis media, bilateral Plan: Fluid behind B/L TM No infection seen. Ordered Zrytec BID for 10 days. Medications: New cetirizine (Zyrtec) 10 mg PO DAILY 30 tabs 0RF H65.93 - Unspecified nonsuppurative otitis media, bilateral Coding Level of Care Code Est Pt Level 4 (49461) Diagnoses Fluid level behind tympanic membrane of both ears H65.93 Time Spent (min) 20
[2024-08-26 08:09] VITALS: BP 134/80; PULSE 61; O2SAT 95
== END 2024-08-26 08:39 | disposition home or self-care (01) ==
PROVIDERS: PCP Internal Medicine; Visit Provider Nurse Practitioner Family
DX: H65.93 Unspecified nonsuppurative otitis media, bilateral (principal)

== ENCOUNTER → 2024-08-26 08:03 | Outpatient (BNVA) | payer OTHER, SELFPAY | PROVIDERS: PCP Internal Medicine; Visit Provider Nurse Practitioner Family | DX: H65.93 Unspecified nonsuppurative otitis media, bilateral (principal) | CPT/HCPCS: 99212 ==

== ENCOUNTER 2024-09-10 10:17 | Outpatient (AMB) | payer OTHER, SELFPAY ==
[2024-09-10 10:20] VITALS: BP 128/82; PULSE 64; O2SAT 98; BMI 35.9
--- NOTE | 2024-09-10 10:20 | A.OFFPC_ITS ---
Vital Signs 09/10/24 10:20 Height 5 ft 5 in Weight 215 lb 8 oz BMI 35.9 BP 128/82 Blood Pressure Location Lt brachial Position Sitting Pulse 64 Pulse Source Pulse Oximeter Pulse Oximetry (%) 98 Oxygen Delivery Method Room Air Intake Visit Reasons: 11 weeks f/up Allergies Sulfa (Sulfonamide Antibiotics) Allergy (Unknown, Verified 09/10/24 10:20) unknown sulfamethoxazole [From Bactrim] Allergy (Unknown, Verified 09/10/24 10:20) Unknown trimethoprim [From Bactrim] Allergy (Unknown, Verified 09/10/24 10:20) Unknown atenolol Adverse Reaction (Intermediate, Verified 09/10/24 10:20) Headache gabapentin Adverse Reaction (Mild, Verified 09/10/24 10:20) dont work for pain cortisone injection Adverse Reaction (Mild, Uncoded 09/10/24 10:20) Anaphylaxis Medication List - Last Reconciled 09/10/24 by Ochoa Hunter MD apixaban (Eliquis) 5 mg PO BID blood pressure test kit-large Check BP 3 times daily with heart rate. cetirizine (Zyrtec) 10 mg PO DAILY lorazepam 1 mg PO DAILY losartan-hydrochlorothiazide 50-12.5 mg 1 tab PO DAILY methylphenidate HCl ER 27 mg PO QAM omeprazole 20 mg PO DAILY 90 days rimegepant (Nurtec ODT) 75 mg PO DAILY PRN simvastatin 40 mg PO DAILY 90 days tramadol 50 mg PO Q12H 90 days Tobacco use date assessed: 09/10/24 Dental Screening Dental Screen Date: 09/10/24 Did you have a dental visit in the last 12 months?: Yes Did you have a dental problem in the last 6 months where you did not have access to dental care?: No Was dental information given to patient?: Patient has dentist HPI 11 weeks f/up HPI Details History - The patient is a 53-year-old female pr esenting with a need for medication refills and regular follow-up - The patient reported an attempt by her physician to get an MRI approved which was denied as physical therapy had not yet been tried. Patient is established with pain management for back pain - Ongoing management of chronic conditio ns including Essential Hypertension, Hyperlipidemia, and Gastroesophageal Reflux Disease with medications such as Losartan Hydrochlorothiazide, Omeprazole, Simvastatin - She is currently taking allergy medica tions, and experiences seasonal exacerbations of her allergies. - There was an issue with a clogged feel ing in her ear, associated with mild pain, likely related to her allergies. - Reports difficulty with stair climbing due to chronic pain, exacerbated by muscle strain when maneuvering stairs - The patient has not been taking Vitami n D supplements despite low levels noted in previous laboratory results. - She has been managing her chronic pain with Tramadol, taking it mainly in the morning and at night, with an additional dose in the afternoon if required. - She continues on Eliquis for her recur rent leg clots and follows a neurologist for migraines. 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 - Start taking Vitamin D supplements as laboratory results indicate low levels. - Keep using allergy medications regular ly and supplement with Benadryl at night if allergies worsen. - Follow up with your pain management sp ecialist regarding the MRI procedure and potential physical therapy. - Come in for medication refills before they run out. - labs before next appointment need it o rder placed Review of Systems - General: No fever no chills - Neurological: No headaches no dizziness - Ear nose throat: No sore throat no hearing difficulty no ear pain - Cardiovascular: No syncope, no chest pain, no palpitations - Gastrointestinal: No nausea vomiting or diarrhea - Endocrine: No polyuria polydipsia no heat intolerance - Genitourinary: No dysuria , no blood in urine Physical Exam General: No acute distress HEENT: Ear felt clogged with some pain Neck: Supple Respiratory system: Able to talk in full sentences, no audible wheeze cardiovascular: S1-S2 regular in rate and rhythm, blood pressure 108/70 Gastrointestinal: No pain, but reports nausea Extremities: No new findings 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 Son No problems noted. Son No problems noted. Son No problems noted. Son No problems noted. 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, 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 Cognitive needs: No Hearing needs: No Vision needs: Yes Female Reproductive History Menstrual Age of Menarche: 9 Questionnaire Thrive Questionnaire Date Thrive assessed: 06/11/24 I am a: Patient What is your living situation today?: I have a steady place to live Within the past 12 months, did the food you bought not last and you didn't have the money to get more?: Often true Within the past 12 months, did you worry whether your food would run out before you got money to buy more?: Never true Do you have trouble paying for medicines?: No Do you have trouble getting transportation to medical appointments?: No Do you have trouble paying your heating and electricity bill?: No Do you have trouble taking care of your child, family member or friend?: No Do you have trouble with day-to-day activities such as bathing, preparing meals, shopping, managing finances, etc.?: Yes Are you currently unemployed and looking for a job?: No Are you interested in more education?: No Please select the resources that you would like help with: None Currently or been in a relationship where the following occur: No concerns reported THRIVE Score: 1 AUDIT C Alcohol Use Questionnaire (AUDIT-C) 1. How often do you have a drink containing alcohol?: Never 3. How often do you have six or more drinks on one occasion?: Never Total Score: 0 Score Reviewed/Action Taken: Yes TEE-7 AMB Questionnaire TEE-7 Date TEE - 7 assessed: 06/11/24 Source: Developed by Drs. Edward Abraham, Shameka Meraz, Uriel Sultana and colleagues, with an educational thony from [employer]. Physical exam (Primary Care) Vital Signs: Last Vital Signs Pulse 64 09/10/24 10:20 BP 128/82 09/10/24 10:20 Pulse Ox 98 09/10/24 10:20 Oxygen Delivery Method Room Air 09/10/24 10:20 BMI result Body Mass Index 35.9 Tobacco/Smoking Status: Tobacco use Status Tobacco use date assessed 09/10/24 09/10/24 10:22 Patient Tobacco Use Status Current everyday Tobacco 09/10/24 10:22 Tobacco use type Cigarette 09/10/24 10:22 e-Cigarette/Vaping Use Never Used 09/10/24 10:22 Thrive Assessment: Date of Thrive Assessment Date Thrive assessed 06/11/24 09/10/24 10:22 Currently or been in a relationship where the following occur: No concerns reported Coding Level of Care Code Est Pt Level 4 (87849) Diagnoses Hypertension, essential I10 Lipid disorder E78.9 Headache syndrome G44.89 Bilateral primary osteoarthritis of knee M17.0 Complex regional pain syndrome i of left lower limb G90.522 Generalized anxiety disorder F41.1 Anxiety disorder type: generalized anxiety disorder Factor 5 Leiden mutation, heterozygous D68.51 Class 2 severe obesity due to excess calories with serious comorbidity and body mass index (BMI) of 38.0 to 38.9 in adult E66.01; Z68.38 Obesity classification: adult class 2 (BMI 35 - 39.9) Serious obesity comorbidity presence: with serious comorbidity Body mass index: BMI 38.0-38.9 Gastroesophageal reflux disease without esophagitis K21.9 Esophagitis presence: without esophagitis Migraine without aura and without status migrainosus, not intractable G43.009 Status migrainosus presence: without status migrainosus Intractability: not intractable Cigarette nicotine dependence without complication F17.210 Nicotine product type: cigarettes Substance use status: uncomplicated Impaired fasting blood sugar R73.01 Recurrent major depressive disorder, in partial remission F33.41 Active/Remission status: in partial remission Assessment & Plan Assessment & Plan (1) Hypertension, essential: Code(s): I10 - Essential (primary) hypertension Category: Medical (2) Lipid disorder: Code(s): E78.9 - Disorder of lipoprotein metabolism, unspecified Category: Medical (3) Headache syndrome: Code(s): G44.89 - Other headache syndrome Category: Medical (4) Bilateral primary osteoarthritis of knee: Code(s): M17.0 - Bilateral primary osteoarthritis of knee Category: Medical (5) Complex regional pain syndrome i of left lower limb: Code(s): G90.522 - Complex regional pain syndrome I of left lower limb Category: Medical (6) Anxiety disorder: Code(s): F41.9 - Anxiety disorder, unspecified Category: Medical Qualifiers: Anxiety disorder type: generalized anxiety disorder Qualified Code(s): F41.1 - Generalized anxiety disorder (7) Factor 5 Leiden mutation, heterozygous: Code(s): D68.51 - Activated protein C resistance Category: Medical (8) Obesity due to excess calories: Code(s): E66.09 - Other obesity due to excess calories Category: Medical Qualifiers: Obesity classification: adult class 2 (BMI 35 - 39.9) Serious obesity comorbidity presence: with serious comorbidity Body mass index: BMI 38.0-38.9 Qualified Code(s): E66.01 - Morbid (severe) obesity due to excess calories; Z68.38 - Body mass index [BMI] 38.0-38.9, adult (9) Acid reflux: Code(s): K21.9 - Gastro-esophageal reflux disease without esophagitis Category: Medical Qualifiers: Esophagitis presence: without esophagitis Qualified Code(s): K21.9 - Gastro-esophageal reflux disease without esophagitis (10) Migraine headache without aura: Code(s): G43.009 - Migraine without aura, not intractable, without status migrainosus Category: Medical Qualifiers: Status migrainosus presence: without status migrainosus Intractability: not intractable Qualified Code(s): G43.009 - Migraine without aura, not intractable, without status migrainosus (11) Nicotine dependence: Code(s): F17.200 - Nicotine dependence, unspecified, uncomplicated Category: Medical Qualifiers: Nicotine product type: cigarettes Substance use status: uncomplicated Qualified Code(s): F17.210 - Nicotine dependence, cigarettes, uncomplicated (12) Impaired fasting blood sugar: Code(s): R73.01 - Impaired fasting glucose Category: Medical (13) Major depression, recurrent: Code(s): F33.9 - Major depressive disorder, recurrent, unspecified Category: Medical Qualifiers: Active/Remission status: in partial remission Qualified Code(s): F33.41 - Major depressive disorder, recurrent, in partial remission Plan History - The patient is a 53-year-old female presenting with a need for medication refills and regular follow-up - The patient reported an attempt by her physician to get an MRI approved which was denied as physical therapy had not yet been tried. Patient is established with pain management for back pain - Ongoing management of chronic conditions including Essential Hypertension, Hyperlipidemia, and Gastroesophageal Reflux Disease with medications such as Losartan Hydrochlorothiazide, Omeprazole, Simvastatin - She is currently taking allergy medications, and experiences seasonal exacerbations of her allergies. - There was an issue with a clogged feeling in her ear, associated with mild pain, likely related to her allergies. - Reports difficulty with stair climbing due to chronic pain, exacerbated by muscle strain when maneuvering stairs - The patient has not been taking Vitamin D supplements despite low levels noted in previous laboratory results. - She has been managing her chronic pain with Tramadol, taking it mainly in the morning and at night, with an additional dose in the afternoon if required. - She continues on Eliquis for her recurrent leg clots and follows a neurologist for migraines. 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 - Start taking Vitamin D supplements as laboratory results indicate low levels. - Keep using allergy medications regularly and supplement with Benadryl at night if allergies worsen. - Follow up with your shipyard painter regarding the MRI procedure and potential physical therapy. - Come in for medication refills before they run out. - labs before next appointment need it order placed Orders: Orders Lipid Panel Today D68.51 - Activated protein C resistance, E66.01 - Morbid (severe) obesity due to excess calories, E78.9 - Disorder of lipoprotein metabolism, unspecified, F41.1 - Generalized anxiety disorder, G43.009 - Migraine without aura, not intractable, without status migrainosus, G44.89 - Other headache syndrome, G90.522 - Complex regional pain syndrome I of left lower limb, M17.0 - Bilateral primary osteoarthritis of knee, Z68.38 - Body mass index [BMI] 38.0-38.9, adult TSH reflex Free T4 Today D68.51 - Activated protein C resistance, E66.01 - Morbid (severe) obesity due to excess calories, E78.9 - Disorder of lipoprotein metabolism, unspecified, F41.1 - Generalized anxiety disorder, G43.009 - Migraine without aura, not intractable, without status migrainosus, G44.89 - Other headache syndrome, G90.522 - Complex regional pain syndrome I of left lower limb, M17.0 - Bilateral primary osteoarthritis of knee, Z68.38 - Body mass index [BMI] 38.0-38.9, adult Complete Blood Count Auto Diff Today D68.51 - Activated protein C resistance, E66.01 - Morbid (severe) obesity due to excess calories, E78.9 - Disorder of lipoprotein metabolism, unspecified, F41.1 - Generalized anxiety disorder, G43.009 - Migraine without aura, not intractable, without status migrainosus, G44.89 - Other headache syndrome, G90.522 - Complex regional pain syndrome I of left lower limb, M17.0 - Bilateral primary osteoarthritis of knee, Z68.38 - Body mass index [BMI] 38.0-38.9, adult Comprehensive [place]. Panel Fast Today D68.51 - Activated protein C resistance, E66.01 - Morbid (severe) obesity due to excess calories, E78.9 - Disorder of lipoprotein metabolism, unspecified, F41.1 - Generalized anxiety disorder, G43.009 - Migraine without aura, not intractable, without status migrainosus, G44.89 - Other headache syndrome, G90.522 - Complex regional pain syndrome I of left lower limb, M17.0 - Bilateral primary osteoarthritis of knee, Z68.38 - Body mass index [BMI] 38.0-38.9, adult
== END 2024-09-10 13:29 | disposition home or self-care (01) ==
LOC: HO.HMCC 10:18
PROVIDERS: PCP Internal Medicine; Visit Provider Internal Medicine
DX: D68.51 Activated protein C resistance (principal); E66.01 Morbid (severe) obesity due to excess calories; F33.41 Major depressive disorder, recurrent, in partial remission; Z68.35 Body mass index [BMI] 35.0-35.9, adult; I10 Essential (primary) hypertension; E78.9 Disorder of lipoprotein metabolism, unspecified; G44.89 Other headache syndrome; M17.0 Bilateral primary osteoarthritis of knee; G90.522 Complex regional pain syndrome I of left lower limb; Z68.38 Body mass index [BMI] 38.0-38.9, adult; F41.1 Generalized anxiety disorder; K21.9 Gastro-esophageal reflux disease without esophagitis

== ENCOUNTER → 2024-09-10 10:17 | Outpatient (BNVA) | payer OTHER, SELFPAY | PROVIDERS: PCP Internal Medicine; Visit Provider Internal Medicine | DX: I10 Essential (primary) hypertension (principal); E78.9 Disorder of lipoprotein metabolism, unspecified; G44.89 Other headache syndrome; M17.0 Bilateral primary osteoarthritis of knee; G90.522 Complex regional pain syndrome I of left lower limb; F41.1 Generalized anxiety disorder; D68.51 Activated protein C resistance; E66.01 Morbid (severe) obesity due to excess calories; Z68.38 Body mass index [BMI] 38.0-38.9, adult; K21.9 Gastro-esophageal reflux disease without esophagitis; G43.009 Migraine without aura, not intractable, without status migrainosus; R73.01 Impaired fasting glucose; F33.41 Major depressive disorder, recurrent, in partial remission; F17.210 Nicotine dependence, cigarettes, uncomplicated; Z79.899 Other long term (current) drug therapy | CPT/HCPCS: 99212 ==

== ENCOUNTER 2024-10-21 09:00 | Outpatient (RCR) | payer OTHER, SELFPAY ==
--- NOTE | 2024-10-13 08:52 | MHC.PT.EP ---
[facility] [place] Office [place] Office [place] Office [address] Hector Feliciano [address] [phone] F: [phone] F: [phone] F: [phone] F: [phone] Physical Therapy Plan of Care Date of Evaluation: 10/13/24 Date of Surgery: Diagnosis: This is a 54 yo female presenting to skilled PT with a script for spondylosis without myelopathy or radiculopathy (lumbar). Assessment: This is a 54 yo female presenting to skilled PT with a script for spondylosis without myelopathy or radiculopathy. Patient reporting ongoing pain for almost a year now. Her pain does not have an origin but reports 30 years of homecare. Her back symptoms are located R side low back but can radiate into the R hip to the knee (anterior leg location). Pain is described as sharp at the low back that comes and goes and leg pain that is described as achy and comes and goes. Pain increases with walking, stairs, standing, pushing and pulling. She uses tramadol only for pain relief. She has seen a PCP and pain management. She reports that pain management wanted to do a procedure (unknown what type) and an MRI however both were not approved yet. She has had PT in the past for other body parts but does not recall doing so for her back yet. Assessment reveals pain that ranges from up to a 8/10 at the worst. Patient demos decreased lumbar and hip ROM, strength of core, back and B LE, TTP at and impaired posture with forward head, forward trunk, valgus knees and rounded shoulders. Based on functional limitations, impaired QOL and pain tolerance patient is a good candidate for skilled PT 2x/wk for 4wks. Frequency and Duration: The patient will be seen 2x/wk for 4wks Short Term Goals: Pt will demonstrate improved postural awareness and understanding of core engagement with supine and standing tasks without cues throughout session to improve overall back safety in 2 weeks. Pt will demonstrate centralization of sx in 2 weeks. Pt will continue to reinforce precautions, sitting, standing and ADL modifications with proper body mechanics in 2 wks. Surface Plate Finisher Goals: Pt will demonstrate improved outcome measure by 5 points in 4 weeks for improved functional mobility. Pt will demonstrate ability to bend and lift WNL min to no pain for household tasks in 4 wks. Pt will be I in HEP and compliant in 4wks Treatment Plan: Modalities to reduce pain, spasms and effusion. Manual therapy to restore motion and function. Therapeutic exercise to improve strength and flexibility. Neuromuscular re-education for posture and balance. Therapeutic activities to return to functional activities of daily living. Electronically signed by: Nellie Carr, PT Please sign and return to therapist. Thank you for your referral.
--- NOTE | 2024-11-22 08:37 | MHC.PT.DC ---
[facility] [place] Office [place] Office [place] Office [address] Hector Feliciano [address] [phone] F: [phone] F: [phone] F: [phone] F: [phone] Physical Therapy Discharge Report Diagnosis: This is a 54 yo female presenting to skilled PT with a script for spondylosis without myelopathy or radiculopathy (lumbar). Date of Surgery: Date of Evaluation: 10/13/24 Date of Discharge: 11/22/24 Treatments to Date: 2 Cancellations to Date: 0 No Shows to Date: Discharge Status: Patient Elected to Stop Discharge Summary: Patient came to eval and 1 tx session. Last note was on 10/21: Patient has not tried her HEP at all, she said she's been too busy with work and does not feel like it. I educated her on the importance of compliance and if PT is going to make a difference than she needs to adhere to her program. Continued to focus on core stab today with ed on lifting techniques and posture at work. Did not add to HEP yet as I want her try her original HEP first. Patient did not return for further tx and her chart was closed after 30 days. Electronically signed by: Nellie Carr, PT Please sign and return to therapist. Thank you for your referral.
== END 2024-11-22 08:37 | disposition home or self-care (01) ==
LOC: HO.PTCHIC 09:00
PROVIDERS: PCP Internal Medicine; Visit Provider Anesthesiology
DX: M47.816 Spondylosis without myelopathy or radiculopathy, lumbar region (principal); G89.4 Chronic pain syndrome
CPT/HCPCS: 97110; 97162

== ENCOUNTER 2024-10-25 08:02 | Outpatient (AMB) | payer OTHER, SELFPAY ==
--- NOTE | 2024-10-25 08:19 | MHC.OFFWIV ---
Intake Vital Signs 10/25/24 08:20 Height 5 ft 5 in Weight 210 lb BMI 34.9 BP 130/90 H Blood Pressure Location Lt brachial Position Sitting Pulse 63 Pulse Source Pulse Oximeter Temp 98.3 F Temp Source Oral Pulse Oximetry (%) 99 Oxygen Delivery Method Room Air Intake Visit Reasons: EP LT foot pain Intake Note: Pt presents to the office today for left foot pain that started with no known injury. Pt states the pain started yesterday. Patient Tobacco Use Status: Current everyday Tobacco user Allergies Sulfa (Sulfonamide Antibiotics) Allergy (Unknown, Verified 10/25/24 08:23) unknown sulfamethoxazole [From Bactrim] Allergy (Unknown, Verified 10/25/24 08:23) Unknown trimethoprim [From Bactrim] Allergy (Unknown, Verified 10/25/24 08:23) Unknown atenolol Adverse Reaction (Intermediate, Verified 10/25/24 08:23) Headache gabapentin Adverse Reaction (Mild, Verified 10/25/24 08:23) dont work for pain cortisone injection Adverse Reaction (Mild, Uncoded 10/25/24 08:23) Anaphylaxis HPI HPI Comments History of Present Illness Details 54 y/o Female patient who presents to the walk in clinic with c/o Left foot pain that started Yesterday with no known injury. Pain with walking and standing. She has not taken any Pain relief medications. She does have Tramadol on her pain medication list. [facility] Medical History (Updated 10/25/24 @ 08:44 by Lissett Burnette NP) Foot pain, left Fluid level behind tympanic membrane of both ears Complex regional pain syndrome i of left lower limb Bilateral primary osteoarthritis of knee Headache syndrome Chronic pain Alteration comfort patterns as evidenced by distress Bilateral knee pain Lipid disorder Surgical History H/O colonoscopy History of knee surgery Family History Father HTN (hypertension) Mother HTN (hypertension) Maternal Grandfather Diabetes mellitus Maternal Aunt Cancer Son No problems noted. Son No problems noted. Son No problems noted. Son No problems noted. Son No problems noted. 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 Cognitive needs: No Hearing needs: No Vision needs: Yes Female Reproductive History Menstrual Age of Menarche: 9 Review of Systems Const All systems reviewed & are unremarkable except as noted in HPI and below Physical Exam Vital Signs: Last Vital Signs Temp 98.3 F 10/25/24 08:20 Pulse 63 10/25/24 08:20 BP 130/90 H 10/25/24 08:20 Pulse Ox 99 10/25/24 08:20 Oxygen Delivery Method Room Air 10/25/24 08:20 BMI result Body Mass Index 34.9 Const General: comfortable and no acute distress Nutritional Appearance: obese Orientation/consciousness: patient oriented x3 Neuro General: patient oriented x3, gait normal and moves all extremities Extrem General: Yes full ROM and Yes capillary refill normal Right lower extremity: normal to inspection and full ROM Left lower extremity: foot Details: normal capillary refill, normal to inspection, toes with normal ROM and no edema; no tenderness, no abrasions, no lacerations, no ecchymosis and no crepitus Psych Speech and movement: Normal speech and movement present Assessment & Plan Assessment & Plan (1) Foot pain, left: Code(s): M79.672 - Pain in left foot Plan: Rest Foot Soak feet in warm water. NSAIDS or Tramadol for pain relief. Coding Level of Care Code Est Pt Level 4 (52139) Diagnoses Foot pain, left M79.672 Time Spent (min) 20
[2024-10-25 08:20] VITALS: BP 130/90; PULSE 63; TEMP 36.8; O2SAT 99; BMI 34.9
== END 2024-10-25 08:43 | disposition home or self-care (01) ==
PROVIDERS: PCP Internal Medicine; Visit Provider Nurse Practitioner Family
DX: M79.672 Pain in left foot (principal)

== ENCOUNTER → 2024-10-25 08:02 | Outpatient (BNVA) | payer SELFPAY | PROVIDERS: PCP Internal Medicine; Visit Provider Nurse Practitioner Family | DX: M79.672 Pain in left foot (principal) | CPT/HCPCS: 99212 ==

== ENCOUNTER 2024-11-25 08:30 | Outpatient (AMB) | payer OTHER, SELFPAY ==
--- NOTE | 2024-11-25 08:34 | A.OFFVIS_ITS ---
Intake Visit Reasons: follow up(seen last 2022) Intake Note: Patient presents today for follow up on: recurrent uti, frequency, dysuria Urology Medications: none Blood thinner: Apixaban PVR: 0ml's Geological Technician Required: No Accompanied by: Self / Same As Patient Allergies Sulfa (Sulfonamide Antibiotics) Allergy (Unknown, Verified 11/25/24 09:13) unknown sulfamethoxazole (From Bactrim) Allergy (Unknown, Verified 11/25/24 09:13) Unknown trimethoprim (From Bactrim) Allergy (Unknown, Verified 11/25/24 09:13) Unknown atenolol Adverse Reaction (Intermediate, Verified 11/25/24 09:13) Headache gabapentin Adverse Reaction (Mild, Verified 11/25/24 09:13) dont work for pain cortisone injection Adverse Reaction (Mild, Uncoded 11/25/24 09:13) Anaphylaxis Medication List - Last Reconciled 11/25/24 by RAMONA Osborne- apixaban (Eliquis) 5 mg PO BID blood pressure test kit-large Check BP 3 times daily with heart rate. cetirizine (Zyrtec) 10 mg PO DAILY estradiol 0.01%(0.1mg/gram) (Estrace) 1 g vaginal 3XW 90 days lorazepam 1 mg PO DAILY losartan-hydrochlorothiazide 50-12.5 mg 1 tab PO DAILY methylphenidate HCl ER 27 mg PO QAM omeprazole 20 mg PO DAILY 90 days rimegepant (Nurtec ODT) 75 mg PO DAILY PRN simvastatin 40 mg PO DAILY 90 days tramadol 50 mg PO Q12H 90 days HPI Comments Details: Isabel is a pleasant 54-year-old female patient of Dr. Hunter. She has a past medical history of bilateral osteoarthritis of the knees, headaches, chronic pain, and lipid disorder. She presents to the office today for a follow up regarding her intermittent in urinary issues. In discussion with the patient today she reports she has been unable to make it to her follow-up appointments as she has been having ongoing issues as she has recently lost her son. She reports her main concern is her ongoing vaginal itching. She reports having fol lowed up with technician trainee and has been diagnosed with [place] in sclerosis however is unable to undergo treatment options as she has an allergy to cortisone. Previous workup has included a retroperitoneal ultrasound 06/17 noting no calculi, lesions, or hydronephrosis noted bilaterally. The bladder is partially distended. Prevoid bladder volume is 128 mL postvoid bladder volume is 5.7 mL. Microgen 06/17 noted Staphylococcus agalactiae, lactobacillus iners, Enterobacter hormaechei, E coli, prevotella bivia, gardnerella vaginalis. She denies urinary urgency, urinary frequency, incontinence, nocturia, hematuria, dysuria, foul smelling urine, changes to urinary stream, flank pain, fever, and or chills. In office urinalysis results reviewed with the patient today. She denies any UTI like symptoms. PVR 0ml's. Discussed possible near fututre in office cystoscopy if symptoms arise. Discussed, educated, and instructed on the importance of drinking plenty of water daily. She otherwise offers no other issues or concerns at this time. [facility] Medical History Foot pain, left Fluid level behind tympanic membrane of both ears Complex regional pain syndrome i of left lower limb Bilateral primary osteoarthritis of knee Headache syndrome Chronic pain Alteration comfort patterns as evidenced by distress Bilateral knee pain Lipid disorder Surgical History H/O colonoscopy History of knee surgery Family History Father HTN (hypertension) Mother HTN (hypertension) Maternal Grandfather Diabetes mellitus Maternal Aunt Cancer Son No problems noted. Son No problems noted. Son No problems noted. Son No problems noted. Son No problems noted. 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 Cognitive needs: No Hearing needs: No Vision needs: Yes Female Reproductive History Menstrual Age of Menarche: 9 Review of Systems Const Reports no additional complaints Eyes Reports no additional complaints ENT Reports no additional complaints Card Reports as per HPI Resp Reports no additional complaints GI Reports no additional complaints Reports as per HPI Musc Details: Patient reports she follows up with [facility] [place] for bilateral knee arthritis and question of meniscus issues Reports as per HPI Neuro Reports no additional complaints Psych Reports no additional complaints Endo Reports no additional complaints Richard/Lymph Reports no additional complaints Aller/Immun Reports no additional complaints Physical Exam Const General: cooperative, healthy appearing, comfortable, no acute distress, well developed, alert and awake Nutritional Appearance: overweight Orientation/consciousness: patient oriented x3 Limitations: no limitations HEENT Head: Yes normal to inspection, Yes normocephalic and Yes atraumatic Eyes General: appearance normal, both eyes and all related structures Neck Neck: Yes normal visual inspection and Yes trachea midline Chest Chest palpation & inspection: normal inspection of the chest Resp Effort & Inspection: normal respiratory effort and able to speak in complete sentences Cardio Rate: regular rate GI Inspection: Yes normal to inspection General: Yes no CVA tenderness Back/Spine/Pelvis Back: no CVA tenderness Neuro General: patient oriented x3 Extrem General: Yes normal to inspection Psych Appearance: grossly normal and well kempt Mental Status: mental status grossly normal Speech and movement: Normal speech and movement present and Clear speech present Affect: Sad affect present Attitude: cooperative Thought process: Normal thought process present Thought content: Normal thought content present Insight: Fair insight present (Psych) Judgement: Fair judgement present (Psych) Office Procedures Post Void Residual Post Residual Void Post Void Residual (PVR): 0 [id number] Void Residual by ultrasound Results AMB Urinalysis, Automated UA Leukoctes 125 Joana/uL Last Edit by MARCIAL Harkins on 11/25/24 08:56 UA Nitrite Last Edit by MARCIAL Harkins on 11/25/24 08:56 UA Urobilinogen 0.2 mg/dL Last Edit by Terenceamarilis Binghamdelmi, [facility] on 11/25/24 08:5 6 UA Protein 0 mg/dL Last Edit by Ellis Otilia, [facility] on 11/25/24 08:56 UA pH 5.5 Last Edit by Ellis Bingham, [facility] on 11/25/24 08:56 UA Blood 0 Andrei/uL Last Edit by Ellis Otilia, [facility] on 11/25/24 08:56 UA Specific [place] 1.020 Last Edit by Ellis Bingham, [facility] on 11/25/24 08: 56 UA Ketone Last Edit by Ellis Bingham, [facility] on 11/25/24 08:56 UA Bilirubin 1 mg/dL Last Edit by Ellis Jon, [facility] on 11/25/24 08:56 UA Glucose 0 mg/dL Last Edit by Ellis Jon, [facility] on 11/25/24 08:56 Results Reviewed Results Reviewed: Laboratory Last Values Urine pH (Auto) 5.5 11/25/24 08:55 Specific [place] (Auto) 1.020 11/25/24 08:55 Urine Protein (Auto) 0 mg/dL 11/25/24 08:55 Glucose (UA)(Auto) 0 mg/dL 11/25/24 08:55 Urine Blood (Auto) 0 Andrei/uL 11/25/24 08:55 Urine Bilirubin (Auto) 1 mg/dL 11/25/24 08:55 Urine Urobilinogen (Auto) 0.2 mg/dL 11/25/24 08:55 Leukocyte Esterase (Auto) 125 Joana/uL 11/25/24 08:55 Assessment & Plan Assessment & Plan (1) Vulvar leukoplakia: Comment: [facility] Code(s): N90.4 - Leukoplakia of vulva Category: Medical (2) Recurrent urinary tract infection: Code(s): N39.0 - Urinary tract infection, site not specified Category: Medical Plan In office urinalysis results reviewed with the patient today; as noted above. She currently denies any bothersome urinary issues. She reports be happy current voiding parameters. Start Estrace cream as discussed and prescribed. We also discussed Julva cream Discussed, educated, and stressed the importance of adequate hydration relation to overall health and well-being. Follow-up in 3 months with PVR; or sooner with any issues, concerns, and or questions. Orders: Orders AMB Post Void Residual by ultrasound Today R35.0 - Frequency of micturition AMB Urinalysis Automated Today Z13.9 - Encounter for screening, unspecified Medications: New estradiol 0.01%(0.1mg/gram) (Estrace) Pea-sized amount to urethra 3 times per week 1 g vaginal 3XW 42.5 grams 3RF 90 days Patient Instructions: The patient had an opportunity to ask questions regarding the treatment plan. All questions were answered. Physical exam, labs, and imaging were discussed and reviewed in detail. As well as risks, benefits, and discussion of treatment choices. No major barriers to understanding were identified. The patient expressed understanding and agreement with the above treatment plan. The patient was made aware they should contact our office by phone for worsening of their current condition, the appearance of new symptoms, or with any questions or concerns. Compliance is encouraged with any medications and follow up testing that is ordered. It is a privilege to be allowed the opportunity to participate in? your urological care.? Again, if you have any questions or concerns If you have any questions or concerns please do not hesitate to contact me. The office is [phone]. This note is constructed using voice recognition software. While every effort h as been made to ensure accuracy blower room attendant errors may have been included. Yours sincerely, MIKY Osborne Coding Level of Care Code Est Pt Level 4 (68654) Diagnoses Vulvar leukoplakia N90.4 Recurrent urinary tract infection N39.0 CPT Codes Post Residual Void - PVR CPT Code: 89612-Kkgw Void Residual by ultrasound ([id number])
== END 2024-11-25 09:10 | disposition home or self-care (01) ==
LOC: HO.HUSH 08:31
PROVIDERS: PCP Internal Medicine; Visit Provider Nurse Practitioner Family
DX: N90.4 Leukoplakia of vulva (principal); N39.0 Urinary tract infection, site not specified; Z13.9 Encounter for screening, unspecified
CPT/HCPCS: 99214

== ENCOUNTER → 2024-11-25 08:30 | Outpatient (BNVA) | payer OTHER, SELFPAY | PROVIDERS: PCP Internal Medicine; Visit Provider Nurse Practitioner Family | DX: R35.0 Frequency of micturition (principal) | CPT/HCPCS: 51798; 81003 ==

== ENCOUNTER 2024-12-04 08:39 | Outpatient (REF) | payer OTHER, SELFPAY ==
[2024-12-04 11:26] LABS: MANUAL DIFF FLAG NO
[2024-12-04 11:34] LABS: Hematocrit 42.3 % (37.0-47.0); Hemoglobin 14.6 g/dl (12.0-16.0); Imm Gran Abs Auto 0.02 X10*3/uL (0.00-0.03); Imm Gran Pct Auto 0.3 % (0.0-0.4); Lymphocytes Absolute Auto 3.7 X10*3/uL (1.2-4.9); Mean Corpuscular HGB Conc 34.5 g/dl (31.0-35.0); Mean Corpuscular Hemoglobin 30.8 pg (27.0-33.0); Mean Corpuscular Volume 89.2 fL (80.0-98.0); NRBC Abs Auto 0.000 X10*3/uL (0.0-0.012); NRBC Pct Auto 0.0 /100WBC (0.0-0.2); Platelet Count 193 X10*3/uL (160-400); Red Blood Count 4.74 X10*6/uL (4.20-5.50); White Blood Count 7.6 X10*3/uL (4.8-10.8)
[2024-12-04 12:08] LABS: Alanine Aminotransferase 27 U/L (0-31); Albumin Level 4.3 g/dL (3.5-5.0); Alkaline Phosphatase 81 U/L (39-117); Anion Gap 12 (12-20); Aspartate Amino Transferase 30 U/L (5-31); Blood Urea Nitrogen 13 mg/dL (9-16); Calcium 9.0 mg/dL (8.4-10.2); Carbon Dioxide 26 mmol/L (22-29); Chloride 107 mmol/L (96-108); Cholesterol 194 mg/dL (<200); Estimated Glomerular Filt Rate > 60; HDL Cholesterol 36 mg/dL (>40); Potassium 4.0 mmol/L (3.3-5.1); Sodium 141 mmol/L (135-145); Total Protein 7.2 g/dL (6.5-8.0); Triglycerides 254 mg/dL (<150)
== END 2024-12-04 08:40 | disposition home or self-care (01) ==
LOC: HO.HMGCLDS 08:39
PROVIDERS: PCP Internal Medicine; Visit Provider Internal Medicine
DX: E78.9 Disorder of lipoprotein metabolism, unspecified (principal); F41.1 Generalized anxiety disorder; G90.522 Complex regional pain syndrome I of left lower limb; M17.0 Bilateral primary osteoarthritis of knee; G44.89 Other headache syndrome; D68.51 Activated protein C resistance; E66.01 Morbid (severe) obesity due to excess calories; Z68.38 Body mass index [BMI] 38.0-38.9, adult; G43.009 Migraine without aura, not intractable, without status migrainosus
CPT/HCPCS: 36415; 80053; 80061; 84443; 85025

== ENCOUNTER 2024-12-10 08:53 | Outpatient (REF) | payer OTHER, SELFPAY ==
--- NOTE | ~2024-12-10 | XR_ITS ---
EXAMINATION: XR FOOT, LEFT CLINICAL INFORMATION: M79.672 - Pain in left foot COMPARISON: None available. TECHNIQUE: AP, lateral, and oblique views of the left foot. FINDINGS: The bones and soft tissues are normal. No fracture. Alignment is anatomic. Joint spaces are maintained. XR/XR foot LT min 3V IMPRESSION: Unremarkable left foot Electronically signed by: Connor Andrews MD 12/10/2024 10:11 AM EDT
== END 2024-12-10 08:54 | disposition home or self-care (01) ==
LOC: HO.HMGCX 08:53
PROVIDERS: PCP Internal Medicine; Visit Provider Internal Medicine
DX: M79.672 Pain in left foot (principal); I10 Essential (primary) hypertension; E78.9 Disorder of lipoprotein metabolism, unspecified; M17.0 Bilateral primary osteoarthritis of knee; G90.522 Complex regional pain syndrome I of left lower limb; F41.1 Generalized anxiety disorder; D68.51 Activated protein C resistance; E66.01 Morbid (severe) obesity due to excess calories; Z68.38 Body mass index [BMI] 38.0-38.9, adult; K21.9 Gastro-esophageal reflux disease without esophagitis; G43.009 Migraine without aura, not intractable, without status migrainosus; R73.01 Impaired fasting glucose; F33.41 Major depressive disorder, recurrent, in partial remission; G47.00 Insomnia, unspecified; F17.210 Nicotine dependence, cigarettes, uncomplicated; Z86.718 Personal history of other venous thrombosis and embolism; Z79.01 Long term (current) use of anticoagulants; Z79.899 Other long term (current) drug therapy; Z13.31 Encounter for screening for depression
CPT/HCPCS: 73630; 96127

== ENCOUNTER 2024-12-10 08:53 | Outpatient (AMB) | payer OTHER, SELFPAY ==
--- OUTSIDE RECORDS SUMMARY | 2024-12-10 08:56 | XMS_ITS | Clinical Summary ---
Author Organization [facility] Address [address] [place] [phone] Phone Care Team Providers Care Social Work Professor Name Role Phone Ochoa Hunter MD Primary Care Provider Unavailabl e Allergies Active Allergy Reactions Criticality Noted Date Comments Sulfamethoxazole-Trimethoprim Hives 2021 Medications omeprazole (PRILOSEC) 20 MG capsule Take 20 mg by mouth daily. 2 Active simvastatin (ZOCOR) 40 MG tablet Take 40 mg by mouth daily. 2 Active ZOLMitriptan (ZOMIG) 5 MG tablet Take 1 tablet (5 mg total) by mouth as needed for migraine. 9 tablet 11 3 Active losartan-hydroCH LOROthiazide (HYZAAR) 50-12.5 mg per tablet Take 1 tablet by mouth every morning. 4 Active LORazepam (ATIVAN) 1 MG tablet TAKE 1 TABLET BY MOUTH TWICE DAILY NEEDED THEN TAKE 1/2 TABLET BY MOUTH AT BEDTIME NEEDED FOR ANXIETY OR SLEEP 4 Active ELIQUIS 5 mg tablet Take 1 tablet by mouth 2 (two) times a day. 4 Active NURTEC ODT 75 mg tabletIndication s:Migraine without aura and with status migrainosus, not intractable DISSOLVE 1 TABLET(75 MG) ON THE TONGUE 1 TIME NEEDED FOR MIGRAINE 8 tablet 11 5 Active Encounters Date Type Department Care Team Description 11/04/2024 Telephone [facility] Neurology [address] [place] [address] Luz Yost MA from Last 3 Months Social History Tobacco Use Types Packs/Day Years Used Date Smoking Tobacco: Never Assessed Education Answer Date Recorded Are you interested in more education? Not on yovany e 09/21/2022 Are you concerned about learning? Not on file 09/21/2022 No 09/21/2022 No 09/21/2022 Digital Access Answer Date Recorded No 10/16/2022 No 10/16/2022 No 10/16/2022 Reliable internet access at home? Not on file 10/16/2022 Device with a working camera? Not on file Comments Unknown Sex and Gender Information Value Date Recorded Sex Assigned at Not on file Legal Sex Female 12:06 PM EDT Gender Identity Not on file Sexual Orientation Not on file Last Filed Vital Signs Vital Sign Reading Time Taken Comments Blood Pressure - - Pulse - - Temperature - - Respiratory Rate - - Oxygen Saturation - - Inhaled Oxygen Concentration - - Weight - - Height 165.1 cm (5' 5 ) 10/16/2021 2:32 PM EDT Body Mass Index - - Plan of Treatment Upcoming Encounters Date Type Department Care Team (Late st Contact Info) Description 12/13/2024 12:30 PM EDT Telemedicine - audio only [facility] Neurology [address] [place] [address] Omaira Peres FNP [address] [facility], [address] [place] [address] [email or web address] Health Maintenance Due Date Last Done Comments Adult Td,Tdap Booster 1968 CREATININE LEVEL 1968 LIPID PANEL 1968 POTASSIUM LEVEL 1968 DEPRESSION SCREENING 1980 SMOKING Hx and SMOKELESS TOB ACCO SCREENING 1981 HEPATITIS C SCREENING 1986 HIV ONE-TIME SCREENING (18-6 5 YEARS) 1986 PAP SMEAR 1989 MAMMOGRAM 2008 COLOGUARD 2013 COLONOSCOPY 2013 COLORECTAL CANCER SCREENING 2013 FIT TEST 2013 FOBT 2013 SIGMOIDOSCOPY 2013 VIRTUAL COLONOSCOPY 2013 PNEUMOCOCCAL VACCINES (50+ y ears) (1 of 1 - PCV) 2018 ZOSTER VACCINES (1 of 2) 2018 COVID-19 VACCINE (1 - 2023-2 5 season) 2024 HEPATITIS A VACCINES Aged Out No long er eligible based on patient's age to complete this topic HIB VACCINES Aged Out No longer eligi ble based on patient's age to complete this topic MENINGOCOCCAL VACCINES (ACWY) Aged Out No longer eligible based on patient's age to complete this topic MENINGOCOCCAL VACCINES (B) Aged Out N o longer eligible based on patient's age to complete this topic Medical Devices Not on file Insurance [employer] [place] [address] [place] [address] Care Teams Social Work Professor Relationship Specialty Start Date End Date Ochoa Hunter MD PCP - General Internal Medicine 10/16/21 Additional Source Comments The information contained in this document represents components of the legal health record. It is not the complete legal health record.[facility]
--- NOTE | 2024-12-10 09:02 | A.OFFPC_ITS ---
Vital Signs 12/10/24 09:03 Height 5 ft 5 in Weight 220 lb BMI 36.6 BP 132/88 Blood Pressure Location Lt brachial Position Sitting Pulse 60 Pulse Source Pulse Oximeter Pulse Oximetry (%) 97 Intake Visit Reasons: med management-ins not active Allergies Sulfa (Sulfonamide Antibiotics) Allergy (Unknown, Verified 12/10/24 09:04) unknown sulfamethoxazole (From Bactrim) Allergy (Unknown, Verified 12/10/24 09:04) Unknown trimethoprim (From Bactrim) Allergy (Unknown, Verified 12/10/24 09:04) Unknown atenolol Adverse Reaction (Intermediate, Verified 12/10/24 09:04) Headache gabapentin Adverse Reaction (Mild, Verified 12/10/24 09:04) dont work for pain cortisone injection Adverse Reaction (Mild, Uncoded 11/25/24 09:13) Anaphylaxis Medication List - Last Reconciled 12/10/24 by Ochoa Hunter MD apixaban (Eliquis) 5 mg PO BID blood pressure test kit-large Check BP 3 times daily with heart rate. cetirizine (Zyrtec) 10 mg PO DAILY estradiol 0.01%(0.1mg/gram) (Estrace) 1 g vaginal 3XW 90 days lorazepam 1 mg PO DAILY losartan-hydrochlorothiazide 50-12.5 mg 1 tab PO DAILY methylphenidate HCl ER 27 mg PO QAM omeprazole 20 mg PO DAILY 90 days rimegepant (Nurtec ODT) 75 mg PO DAILY PRN simvastatin 40 mg PO DAILY 90 days tramadol 50 mg PO Q12H 90 days Tobacco use date assessed: 09/10/24 Dental Screening Dental Screen Date: 09/10/24 HPI med management-ins not active HPI Details History - The patient is a 54-year-old female pr esenting with insomnia. She reports consistent difficulty sleeping, sleeping for only one hour at a time since the passing of her son 21 months ago. She describes her sleep pattern as constantly disrupted. - The patient reports that her son was m urdered, and she associates her sleep disturbances with this traumatic event. She is under the care of a psychiatrist and is currently taking a medication called Advant. However, she expresses a desire for a stronger medication when her son's court date approaches. - She describes feeling tired daily due to inadequate sleep. - She reports a recent laboratory result indicating hyperglycemia, with a fastin g sugar level of 109, suggestive of prediabetes. - The patient is experiencing chronic pa in, primarily in her right leg and hip, which exacerbates with walking and affects her mobility, requiring her to pull herself upstairs. Previous medical advice suggested that it could be related to her hip. - She reports persistent gastroesophagea l reflux disease symptoms, characterized by burping and nausea, despite taking omeprazole, indicating the need for a potential increase in dosage. - She notes smoking approximately 10 cig arettes daily and has experienced exacerbated anxiety when attempting nicotine patches. - She experiences daytime fatigue attrib uted to caffeine intake and poor sleep habits. - She cites that additional attempts to alleviate chronic pain with naproxen or Aleve are contraindicated due to her use of Eliquis, a blood thinner. 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 - Prediabetes - Deep vein thrombosis (DVT), ongoing us e of Eliquis - Gastroesophageal reflux disease (GERD) - Tobacco use disorder - Chronic pain in the hip and leg - History of anxiety exacerbated by fausto susannah replacements - Behavioral management with psychiatric care Medications - Advant (current dosage unspecified), r eported use for anxiety - Eliquis 5 mg, for Deep Vein Thrombosis (DVT) - Omeprazole, for gastroesophageal reflu x disease (GERD) - Tyrendal 14 mg patch recommended, alig ns with her current smoking habits - Tramadol twice daily as needed for chr onic pain; however, patient's historical use suggests previous dissatisfaction Problem List - Insomnia - Chronic pain - Prediabetes - Narcotic seeking behavior - Deep vein thrombosis - Tobacco use disorder - Anxiety - Gastroesophageal reflux disease Diagnostic results - Labs: - Fasting sugar: 109 mg/dL, zena cative of prediabetes - LDL cholesterol: 108 mg/dL - Normal TSH levels - Diagnostic imaging: No x-rays or furth er testing provided in conversation. [place] of Care - Psychiatrist and therapist Hematology [facility] Patient Instructions - Avoid drinking coffee after 5:00 PM to improve sleep quality. - Attempt smoking cessation again with a 14 mg nicotine patch. - Increase omeprazole dosage to twice da arpita to manage GERD symptoms. - Schedule and attend an x-ray foot pain . - Communicate with the psychiatrist faiza lam a more effective sleep aid. Review of Systems General: No fever no chills neurological: No headaches no dizziness ear nose throat: No sore throat no hearing difficulty no ear pain cardiovascular: No syncope, no chest pain, no palpitations gastrointestinal: No nausea vomiting or diarrhea endocrine: No polyuria polydipsia no heat intolerance genitourinary: No dysuria skin: No new complaints Physical Exam general: Appears tired, fatigued HEENT: No acute findings neck: Supple respiratory system: Able to talk in full sentences, no audible wheeze no stridor cardiovascular: S1-S2 RRR gastrointestinal: Soft nontender extremities: No swelling 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 Son No problems noted. Son No problems noted. Son No problems noted. Son No problems noted. 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 1. Little interest or pleasure in doing things: several days 2. Feeling down, depressed, or hopeless: several days 3. Trouble falling or staying asleep, or sleeping too much: several days 4. Feeling tired or having little energy: several days 5. Poor appetite or overeating: more than half the days 6. Feeling bad about yourself - or that you are a failure or have let yourself or your family down: not at all 7. Trouble concentrating on things, such as reading the newspaper or watching television: several days 8. Moving or speaking so slowly that other people could have noticed. Or the opposite - being so fidgety or restless that you have been moving around a lot more than usual: not at all 9. Thoughts that you would be better off or of hurting yourself in some way: not at all Total score: 7 Depression Screening Interpretation: Negative Depression Screening Done: Yes 46906 - PHQ-9 Billing: Yes Source: Developed by Drs. Edward Abraham, Uriel Gonzalez and colleagues, with an educational thony from [employer]. Thrive Questionnaire Date Thrive assessed: 12/10/24 I am a: Patient What is your living situation today?: I have a steady place to live Within the past 12 months, did the food you bought not last and you didn't have the money to get more?: Often true Within the past 12 months, did you worry whether your food would run out before you got money to buy more?: Never true Do you have trouble paying for medicines?: No Do you have trouble getting transportation to medical appointments?: No Do you have trouble paying your heating and electricity bill?: No Do you have trouble taking care of your child, family member or friend?: No Do you have trouble with day-to-day activities such as bathing, preparing meals, shopping, managing finances, etc.?: Yes Are you currently unemployed and looking for a job?: No Are you interested in more education?: No Please select the resources that you would like help with: None Currently or been in a relationship where the following occur: No concerns reported THRIVE Score: 1 TEE-7 AMB Questionnaire TEE-7 Date TEE - 7 assessed: 06/11/24 Source: Developed by Drs. Edward Abraham, Uriel Gonzalez and colleagues, with an educational thony from [employer]. Physical exam (Primary Care) Vital Signs: Last Vital Signs Pulse 60 12/10/24 09:03 BP 132/88 12/10/24 09:03 Pulse Ox 97 12/10/24 09:03 BMI result Body Mass Index 36.6 Tobacco/Smoking Status: Tobacco use Status Tobacco use date assessed 09/10/24 12/10/24 09:05 Patient Tobacco Use Status Current everyday Tobacco 12/10/24 09:05 Tobacco use type Cigarette 12/10/24 09:05 e-Cigarette/Vaping Use Never Used 12/10/24 09:05 PHQ-9: PHQ-9 Score PHQ-9: Total score 7 12/10/24 09:05 Depression Screening Interpretation: Negative Thrive Assessment: Date of Thrive Assessment Date Thrive assessed 12/10/24 12/10/24 09:05 Currently or been in a relationship where the following occur: No concerns reported Coding Level of Care Code Est Pt Level 4 (62850) Diagnoses Foot pain, left M79.672 Hypertension, essential I10 Lipid disorder E78.9 Bilateral primary osteoarthritis of knee M17.0 Complex regional pain syndrome i of left lower limb G90.522 Generalized anxiety disorder F41.1 Anxiety disorder type: generalized anxiety disorder Factor 5 Leiden mutation, heterozygous D68.51 Class 2 severe obesity due to excess calories with serious comorbidity and body mass index (BMI) of 38.0 to 38.9 in adult E66.01; Z68.38 Obesity classification: adult class 2 (BMI 35 - 39.9) Serious obesity comorbidity presence: with serious comorbidity Body mass index: BMI 38.0-38.9 Gastroesophageal reflux disease without esophagitis K21.9 Esophagitis presence: without esophagitis Migraine without aura and without status migrainosus, not intractable G43.009 Status migrainosus presence: without status migrainosus Intractability: not intractable Cigarette nicotine dependence without complication F17.210 Nicotine product type: cigarettes Substance use status: uncomplicated Impaired fasting blood sugar R73.01 Recurrent major depressive disorder, in partial remission F33.41 Active/Remission status: in partial remission Additional Codes PHQ-9 - 98429 - PHQ-9 Billing: Yes ([id number]) Assessment & Plan Assessment & Plan (1) Foot pain, left: Code(s): M79.672 - Pain in left foot Category: Medical (2) Hypertension, essential: Code(s): I10 - Essential (primary) hypertension Category: Medical (3) Lipid disorder: Code(s): E78.9 - Disorder of lipoprotein metabolism, unspecified Category: Medical (4) Bilateral primary osteoarthritis of knee: Code(s): M17.0 - Bilateral primary osteoarthritis of knee Category: Medical (5) Complex regional pain syndrome i of left lower limb: Code(s): G90.522 - Complex regional pain syndrome I of left lower limb Category: Medical (6) Anxiety disorder: Code(s): F41.9 - Anxiety disorder, unspecified Category: Medical Qualifiers: Anxiety disorder type: generalized anxiety disorder Qualified Code(s): F41.1 - Generalized anxiety disorder (7) Factor 5 Leiden mutation, heterozygous: Code(s): D68.51 - Activated protein C resistance Category: Medical (8) Obesity due to excess calories: Code(s): E66.09 - Other obesity due to excess calories Category: Medical Qualifiers: Obesity classification: adult class 2 (BMI 35 - 39.9) Serious obesity comorbidity presence: with serious comorbidity Body mass index: BMI 38.0-38.9 Qualified Code(s): E66.01 - Morbid (severe) obesity due to excess calories; Z68.38 - Body mass index [BMI] 38.0-38.9, adult (9) Acid reflux: Code(s): K21.9 - Gastro-esophageal reflux disease without esophagitis Category: Medical Qualifiers: Esophagitis presence: without esophagitis Qualified Code(s): K21.9 - Gastro-esophageal reflux disease without esophagitis (10) Migraine headache without aura: Code(s): G43.009 - Migraine without aura, not intractable, without status migrainosus Category: Medical Qualifiers: Status migrainosus presence: without status migrainosus Intractability: not intractable Qualified Code(s): G43.009 - Migraine without aura, not intractable, without status migrainosus (11) Nicotine dependence: Code(s): F17.200 - Nicotine dependence, unspecified, uncomplicated Category: Medical Qualifiers: Nicotine product type: cigarettes Substance use status: uncomplicated Qualified Code(s): F17.210 - Nicotine dependence, cigarettes, uncomplicated (12) Impaired fasting blood sugar: Code(s): R73.01 - Impaired fasting glucose Category: Medical (13) Major depression, recurrent: Code(s): F33.9 - Major depressive disorder, recurrent, unspecified Category: Medical Qualifiers: Active/Remission status: in partial remission Qualified Code(s): F33.41 - Major depressive disorder, recurrent, in partial remission Plan History - The patient is a 54-year-old female presenting with insomnia. She reports consistent difficulty sleeping, sleeping for only one hour at a time since the passing of her son 21 months ago. She describes her sleep pattern as constantly disrupted. - The patient reports that her son was murdered, and she associates her sleep disturbances with this traumatic event. She is under the care of a psychiatrist and is currently taking a medication called Advant. However, she expresses a desire for a stronger medication when her son's court date approaches. - She describes feeling tired daily due to inadequate sleep. - She reports a recent laboratory result indicating hyperglycemia, with a fasting sugar level of 109, suggestive of prediabetes. - The patient is experiencing chronic pain, primarily in her right leg and hip, which exacerbates with walking and affects her mobility, requiring her to pull herself upstairs. Previous medical advice suggested that it could be related to her hip. - She reports persistent gastroesophageal reflux disease symptoms, characterized by burping and nausea, despite taking omeprazole, indicating the need for a potential increase in dosage. - She notes smoking approximately 10 cigarettes daily and has experienced exacerbated anxiety when attempting nicotine patches. - She experiences daytime fatigue attributed to caffeine intake and poor sleep habits. - She cites that additional attempts to alleviate chronic pain with naproxen or Aleve are contraindicated due to her use of Eliquis, a blood thinner. 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 - Prediabetes - Deep vein thrombosis (DVT), ongoing use of Eliquis - Gastroesophageal reflux disease (GERD) - Tobacco use disorder - Chronic pain in the hip and leg - History of anxiety exacerbated by nicotine replacements - Behavioral management with psychiatric care Medications - Advant (current dosage unspecified), reported use for anxiety - Eliquis 5 mg, for Deep Vein Thrombosis (DVT) - Omeprazole, for gastroesophageal reflux disease (GERD) - Tyrendal 14 mg patch recommended, aligns with her current smoking habits - Tramadol twice daily as needed for chronic pain; however, patient's historical use suggests previous dissatisfaction Problem List - Insomnia - Chronic pain - Prediabetes - Narcotic seeking behavior - Deep vein thrombosis - Tobacco use disorder - Anxiety - Gastroesophageal reflux disease Diagnostic results - Labs: - Fasting sugar: 109 mg/dL, indicative of prediabetes - LDL cholesterol: 108 mg/dL - Normal TSH levels - Diagnostic imaging: No x-rays or further testing provided in conversation. [place] of Care - Psychiatrist and therapist Hematology [facility] Patient Instructions - Avoid drinking coffee after 5:00 PM to improve sleep quality. - Attempt smoking cessation again with a 14 mg nicotine patch. - Increase omeprazole dosage to twice daily to manage GERD symptoms. - Schedule and attend an x-ray foot pain. - Communicate with the psychiatrist regarding a more effective sleep aid. Medications: Changed From omeprazole 20 mg PO DAILY 90 days 90 caps 0RF K21.9 - Gastro-esophageal reflux disease without esophagitis To omeprazole 20 mg PO BID 180 caps 0RF 90 days K21.9 - Gastro-esophageal reflux disease without esophagitis Refilled tramadol refill will be provided at next office visit if needed 50 mg PO Q12H 180 tabs 0RF pain right knee 90 days Discontinued cetirizine (Zyrtec) Discontinued Reason: Doctor's Order 10 mg PO DAILY 30 tabs 0RF H65.93 - Unspecified nonsuppurative otitis media, bilateral tramadol refill will be provided at next office visit if needed Discontinued Reason: Doctor's Order 50 mg PO Q12H 90 days 180 tabs 0RF pain right knee
[2024-12-10 09:03] VITALS: BP 132/88; PULSE 60; O2SAT 97; BMI 36.6
== END 2024-12-10 09:23 | disposition home or self-care (01) ==
PROVIDERS: PCP Internal Medicine; Visit Provider Internal Medicine
DX: M79.672 Pain in left foot (principal); I10 Essential (primary) hypertension; E78.9 Disorder of lipoprotein metabolism, unspecified; M17.0 Bilateral primary osteoarthritis of knee; G90.522 Complex regional pain syndrome I of left lower limb; F41.1 Generalized anxiety disorder; D68.51 Activated protein C resistance; E66.01 Morbid (severe) obesity due to excess calories; Z68.38 Body mass index [BMI] 38.0-38.9, adult; K21.9 Gastro-esophageal reflux disease without esophagitis; G43.009 Migraine without aura, not intractable, without status migrainosus; F17.210 Nicotine dependence, cigarettes, uncomplicated; R73.01 Impaired fasting glucose; F33.41 Major depressive disorder, recurrent, in partial remission

== ENCOUNTER → 2024-12-10 09:29 | Outpatient (BNV) | payer OTHER, SELFPAY | PROVIDERS: PCP Internal Medicine; Visit Provider Radiology Diagnostic Radiology | DX: M79.672 Pain in left foot (principal) | CPT/HCPCS: 73630 ==

== ENCOUNTER 2024-12-17 07:51 | Outpatient (AMB) | payer OTHER, SELFPAY ==
--- OUTSIDE RECORDS SUMMARY | 2024-12-17 07:52 | XMS_ITS | Clinical Summary ---
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 09/25/19 22 Active simvastatin (ZOCOR) 40 MG tablet Take 40 mg by mouth daily. 07/28/19 22 Active losartan-hydroC HLOROthiazide (HYZAAR) 50-12.5 mg per tablet Take 1 tablet by mouth every morning. 06/20/19 24 Active LORazepam (ATIVAN) 1 MG tablet TAKE 1 TABLET BY MOUTH TWICE DAILY NEEDED THEN TAKE 1/2 TABLET BY MOUTH AT BEDTIME NEEDED FOR ANXIETY OR SLEEP 07/01/19 24 Active ELIQUIS 5 mg tablet Take 1 tablet by mouth 2 (two) times a day. 06/20/19 24 Active NURTEC ODT 75 mg tabletIndicatio ns:Migraine without aura and with status migrainosus, not intractable DISSOLVE 1 TABLET(75 MG) ON THE TONGUE 1 TIME NEEDED FOR MIGRAINE 8 tablet 11 07/07/19 25 Active traMADoL (ULTRAM) 50 mg tablet Take 50 mg by mouth every 6 (six) hours as needed. Active riboflavin, vitamin B2, 400 mg TabIndications: Migraine without aura and with status migrainosus, not intractable Take 1 tablet (400 mg total) by mouth daily. 30 tablet 12/14/19 25 Active magnesium oxide (MAG-OX) 400 mg (241.3 mg elemental) tabletIndicatio ns:Migraine without aura and with status migrainosus, not intractable Take 1 tablet (400 mg total) by mouth daily. 30 tablet 12/14/19 25 Active ZOLMitriptan (ZOMIG) 5 MG tablet Take 1 tablet (5 mg total) by mouth as needed for migraine. 9 tablet 08/10/19 23 025 Discontinued Encounters Date Type Department Care Team Description 12/13/2024 12:30 PM EDT Telemedicine - audio only [facility] [address] [place] [address] Omaira Peres FNP Migraine without aura and with status migrainosus, not intractable (Primary Dx) 12/13/2024 Refill [facility] [address] [place] [address] Luz Yost MA 11/04/2024 Telephone [facility] [address] [place] [address] Luz Yost MA from Last 3 Months [...] Care Team (Late st Contact Info) Description 01/31/2025 8:30 AM EDT Telemedicine - audio only [facility] [address] [place] [address] Omaira Peres, RAMONA [address] [facility], [address]nd [place] [address] [email or web address] Health Maintenance Due Date Last Done Comments [...] Insurance GENERIC [employer]CIAL [employer] [place] [id number] [place] [id number] [place] [id number] [place] [id number] [place] [id number] Care Teams 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 It is not the complete legal health record.[facility]
--- NOTE | 2024-12-17 07:57 | AM.OFFWIN_ITS ---
Intake Vital Signs 12/17/24 07:58 Height 5 ft 5 in Weight 220 lb BMI 36.6 BP 130/76 Blood Pressure Location Lt brachial Position Sitting Pulse 75 Pulse Source Pulse Oximeter Temp 98.2 F Temp Source Oral Pulse Oximetry (%) 97 Oxygen Delivery Method Room Air Intake Visit Reasons: ? UTI Intake Note: presents with lots of pressure with peeing and urine frequency Patient Tobacco Use Status: Current everyday Tobacco user Allergies Sulfa (Sulfonamide Antibiotics) Allergy (Unknown, Verified 12/17/24 08:04) unknown sulfamethoxazole (From Bactrim) Allergy (Unknown, Verified 12/17/24 08:04) Unknown trimethoprim (From Bactrim) Allergy (Unknown, Verified 12/17/24 08:04) Unknown atenolol Adverse Reaction (Intermediate, Verified 12/17/24 08:04) Headache gabapentin Adverse Reaction (Mild, Verified 12/17/24 08:04) dont work for pain cortisone injection Adverse Reaction (Mild, Uncoded 11/25/24 09:13) Anaphylaxis Do you need a note to return to daycare/school/sports/work: No HPI HPI Comments History of Present Illness Details History - The patient is a 54-year-old female pr esenting with urinary discomfort and increased frequency of urination. - The urinary discomfort began yesterday and is described as uncomfortable rather than painful, with no hematuria reported. - The patient denies any fever or low ba ck pain but reports mild nausea associated with the urinary symptoms. - There is no history of kidney stones, and the patient has experienced recurrent urinary tract infections in the past. - Previous urine cultures have shown nor mal eliud and some contamination, with a past identification of Group B Streptococcus. - The patient is currently taking omepra zole twice daily, which interacts with the prescribed antibiotic, necessitating a temporary switch to TUMS. Physical Exam General: Cooperative, healthy appearing, comfortable, no acute distress and well developed Orientation: Patient oriented x3 Limitations: No limitations Head: Normal to inspection Ears: Hearing grossly normal bilaterally Nose: Normal External nose present Face and sinus: Normal facial exam Mouth: normal, moist oral mucosa Eyes: Appearance normal, both eyes and all related structures Neck: Normal visual inspection and Yes full ROM Respiratory: Normal respiratory effort and able to speak in complete sentences. Skin: no rashes or lesions noted Neuro: Patient oriented x3 Extremities: moving all extremities normally PFSH Medical History Foot pain, left Fluid level behind tympanic membrane of both ears Complex regional pain syndrome i of left lower limb Bilateral primary osteoarthritis of knee Headache syndrome Chronic pain Alteration comfort patterns as evidenced by distress Bilateral knee pain Lipid disorder Surgical History H/O colonoscopy History of knee surgery Family History Father HTN (hypertension) Mother HTN (hypertension) Maternal Grandfather Diabetes mellitus Maternal Aunt Cancer Son No problems noted. Son No problems noted. Son No problems noted. Son No problems noted. Son No problems noted. 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 Cognitive needs: No Hearing needs: No Vision needs: Yes Female Reproductive History Menstrual Age of Menarche: 9 Review of Systems Const All systems reviewed & are unremarkable except as noted in HPI and below Physical Exam Vital Signs: Last Vital Signs Temp 98.2 F 12/17/24 07:58 Pulse 75 12/17/24 07:58 BP 130/76 12/17/24 07:58 Pulse Ox 97 12/17/24 07:58 Oxygen Delivery Method Room Air 12/17/24 07:58 BMI result Body Mass Index 36.6 Results AMB Urinalysis, Automated UA Leukoctes 125 Joana/uL Last Edit by Donovan Coffman CMA on 12/17/24 08:3 4 UA Nitrite Negative Last Edit by Donovan Coffman CMA on 12/17/24 08:34 UA Urobilinogen 0.2 mg/dL Last Edit by Donovan Coffman CMA on 12/17/24 08 :34 UA Protein 0 mg/dL Last Edit by Donovan Coffman CMA on 12/17/24 08:34 UA pH 7.0 Last Edit by Donovan Coffman CMA on 12/17/24 08:34 UA Blood 0 Andrei/uL Last Edit by Donovan Coffman CMA on 12/17/24 08:34 UA Specific [place] 1.015 Last Edit by Donovan Coffman CMA on 12/17/24 08:34 UA Ketone Negative Last Edit by Donovan Coffman CMA on 12/17/24 08:34 UA Bilirubin 0 mg/dL Last Edit by Donovan Coffman CMA on 12/17/24 08:34 UA Glucose 0 mg/dL Last Edit by Donovan Coffman CMA on 12/17/24 08:34 Assessment & Plan Assessment & Plan (1) Urinary tract infection: Code(s): N39.0 - Urinary tract infection, site not specified Qualifiers: Urinary tract infection type: acute cystitis Hematuria presence: without hematuria Qualified Code(s): N30.00 - Acute cystitis without hematuria Plan: Plan Patient was informed and verbally consented to the use of an ambient scribe for clinic note documentation during this visit Urinary Tract Infection - Initiate treatment with a cephalosporin antibiotic, considering the interaction with omeprazole, and advise the patient to temporarily switch to TUMS. - Monitor for symptom progression and advise follow-up if symptoms worsen or do not improve. - Discuss cost-effective options for antibiotic procurement due to insurance limitations. - not sending a culture today. Patient instructed to return if symptoms do not improve so we can switch the antibiotic and send a culture at that time. Patient was concerned about cost issues of the culture. Orders: Orders AMB Urinalysis Automated Today Z13.9 - Encounter for screening, unspecified Medications: New cefuroxime axetil 500 mg PO Q12H 10 tabs 0RF Coding Level of Care Code Est Pt Level 3 (66813) Diagnoses Acute cystitis without hematuria N30.00 Urinary tract infection type: acute cystitis Hematuria presence: without hematuria
[2024-12-17 07:58] VITALS: BP 130/76; PULSE 75; TEMP 36.8; O2SAT 97; BMI 36.6
== END 2024-12-17 10:23 | disposition home or self-care (01) ==
PROVIDERS: PCP Internal Medicine; Visit Provider Physician Assistant
DX: N30.00 Acute cystitis without hematuria (principal); Z13.9 Encounter for screening, unspecified

== ENCOUNTER → 2024-12-17 07:51 | Outpatient (BNVA) | payer OTHER, SELFPAY | PROVIDERS: PCP Internal Medicine; Visit Provider Physician Assistant | DX: N30.00 Acute cystitis without hematuria (principal) | CPT/HCPCS: 81003 ==

== ENCOUNTER 2024-12-20 07:51 | Outpatient (AMB) | payer OTHER, SELFPAY ==
--- NOTE | 2024-12-20 07:53 | AM.OFFWIN_ITS ---
Intake Vital Signs 12/20/24 07:54 Height 5 ft 5 in Weight 220 lb BMI 36.6 BP 104/78 Blood Pressure Location Rt brachial Position Sitting Pulse 56 Pulse Source Pulse Oximeter Temp 98.1 F Temp Source Oral Pulse Oximetry (%) 98 Oxygen Delivery Method Room Air Intake Visit Reasons: EP UTI still? Pressure in bladder. Intake Note: pt here for concerns of unresolved UTI, c/o pressure in bladder, nausea and decreased appetite Patient Tobacco Use Status: Current everyday Tobacco user Allergies Sulfa (Sulfonamide Antibiotics) Allergy (Unknown, Verified 12/20/24 07:54) unknown sulfamethoxazole (From Bactrim) Allergy (Unknown, Verified 12/20/24 07:54) Unknown trimethoprim (From Bactrim) Allergy (Unknown, Verified 12/20/24 07:54) Unknown atenolol Adverse Reaction (Intermediate, Verified 12/20/24 07:54) Headache gabapentin Adverse Reaction (Mild, Verified 12/20/24 07:54) dont work for pain cortisone injection Adverse Reaction (Mild, Uncoded 11/25/24 09:13) Anaphylaxis Do you need a note to return to daycare/school/sports/work: No HPI HPI Comments History of Present Illness Details 54 y/o Female patient who presents to walk in clinic with c/o Pressure in her Bladder since last . Pt was evaluated here 12/17 for UTI and Prescribed Cefuroxime for 5 days - currently on day 3. She returns to clinic today because she continues to experience Bladder pressure despite taking Abx. Denies Hematuria, urinary Frequency or urgency. Denies fevers, chills, nausea or vomiting. [facility] Medical History (Updated 12/20/24 @ 08:19 by Lissett Burnette NP) Sensation of pressure in bladder area Foot pain, left Fluid level behind tympanic membrane of both ears Complex regional pain syndrome i of left lower limb Bilateral primary osteoarthritis of knee Headache syndrome Chronic pain Alteration comfort patterns as evidenced by distress Bilateral knee pain Lipid disorder Surgical History H/O colonoscopy History of knee surgery Family History Father HTN (hypertension) Mother HTN (hypertension) Maternal Grandfather Diabetes mellitus Maternal Aunt Cancer Son No problems noted. Son No problems noted. Son No problems noted. Son No problems noted. Son No problems noted. 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 Cognitive needs: No Hearing needs: No Vision needs: Yes Female Reproductive History Menstrual Age of Menarche: 9 Review of Systems Const All systems reviewed & are unremarkable except as noted in HPI and below Physical Exam Vital Signs: Last Vital Signs Temp 98.1 F 12/20/24 07:54 Pulse 56 12/20/24 07:54 BP 104/78 12/20/24 07:54 Pulse Ox 98 12/20/24 07:54 Oxygen Delivery Method Room Air 12/20/24 07:54 BMI result Body Mass Index 36.6 Const General: comfortable Nutritional Appearance: overweight Orientation/consciousness: patient oriented x3 Resp Effort & Inspection: normal respiratory effort Cardio Heart sounds: S1 normal heart sound present and S2 normal heart sound present Neuro General: patient oriented x3, gait normal and moves all extremities Assessment & Plan Assessment & Plan (1) Sensation of pressure in bladder area: Code(s): R39.89 - Other symptoms and signs involving the genitourinary system Plan: Urinalysis negative today Advised to hydrate well with Water Complete Abx as ordered RTC if not better. Orders: Orders AMB Urinalysis Automated Today Z13.9 - Encounter for screening, unspecified Coding Level of Care Code Est Pt Level 4 (92924) Diagnoses Sensation of pressure in bladder area R39.89 Time Spent (min) 20
--- OUTSIDE RECORDS SUMMARY | 2024-12-20 07:53 | XMS_ITS | Clinical Summary ---
Author Organization [facility] Address [address] [place] [id number] Phone Care Team Providers Care Vendor Manager Name Role Phone Ochoa Hunter MD Primary Care Provider [phone] Allergies Active Allergy Reactions Criticality Noted Date [...] 12:30 PM EDT Telemedicine - audio only [facility] [address] [place] [address] Omaira Peres FNP Migraine without aura and with status migrainosus, not intractable (Primary Dx) 12/13/2024 Refill [facility] [address] [place] [address] Luz Yost MA 11/04/2024 Telephone [facility] [address] [place] [address] Luz Yost MA from Last 3 Months [...] [facility] [address] [place] [address] Omaira Peres, RAMONA [address] [facility], [address] [place] [address] [email or web address] Health Maintenance Due Date Last Done Comments [...] GENERIC COMMERCIAL [employer] [place] [address] [place] [address] [place] [address] [place] [address] [place] [address] Care Teams Vendor Manager Relationship Specialty Start Date End Date Ochoa Hunter MD [address] [address] PCP - General Internal Medicine 10/16/21 Additional Source Comments The information contained in this document represents components of the legal health record. It is not the complete legal health record.[facility]
[2024-12-20 07:54] VITALS: BP 104/78; PULSE 56; TEMP 36.7; O2SAT 98; BMI 36.6
== END 2024-12-20 09:05 | disposition home or self-care (01) ==
PROVIDERS: PCP Internal Medicine; Visit Provider Nurse Practitioner Family
DX: R39.89 Other symptoms and signs involving the genitourinary system (principal); Z13.9 Encounter for screening, unspecified

== ENCOUNTER → 2024-12-20 07:51 | Outpatient (BNVA) | payer OTHER, SELFPAY | PROVIDERS: PCP Internal Medicine; Visit Provider Nurse Practitioner Family | DX: M17.0 Bilateral primary osteoarthritis of knee (principal); R39.89 Other symptoms and signs involving the genitourinary system | CPT/HCPCS: 81003 ==

== ENCOUNTER 2024-12-31 07:55 | Outpatient (AMB) | payer OTHER, SELFPAY ==
[2024-12-31 08:46] VITALS: BP 132/80; PULSE 64; TEMP 36.9; O2SAT 97; BMI 36.7
--- NOTE | 2024-12-31 08:46 | AM.OFFWIN_ITS ---
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: No Is last menstrual period known: No Post menopausal: Yes Patient : No Allergies Sulfa (Sulfonamide Antibiotics) Allergy (Unknown, Verified 12/31/24 08:52) unknown sulfamethoxazole (From Bactrim) Allergy (Unknown, Verified 12/31/24 08:52) Unknown trimethoprim (From Bactrim) Allergy (Unknown, Verified 12/31/24 08:52) Unknown atenolol Adverse Reaction (Intermediate, Verified 12/31/24 08:52) Headache gabapentin Adverse Reaction (Mild, Verified 12/31/24 08:52) dont work for pain cortisone injection Adverse Reaction (Mild, Uncoded 11/25/24 09:13) Anaphylaxis Do you need a note to return to daycare/school/sports/work: No HPI EP-pain rt side of neck HPI Details This is a 54-year-old female patient presents to the walk-in clinic today with a 1-2 week history of right-sided neck pain. She denies any inciting event to this pain; no neck trauma or accidents. States she woke up one day with this pain. It is on the base of the right side of her skull and extends down the side of her neck. Exacerbated with some neck movements. Denies any other associated sympoms. No fevers, headaches, dizziness. Denies any radiation of pain down arms or arm weakness or paresthesias. Takes Tramadol for chronic knee pain and reports this does help with the neck pain as well. [facility] Medical History Sensation of pressure in bladder area Foot pain, left Fluid level behind tympanic membrane of both ears Complex regional pain syndrome i of left lower limb Bilateral primary osteoarthritis of knee Headache syndrome Chronic pain Alteration comfort patterns as evidenced by distress Bilateral knee pain Lipid disorder Surgical History H/O colonoscopy History of knee surgery Family History Father HTN (hypertension) Mother HTN (hypertension) Maternal Grandfather Diabetes mellitus Maternal Aunt Cancer Son No problems noted. Son No problems noted. Son No problems noted. Son No problems noted. Son No problems noted. 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, 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 Cognitive needs: No Hearing needs: No Vision needs: Yes Female Reproductive History Menstrual Age of Menarche: 9 Review of Systems Const All systems reviewed & are unremarkable except as noted in HPI and below Physical Exam Vital Signs: Last Vital Signs Temp 98.4 F 12/31/24 08:46 Pulse 64 12/31/24 08:46 BP 132/80 12/31/24 08:46 Pulse Ox 97 12/31/24 08:46 Oxygen Delivery Method Room Air 12/31/24 08:46 BMI result Body Mass Index 36.7 Const General: cooperative, healthy appearing, comfortable and no acute distress HEENT Head: Yes normal to inspection, Yes normocephalic and Yes atraumatic Ears: hearing grossly normal bilaterally, external ears normal and TM's normal bilaterally Neck Neck: Yes full ROM and Yes no lymphadenopathy Resp Effort & Inspection: normal respiratory effort Auscultation: clear to auscultation bilaterally Cardio Rate: regular rate Rhythm: regular rhythm Back/Spine/Pelvis Other: no cervical spine tenderness. Right sided cervical muscle tenderness along splenius capitis/levator down right trapezius. Negative spurlings. Cervical Spine: normal cervical lordosis, cervical ROM normal and pain with cervical ROM (pain of right with lat rotation to the left) Skin General skin exam: no rashes or lesions noted Extrem General: Yes capillary refill normal and Yes no clubbing, cyanosis or edema Psych Appearance: grossly normal Mental Status: mental status grossly normal Speech and movement: Normal speech and movement present Assessment & Plan Assessment & Plan (1) Posterolateral cervical muscle strain: Code(s): S16.1XXA - Strain of muscle, fascia and tendon at neck level, initial encounter Qualifiers: Encounter type: initial encounter Qualified Code(s): S16.1XXA - Strain of muscle, fascia and tendon at neck level, initial encounter Plan: Symptoms likely represent a cervical muscle strain. Cervical spine assessment is normal, with no radicular symptoms. I have advised heat application, gentle stretching/massage, and I will start her on a short course of muscle relaxers to take at bedtime to see if this provides any benefit. If she does not improve with measures discussed, or if symptoms worsen/new symptoms develop, she can return to the clinic for further evaluation, or await her upcoming PCP visit with Dr. Hunter on 01/26. Patient verbalizes understanding and agrees to plan as discussed. Medications: New tizanidine 4 mg PO BEDTIME PRN 5 caps 0RF muscle spasticity S16.1XXA - Strain of muscle, fascia and tendon at neck level, initial encounter Coding Level of Care Code Est Pt Level 4 (67750) Diagnoses Posterolateral cervical muscle strain, initial encounter S16.1XXA Encounter type: initial encounter
== END 2024-12-31 09:26 | disposition home or self-care (01) ==
PROVIDERS: PCP Internal Medicine; Visit Provider Nurse Practitioner Family
DX: S16.1XXA Strain of muscle, fascia and tendon at neck level, initial encounter (principal)

== ENCOUNTER 2025-01-26 10:05 | Outpatient (AMB) | payer OTHER, SELFPAY ==
[2025-01-26 10:08] VITALS: BP 128/78; PULSE 63; O2SAT 97; BMI 36.9
--- NOTE | 2025-01-26 10:08 | A.OFFPC_ITS ---
Vital Signs 01/26/25 10:08 Height 5 ft 5 in Weight 222 lb BMI 36.9 BP 128/78 Blood Pressure Location Lt brachial Position Sitting Pulse 63 Pulse Source Pulse Oximeter Pulse Oximetry (%) 97 Intake Visit Reasons: Annual PE Allergies Sulfa (Sulfonamide Antibiotics) Allergy (Unknown, Verified 01/26/25 10:09) unknown sulfamethoxazole (From Bactrim) Allergy (Unknown, Verified 01/26/25 10:09) Unknown trimethoprim (From Bactrim) Allergy (Unknown, Verified 01/26/25 10:09) Unknown atenolol Adverse Reaction (Intermediate, Verified 01/26/25 10:09) Headache gabapentin Adverse Reaction (Mild, Verified 01/26/25 10:09) dont work for pain cortisone injection Adverse Reaction (Mild, Uncoded 11/25/24 09:13) Anaphylaxis Medication List - Last Reconciled 01/26/25 by Ochoa Hunter MD apixaban (Eliquis) 5 mg PO BID blood pressure test kit-large Check BP 3 times daily with heart rate. lorazepam 1 mg PO BID losartan-hydrochlorothiazide 50-12.5 mg 1 tab PO DAILY magnesium oxide 400 mg PO DAILY omeprazole 20 mg PO BID 90 days riboflavin (vitamin B2) 400 mg PO DAILY simvastatin 40 mg PO DAILY 90 days tizanidine 4 mg PO BEDTIME PRN tramadol 50 mg PO Q12H 90 days Tobacco use date assessed: 09/10/24 Dental Screening Dental Screen Date: 09/10/24 HPI Annual PE HPI Details History of Present Illness The patient is a 54-year-old female presenting with chronic knee pain and routine follow-up for chronic medical conditions sent pain management Tricompartmental Osteoarthritis: - Diagnosed following an MRI of the [facility] knee in May 2022. - Exhibits persistent knee pain exacerba bhavana by activities such as walking and climbing stairs. - Reports using motorized carts at store s due to pain severity rated 8/10 after standing or walking for extended periods. - Experiences additional pain radiating to the hip, which may be associated with osteoarthritis. Diffuse Complex Tearing of Lateral Meniscus, Anterior Horn (Right Knee): - Identified in the May 2022 MRI. - Contributes to significant functional limitation, requiring assistance to ascend stairs. - No surgical intervention has been perf ormed, and there has been no recent follow-up with the orthopedic service. - Pain management has been sought, thoug h physical therapy has been limited due to insurance constraints. Prediabetes: - Mildly elevated fasting glucose level noted at 109 mg/dL in November. - Previous hemoglobin A1c values were wi thin appropriate limits in May. - Vitamin D supplementation is ongoing t o address deficiency. Medical History: - Prediabetes - Tricompartmental Osteoarthritis - Diffuse Complex Tearing of Lateral Men iscus, Anterior Horn (Right Knee) - Ozuna's Cyst (Right Knee) - Essential Hypertension - Hyperlipidemia - Vitamin D Deficiency Social History: - Experiences significant functional kiser itation due to knee pain, utilizing motor carts for shopping. - Attempts weight management through t. 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 Family History: - Family history of arthritis Health Maintenance - Blood pressure is well-controlled at . - Mammogram scheduled for this month. - CHAPTER RELATIONS ADMINISTRATOR visit scheduled for next week. - Colonoscopy last performed in March 2022; the next one is due in March 2025. - Vitamin D supplementation ongoing. Medications - Simvastatin for Hyperlipidemia - Tramadol for pain management related t o knee conditions - Vitamin D supplementation Diagnostic results - Labs: CBC within normal limits, electr olytes normal, kidney function tests normal, fasting glucose 109 mg/dL, hemoglobin A1c within limits, liver enzymes normal, and LDL at 108 mg/dL.. Patient Instructions - Continue current Vitamin D supplementa tion. - Use motorized carts in stores to allev iate knee pain during prolonged standing or walking. - Follow through with upcoming mammogram and CHAPTER RELATIONS ADMINISTRATOR appointment. - Monitor and follow up on fasting gluco se levels for prediabetes management. - Manage weight through diet and reduced calorie intake. - Take prescribed medications as directe d, observing safe usage. Review of Systems - General: No fever no chills - Neurological: No headaches no dizzin ess - Ear nose throat: No sore throat no hearing difficulty no ear pain - Cardiovascular: No syncope, no chest pain, no palpitations - Gastrointestinal: No nausea vomiting or diarrhea - Endocrine: No polyuria polydipsia no heat intolerance - Genitourinary: No dysuria - Skin: No new complaints Physical Exam General: Cooperative, healthy appearing, comfortable, no acute distress Orientation: Patient oriented x3 Limitations: Due to bilateral knee pain Head: Normal to inspection Ears: Within normal limit visually Nose: Normal external nose present Face and sinus: Normal facial exam Eyes: Appearance normal, extraocular movement intact pupils reactive Neck: Normal visual inspection and supple Respiratory: Normal respiratory effort and able to speak in complete sentences. Clear to auscultation, no stridor Cardiovascular: S1 and S2 RRR Breast exam through OBGYN GI: Normal to inspection. Soft to palpation and nontender Skin: Turgor normal, no acute findings Neuro: Patient oriented x3, motor sensory intact, balance not checked due to knee pain Extremities: Both knees are painful, but range of motion intact no swelling of ankles, balance intact, tandem not checked [facility] Medical History Sensation of pressure in bladder area Foot pain, left Fluid level behind tympanic membrane of both ears Complex regional pain syndrome i of left lower limb Bilateral primary osteoarthritis of knee Headache syndrome Chronic pain Alteration comfort patterns as evidenced by distress Bilateral knee pain Lipid disorder Surgical History H/O colonoscopy History of knee surgery Family History Father HTN (hypertension) Mother HTN (hypertension) Maternal Grandfather Diabetes mellitus Maternal Aunt Cancer Son No problems noted. Son No problems noted. Son No problems noted. Son No problems noted. Son No problems noted. 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 Cognitive needs: No Hearing needs: No Vision needs: Yes Female Reproductive History Menstrual Age of Menarche: 9 Questionnaire Thrive Questionnaire Date Thrive assessed: 01/26/25 I am a: Patient What is your living situation today?: I have a steady place to live Within the past 12 months, did the food you bought not last and you didn't have the money to get more?: Often true Within the past 12 months, did you worry whether your food would run out before you got money to buy more?: Never true Do you have trouble paying for medicines?: No Do you have trouble getting transportation to medical appointments?: No Do you have trouble paying your heating and electricity bill?: No Do you have trouble taking care of your child, family member or friend?: No Do you have trouble with day-to-day activities such as bathing, preparing meals, shopping, managing finances, etc.?: Yes Are you currently unemployed and looking for a job?: No Are you interested in more education?: No Please select the resources that you would like help with: None Currently or been in a relationship where the following occur: No concerns reported THRIVE Score: 1 TEE-7 AMB Questionnaire TEE-7 Date TEE - 7 assessed: 06/11/24 Source: Developed by Drs. Edward Abraham, Shameka Meraz, Uriel Sultana and colleagues, with an educational thony from [employer]. Physical exam (Primary Care) Vital Signs: Last Vital Signs Pulse 63 01/26/25 10:08 BP 128/78 01/26/25 10:08 Pulse Ox 97 01/26/25 10:08 BMI result Body Mass Index 36.9 Tobacco/Smoking Status: Tobacco use Status Tobacco use date assessed 09/10/24 01/26/25 10:10 Patient Tobacco Use Status Current everyday Tobacco 01/26/25 10:10 Tobacco use type Cigarette 01/26/25 10:10 e-Cigarette/Vaping Use Never Used 01/26/25 10:10 Are you ready to quit: No Tobacco cessation counseling provided: Yes Relapse Prevention: discussed the importance of a supportive environment CPT code: Less than 3 minutes Thrive Assessment: Date of Thrive Assessment Date Thrive assessed 01/26/25 01/26/25 10:10 Currently or been in a relationship where the following occur: No concerns repo rted Coding Level of Care Code Est Pt Level 4 (81433) Est Pt Prev Care 40-64y(19893) Diagnoses Encounter for general adult medical examination with abnormal findings Z00.01 Complex regional pain syndrome i of left lower limb G90.522 Headache syndrome G44.89 Recurrent major depressive disorder, in partial remission F33.41 Active/Remission status: in partial remission Generalized anxiety disorder F41.1 Anxiety disorder type: generalized anxiety disorder Hypertension, essential I10 Factor 5 Leiden mutation, heterozygous D68.51 Chronic anticoagulation Z79.01 Impaired fasting blood sugar R73.01 Class 2 severe obesity due to excess calories with serious comorbidity and body mass index (BMI) of 38.0 to 38.9 in adult E66.01; Z68.38 Obesity classification: adult class 2 (BMI 35 - 39.9) Serious obesity comorbidity presence: with serious comorbidity Body mass index: BMI 38.0-38.9 Gastroesophageal reflux disease without esophagitis K21.9 Esophagitis presence: without esophagitis Patellofemoral pain syndrome of both knees M22.2X1; M22.2X2 Laterality: bilateral Bilateral leg pain M79.604; M79.605 Pain management R52 Moderate tramadol dependence F11.20 Assessment & Plan Assessment & Plan (1) Encounter for general adult medical examination with abnormal findings: Code(s): Z00.01 - Encounter for general adult medical examination with abnormal findings Category: Medical (2) Complex regional pain syndrome i of left lower limb: Code(s): G90.522 - Complex regional pain syndrome I of left lower limb Category: Medical (3) Headache syndrome: Code(s): G44.89 - Other headache syndrome Category: Medical (4) Major depression, recurrent: Code(s): F33.9 - Major depressive disorder, recurrent, unspecified Category: Medical Qualifiers: Active/Remission status: in partial remission Qualified Code(s): F33.41 - Major depressive disorder, recurrent, in partial remission (5) Anxiety disorder: Code(s): F41.9 - Anxiety disorder, unspecified Category: Medical Qualifiers: Anxiety disorder type: generalized anxiety disorder Qualified Code(s): F41.1 - Generalized anxiety disorder (6) Hypertension, essential: Code(s): I10 - Essential (primary) hypertension Category: Medical (7) Factor 5 Leiden mutation, heterozygous: Code(s): D68.51 - Activated protein C resistance Category: Medical (8) Chronic anticoagulation: Code(s): Z79.01 - USP (current) use of anticoagulants Category: Medical (9) Impaired fasting blood sugar: Code(s): R73.01 - Impaired fasting glucose Category: Medical (10) Obesity due to excess calories: Code(s): E66.09 - Other obesity due to excess calories Category: Medical Qualifiers: Obesity classification: adult class 2 (BMI 35 - 39.9) Serious obesity comorbidity presence: with serious comorbidity Body mass index: BMI 38.0-38.9 Qualified Code(s): E66.01 - Morbid (severe) obesity due to excess calories; Z68.38 - Body mass index [BMI] 38.0-38.9, adult (11) Acid reflux: Code(s): K21.9 - Gastro-esophageal reflux disease without esophagitis Category: Medical Qualifiers: Esophagitis presence: without esophagitis Qualified Code(s): K21.9 - Gastro-esophageal reflux disease without esophagitis (12) Patella-femoral syndrome: Code(s): M22.2X9 - Patellofemoral disorders, unspecified knee Category: Medical Qualifiers: Laterality: bilateral Qualified Code(s): M22.2X1 - Patellofemoral disorders, right knee; M22.2X2 - Patellofemoral disorders, left knee (13) Bilateral leg pain: Code(s): M79.604 - Pain in right leg; M79.605 - Pain in left leg Category: Medical (14) Pain management: Code(s): R52 - Pain, unspecified Category: Medical (15) Moderate tramadol dependence: Code(s): F11.20 - Opioid dependence, uncomplicated Category: Medical Plan History of Present Illness The patient is a 54-year-old female presenting with chronic knee pain and routine follow-up for chronic medical conditions sent pain management Tricompartmental Osteoarthritis: - Diagnosed following an MRI of the right knee in May 2022. - Exhibits persistent knee pain exacerbated by activities such as walking and climbing stairs. - Reports using motorized carts at stores due to pain severity rated 8/10 after standing or walking for extended periods. - Experiences additional pain radiating to the hip, which may be associated with osteoarthritis. Diffuse Complex Tearing of Lateral Meniscus, Anterior Horn (Right Knee): - Identified in the May 2022 MRI. - Contributes to significant functional limitation, requiring assistance to ascend stairs. - No surgical intervention has been performed, and there has been no recent follow-up with the orthopedic service. - Pain management has been sought, though physical therapy has been limited due to insurance constraints. Prediabetes: - Mildly elevated fasting glucose level noted at 109 mg/dL in November. - Previous hemoglobin A1c values were within appropriate limits in May. - Vitamin D supplementation is ongoing to address deficiency. Medical History: - Prediabetes - Tricompartmental Osteoarthritis - Diffuse Complex Tearing of Lateral Meniscus, Anterior Horn (Right Knee) - Ozuna's Cyst (Right Knee) - Essential Hypertension - Hyperlipidemia - Vitamin D Deficiency Social History: - Experiences significant functional limitation due to knee pain, utilizing motor carts for shopping. - Attempts weight management through diet. 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 Family History: - Family history of arthritis Health Maintenance - Blood pressure is well-controlled at 128/78. - Mammogram scheduled for this month. - CHAPTER RELATIONS ADMINISTRATOR visit scheduled for next week. - Colonoscopy last performed in March 2022; the next one is due in March 2025. - Vitamin D supplementation ongoing. Medications - Simvastatin for Hyperlipidemia - Tramadol for pain management related to knee conditions - Vitamin D supplementation Diagnostic results - Labs: CBC within normal limits, electrolytes normal, kidney function tests normal, fasting glucose 109 mg/dL, hemoglobin A1c within limits, liver enzymes normal, and LDL at 108 mg/dL.. Patient Instructions - Continue current Vitamin D supplementation. - Use motorized carts in stores to alleviate knee pain during prolonged standing or walking. - Follow through with upcoming mammogram and CHAPTER RELATIONS ADMINISTRATOR appointment. - Monitor and follow up on fasting glucose levels for prediabetes management. - Manage weight through diet and reduced calorie intake. - Take prescribed medications as directed, observing safe usage. Patient requested a script for semaglutide to see if the insurance will cover for weight loss her BMI is 36.9 and she is prediabetic Having difficulty losing weight due to knee problems Medications: New semaglutide (weight loss) (Maria Luisa) administer weeks 1 through 4 of therapy 0.25 mg (0.5 mL) subcut QWEEK 2.5 mL 0RF 30 days Refilled tramadol refill will be provided at next office visit if needed 50 mg PO Q12H 180 tabs 0RF pain right knee 90 days losartan-hydrochlorothiazide 50-12.5 mg 1 tab PO DAILY 90 tabs 1RF
== END 2025-01-26 10:54 | disposition home or self-care (01) ==
LOC: HO.HMCC 10:06
PROVIDERS: PCP Internal Medicine; Visit Provider Internal Medicine
DX: Z00.00 Encounter for general adult medical examination without abnormal findings (principal); E66.01 Morbid (severe) obesity due to excess calories; Z68.38 Body mass index [BMI] 38.0-38.9, adult; F11.20 Opioid dependence, uncomplicated; Z68.36 Body mass index [BMI] 36.0-36.9, adult; G90.522 Complex regional pain syndrome I of left lower limb; G44.89 Other headache syndrome; F33.41 Major depressive disorder, recurrent, in partial remission; F41.1 Generalized anxiety disorder; I10 Essential (primary) hypertension; D68.51 Activated protein C resistance; Z79.01 Long term (current) use of anticoagulants

== ENCOUNTER 2025-02-16 | Outpatient (REF) | payer OTHER, SELFPAY ==
--- OUTSIDE RECORDS SUMMARY | 2025-03-07 10:15 | XMS_ITS | Clinical Summary ---
Author Organization [facility] Address [address] [place] [address] Phone Care Team Providers Care Weaving Instructor Name Role Phone Ochoa Hunter MD Primary Care Provider [phone] Allergies Active Allergy Reactions Criticality Noted Date [...] 8:30 AM EDT Telemedicine - audio only [facility] Neurology [address] [place] [address] [place] [address] Omaira Peres, RAMONA Migraine without aura and with status migrainosus, not intractable (Primary Dx) 12/13/2024 12:30 PM EDT Telemedicine - audio only [facility] Neurology [address] [place] [address] Omaira Peres, RAMONA Migraine without aura and with status migrainosus, not intractable (Primary Dx) 12/13/2024 Refill [facility] Neurology [address] [place] [address] Luz Yost MA from Last 3 Months [...] file Insurance GENERIC COMMERCIAL LU[employer] REEDER [id number] GENERIC COMMERCIAL GENERIC COMMERCIAL GENERIC COMMERCIAL GENERIC COMMERCIAL [employer]ER [id number] [place] [id number] [place] [id number] Care Teams Weaving Instructor Relationship Specialty Start Date End Date Ochoa Hunter MD [address] [place] [address] PCP - General Internal Medicine 10/16/21 Additional Source Comments The information contained in this document represents components of the legal health record. It is not the complete legal health record.[facility]
== END 2025-02-16 00:01 | disposition home or self-care (01) ==
LOC: CF
PROVIDERS: PCP Internal Medicine; Visit Provider Obstetrics & Gynecology
DX: N90.4 Leukoplakia of vulva (principal)
CPT/HCPCS: 56605

== ENCOUNTER 2025-02-16 10:48 | Outpatient (AMB) | payer OTHER, SELFPAY ==
--- NOTE | 2025-02-16 10:51 | A.OFFVIS_ITS ---
Intake Visit Reasons: vaginal itching Intake Note: Patient was treated 1 month ago for a UTI. Experiencing at the moment vaginal itching, burning when urinating, and discharge. Mushroom Spawn Maker: Mushroom Spawn Maker Present (Bridgette ) Accompanied by: Self / Same As Patient Allergies Sulfa (Sulfonamide Antibiotics) Allergy (Unknown, Verified 02/16/25 10:59) unknown sulfamethoxazole (From Bactrim) Allergy (Unknown, Verified 02/16/25 10:59) Unknown trimethoprim (From Bactrim) Allergy (Unknown, Verified 02/16/25 10:59) Unknown atenolol Adverse Reaction (Intermediate, Verified 02/16/25 10:59) Headache gabapentin Adverse Reaction (Mild, Verified 02/16/25 10:59) dont work for pain cortisone injection Adverse Reaction (Mild, Uncoded 11/25/24 09:13) Anaphylaxis HPI Comments Details: Presenting complaining of vulvovaginal itching no associated vaginal discharge or foul odor 11/15 posterior fourchette biopsy showed the following: Vulva, posterior fourchette, biopsy: Benign squamous mucosa with hyperkeratosis and features of lichen sclerosus (see comment). Comment: Rare PAS positive material noted and fungi cannot be excluded. Additional sections and GMS stain pending; addendum to follow [facility] Medical History Sensation of pressure in bladder area Foot pain, left Fluid level behind tympanic membrane of both ears Complex regional pain syndrome i of left lower limb Bilateral primary osteoarthritis of knee Headache syndrome Chronic pain Alteration comfort patterns as evidenced by distress Bilateral knee pain Lipid disorder Surgical History H/O colonoscopy History of knee surgery Family History Father HTN (hypertension) Mother HTN (hypertension) Maternal Grandfather Diabetes mellitus Maternal Aunt Cancer Son No problems noted. Son No problems noted. Son No problems noted. Son No problems noted. Son No problems noted. 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 Cognitive needs: No Hearing needs: No Vision needs: Yes Female Reproductive History Menstrual Age of Menarche: 9 Review of Systems Const All systems reviewed & are unremarkable except as noted in HPI and below Physical Exam General: Yes no CVA tenderness External Female Exam: No normal external appearance (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) and normal appearance of the urethra Speculum Exam - Vagina: normal appearance of the vagina, normal palpation, no lesions and no masses Speculum Exam - Cervix: normal appearance of the cervix, normal palpation, no lesions, no masses and nontender Bimanual exam- vagina & uterus: normal bimanual exam, normal palpation, uterine size normal, normal palpation, uterine shape normal, No Cervical tenderness present and non-tender Bimanual Exam- Adnexa, other: normal adnexae Back/Spine/Pelvis Back: no CVA tenderness Office Procedures LIMITED RADIOLOGY TECHNICIAN Biopsy Before the procedure was started d/w patient the procedure, alternatives ( do nothing, medical rx), & all the risks associated with the procedure ( bleeding , infection, vulvar scarring, painful intercourse, injury to vessels, possible need for transfusion with all its risks) then patient signed the consent. Preop dx: Posterior fourchette leukoplakia Op: Posterior fourchette leukopla biopsy Post op: Same Anesthesia: Lidocaine 1% 3cc used Procedure: Using betadine the area was scrubbed and draped in the usual manner. 3 cc of lidocaine was used for anesthesia at the left vulvar lesion area ; using punch biopsy and pickup thePosterior fourchette leukopla was biopsied . Pressure was used for hemostasis. The patient tolerated the procedure well. Discharge Instructions: The patient was instructed to schedule an appointment in 2 weeks for follow-up and to call if temp>100.4, area of the biopsy redness or pain, nausea/vomiting. This note was generated with a voice recognition program. Some errors may have been overlooked during the review of this note. Sometimes these errors may affect the content or meaning of a given sentence. 64137-Asuddj of Vulva/Perineum Procedure code (CPT) selection complete Assessment & Plan Assessment & Plan (1) Vulvar leukoplakia: Comment: Bilateral vulvar, periclitoral and Posterior fourchette Code(s): N90.4 - Leukoplakia of vulva Category: Medical Plan: Discussed with the patient the finding on pelvic exam, recommended vulvar biopsy, the patient agreed. 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
--- OUTSIDE RECORDS SUMMARY | 2025-02-16 13:36 | XMS_ITS | Clinical Summary ---
Author Organization [facility] Address [address] [place] [phone] Phone Care Team Providers Care College Instructor Name Role Phone Ochoa Hunter MD Primary Care Provider [phone] Allergies Active Allergy Reactions Criticality Noted Date Comments Sulfamethoxazole-Trimethoprim Hives 2021 Medications omeprazole (PRILOSEC) 20 MG capsule Take 20 mg by mouth daily. 2 Active simvastatin (ZOCOR) 40 MG tablet Take 40 mg by mouth daily. 2 Active losartan-hydroCH LOROthiazide (HYZAAR) 50-12.5 mg per [...] FOR MIGRAINE 8 tablet 11 5 Active traMADoL (ULTRAM) 50 mg tablet Take 50 mg by mouth every 6 (six) hours as needed. Active riboflavin, vitamin B2, 400 mg TabIndications:M igraine without aura and with status migrainosus, not intractable Take 1 tablet (400 mg total) by mouth daily. 30 tablet 5 Active magnesium oxide (MAG-OX) 400 mg (241.3 mg elemental) tabletIndication s:Migraine without aura and with status migrainosus, not intractable Take 1 tablet (400 mg total) by mouth daily. 30 tablet 5 Active Encounters Date Type Department Care Team Description 01/31/2025 8:30 AM EDT Telemedicine - audio only [facility] [address] [place] [address] [place] [address] Omaira Peres, RAMONA Migraine without aura and with status migrainosus, not intractable (Primary Dx) 12/13/2024 12:30 PM EDT Telemedicine - audio only [facility] [address] [place] [address] Omaira Peres, RAMONA Migraine without aura and with status migrainosus, not intractable (Primary Dx) 12/13/2024 Refill [facility] [address] [place] [address] Luz Yost MA from Last 3 Months [...] Mass Index - - Plan of Treatment Health Maintenance Due Date Last Done Comments [...] 2018 ZOSTER VACCINES (1 of 2) 2018 INFLUENZA VACCINE (#1) 2024 COVID-19 VACCINE (2023-2 5 season) 2025 HEPATITIS A VACCINES Aged Out No long [...] Devices Not on file Insurance [employer] [place] [id number] [place] [id number] [place] [id number] [place] [id number] [place] [id number] [employer]CIAL [place] [id number] [place] [address] Care Teams College Instructor Relationship Specialty Start Date End Date Ochoa Hunter MD [address] [facility] [place] [address] PCP - General Internal Medicine 10/16/21 Additional Source Comments The information contained in this document represents components of the legal health record. It is not the complete legal health record.[facility]
== END 2025-02-16 11:29 | disposition home or self-care (01) ==
PROVIDERS: PCP Internal Medicine; Visit Provider Obstetrics & Gynecology
DX: N90.4 Leukoplakia of vulva (principal)
CPT/HCPCS: 56605

== ENCOUNTER 2025-02-16 11:30 | Outpatient (REF) | payer OTHER, SELFPAY | END 2025-02-16 11:31 | disposition home or self-care (01) | LOC: HO.LNP 11:30 | PROVIDERS: Visit Provider Obstetrics & Gynecology | DX: N90.4 Leukoplakia of vulva (principal) | CPT/HCPCS: 88305; 88312 ==

== ENCOUNTER 2025-02-28 08:19 | Outpatient (REF) | payer OTHER, SELFPAY | END 2025-02-28 08:20 | disposition home or self-care (01) | LOC: HO.LAB 08:19 | PROVIDERS: PCP Internal Medicine; Visit Provider Nurse Practitioner Family | DX: N30.00 Acute cystitis without hematuria (principal); R30.0 Dysuria | CPT/HCPCS: 51798; 81003; 87086; 87147 ==

== ENCOUNTER 2025-02-28 08:19 | Outpatient (AMB) | payer OTHER, SELFPAY ==
--- NOTE | 2025-02-28 08:23 | A.OFFVIS_ITS ---
Intake Visit Reasons: 3m/PVR Intake Note: Patient is present for 3M/PVR Urology Medication:VITAMIN B2 Antibiotic Allergy:SULFA,BACTRIM,GABAPENTIN Blood Thinner:APIXABAN Last PVR:OML'S Todays PVR:0ML'S Digital Forensic Examiner Required: No Allergies Sulfa (Sulfonamide Antibiotics) Allergy (Unknown, Verified 02/28/25 09:05) unknown sulfamethoxazole (From Bactrim) Allergy (Unknown, Verified 02/28/25 09:05) Unknown trimethoprim (From Bactrim) Allergy (Unknown, Verified 02/28/25 09:05) Unknown atenolol Adverse Reaction (Intermediate, Verified 02/28/25 09:05) Headache gabapentin Adverse Reaction (Mild, Verified 02/28/25 09:05) dont work for pain cortisone injection Adverse Reaction (Mild, Uncoded 02/28/25 09:05) Anaphylaxis Medication List - Last Reconciled 02/28/25 by RAMONA Osborne-CHANTAL apixaban (Eliquis) 5 mg PO BID estradiol 0.01%(0.1mg/gram) pea-sized to urethra daily x1 month and then 3 times per week thereafter 90 days lorazepam 1 mg PO BID losartan-hydrochlorothiazide 50-12.5 mg 1 tab PO DAILY magnesium oxide 400 mg PO DAILY omeprazole 20 mg PO BID 90 days riboflavin (vitamin B2) 400 mg PO DAILY simvastatin 40 mg PO DAILY 90 days tramadol 50 mg PO Q12H 90 days HPI Comments Details: Isabel is a pleasant 54-year-old female patient of Dr. Hunter. She has a past medical history of bilateral osteoarthritis of the knees, headaches, chronic pain, and lipid disorder. She presents to the office today for a follow up regarding her intermittent in urinary issues. In discussion with the patient today she reports having recently followed up with Dr. Shahzad batista at [facility] and having had a biopsy for ongoing vaginal pruritus and issues she has been experiencing. She has a follow-up appointment to review biopsy results in the next 3 weeks. She reports intermittent episodes of dysuria that she feels are worsened with sexual activity. In office urinalysis results reviewed with the patient today. 3+ leukocytes negative nitrates. PVR 0 mL. Previous workup has included a retroperitoneal ultrasound 06/17 noting no calculi, lesions, or hydronephrosis noted bilaterally. The bladder is partially distended. Prevoid bladder volume is 128 mL postvoid bladder volume is 5.7 mL. Microgen 06/17 noted Staphylococcus agalactiae, lactobacillus iners, Enterobacter hormaechei, E coli, prevotella bivia, gardnerella vaginalis. She denies urinary urgency, urinary frequency, incontinence, nocturia, hematuria, foul smelling urine, changes to urinary stream, flank pain, fever, and or chills. We di scussed potential causes of lower urinary tract symptoms patient is experiencing as well as further treatment options and risks and benefits of these treatment options. Discussed, educated, and instructed on the importance of drinking plenty of water daily. She otherwise offers no other issues or concerns at this time. [facility] Medical History (Updated 02/28/25 @ 09:13 by Chary Tap[facility]) Dysuria Sensation of pressure in bladder area Foot pain, left Fluid level behind tympanic membrane of both ears Complex regional pain syndrome i of left lower limb Bilateral primary osteoarthritis of knee Headache syndrome Chronic pain Alteration comfort patterns as evidenced by distress Bilateral knee pain Lipid disorder Surgical History H/O colonoscopy History of knee surgery Family History Father HTN (hypertension) Mother HTN (hypertension) Maternal Grandfather Diabetes mellitus Maternal Aunt Cancer Son No problems noted. Son No problems noted. Son No problems noted. Son No problems noted. Son No problems noted. 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 Cognitive needs: No Hearing needs: No Vision needs: Yes Female Reproductive History Menstrual Age of Menarche: 9 Review of Systems Const Reports no additional complaints Eyes Reports no additional complaints ENT Reports no additional complaints Card Reports as per HPI Resp Reports no additional complaints GI Reports no additional complaints Reports as per HPI Musc Details: Patient reports she follows up with [facility] orthopedics for bilateral knee arthritis and question of meniscus issues Reports as per HPI Neuro Reports no additional complaints Psych Reports no additional complaints Endo Reports no additional complaints Richard/Lymph Reports no additional complaints Aller/Immun Reports no additional complaints Physical Exam Const General: cooperative, healthy appearing, comfortable, no acute distress, well developed, alert and awake Nutritional Appearance: overweight Orientation/consciousness: patient oriented x3 Limitations: no limitations HEENT Head: Yes normal to inspection, Yes normocephalic and Yes atraumatic Eyes General: appearance normal, both eyes and all related structures Neck Neck: Yes normal visual inspection and Yes trachea midline Chest Chest palpation & inspection: normal inspection of the chest Resp Effort & Inspection: normal respiratory effort and able to speak in complete sentences Cardio Rate: regular rate GI Inspection: Yes normal to inspection General: Yes no CVA tenderness Back/Spine/Pelvis Back: no CVA tenderness Neuro General: patient oriented x3 Extrem General: Yes normal to inspection Psych Appearance: grossly normal and well kempt Mental Status: mental status grossly normal Speech and movement: Normal speech and movement present and Clear speech present Affect: Sad affect present Attitude: cooperative Thought process: Normal thought process present Thought content: Normal thought content present Insight: Fair insight present (Psych) Judgement: Fair judgement present (Psych) Office Procedures Post Void Residual Post Residual Void Post Void Residual (PVR): 0 [id number] Void Residual by ultrasound Results AMB Urinalysis, Automated UA Leukoctes 500 Joana/uL Last Edit by MARCIAL Petersen on 02/28/25 08:44 UA Nitrite Negative Last Edit by MARCIAL Petersen on 02/28/25 08:44 UA Urobilinogen 0.2 mg/dL Last Edit by MARCIAL Petersen on 02/28/25 08:4 4 UA Protein 0 mg/dL Last Edit by MARCIAL Petersen on 02/28/25 08:44 UA pH 6.0 Last Edit by MARCIAL Petersen on 02/28/25 08:44 UA Blood 0 Andrei/uL Last Edit by MARCIAL Petersen on 02/28/25 08:44 UA Specific [place] 1.020 Last Edit by MARCIAL Petersen on 02/28/25 08: 44 UA Ketone Negative Last Edit by MARCIAL Petersen on 02/28/25 08:44 UA Bilirubin 0 mg/dL Last Edit by MARCIAL Petersen on 02/28/25 08:44 UA Glucose 0 mg/dL Last Edit by MARCIAL Petersen on 02/28/25 08:44 Results Reviewed Results Reviewed: Laboratory Last Values Urine pH (Auto) 6.0 02/28/25 08:43 Specific [place] (Auto) 1.020 02/28/25 08:43 Urine Protein (Auto) 0 mg/dL 02/28/25 08:43 Glucose (UA)(Auto) 0 mg/dL 02/28/25 08:43 Urine Ketones (Auto) Negative 02/28/25 08:43 Urine Blood (Auto) 0 Andrei/uL 02/28/25 08:43 Urine Nitrite (Auto) Negative 02/28/25 08:43 Urine Bilirubin (Auto) 0 mg/dL 02/28/25 08:43 Urine Urobilinogen (Auto) 0.2 mg/dL 02/28/25 08:43 Leukocyte Esterase (Auto) 500 Joana/uL 02/28/25 08:43 Assessment & Plan Assessment & Plan (1) Dysuria: Code(s): R30.0 - Dysuria Category: Medical (2) Recurrent urinary tract infection: Code(s): N39.0 - Urinary tract infection, site not specified Category: Medical (3) Urinary tract infection: Code(s): N39.0 - Urinary tract infection, site not specified Category: Medical Qualifiers: Urinary tract infection type: acute cystitis Hematuria presence: without hematuria Qualified Code(s): N30.00 - Acute cystitis without hematuria Plan In office urinalysis results reviewed with the patient today; as noted above; will send for urine culture; will await results for potential treatment. Start Estrace cream as discussed and prescribed. We discussed at length the importance of adequate hydration relation to lower urinary tract symptoms as well as overall health and well-being. We discussed potential causes of lower urinary tract symptoms as well as further treatment options and risks and benefits of these treatment options. All questions were answered. Discussed UTI prevention with D mannose supplement, vitamin-C, increasing fluid intake, behavioral therapy with timed voiding, perineal hygiene and postcoital voiding, and management of constipation with stool softeners and increased fiber intake. Follow-up in 3 months with PVR; or sooner with any issues, concerns, and or questions. Orders: Orders Urine Culture Today N30.00 - Acute cystitis without hematuria AMB Urinalysis Automated Today Z13.9 - Encounter for screening, unspecified Medications: New estradiol 0.01%(0.1mg/gram) pea-sized to urethra daily x1 month and then 3 times per week thereafter 42.5 grams 2RF 90 days N36.2 - Urethral caruncle, N39.0 - Urinary tract infection, site not specified, N95.2 - Postmenopausal atrophic vaginitis Patient Instructions: The patient had an opportunity to ask questions regarding the treatment plan. All questions were answered. Physical exam, labs, and imaging were discussed and reviewed in detail. As well as risks, benefits, and discussion of treatment choices. No major barriers to understanding were identified. The patient expressed understanding and agreement with the above treatment plan. The patient was made aware they should contact our office by phone for worsening of their current condition, the appearance of new symptoms, or with any questions or concerns. Compliance is encouraged with any medications and follow up testing that is ordered. It is a privilege to be allowed the opportunity to participate in? your urological care.? Again, if you have any questions or concerns If you have any questions or concerns please do not hesitate to contact me. The office is [phone]. This note is constructed using voice recognition software. While every effort has been made to ensure accuracy systems software specialist errors may have been included. Yours sincerely, MIKY Osborne Coding Level of Care Code Est Pt Level 4 (47116) Diagnoses Dysuria R30.0 Recurrent urinary tract infection N39.0 Acute cystitis without hematuria N30.00 Urinary tract infection type: acute cystitis Hematuria presence: without hematuria CPT Codes Post Residual Void - PVR CPT Code: 77991-Xvdc Void Residual by ultrasound ([id number])
--- OUTSIDE RECORDS SUMMARY | 2025-02-28 08:43 | XMS_ITS | Clinical Summary ---
Author Organization [facility] Address [address] [place] [address] Phone Care Team Providers Care Mechanic Senior Name Role Phone Ochoa Hunter MD Primary Care Provider [phone] Allergies Active Allergy Reactions Criticality Noted Date [...] 8:30 AM EDT Telemedicine - audio only [facility] Neurology [address] [place] [address] [place] [address] Omaira Peres, RAMONA Migraine without aura and with status migrainosus, not intractable (Primary Dx) 12/13/2024 12:30 PM EDT Telemedicine - audio only [facility] Neurology [address] [place] [address] Omaira Peres, RAMONA Migraine without aura and with status migrainosus, not intractable (Primary Dx) 12/13/2024 Refill [facility] Neurology [address] [place] [address] Luz Yost MA from Last 3 Months [...] 2018 INFLUENZA VACCINE (#1) 2024 COVID-19 VACCINE (1 - 2024-2 6 season) 2025 RSV VACCINE (1 - 1-dose 75+ series) 09/29/2043 HEPATITIS A VACCINES Aged Out No long [...] file Insurance GENERIC COMMERCIAL [employer]EDER [id number] GENERIC COMMERCIAL GENERIC COMMERCIAL GENERIC COMMERCIAL GENERIC COMMERCIAL [place] [id number] [place] [address] [place] [address] Care Teams Mechanic Senior Relationship Specialty Start Date End Date Ochoa Hunter MD [address] [facility] [place] [address] PCP - General Internal Medicine 10/16/21 Additional Source Comments The information contained in this document represents components of the legal health record. It is not the complete legal health record.[facility]
== END 2025-02-28 09:03 | disposition home or self-care (01) ==
LOC: HO.HUSH 08:20
PROVIDERS: PCP Internal Medicine; Visit Provider Nurse Practitioner Family
DX: R30.0 Dysuria (principal); N39.0 Urinary tract infection, site not specified; N30.00 Acute cystitis without hematuria; Z13.9 Encounter for screening, unspecified
CPT/HCPCS: 99214

== ENCOUNTER 2025-03-16 07:14 | Outpatient (AMB) | payer OTHER, SELFPAY ==
[2025-03-16 07:15] VITALS: BP 130/80; PULSE 72; RESP 15; TEMP 36.9; O2SAT 98; BMI 37.4
--- NOTE | 2025-03-16 07:15 | AM.OFFWIN_ITS ---
Intake Vital Signs 03/16/25 07:15 Height 5 ft 5 in Weight 225 lb BMI 37.4 BP 130/80 Blood Pressure Location Lt brachial Position Sitting Respiration 15 Pulse 72 Pulse Source Pulse Oximeter Temp 98.5 F Temp Source Oral Pulse Oximetry (%) 98 Oxygen Delivery Method Room Air Intake Visit Reasons: EP-body hives/extremely itchy Intake Note: Pt is here today c/o body hives and extremely itchy Patient Tobacco Use Status: Current everyday Tobacco user Allergies Sulfa (Sulfonamide Antibiotics) Allergy (Unknown, Verified 03/16/25 07:16) unknown sulfamethoxazole (From Bactrim) Allergy (Unknown, Verified 03/16/25 07:16) Unknown trimethoprim (From Bactrim) Allergy (Unknown, Verified 03/16/25 07:16) Unknown atenolol Adverse Reaction (Intermediate, Verified 03/16/25 07:16) Headache gabapentin Adverse Reaction (Mild, Verified 03/16/25 07:16) dont work for pain cortisone injection Adverse Reaction (Mild, Uncoded 03/16/25 07:29) Altered Sense of Taste HPI HPI Comments History of Present Illness Details History of Present Illness - The patient is a 54-year-old female pr esenting with itching and hives. - The itching began yesterday and is acc ompanied by hives on various parts of the body, including the private area, but not on the back. - The patient suspects the reaction is d ue to Augmentin, which she has been taking since March 02, with one pill remaining. - This is the second time she has taken Augmentin, but she did not experience this reaction previously. - The patient reports a history of high blood pressure since an incident involving cortisone injections, which caused dizziness and altered taste, but not anaphylaxis. Review of Systems - Dermatological: Reports itching and hi ves throughout body. - Cardiovascular: Denies chest pain or s hortness of breath - Endocrine: Denies diabetes. All systems reviewed and are unremarkable except as noted in HPI Physical Exam General: Cooperative, healthy appearing, comfortable, no acute distress and well developed Orientation: Patient oriented x3 Limitations: No limitations Head: Normal to inspection Ears: Hearing grossly normal bilaterally Nose: Normal External nose present Face and sinus: Normal facial exam Eyes: Appearance normal, both eyes and all related structures Neck: Normal visual inspection and Yes full ROM Respiratory: Normal respiratory effort and able to speak in complete sentences. Skin: Hives on bilateral arms, chest, abdomen, groin, and bilateral legs. Neuro: Patient oriented x3 Extremities: Normal to inspection [facility] Medical History (Updated 03/16/25 @ 07:33 by Karla Bonilla PA-C) Dysuria Sensation of pressure in bladder area Foot pain, left Fluid level behind tympanic membrane of both ears Complex regional pain syndrome i of left lower limb Bilateral primary osteoarthritis of knee Headache syndrome Chronic pain Alteration comfort patterns as evidenced by distress Bilateral knee pain Lipid disorder Surgical History H/O colonoscopy History of knee surgery Family History Father HTN (hypertension) Mother HTN (hypertension) Maternal Grandfather Diabetes mellitus Maternal Aunt Cancer Son No problems noted. Son No problems noted. Son No problems noted. Son No problems noted. Son No problems noted. 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, 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 Cognitive needs: No Hearing needs: No Vision needs: Yes Female Reproductive History Menstrual Age of Menarche: 9 Physical Exam Vital Signs: Last Vital Signs Temp 98.5 F 03/16/25 07:15 Pulse 72 03/16/25 07:15 Resp 15 03/16/25 07:15 BP 130/80 03/16/25 07:15 Pulse Ox 98 03/16/25 07:15 Oxygen Delivery Method Room Air 03/16/25 07:15 BMI result Body Mass Index 37.4 Office Meds diphenhydramine HCl 25 mg tablet Performing Provider: Karla Bonilla PA-C Performing Location: [facility] Administered by: Karla Bonilla PA-C on 03/16/25 07:45 Dose Route Admin Location Dispensed Lot Number Expiration Date NDC Public Policy Analyst 25 mg PO 1 tab [id number] 12/22/26 2425-3339-49 [employer] Assessment & Plan Assessment & Plan (1) Allergic reaction due to antibacterial drug: Code(s): T36.95XA - Adverse effect of unspecified systemic antibiotic, initial encounter Plan: Patient was informed and verbally consented to the use of an ambient scribe for clinic note documentation during this visit. - Urticaria suspected to be caused by Augmentin, which the patient has been taking since March 02. - Recommended treatment includes a tapering course of prednisone, starting with 60 mg for 3 days, followed by 40 mg for 3 days, and then 20 mg for 4 days. - Benadryl is advised for symptomatic relief, with the option to take it in the morning and at night. - Of note, pt had a listing of allergy to cortisone but she explains she has gotten cortisone injections in her knees and one time, she tasted it in her mouth and her mouth got tingly but her throat did NOT close up, she never had any issues prior or since with cortisone or prednisone and has taken prednisone since the incident. I updated the allergies Orders: Orders AMB Diphenhydramine Adult Dose Today T36.95XA - Adverse effect of unspecified systemic antibiotic, initial encounter Medications: New prednisone On days 1-3, take 3 tablets with breakfast. On days 4-6 take 2 tablets with breakfast, on days 7-10 take 1 tablet with breakfast 20 mg PO daily 19 tabs 0RF Coding Level of Care Code Est Pt Level 3 (66864) Diagnoses Allergic reaction due to antibacterial drug T36.95XA
--- OUTSIDE RECORDS SUMMARY | 2025-03-16 07:17 | XMS_ITS | Clinical Summary ---
Author Organization [facility] Address [address] [place] [id number] Phone Care Team Providers Care Mechatronics Technician Name Role Phone Ochoa Hunter MD Primary Care Provider [phone] Allergies Active Allergy Reactions Criticality Noted Date [...] mg total) by mouth daily. 30 tablet 11 5 Active magnesium oxide (MAG-OX) 400 mg (241.3 mg elemental) tabletIndication s:Migraine without aura and with status migrainosus, not intractable Take 1 tablet (400 mg total) by mouth daily. 30 tablet 5 Active Encounters Date Type Department Care Team Description 01/31/2025 8:30 AM EDT Telemedicine - audio only [facility] Neurology [address] [place] [address] Omaira Peres FNP Migraine without aura and with status migrainosus, not intractable (Primary Dx) from Last 3 Months Social History Tobacco [...] Care Team (Late st Contact Info) Description 08/01/2025 12:30 PM EDT Telemedicine - audio only [facility] Neurology [address] [place] [address] Omaira Peres FNP [address] [facility] [place] [address] Health Maintenance Due Date Last Done Comments [...] file Insurance GENERIC COMMERCIAL [employer] [id number] GENERIC COMMERCIAL GENERIC COMMERCIAL GENERIC COMMERCIAL GENERIC COMMERCIAL LU[employer]ER [id number] GENERIC COMMERCIAL [place] [id number] [place] [id number] Care Teams Mechatronics Technician Relationship Specialty Start Date End Date Ochoa Hunter MD [address] [place] [address] PCP - General Internal Medicine 10/16/21 Additional Source Comments The information contained in this document represents components of the legal health record. It is not the complete legal health record.[facility]
== END 2025-03-16 07:52 | disposition home or self-care (01) ==
PROVIDERS: PCP Internal Medicine; Visit Provider Physician Assistant
DX: T36.95XA Adverse effect of unspecified systemic antibiotic, initial encounter (principal)

== ENCOUNTER → 2025-03-16 07:14 | Outpatient (BNVA) | payer OTHER, SELFPAY | PROVIDERS: PCP Internal Medicine; Visit Provider Physician Assistant | DX: L29.9 Pruritus, unspecified (principal); L50.9 Urticaria, unspecified; T36.95XA Adverse effect of unspecified systemic antibiotic, initial encounter ==

== ENCOUNTER 2025-03-17 12:36 | Outpatient (AMB) | payer OTHER, SELFPAY ==
--- NOTE | 2025-03-17 12:38 | AM.OFFWIN_ITS ---
Intake Vital Signs 03/17/25 12:43 Height 5 ft 5 in Weight 224 lb BMI 37.3 BP 116/68 Blood Pressure Location Rt brachial Position Sitting Pulse 75 Pulse Source Pulse Oximeter Temp 98.3 F Temp Source Oral Pulse Oximetry (%) 97 Oxygen Delivery Method Room Air Intake Visit Reasons: EP-TB test Intake Note: Patient presents for TB test to return to work. Patient Tobacco Use Status: Current everyday Tobacco user Allergies Sulfa (Sulfonamide Antibiotics) Allergy (Unknown, Verified 03/17/25 12:42) unknown sulfamethoxazole (From Bactrim) Allergy (Unknown, Verified 03/17/25 12:42) Unknown trimethoprim (From Bactrim) Allergy (Unknown, Verified 03/17/25 12:42) Unknown atenolol Adverse Reaction (Intermediate, Verified 03/17/25 12:42) Headache gabapentin Adverse Reaction (Mild, Verified 03/17/25 12:42) dont work for pain cortisone injection Adverse Reaction (Mild, Uncoded 03/17/25 12:42) Altered Sense of Taste HPI HPI Comments History of Present Illness Details History of Present Illness - The patient is a 54-year-old female pr esenting with a need for tuberculosis screening. 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 - She has no history of living in a coun try with an elevated tuberculosis rate and denies any immune suppression conditions such as HIV. - The patient reports no long-term use o r any close contact with individuals who are sick. - She reports no previous positive TB te sts. Physical Exam General: Cooperative, healthy appearing, comfortable, no acute distress and well developed Orientation: Patient oriented x3 Limitations: No limitations Respiratory: Normal respiratory effort and able to speak in complete sentences. Clear to auscultation bilaterally Cardiovascular: Regular rate and rhythm. Normal S1 and S2 Patient was informed and verbally consented to the use of an ambient scribe for clinic note documentation during this visit. [facility], [facility] Medical History (Updated 03/16/25 @ 07:33 by Karla Bonilla PA-C) Dysuria Sensation of pressure in bladder area Foot pain, left Fluid level behind tympanic membrane of both ears Complex regional pain syndrome i of left lower limb Bilateral primary osteoarthritis of knee Headache syndrome Chronic pain Alteration comfort patterns as evidenced by distress Bilateral knee pain Lipid disorder Surgical History H/O colonoscopy History of knee surgery Family History Father HTN (hypertension) Mother HTN (hypertension) Maternal Grandfather Diabetes mellitus Maternal Aunt Cancer Son No problems noted. Son No problems noted. Son No problems noted. Son No problems noted. Son No problems noted. 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 Cognitive needs: No Hearing needs: No Vision needs: Yes Female Reproductive History Menstrual Age of Menarche: 9 Review of Systems Const All systems reviewed & are unremarkable except as noted in HPI and below Physical Exam Vital Signs: Last Vital Signs Temp 98.3 F 03/17/25 12:43 Pulse 75 03/17/25 12:43 BP 116/68 03/17/25 12:43 Pulse Ox 97 03/17/25 12:43 Oxygen Delivery Method Room Air 03/17/25 12:43 BMI result Body Mass Index 37.3 Assessment & Plan Assessment & Plan (1) Tuberculosis screening: Code(s): Z11.1 - Encounter for screening for respiratory tuberculosis Plan Most likely TB screening test plan - will order TB screening - filled out paperwork - follow up with PCP Orders: Orders Quantiferon TB Gold Plus 1 Today Z11.1 - Encounter for screening for respiratory tuberculosis Coding Level of Care Code Est Pt Level 2 (38150) Diagnoses Tuberculosis screening Z11.1
[2025-03-17 12:43] VITALS: BP 116/68; PULSE 75; TEMP 36.8; O2SAT 97; BMI 37.3
--- OUTSIDE RECORDS SUMMARY | 2025-03-17 15:44 | XMS_ITS | Clinical Summary ---
Author Organization [facility] Address [address] [place] [id number] Phone Care Team Providers Care Architect Name Role Phone Ochoa Hunter MD Primary Care Provider [phone] Allergies Active Allergy Reactions Criticality Noted Date [...] 8:30 AM EDT Telemedicine - audio only [facility] Neurology [address] [place] [address] Omaira Peres FNP Migraine without aura and [...] 12:30 PM EDT Telemedicine - audio only [facility] Neurology [address] [place] [address] Omaira Peres FNP [address] [facility], [address]nd [place] [address] Health Maintenance Due Date Last Done Comments [...] file Insurance GENERIC COMMERCIAL LUIS F REEDER [id number] GENERIC COMMERCIAL GENERIC COMMERCIAL GENERIC COMMERCIAL GENERIC COMMERCIAL LU[employer] REEDER [id number] GENERIC COMMERCIAL [place] [id number] [place] [id number] Care Teams Architect Relationship Specialty Start Date End Date Ochoa Hunter MD [address] [facility] [place] [address] PCP - General Internal Medicine 10/16/21 Additional Source Comments The information contained in this document represents components of the legal health record. It is not the complete legal health record.[facility]
== END 2025-03-17 13:06 | disposition home or self-care (01) ==
PROVIDERS: PCP Internal Medicine; Visit Provider Physician Assistant Medical
DX: Z11.1 Encounter for screening for respiratory tuberculosis (principal)

== ENCOUNTER 2025-03-21 07:57 | Outpatient (REF) | payer OTHER, SELFPAY ==
--- OUTSIDE RECORDS SUMMARY | 2025-03-21 08:00 | XMS_ITS | Clinical Summary ---
Author Organization [facility] Address [address] [place] [phone] Phone Care Team Providers Care Medical Records Secretary Name Role Phone Ochoa Hunter MD Primary Care Provider [phone] Allergies Active Allergy Reactions Criticality Noted Date [...] 8:30 AM EDT Telemedicine - audio only [facility] Neurology [address] [place] [address] Omaira Peres FNP Migraine without aura and [...] 12:30 PM EDT Telemedicine - audio only [facility] Neurology [address] [place] [address] Omaira Peres FNP [address] [facility], 2nd [place] [address] Health Maintenance Due Date Last Done Comments [...] file Insurance GENERIC COMMERCIAL LUIS F REEDER [id number] GENERIC COMMERCIAL GENERIC COMMERCIAL GENERIC COMMERCIAL GENERIC COMMERCIAL LUIS F REEDER [id number] GENERIC COMMERCIAL [place] [id number] [place] [address] Care Teams Medical Records Secretary Relationship Specialty Start Date End Date Ochoa Hunter MD [address] [facility] [place] [address] PCP - General Internal Medicine 10/16/21 Additional Source Comments The information contained in this document represents components of the legal health record. It is not the complete legal health record.[facility]
[2025-03-24 06:34] LABS: Quantiferon TB Gold Plus 1 NEGATIVE (NEGATIVE); TB Test (QFT) Mitogen -Nil >10.00 IU/mL; TB Test (QFT) Nil 0.05 IU/mL; TB Test (QFT) Plus TB1 -Nil 0.02 IU/mL; TB Test (QFT) Plus TB2 -Nil 0.00 IU/mL
== END 2025-03-21 07:58 | disposition home or self-care (01) ==
LOC: HO.HMGCLDS 07:57
PROVIDERS: PCP Internal Medicine; Visit Provider Physician Assistant Medical
DX: Z11.7 Encounter for testing for latent tuberculosis infection (principal)
CPT/HCPCS: 36415; 86480

== ENCOUNTER 2025-03-23 11:21 | Outpatient (AMB) | payer OTHER, SELFPAY ==
--- NOTE | 2025-03-23 11:21 | MHC.PC.OV ---
Vital Signs 03/23/25 11:24 Height 5 ft 5 in Weight 229 lb BMI 38.1 BP 136/78 Blood Pressure Location Rt brachial Position Sitting Respiration 16 Pulse 83 Pulse Source Pulse Oximeter Temp 98.8 F Temp Source Oral Pulse Oximetry (%) 99 Oxygen Delivery Method Room Air Intake Visit Reasons: Discuss Physician statement form Allergies amoxicillin (From Augmentin) Allergy (Severe, Verified 03/23/25 11:38) Hives clavulanic acid (From Augmentin) Allergy (Severe, Verified 03/23/25 11:38) Hives Sulfa (Sulfonamide Antibiotics) Allergy (Unknown, Verified 03/17/25 12:42) unknown sulfamethoxazole (From Bactrim) Allergy (Unknown, Verified 03/17/25 12:42) Unknown trimethoprim (From Bactrim) Allergy (Unknown, Verified 03/17/25 12:42) Unknown atenolol Adverse Reaction (Intermediate, Verified 03/17/25 12:42) Headache gabapentin Adverse Reaction (Mild, Verified 03/17/25 12:42) dont work for pain cortisone injection Adverse Reaction (Mild, Uncoded 03/17/25 12:42) Altered Sense of Taste Medication List - Last Reconciled 03/23/25 by Ochoa Hunter MD amoxicillin-pot clavulanate 500-125 mg (Augmentin) 1 tab PO Q8H 10 days apixaban (Eliquis) 5 mg PO BID estradiol 0.01%(0.1mg/gram) pea-sized to urethra daily x1 month and then 3 times per week thereafter 90 days lorazepam 1 mg PO BID losartan-hydrochlorothiazide 50-12.5 mg 1 tab PO DAILY magnesium oxide 400 mg PO DAILY omeprazole 20 mg PO BID 90 days prednisone 20 mg PO daily riboflavin (vitamin B2) 400 mg PO DAILY simvastatin 40 mg PO DAILY 90 days tramadol 50 mg PO Q12H 90 days Tobacco use date assessed: 09/10/24 Dental Screening Dental Screen Date: 09/10/24 HPI Discuss Physician statement form HPI Details History of Present Illness The patient is a 54-year-old female presenting for follow-up on recent health issues, primarily a recent allergic reaction to an antibiotic. Allergy to medication: - The patient reports a recent allergic reaction after taking an antibiotic for a UTI, which was prescribed by Dr. Schultz's office. - The reaction occurred around February 28 and manifested as severe hives and facial swelling, for which she was seen on March 17. - She was treated with prednisone for the hives. 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 - Functional Status: Her job duties include bed baths and changing diapers, with no lifting involved. - She reports that this is the only type of job she can perform due to knee and back problems, and she would apply for Social Security if the job were to end. Diagnostic Results: - TB Test: Performed on March 17. Problem List - Allergy to amoxicillin and clavulanate - Recent urinary tract infection - Chronic knee and back pain - form need to be filled for Job Plan - The patient's allergy list will be updated to include Augmentin (amoxicillin/clavulanate). - The patient was informed that she can no longer take penicillin-based antibiotics but can take azithromycin. - Advised the patient to inform Dr. Schultz's office about her antibiotic allergy. - Form filled for her Job to continue working for that one client - The patient has a follow-up appointment scheduled for April. Review of Systems - General: No fever no chills - Neurological: No headaches no dizziness - Ear nose throat: No sore throat no hearing difficulty no ear pain - Cardiovascular: No syncope, no chest pain, no palpitations - Gastrointestinal: No nausea vomiting or diarrhea - Endocrine: No polyuria polydipsia no heat intolerance - Genitourinary: No dysuria , no blood in urine Physical Exam General: No acute distress HEENT: No acute findings Neck: Supple Respiratory system: Able to talk in full sentences, no audible wheeze Cardiovascular: S1-S2 regular in rate and rhythm Gastrointestinal: No pain Extremities: No new findings PENS AND 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 REPAIRER: Alert awake oriented x3 motor intact Skin: normal turger [facility] Medical History Dysuria Sensation of pressure in bladder area Foot pain, left Fluid level behind tympanic membrane of both ears Complex regional pain syndrome i of left lower limb Bilateral primary osteoarthritis of knee Headache syndrome Chronic pain Alteration comfort patterns as evidenced by distress Bilateral knee pain Lipid disorder Surgical History H/O colonoscopy History of knee surgery Family History Father HTN (hypertension) Mother HTN (hypertension) Maternal Grandfather Diabetes mellitus Maternal Aunt Cancer Son No problems noted. Son No problems noted. Son No problems noted. Son No problems noted. Son No problems noted. 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 Cognitive needs: No Hearing needs: No Vision needs: Yes Female Reproductive History Menstrual Age of Menarche: 9 Questionnaire Thrive Questionnaire Date Thrive assessed: 06/11/24 I am a: Patient What is your living situation today?: I have a steady place to live Within the past 12 months, did the food you bought not last and you didn't have the money to get more?: Often true Within the past 12 months, did you worry whether your food would run out before you got money to buy more?: Never true Do you have trouble paying for medicines?: No Do you have trouble getting transportation to medical appointments?: No Do you have trouble paying your heating and electricity bill?: No Do you have trouble taking care of your child, family member or friend?: No Do you have trouble with day-to-day activities such as bathing, preparing meals, shopping, managing finances, etc.?: Yes Are you currently unemployed and looking for a job?: No Are you interested in more education?: No Please select the resources that you would like help with: None Currently or been in a relationship where the following occur: No concerns reported THRIVE Score: 1 AUDIT C Alcohol Use Questionnaire (AUDIT-C) 3. How often do you have six or more drinks on one occasion?: Never Total Score: 0 TEE-7 AMB Questionnaire TEE-7 Date TEE - 7 assessed: 06/11/24 Source: Developed by Drs. Edward Abraham, Shameka Meraz, Uriel Sultana and colleagues, with an educational thony from Aunt Bertha. Physical exam (Primary Care) Vital Signs: Last Vital Signs Temp 98.8 F 03/23/25 11:24 Pulse 83 03/23/25 11:24 Resp 16 03/23/25 11:24 BP 136/78 03/23/25 11:24 Pulse Ox 99 03/23/25 11:24 Oxygen Delivery Method Room Air 03/23/25 11:24 BMI result Body Mass Index 38.1 Tobacco/Smoking Status: Tobacco use Status Tobacco use date assessed 09/10/24 03/23/25 11:29 Patient Tobacco Use Status Current everyday Tobacco 03/23/25 11:29 Tobacco use type Cigarette 03/23/25 11:29 e-Cigarette/Vaping Use Never Used 03/23/25 11:29 Thrive Assessment: Date of Thrive Assessment Date Thrive assessed 06/11/24 03/23/25 11:29 Currently or been in a relationship where the following occur: No concerns reported Coding Level of Care Code Est Pt Level 3 (40349) Diagnoses Bilateral primary osteoarthritis of knee M17.0 Penicillin allergy Z88.0 Assessment & Plan Assessment & Plan (1) Bilateral primary osteoarthritis of knee: Code(s): M17.0 - Bilateral primary osteoarthritis of knee Category: Medical (2) Penicillin allergy: Code(s): Z88.0 - Allergy status to penicillin Category: Medical Plan Allergy to medication: - The patient reports a recent allergic reaction after taking an antibiotic for a UTI, which was prescribed by Dr. Schultz's office. - The reaction occurred around February 28 and manifested as severe hives and facial swelling, for which she was seen on March 17. - She was treated with prednisone for the hives. 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 - Functional Status: Her job duties include bed baths and changing diapers, with no lifting involved. - She reports that this is the only type of job she can perform due to knee and back problems, and she would apply for Social Security if the job were to end. Diagnostic Results: - TB Test: Performed on March 17. Problem List - Allergy to amoxicillin and clavulanate - Recent urinary tract infection - Chronic knee and back pain - form need to be filled for Job Plan - The patient's allergy list will be updated to include Augmentin (amoxicillin/clavulanate). - The patient was informed that she can no longer take penicillin-based antibiotics but can take azithromycin. - Advised the patient to inform Dr. Schultz's office about her antibiotic allergy. - Form filled for her Job to continue working for that one client - The patient has a follow-up appointment scheduled for April.
[2025-03-23 11:24] VITALS: BP 136/78; PULSE 83; RESP 16; TEMP 37.1; O2SAT 99; BMI 38.1
--- OUTSIDE RECORDS SUMMARY | 2025-03-23 14:29 | XMS_ITS | Clinical Summary ---
Author Organization [facility] Address [address] [place] [phone] Phone Care Team Providers Care Insurance Agency Sales Manager Name Role Phone Ochoa Hunter MD Primary Care Provider [phone] Allergies Active Allergy Reactions Criticality Noted Date [...] 8:30 AM EDT Telemedicine - audio only [facility] Neurology [address] [place] [address] Omaira Peres FNP Migraine without aura and [...] 12:30 PM EDT Telemedicine - audio only [facility] Neurology [address] [place] [address] Omaira Peres FNP [address] [facility], [address]nd [place] [address] Health Maintenance Due Date Last Done Comments [...] file Insurance GENERIC COMMERCIAL LUIS [employer] [id number] GENERIC COMMERCIAL GENERIC COMMERCIAL GENERIC COMMERCIAL GENERIC COMMERCIAL LUIS [employer]ER [id number] GENERIC COMMERCIAL [place] [id number] [place] [address] Care Teams Insurance Agency Sales Manager Relationship Specialty Start Date End Date Ochoa Hunter MD [address] [facility] [place] [address] PCP - General Internal Medicine 10/16/21 Additional Source Comments The information contained in this document represents components of the legal health record. It is not the complete legal health record.[facility]
== END 2025-03-23 13:06 | disposition home or self-care (01) ==
LOC: HO.HMCC 11:21
PROVIDERS: PCP Internal Medicine; Visit Provider Internal Medicine
DX: M17.0 Bilateral primary osteoarthritis of knee (principal); Z88.0 Allergy status to penicillin

== ENCOUNTER 2025-03-24 13:53 | Outpatient (REF) | payer SELFPAY ==
[2025-03-25 01:38] LABS: Bacterial Vaginosis PCR NEGATIVE (Negative); Candida Group PCR NOT DETECTED (Not Detect); Candida glab krusei PCR DETECTED (Not Detect); Trichomonas vaginalis PCR NOT DETECTED (Not Detect)
[2025-03-25 02:10] LABS: CT PCR NOT DETECTED (Not Detect.); NG PCR NOT DETECTED (Not Detect.)
== END 2025-03-24 13:54 | disposition home or self-care (01) ==
LOC: HO.LNP 13:53
PROVIDERS: PCP Internal Medicine; Visit Provider Obstetrics & Gynecology
DX: Z01.419 Encounter for gynecological examination (general) (routine) without abnormal findings (principal); L28.0 Lichen simplex chronicus; N76.0 Acute vaginitis; Z12.31 Encounter for screening mammogram for malignant neoplasm of breast; Z12.11 Encounter for screening for malignant neoplasm of colon; Z20.2 Contact with and (suspected) exposure to infections with a predominantly sexual mode of transmission
CPT/HCPCS: 81515; 87491; 87591; 87626; 88175; 99212; 99396

== ENCOUNTER 2025-03-24 13:53 | Outpatient (AMB) | payer OTHER, SELFPAY ==
--- NOTE | 2025-03-24 14:07 | A.OFFVIS_ITS ---
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 Environmental Conflict Manager: Environmental Conflict Manager Present (Bridgette) Accompanied by: Self / Same As Patient Allergies amoxicillin (From Augmentin) Allergy (Severe, Verified 03/24/25 14:12) Hives clavulanic acid (From Augmentin) Allergy (Severe, Verified 03/24/25 14:12) Hives Sulfa (Sulfonamide Antibiotics) Allergy (Unknown, Verified 03/24/25 14:12) unknown sulfamethoxazole (From Bactrim) Allergy (Unknown, Verified 03/24/25 14:12) Unknown trimethoprim (From Bactrim) Allergy (Unknown, Verified 03/24/25 14:12) Unknown atenolol Adverse Reaction (Intermediate, Verified 03/24/25 14:12) Headache gabapentin Adverse Reaction (Mild, Verified 03/24/25 14:12) dont work for pain cortisone injection Adverse Reaction (Mild, Uncoded 03/17/25 12:42) Altered Sense of Taste Is last menstrual period known: No Post menopausal: Yes Patient : No HPI Comments Details: Presenting for annual exam. No complaints. Last Pap/HPV was negative in 12/12 Last Mammogram was BI-RADS 1 in 03/18, the patient is scheduled for another screening mammogram within a few weeks Last Colonoscopy was done in 03/16, the recommendation was to repeat in 3-5 years 02/16/2025 vulvar biopsy pathology showed the following: Vulva, posterior, biopsy: Lichen simplex chronicus; negative for fungal organisms or dysplasia PFSH Medical History Dysuria Sensation of pressure in bladder area Foot pain, left Fluid level behind tympanic membrane of both ears Complex regional pain syndrome i of left lower limb Bilateral primary osteoarthritis of knee Headache syndrome Chronic pain Alteration comfort patterns as evidenced by distress Bilateral knee pain Lipid disorder Surgical History H/O colonoscopy History of knee surgery Family History Father HTN (hypertension) Mother HTN (hypertension) Maternal Grandfather Diabetes mellitus Maternal Aunt Cancer Son No problems noted. Son No problems noted. Son No problems noted. Son No problems noted. Son No problems noted. 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 Cognitive needs: No Hearing needs: No Vision needs: Yes Female Reproductive History Menstrual Age of Menarche: 9 Review of Systems Const All systems reviewed & are unremarkable except as noted in HPI and below Card Reports as per HPI Resp Reports as per HPI GI Reports as per HPI and Reports no additional complaints Reports as per HPI Physical Exam Vital Signs: Last Vital Signs BP 126/76 03/24/25 14:14 BMI result Body Mass Index 38.1 Const General: cooperative, healthy appearing and comfortable Chest Chest palpation & inspection: normal inspection of the chest and normal palpation of entire chest wall Breast/axilla inspection: normal inspection of the breasts and normal inspection of the axillae Breast/axilla palpation: normal palpation of the breasts, normal palpation of the axillae and no axillary lymphadenopathy Resp Effort & Inspection: normal respiratory effort Auscultation: clear to auscultation bilaterally Percussion: percussion normal Cardio Palpation: normal PMI Rate: regular rate Rhythm: regular rhythm Heart sounds: no murmurs and no rubs Peripheral pulses: Peripheral pulses 2+ throughout GI Inspection: Yes normal to inspection Palpation (GI): Soft to palpation, nontender, no guarding, not rigid and No hepatosplenomegaly present Percussion: Yes normal to percussion Auscultation: normal bowel sounds Rectal Exam - Female: deferred General: Yes bladder normal to palpation External Female Exam: No lesion Speculum Exam - Vagina: abnormal appearance of the vagina (Bilateral vulvar leukoplakia and erythema), normal palpation, normal vaginal discharge and not erythematous Speculum Exam - Cervix: normal appearance of the cervix and normal palpation Bimanual exam- vagina & uterus: normal bimanual exam, normal palpation, uterine size normal, bladder normal to palpation, consistency normal and normal palpation Bimanual Exam- Adnexa, other: normal adnexae, no masses and no tenderness Assessment & Plan Assessment & Plan (1) Well woman exam: Code(s): Z01.419 - Encounter for gynecological examination (general) (routine) without abnormal findings Category: Medical Plan: Co testing done. Counseled the patient about the recommended dietary allowance of 1200 mg of Calcium & 600 IU of vitamin D. Mammogram ordered. The patient was referred to GI for screening colonoscopy . The patient was instructed to perform monthly self-breast exams and schedule annual exam in a year. All questions answered and the patient verbalized understanding. (2) Lichen simplex chronicus: Code(s): L28.0 - Lichen simplex chronicus Category: Medical Plan: Discussed with the patient the pathology results showing lichen simplex chronicus. Counseled the patient on how to stop the ?itch-scratch cycle,? the following information were discussed with the patient regarding vulvar care and hygiene: Avoid baby wipes on anti-septic so but the fluid, scented toilet paper, condoms, contraceptive creams or gels, personal lubricant, nylon underwear, specific laundry detergents, shaving, latex products, sanitary products, soaps, oils, topical agent . In addition recommended to the patient to use the following: Mild soaps, avoiding it on the vulva, cleanse of out with water only, gently pat the vulva dry after bathing, fly preservative-free, unscented or fragrance free emollients to hold the moisture in the skin, use Deanne care bottles to rinse after urination, with 100% cotton, and scented fragments free menstrual pads use adequate lubricant for intercourse. Will prescribe a medium-potency, Triamcinolone acetonide 0.1% cream to be used 1-2 times daily for 4 weeks and if it does not work, instructed the patient to call back will send the prescription for clobetasol 0.05%, a high-potency topical corticosteroid ointment , and oral antipruritic medication hydroxyzine 25 mg p.o. Q 6-8 p.r.n. Instructed the patient if she has daytime itching or she cannot tolerate hy droxyzine, will treat with selective serotonin reuptake inhibitor antidepressants (such as fluoxetine, paroxetine, sertraline, or citalopram). Instructed the patient to schedule a should be follow up appointment in 4 weeks after initiation of the treatment Orders: Orders MM tomosynthesis screening BI Today Z12.31 - Encounter for screening mammogram for malignant neoplasm of breast Referrals Gastroenterology Referral Z12.11 - Encounter for screening for malignant neoplasm of colon Medications: New triamcinolone acetonide 0.1% Apply to the affected area twice a day for 4 weeks 1 appl topical BID 80 grams 0RF 4 weeks Coding Level of Care Code Est Pt Level 3 (52267) Est Pt Prev Care 40-64y(29350) Diagnoses Well woman exam Z01.419 Lichen simplex chronicus L28.0
[2025-03-24 14:14] VITALS: BP 126/76; BMI 38.1
--- OUTSIDE RECORDS SUMMARY | 2025-03-24 16:51 | XMS_ITS | Clinical Summary ---
Author Organization [facility] Address [address] [place] [address] Phone Care Team Providers Care Aircraft Powerplant Repairer Name Role Phone Ochoa Hunter MD Primary Care Provider Allergies Active Allergy Reactions Criticality Noted Date [...] 8:30 AM EDT Telemedicine - audio only [facility] [address] [place] [address] Omaira Peres FNP Migraine without aura and [...] 12:30 PM EDT Telemedicine - audio only [facility] [address] [place] [address] Omaira Peres FNP [address] [facility], 2nd [place] [address] Health Maintenance Due Date Last Done Comments [...] file Insurance GENERIC COMMERCIAL [employer] [id number] GENERIC COMMERCIAL GENERIC COMMERCIAL GENERIC COMMERCIAL GENERIC COMMERCIAL [employer]ER [id number] GENERIC COMMERCIAL [place] [id number] Care Teams Aircraft Powerplant Repairer Relationship Specialty Start Date End Date Ochoa Hunter MD [address] [facility] [place] [address] PCP - General Internal Medicine 10/16/21 Additional Source Comments The information contained in this document represents components of the legal health record. It is not the complete legal health record.[facility]
== END 2025-03-24 14:33 | disposition home or self-care (01) ==
LOC: HO.HWS 13:54
PROVIDERS: PCP Internal Medicine; Visit Provider Obstetrics & Gynecology
DX: Z01.419 Encounter for gynecological examination (general) (routine) without abnormal findings (principal); L28.0 Lichen simplex chronicus
CPT/HCPCS: 99213; 99396; 99459

== ENCOUNTER 2025-03-26 08:16 | Outpatient (REF) | payer SELFPAY ==
--- NOTE | ~2025-03-26 | MM_ITS ---
EXAMINATION: MM SCREENING DIGITAL BREAST TOMOSYNTHESIS, BILATERAL CLINICAL INFORMATION: Screening. Asymptomatic. COMPARISON: Mammography: Comparison is made with available priors TECHNIQUE: Digital breast mammography with tomosynthesis is performed in both the craniocaudal and mediolateral oblique views along with computer-aided detection (CAD). FINDINGS: There are scattered areas of fibroglandular density. There are no significant masses, abnormal calcifications, or other abnormalities. MM/MM tomosynthesis screening BI IMPRESSION: No mammographic evidence of malignancy. ASSESSMENT: BI-RADS Category 1: Negative RECOMMENDATION: Routine annual mammography screening. 1 year F/U This examination should not preclude the clinical evaluation of a suspicious palpable abnormality. This patient's information was entered into a reminder system with a target due date for their next mammogram. Electronically signed by: Aubree Vasques DO 03/29/2025 03:43 PM B[facility]
--- OUTSIDE RECORDS SUMMARY | 2025-03-26 08:19 | XMS_ITS | Clinical Summary ---
Author Organization [facility] Address [address] [place] [id number] Phone Care Team Providers Care Job Checker Name Role Phone Ochoa Hunter MD Primary Care Provider [phone] Allergies Active Allergy Reactions Criticality Noted Date [...] 8:30 AM EDT Telemedicine - audio only [facility] [address] [place] [address] Omaira Peres FNP Migraine without aura and [...] 12:30 PM EDT Telemedicine - audio only [facility] [address] [place] [address] Omaira Peres FNP [address] [facility], [address]nd [place] [address] Health Maintenance Due Date Last Done Comments [...] file Insurance GENERIC COMMERCIAL [employer] [id number] GENERIC COMMERCIAL GENERIC COMMERCIAL GENERIC COMMERCIAL GENERIC COMMERCIAL [employer]ER [id number] GENERIC COMMERCIAL [place] [id number] [place] [id number] Care Teams Job Checker Relationship Specialty Start Date End Date Ochoa Hunter MD [address] [facility] [place] [address] PCP - General Internal Medicine 10/16/21 Additional Source Comments The information contained in this document represents components of the legal health record. It is not the complete legal health record.[facility]
== END 2025-03-26 08:17 | disposition home or self-care (01) ==
LOC: HO.MAMMO 08:16
PROVIDERS: PCP Internal Medicine; Visit Provider Internal Medicine
DX: Z12.31 Encounter for screening mammogram for malignant neoplasm of breast (principal)
CPT/HCPCS: 77063; 77067

== ENCOUNTER → 2025-03-26 08:45 | Outpatient (BNV) | payer SELFPAY | PROVIDERS: PCP Internal Medicine; Visit Provider Internal Medicine | DX: Z12.31 Encounter for screening mammogram for malignant neoplasm of breast (principal) | CPT/HCPCS: 77063; 77067 ==

== ENCOUNTER 2025-04-25 07:42 | Outpatient (AMB) | payer OTHER, SELFPAY ==
--- OUTSIDE RECORDS SUMMARY | 2025-04-25 07:46 | XMS_ITS | Clinical Summary ---
Author Organization [facility] Address [address] [place] [address] Phone Care Team Providers Care Handle Lathe Operator Name Role Phone Ochoa Hunter MD Primary Care Provider [phone] Allergies Active Allergy Reactions Criticality Noted Date [...] 8:30 AM EDT Telemedicine - audio only [facility] Neurology [address] [place] [address] Omaira Peres FNP Migraine without aura and [...] 12:30 PM EDT Telemedicine - audio only [facility] Neurology [address] [place] [address] Omaira Peres FNP [address] [facility], [address]nd [place] [address] Health Maintenance Due Date Last Done Comments [...] file Insurance GENERIC COMMERCIAL LU[employer] [id number] GENERIC COMMERCIAL GENERIC COMMERCIAL GENERIC COMMERCIAL GENERIC COMMERCIAL [employer]ER [id number] GENERIC COMMERCIAL [place] [id number] Care Teams Handle Lathe Operator Relationship Specialty Start Date End Date Ochoa Hunter MD [address] [facility] [place] [address] PCP - General Internal Medicine 10/16/21 Additional Source Comments The information contained in this document represents components of the legal health record. It is not the complete legal health record.[facility]
--- NOTE | 2025-04-25 07:47 | MHC.OFFVIS ---
Vital Signs 04/25/25 07:48 Height 5 ft 5 in Weight 224 lb BMI 37.3 BP 122/70 Intake Visit Reasons: vulvar reinspect/Mammo Solutions Development Analyst Required: No Information Interpreted: non-clinical & clinical Chief Operating Officer: Chief Operating Officer Present (Radha Pineda JESSICA) Accompanied by: Self / Same As Patient Allergies amoxicillin (From Augmentin) Allergy (Severe, Verified 04/25/25 07:48) Hives clavulanic acid (From Augmentin) Allergy (Severe, Verified 04/25/25 07:48) Hives Sulfa (Sulfonamide Antibiotics) Allergy (Unknown, Verified 04/25/25 07:48) unknown sulfamethoxazole (From Bactrim) Allergy (Unknown, Verified 04/25/25 07:48) Unknown trimethoprim (From Bactrim) Allergy (Unknown, Verified 04/25/25 07:48) Unknown atenolol Adverse Reaction (Intermediate, Verified 04/25/25 07:48) Headache gabapentin Adverse Reaction (Mild, Verified 04/25/25 07:48) dont work for pain cortisone injection Adverse Reaction (Mild, Uncoded 04/25/25 07:48) Altered Sense of Taste Post menopausal: Yes HPI Comments Details: Presenting for reinspection follow-up by doing well with no complaints using triamcinolone at the affected area and vulvar irritation symptoms have subsided completely [facility] Medical History Dysuria Sensation of pressure in bladder area Foot pain, left Fluid level behind tympanic membrane of both ears Complex regional pain syndrome i of left lower limb Bilateral primary osteoarthritis of knee Headache syndrome Chronic pain Alteration comfort patterns as evidenced by distress Bilateral knee pain Lipid disorder Surgical History H/O colonoscopy History of knee surgery Family History Father HTN (hypertension) Mother HTN (hypertension) Maternal Grandfather Diabetes mellitus Maternal Aunt Cancer Son No problems noted. Son No problems noted. Son No problems noted. Son No problems noted. Son No problems noted. 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 Cognitive needs: No Hearing needs: No Vision needs: Yes Female Reproductive History Menstrual Age of Menarche: 9 Review of Systems Const All systems reviewed & are unremarkable except as noted in HPI and below Physical Exam Vital Signs: Last Vital Signs BP 122/70 04/25/25 07:48 BMI result Body Mass Index 37.3 General: Yes no CVA tenderness External Female Exam: No normal external appearance (Bilateral leukoplakia, no erythema) and normal appearance of the urethra Speculum Exam - Vagina: normal appearance of the vagina, normal palpation, no lesions and no masses Speculum Exam - Cervix: normal appearance of the cervix, normal palpation, no lesions, no masses and nontender Bimanual exam- vagina & uterus: normal bimanual exam, normal palpation, uterine size normal, normal palpation, uterine shape normal, No Cervical tenderness present and non-tender Bimanual Exam- Adnexa, other: normal adnexae Back/Spine/Pelvis Back: no CVA tenderness Assessment & Plan Assessment & Plan (1) Vulvar leukoplakia: Comment: Bilateral vulvar, periclitoral and Posterior fourchette Code(s): N90.4 - Leukoplakia of vulva Category: Medical Plan: Recommended the patient to reduce triamcinolone frequency down to 2 to 3 times a week and titrate as needed. Instructions given the patient to call if any of the following occurs, hard areas, nonhealing ulcers or any other concerns. All questions answered, the patient verbalized understanding. Coding Level of Care Code Est Pt Level 3 (56659) Diagnoses Vulvar leukoplakia N90.4
[2025-04-25 07:48] VITALS: BP 122/70; BMI 37.3
== END 2025-04-25 08:37 | disposition home or self-care (01) ==
LOC: HO.HWS 07:43
PROVIDERS: PCP Internal Medicine; Visit Provider Obstetrics & Gynecology
DX: N90.4 Leukoplakia of vulva (principal)
CPT/HCPCS: 99213

== ENCOUNTER 2025-04-26 08:46 | Outpatient (AMB) | payer OTHER, SELFPAY ==
--- NOTE | 2025-04-26 08:48 | A.OFFPC_ITS ---
Vital Signs 04/26/25 08:49 Height 5 ft 5 in Weight 228 lb BMI 37.9 BP 130/70 Blood Pressure Location Lt brachial Position Sitting Pulse 80 Pulse Source Pulse Oximeter Pulse Oximetry (%) 96 Intake Visit Reasons: 3 months f/up Allergies amoxicillin (From Augmentin) Allergy (Severe, Verified 04/26/25 08:50) Hives clavulanic acid (From Augmentin) Allergy (Severe, Verified 04/26/25 08:50) Hives Sulfa (Sulfonamide Antibiotics) Allergy (Unknown, Verified 04/26/25 08:50) unknown sulfamethoxazole (From Bactrim) Allergy (Unknown, Verified 04/26/25 08:50) Unknown trimethoprim (From Bactrim) Allergy (Unknown, Verified 04/26/25 08:50) Unknown atenolol Adverse Reaction (Intermediate, Verified 04/26/25 08:50) Headache gabapentin Adverse Reaction (Mild, Verified 04/26/25 08:50) dont work for pain cortisone injection Adverse Reaction (Mild, Uncoded 04/25/25 07:48) Altered Sense of Taste Medication List - Last Reconciled 04/26/25 by Ochoa Hunter MD apixaban (Eliquis) 5 mg PO BID estradiol 0.01%(0.1mg/gram) pea-sized to urethra daily x1 month and then 3 times per week thereafter 90 days lorazepam 1 mg PO BID losartan-hydrochlorothiazide 50-12.5 mg 1 tab PO DAILY magnesium oxide 400 mg PO DAILY omeprazole 20 mg PO BID 90 days riboflavin (vitamin B2) 400 mg PO DAILY simvastatin 40 mg PO DAILY 90 days tramadol 50 mg PO Q12H 90 days triamcinolone acetonide 0.1% 1 appl topical BID 4 weeks Tobacco use date assessed: 09/10/24 Dental Screening Dental Screen Date: 09/10/24 HPI HPI Comments History of Present Illness Details History of Present Illness The patient is a 54 year old individual presenting for medication refills. Chronic Conditions: - The patient has multiple chronic condi tions including osteoarthritis, right- sided lumbar radiculitis, major depression, impaired fasting glucose, chronic pain syndrome, anxiety, difficulty sleeping, migraines without aura, obesity, Factor V Leiden mutation on chronic anticoagulation, complex regional pain syndrome of the left lower limb, a lipid disorder, hypertension, and chronic GERD. - Laboratory studies from November showed a fasting blood sugar of 109 and an LDL of 108, with kidney functions, liver enzymes, CBC, electrolytes, and thyroid levels within normal limits. Recent fall: - The patient fell in the kitchen a coup le of days ago, possibly from slipping while wearing socks on a slippery floor, and reports that the patient's back has been hurting since the fall. - The patient did not hit their head dur ing the fall and has been using a heating pad for the back pain. Mental Health: - The patient has a history of major dep ression and anxiety, and describes always being depressed due to a broken heart after the patient's son was murdered. - The patient sees a therapist every oth er week. Obesity: - A referral for weight loss management has been discussed, which the patient is interested in pursuing once the patient's new insurance starts. - The patient would prefer to start with weight loss injections rather than surgery. Medical History: - Osteoarthritis - Lumbar radiculitis, right side - Major depression - Impaired fasting glucose - Chronic pain syndrome - Anxiety - Insomnia - Migraine headaches without aura - Obesity - Factor V Leiden mutation - Complex regional pain syndrome of left lower limb - Hyperlipidemia - Hypertension - Chronic gastroesophageal reflux diseas e - Recent fall a few days ago Medications: - Eliquis 5 mg twice a day for Factor V mutation - Lorazepam twice a day, prescribed by a psychiatrist - Losartan-hydrochlorothiazide 50-12.5 m g for hypertension - Omeprazole 20 mg twice a day for chron ic GERD - Simvastatin 40 mg for lipid disorder - Tramadol up to 2 times a day as needed - Probiotic for digestive health Social History: - Tobacco Use: The patient is a current smoker, but reports smoking less lately due to the cold weather. 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 - Family/Social Support: The patient's s on was murdered, which is a source of significant depression and grief. - The patient cares for their granddaugh jj. - The patient attends therapy every othe r week with an older therapist. - Housing: The patient lives in [facility] and reported falling at home after slipping on the floor while wearing socks. - Insurance: The patient has commercial insurance which does not cover prescriptions and is switching to [facility] in June. Family History: - Sister: Underwent weight loss surgery. Diagnostic Results: - Labs from November: - CBC: Within normal limits - Electrolytes: Within normal limits - Kidney function: Intact - Fasting glucose: 109 - Liver enzymes: Within normal limits - LDL: 108 - Thyroid studies: Within normal limits [facility] Medical History Dysuria Sensation of pressure in bladder area Foot pain, left Fluid level behind tympanic membrane of both ears Complex regional pain syndrome i of left lower limb Bilateral primary osteoarthritis of knee Headache syndrome Chronic pain Alteration comfort patterns as evidenced by distress Bilateral knee pain Lipid disorder Surgical History H/O colonoscopy History of knee surgery Family History Father HTN (hypertension) Mother HTN (hypertension) Maternal Grandfather Diabetes mellitus Maternal Aunt Cancer Son No problems noted. Son No problems noted. Son No problems noted. Son No problems noted. Son No problems noted. Social History Household Members: Spouse and Family Housing: House Are you a primary care management coordinator to a significant other at home: No Do you presently have visiting nurse or other home services: No Alcohol intake: current Alcohol intake frequency: holidays/special occasions only Patient Tobacco Use Status: Current everyday Tobacco user Tobacco use type: Cigarette Cigarette Packs Per Day: 0.5 Cigarettes Per Day: 10.0 Years Smoked: 40 +/- e-Cigarette/Vaping Use: Never Used service: No Current occupational status: employed Current occupation: [employer], left handed Cognitive needs: No Hearing needs: No Vision needs: Yes Female Reproductive History Menstrual Age of Menarche: 9 Questionnaire Thrive Questionnaire Date Thrive assessed: 06/11/24 I am a: Patient What is your living situation today?: I have a steady place to live Within the past 12 months, did the food you bought not last and you didn't have the money to get more?: Often true Within the past 12 months, did you worry whether your food would run out before you got money to buy more?: Never true Do you have trouble paying for medicines?: No Do you have trouble getting transportation to medical appointments?: No Do you have trouble paying your heating and electricity bill?: No Do you have trouble taking care of your child, family member or friend?: No Do you have trouble with day-to-day activities such as bathing, preparing meals, shopping, managing finances, etc.?: Yes Are you currently unemployed and looking for a job?: No Are you interested in more education?: No Please select the resources that you would like help with: None Currently or been in a relationship where the following occur: No concerns reported THRIVE Score: 1 TEE-7 AMB Questionnaire TEE-7 Date TEE - 7 assessed: 06/11/24 Source: Developed by Drs. Edward Abraham, Shameka Meraz, Uriel Sultana and colleagues, with an educational thony from [employer]. Review of Systems Narrative Review of Systems - General: No fever no chills - Neurological: No headaches no dizziness - Ear nose throat: No sore throat no hearing difficulty no ear pain - Cardiovascular: No syncope, no chest pain, no palpitations - Gastrointestinal: No nausea vomiting or diarrhea - Endocrine: No polyuria polydipsia no heat intolerance - Genitourinary: No dysuria , no blood in urine Physical exam (Primary Care) Vital Signs: Last Vital Signs Pulse 80 04/26/25 08:49 BP 130/70 04/26/25 08:49 Pulse Ox 96 04/26/25 08:49 BMI result Body Mass Index 37.9 Tobacco/Smoking Status: Tobacco use Status Tobacco use date assessed 09/10/24 04/26/25 08:50 Patient Tobacco Use Status Current everyday Tobacco 04/26/25 08:50 Tobacco use type Cigarette 04/26/25 08:50 e-Cigarette/Vaping Use Never Used 04/26/25 08:50 Thrive Assessment: Date of Thrive Assessment Date Thrive assessed 06/11/24 04/26/25 08:50 Currently or been in a relationship where the following occur: No concerns reported Narrative Physical Exam - General: No acute distress - HEENT: No acute findings - Neck: Supple - Respiratory system: Able to talk in full sentences, no audible wheeze - Cardiovascular: S1-S2 regular in rate and rhythm - Gastrointestinal: No pain - Extremities: No new findings - Back : no pain over spine - 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: Alert awake oriented x3 motor intact - Skin: Normal turgor Coding Level of Care Code Est Pt Level 4 (98841) Diagnoses Fall, initial encounter W19.XXXA Encounter type: initial encounter 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 Hypertension, essential I10 Lipid disorder E78.9 Factor 5 Leiden mutation, heterozygous D68.51 Impaired fasting blood sugar R73.01 Class 2 severe obesity due to excess calories with serious comorbidity and body mass index (BMI) of 38.0 to 38.9 in adult E66.01; Z68.38 Body mass index: BMI 38.0-38.9 Obesity classification: adult class 2 (BMI 35 - 39.9) Serious obesity comorbidity presence: with serious comorbidity Gastroesophageal reflux disease without esophagitis K21.9 Esophagitis presence: without esophagitis Migraine without aura and without status migrainosus, not intractable G43.009 Intractability: not intractable Status migrainosus presence: without status migrainosus Complex regional pain syndrome i of left lower limb G90.522 Chronic pain syndrome G89.4 Generalized anxiety disorder F41.1 Anxiety disorder type: generalized anxiety disorder Assessment & Plan Assessment & Plan (1) Fall: Code(s): W19.XXXA - Unspecified fall, initial encounter Category: Medical Qualifiers: Encounter type: initial encounter Qualified Code(s): W19.XXXA - Unspecified fall, initial encounter (2) Complicated grief: Code(s): F43.81 - Prolonged grief disorder Category: Medical (3) Hypertension, essential: Code(s): I10 - Essential (primary) hypertension Category: Medical (4) Lipid disorder: Code(s): E78.9 - Disorder of lipoprotein metabolism, unspecified Category: Medical (5) Factor 5 Leiden mutation, heterozygous: Code(s): D68.51 - Activated protein C resistance Category: Medical (6) Impaired fasting blood sugar: Code(s): R73.01 - Impaired fasting glucose Category: Medical (7) Obesity due to excess calories: Code(s): E66.09 - Other obesity due to excess calories Category: Medical Qualifiers: Body mass index: BMI 38.0-38.9 Obesity classification: adult class 2 (BMI 35 - 39.9) Serious obesity comorbidity presence: with serious comorbidity Qualified Code(s): E66.01 - Morbid (severe) obesity due to excess calories; Z68.38 - Body mass index [BMI] 38.0-38.9, adult (8) Acid reflux: Code(s): K21.9 - Gastro-esophageal reflux disease without esophagitis Category: Medical Qualifiers: Esophagitis presence: without esophagitis Qualified Code(s): K21.9 - Gastro-esophageal reflux disease without esophagitis (9) Migraine headache without aura: Code(s): G43.009 - Migraine without aura, not intractable, without status migrainosus Category: Medical Qualifiers: Intractability: not intractable Status migrainosus presence: without status migrainosus Qualified Code(s): G43.009 - Migraine without aura, not intractable, without status migrainosus (10) Complex regional pain syndrome i of left lower limb: Code(s): G90.522 - Complex regional pain syndrome I of left lower limb Category: Medical (11) Chronic pain syndrome: Code(s): G89.4 - Chronic pain syndrome Category: Medical (12) Anxiety disorder: Code(s): F41.9 - Anxiety disorder, unspecified Category: Medical Qualifiers: Anxiety disorder type: generalized anxiety disorder Qualified Code(s): F41.1 - Generalized anxiety disorder Plan Problem List - Medication refill - Osteoarthritis - Lumbar radiculitis, right side - Major depressive disorder - Chronic pain syndrome - Anxiety - Insomnia - Migraine headache without aura - Obesity - Factor V Leiden mutation - Complex regional pain syndrome of left lower limb - Hyperlipidemia - Hypertension - Chronic gastroesophageal reflux disease - Tobacco use - Fall - Impaired fasting glucose Plan - Medications: Refills for tramadol, simvastatin, omeprazole, and losartan- hydrochlorothiazide will be sent to the pharmacy. - Labs: The patient will have a new set of labs drawn today to check kidney function, liver enzymes, and blood sugar for prediabetes monitoring; fasting is not required. - Weight Management: A referral will be placed for weight loss management at the next visit, after the patient's new insurance begins in June. - Counseling/Education: Advised the patient to avoid wearing only socks at home to prevent falls and recommended wearing sandals with rubber soles or socks with anti-friction handkerchief folder. - Smoking cessation was offered. - Follow-up: The patient will follow up in approximately 3 months (11-12 weeks) for medication management and to initiate the weight management referral. Orders: Orders Comprehensive Met. Panel Today D68.51 - Activated protein C resistance, E66.01 - Morbid (severe) obesity due to excess calories, E78.9 - Disorder of lipoprotein metabolism, unspecified, F41.1 - Generalized anxiety disorder, G43.009 - Migraine without aura, not intractable, without status migrainosus, G89.4 - Chronic pain syndrome, G90.522 - Complex regional pain syndrome I of left lower limb, I10 - Essential (primary) hypertension, K21.9 - Gastro- esophageal reflux disease without esophagitis, R73.01 - Impaired fasting glucose, Z68.38 - Body mass index [BMI] 38.0-38.9, adult LDL Cholesterol Direct Today D68.51 - Activated protein C resistance, E66.01 - Morbid (severe) obesity due to excess calories, E78.9 - Disorder of lipoprotein metabolism, unspecified, F41.1 - Generalized anxiety disorder, G43.009 - Migraine without aura, not intractable, without status migrainosus, G89.4 - Chronic pain syndrome, G90.522 - Complex regional pain syndrome I of left lower limb, I10 - Essential (primary) hypertension, K21.9 - Gastro-esophageal reflux disease without esophagitis, R73.01 - Impaired fasting glucose, Z68.38 - Body mass index [BMI] 38.0-38.9, adult Complete Blood Count Auto Diff Today D68.51 - Activated protein C resistance, E66.01 - Morbid (severe) obesity due to excess calories, E78.9 - Disorder of lipoprotein metabolism, unspecified, F41.1 - Generalized anxiety disorder, G43.009 - Migraine without aura, not intractable, without status migrainosus, G89.4 - Chronic pain syndrome, G90.522 - Complex regional pain syndrome I of left lower limb, I10 - Essential (primary) hypertension, K21.9 - Gastro- esophageal reflux disease without esophagitis, R73.01 - Impaired fasting glucose, Z68.38 - Body mass index [BMI] 38.0-38.9, adult Hemoglobin A1c Today D68.51 - Activated protein C resistance, E66.01 - Morbid (severe) obesity due to excess calories, E78.9 - Disorder of lipoprotein metabolism, unspecified, F41.1 - Generalized anxiety disorder, G43.009 - Migraine without aura, not intractable, without status migrainosus, G89.4 - Chronic pain syndrome, G90.522 - Complex regional pain syndrome I of left lower limb, I10 - Essential (primary) hypertension, K21.9 - Gastro-esophageal reflux disease without esophagitis, R73.01 - Impaired fasting glucose, Z68.38 - Body mass index [BMI] 38.0-38.9, adult Medications: Refilled simvastatin 40 mg PO DAILY 90 tabs 0RF 90 days omeprazole 20 mg PO BID 180 caps 0RF 90 days K21.9 - Gastro-esophageal reflux disease without esophagitis tramadol refill will be provided at next office visit if needed 50 mg PO Q12H 180 tabs 0RF pain right knee 90 days
[2025-04-26 08:49] VITALS: BP 130/70; PULSE 80; O2SAT 96; BMI 37.9
--- OUTSIDE RECORDS SUMMARY | 2025-04-26 08:55 | XMS_ITS | Clinical Summary ---
Author Organization [facility] Address [address] [place] [id number] Phone Care Team Providers Care Ingredient Handler Name Role Phone Ochoa Hunter MD Primary Care Provider [phone] Allergies Active Allergy Reactions Criticality Noted Date [...] 8:30 AM EDT Telemedicine - audio only [facility] [address] [place] [address] Omaira Peres FNP Migraine without aura and [...] 12:30 PM EDT Telemedicine - audio only [facility] [address] [place] [address] Omaira Peres FNP [address] [facility], [address]nd [place] [address] Health Maintenance Due Date Last Done Comments [...] file Insurance [employer] [id number] [employer]CIAL GENER[employer]CIAL GENERIC COMM[employer]CIAL [employer] [id number] [employer] [place] [id number] [place] [id number] Care Teams Ingredient Handler Relationship Specialty Start Date End Date Ochoa Hunter MD [address] [place] [address] PCP - General Internal Medicine 10/16/21 Additional Source Comments The information contained in this document represents components of the legal health record. It is not the complete legal health record.[facility]
== END 2025-04-26 09:14 | disposition home or self-care (01) ==
PROVIDERS: PCP Internal Medicine; Visit Provider Internal Medicine
DX: I10 Essential (primary) hypertension (principal); F43.81 Prolonged grief disorder; E66.01 Morbid (severe) obesity due to excess calories; Z68.38 Body mass index [BMI] 38.0-38.9, adult; W19.XXXA Unspecified fall, initial encounter; E78.9 Disorder of lipoprotein metabolism, unspecified; D68.51 Activated protein C resistance; R73.01 Impaired fasting glucose; K21.9 Gastro-esophageal reflux disease without esophagitis; G43.009 Migraine without aura, not intractable, without status migrainosus; G90.522 Complex regional pain syndrome I of left lower limb; G89.4 Chronic pain syndrome; F41.1 Generalized anxiety disorder

== ENCOUNTER 2025-04-26 08:46 | Outpatient (REF) | payer OTHER, SELFPAY ==
[2025-04-26 10:05] LABS: MANUAL DIFF FLAG NO
[2025-04-26 10:25] LABS: Hematocrit 41.7 % (37.0-47.0); Hemoglobin 14.3 g/dl (12.0-16.0); Imm Gran Abs Auto 0.02 X10*3/uL (0.00-0.03); Imm Gran Pct Auto 0.2 % (0.0-0.4); Lymphocytes Absolute Auto 4.1 X10*3/uL (1.2-4.9); Mean Corpuscular HGB Conc 34.3 g/dl (31.0-35.0); Mean Corpuscular Hemoglobin 30.4 pg (27.0-33.0); Mean Corpuscular Volume 88.7 fL (80.0-98.0); NRBC Abs Auto 0.000 X10*3/uL (0.0-0.012); NRBC Pct Auto 0.0 /100WBC (0.0-0.2); Platelet Count 196 X10*3/uL (160-400); Red Blood Count 4.70 X10*6/uL (4.20-5.50); White Blood Count 8.3 X10*3/uL (4.8-10.8)
[2025-04-26 10:48] LABS: Alanine Aminotransferase 23 U/L (0-31); Albumin Level 4.6 g/dL (3.5-5.0); Alkaline Phosphatase 82 U/L (39-117); Anion Gap 14 (12-20); Aspartate Amino Transferase 24 U/L (5-31); Blood Urea Nitrogen 16 mg/dL (9-16); Calcium 9.5 mg/dL (8.4-10.2); Carbon Dioxide 25 mmol/L (22-29); Chloride 107 mmol/L (96-108); Estimated Glomerular Filt Rate > 60; Potassium 3.8 mmol/L (3.3-5.1); Sodium 142 mmol/L (135-145); Total Protein 7.3 g/dL (6.5-8.0)
== END 2025-04-26 08:47 | disposition home or self-care (01) ==
LOC: HO.HMGCLDS 08:46
PROVIDERS: PCP Internal Medicine; Visit Provider Internal Medicine
DX: I10 Essential (primary) hypertension (principal); E78.9 Disorder of lipoprotein metabolism, unspecified; D68.51 Activated protein C resistance; R73.01 Impaired fasting glucose; E66.01 Morbid (severe) obesity due to excess calories; K21.9 Gastro-esophageal reflux disease without esophagitis; G43.009 Migraine without aura, not intractable, without status migrainosus; G90.522 Complex regional pain syndrome I of left lower limb; G89.4 Chronic pain syndrome; F41.1 Generalized anxiety disorder; W19.XXXA Unspecified fall, initial encounter; F43.81 Prolonged grief disorder; Z68.37 Body mass index [BMI] 37.0-37.9, adult
CPT/HCPCS: 36415; 80053; 83036; 83721; 85025